=== PATIENT | male | born 1940 | race Caucasian/White ===

== ENCOUNTER 2016-09-30 19:31 | Inpatient (IN) ==
[2016-09-30] MEDS ORDERED: 0.9 % Sodium Chloride 1,000 ML IVC ONE (19:42)
--- NOTE | 2016-09-30 19:45 | Emergency Department Note ---
Disposition Clinical Impression: Chest pain, Atrial fibrillation with RVR, Frail elderly, Hypertension, HLD ( hyperlipidemia), Diabetes, Thoracic aneurysm without mention of rupture, Abdominal aortic aneurysm, Cholelithiasis, Renal insufficiency, Abnormal chest x -ray Disposition: Admitted As Inpatient Referrals: Unassigned,Provider [Non-Partnered Physician] - General Adult HPI - General Stated complaint: CP Time Seen by Provider: 09/30/16 19:33 - History of Present Illness HPI Narrative: 76-year-old male reports to the emergency department, he is complaining of chest pain. The patient came in by private automobile. He went to [facility] and was sent to the ED by Dr. Shin, the patient refused EMS transport. The patient states he was recently admitted to [facility] and evaluated, he states he had a heart attack about a week ago. The patient takes Xeralto for atrial fibrillation. The patient also describes having an aneurysm possibly in the abdomen. There is no history of trauma. The patient was sitting watching TV and developed sudden chest pain which radiated to the back he describes most the pain is between his scapula. He denies abdominal pain, no fever, no cough runny nose or pain or sore throat noted. There is no history of leg swelling or pain syncope or bleeding. No confusion or difficulty moving the arms or legs independently. The patient was at rest when his pain started, it started suddenly. There is no history of slurred speech or seizure-like activity. No other complaints or concerns. - Related Data Home Medications Medication Instructions Recorded Confirmed Diazepam [Valium] 10 mg PO HS 05/03/16 09/10/16 Ezetimibe [Zetia] 10 mg PO DAILY 05/03/16 09/10/16 Fenofibrate [Lofibra] 160 mg PO DAILY 05/03/16 09/10/16 Gabapentin [Neurontin] 300 mg PO TID 05/03/16 09/10/16 LORazepam [Ativan] 0.5 mg PO BID 05/03/16 09/10/16 Levothyroxine [Synthroid] 50 mcg PO DAILY 05/03/16 09/10/16 Metformin [Glucophage] 500 mg PO BIDWM 05/03/16 09/10/16 OxyCODONE/APAP 10/325 [Percocet 1 each PO Q4HR PRN 11/28/16 04/07/17 10/325 MG] Testosterone Cypionate 50 mg IM Q2W 05/03/16 09/10/16 [Depo-Testosterone] Aspirin [Lo-Dose Aspirin EC] 81 mg PO DAILY 09/10/16 09/10/16 Niacin 500 mg PO BID 09/10/16 09/10/16 Tamsulosin HCl [Flomax] 0.4 mg PO DAILY 09/10/16 09/10/16 Previous Rx's Medication Instructions Recorded Metoprolol XL (24 HR) Succ [Toprol 50 mg PO DAILY #30 tab.er.24h 09/11/16 XL] Allergies Allergy/AdvReac Type Severity Reaction Status Date / Time No Known Allergies Allergy Verified 09/10/16 19:06 All systems ED: reviewed and negative except as stated. Past Medical History - Past Medical History Medical history: Reports: diabetes, hyperlipidemia, hypertension, myocardial infarction Psychiatric history: Reports: anxiety, depression - Social History Smoking Status: Former smoker Smokeless Tobacco Status: No Alcohol use: Reports: rarely Drug use: Reports: none Physical Exam - General Limitations: no limitations General appearance: alert, in no apparent distress, anxious - Head Head exam: atraumatic, normocephalic, normal inspection - Eye Eye exam: Present: normal appearance, PERRL, EOMI. Absent: scleral icterus, conjunctival injection, miosis, mydriasis - ENT ENT exam: normal exam, normal oropharynx, mucous membranes moist, TM's normal bilaterally, normal external ear exam - Neck Neck exam: Present: normal inspection, full ROM, trachea midline. Absent: tenderness, meningismus - Chest Chest inspection: Present: normal inspection, symmetric chest wall rise. Absent : tenderness - Respiratory Respiratory exam: Present: normal lung sounds bilaterally. Absent: respiratory distress, accessory muscle use, prolonged expiratory phase - Cardiovascular Cardiovascular exam: Present: tachycardia, irregular rhythm - Abdominal Exam Abdominal exam: Present: soft, Non-Tender, normal bowel sounds. Absent: tenderness, distention, guarding, rebound, rigidity, trauma, pulsatile mass - Extremities Exam Extremities exam: Present: normal inspection, full ROM, normal capillary refill. Absent: tenderness, pedal edema, joint swelling, calf tenderness - Expanded Lower Extremity Exam Lower leg exam: Absent: Homans' sign Neurovascular/Tendon exam: Present: normal capillary refill. Absent: motor deficit, sensory deficit, tendon deficit, extremity cold to touch, pallor - Back Exam Back exam: Present: normal inspection, full ROM. Absent: tenderness, CVA tenderness (R), CVA tenderness (L), vertebral tenderness - Neurological Exam Neurological exam: Present: alert, oriented X3, CN II-XII intact. Absent: motor sensory deficit - Psychiatric Psychiatric exam: Present: normal affect, normal mood - Skin Skin exam: Present: warm, intact, normal color, diaphoresis. Absent: rash, cyanosis, erythema, pallor, mottled Course - Reevaluation(s) Reevaluation #1: On review the records, the patient had a recent stress test which was negative, he had an elevated troponin with the highest value being 0.06. Vital Signs Temperature 98.4 F 09/30/16 19:33 Pulse Rate 121 09/30/16 19:33 Respiratory Rate 20 09/30/16 19:33 Blood Pressure 110/72 09/30/16 19:33 O2 Sat by Pulse Oximetry 92 09/30/16 19:33 Temperature 98.4 F 09/30/16 19:33 Pulse Rate 98 09/30/16 22:07 Respiratory Rate 16 09/30/16 22:07 Blood Pressure 96/68 09/30/16 22:07 O2 Sat by Pulse Oximetry 97 09/30/16 22:07 Oxygen Delivery Oxygen Delivery Room Air Medical Decision Making - [facility] Narrative Medical decision making narrative: The patient is elderly, he is complaining of chest pain, his EKG shows atrial fibrillation with rapid ventricular response, Cardizem was ordered care. IV fluids were given. Initial chest x-ray suggestive of pneumonitis, Levaquin ordered blood culture sent. The patient's chest CT and abdominal CT indicate aneurysm without jimbo rupture. The patient is currently taking Xarelto, aspirin was ordered as a precaution. Based on the patient's multiple comorbidities including age, abnormal EKG, tachycardia, abnormal chest x-ray, thoracicoabdominal aneurysm, diabetes mellitus, hypertension, hyperlipidemia, and acute chest pain, I think the patient require hospital admission. The patient reportedly had a recent negative stress test. His cardiac enzymes are negative on the first set. I discussed the case with the admitting hospitalist who has accepted the patient to their care. Currently stable. - Lab Data Lab results reviewed: Yes I reviewed the patient's lab results. Result diagrams: 09/30/16 19:48 09/30/16 19:48 Lab Results 09/30/16 09/30/16 09/30/16 Range/Units 19:48 19:48 19:48 WBC (4.3-11.1) K/mcL RBC (4.19-5.50) M/mcL Hgb (12.9-16.9) g/dL Hct (37.5-50.1) % MCV (83.0-100.0) fL MCH (28.0-33.3) pg MCHC (31.6-35.5) g/dL RDW (11.5-14.5) % Plt Count (140-400) K/mcL MPV (9.4-12.4) fL Immature Gran % (0-4) % Seg Neutrophils % % Lymphocytes % % Monocytes % % Eosinophils % % Basophils % % Neutrophils # (1.6-8.9) K/mcL Lymphocytes # (0.6-4.6) K/mcL Monocytes # (0.0-1.3) K/mcL Eosinophils # (0.0-0.6) K/mcL Basophils # (0.0-0.2) K/mcL PT 16.7 H (9.4-12.1) Seconds INR 1.5 APTT 39.3 H (26.0-36.0) Seconds Sodium 142 (136-145) mEq/L Potassium 3.7 (3.5-4.5) mEq/L Chloride 106 (98-109) mEq/L Carbon Dioxide 25 (19-29) mEq/L BUN 23 (8-26) mg/dL Creatinine 1.44 H (0.72-1.25) mg/dL Est GFR ( Amer) 58 L (> 60) Est GFR (Non-Af Amer) 48 L (> 60) BUN/Creatinine Ratio 16 (6-26) Glucose 168 H (70-99) mg/dL Calculated Osmolality 302 H (280-300) Lactic Acid (0.5-2.2) mmol/L Calcium 9.1 (8.6-10.8) mg/dL Total Bilirubin 1.0 (0.2-1.2) mg/dL Direct Bilirubin 0.4 (0.0-0.5) mg/dL Indirect Bilirubin 0.6 (0.0-1.2) mg/dL AST 18 (5-34) Units/L ALT 14 (0-55) Units/L Alkaline Phosphatase 35 L (38-126) Units/L Troponin I (0-0.03) ng/mL C-Reactive Protein 6 H (Less than 5) mg/L B-Natriuretic Peptide 290 H (0-100) pg/mL Serum Total Protein 6.9 (6.0-8.3) g/dL Albumin 3.8 (3.5-5.0) g/dL Globulin 3.1 (2.4-3.5) g/dL Albumin/Globulin Ratio 1.2 (1.1-2.2) Lipase 28 (8-78) Units/L 09/30/16 09/30/16 09/30/16 Range/Units 19:48 19:48 19:48 WBC 8.7 (4.3-11.1) K/mcL RBC 4.74 (4.19-5.50) M/mcL Hgb 15.8 (12.9-16.9) g/dL Hct 46.6 (37.5-50.1) % MCV 98.3 (83.0-100.0) fL MCH 33.3 (28.0-33.3) pg MCHC 33.9 (31.6-35.5) g/dL RDW 14.2 (11.5-14.5) % Plt Count 228 (140-400) K/mcL MPV 10.9 (9.4-12.4) fL Immature Gran % 0.2 (0-4) % Seg Neutrophils % 67.9 % Lymphocytes % 20.6 % Monocytes % 9.9 % Eosinophils % 0.9 % Basophils % 0.5 % Neutrophils # 5.9 (1.6-8.9) K/mcL Lymphocytes # 1.8 (0.6-4.6) K/mcL Monocytes # 0.9 (0.0-1.3) K/mcL Eosinophils # 0.1 (0.0-0.6) K/mcL Basophils # 0.0 (0.0-0.2) K/mcL PT (9.4-12.1) Seconds INR APTT (26.0-36.0) Seconds Sodium (136-145) mEq/L Potassium (3.5-4.5) mEq/L Chloride (98-109) mEq/L Carbon Dioxide (19-29) mEq/L BUN (8-26) mg/dL Creatinine (0.72-1.25) mg/dL Est GFR ( Amer) (> 60) Est GFR (Non-Af Amer) (> 60) BUN/Creatinine Ratio (6-26) Glucose (70-99) mg/dL Calculated Osmolality (280-300) Lactic Acid 1.6 (0.5-2.2) mmol/L Calcium (8.6-10.8) mg/dL Total Bilirubin (0.2-1.2) mg/dL Direct Bilirubin (0.0-0.5) mg/dL Indirect Bilirubin (0.0-1.2) mg/dL AST (5-34) Units/L ALT (0-55) Units/L Alkaline Phosphatase (38-126) Units/L Troponin I 0.03 (0-0.03) ng/mL C-Reactive Protein (Less than 5) mg/L B-Natriuretic Peptide (0-100) pg/mL Serum Total Protein (6.0-8.3) g/dL Albumin (3.5-5.0) g/dL Globulin (2.4-3.5) g/dL Albumin/Globulin Ratio (1.1-2.2) Lipase (8-78) Units/L - Radiology Data Radiology results reviewed: Yes I reviewed the patient's radiology results.
[2016-09-30] MEDS ORDERED: *HR* Morphine 2 MG/ML SYRINGE IVP ONE (19:46)
[2016-09-30] MEDS ORDERED: Ondansetron 4 MG/2 ML VIAL IVP ONE (19:46)
[2016-09-30] MEDS ORDERED: *HR* Metoprolol 5 MG/5 ML VIAL IVP ONE (19:49)
[2016-09-30 19:59] LABS: Basophils % 0.5 %; Eosinophils # 0.1 K/mcL (0.0-0.6); Eosinophils % 0.9 %; Hematocrit 46.6 % (37.5-50.1); Hemoglobin 15.8 g/dL (12.9-16.9); Immature Granulocytes % 0.2 % (0-4); Lymphocytes # 1.8 K/mcL (0.6-4.6); Lymphocytes % 20.6 %; Mean Corpuscular HGB Conc 33.9 g/dL (31.6-35.5); Mean Corpuscular Hemoglobin 33.3 pg (28.0-33.3); Mean Corpuscular Volume 98.3 fL (83.0-100.0); Mean Platelet Volume 10.9 fL (9.4-12.4); Monocytes # 0.9 K/mcL (0.0-1.3); Monocytes % 9.9 %; Neutrophils # 5.9 K/mcL (1.6-8.9); Platelet Count 228 K/mcL (140-400); Red Blood Count 4.74 M/mcL (4.19-5.50); Red Cell Distribution Width 14.2 % (11.5-14.5); Segmented Neutrophils % 67.9 %
[2016-09-30 20:13] LABS: INR 1.5; Prothrombin Time 16.7 Seconds (9.4-12.1)
[2016-09-30 20:15] LABS: Activated Partial Thrombo Time 39.3 Seconds (26.0-36.0)
[2016-09-30 20:16] LABS: Albumin 3.8 g/dL (3.5-5.0); Albumin/Globulin Ratio 1.2 (1.1-2.2); Bilirubin,Direct 0.4 mg/dL (0.0-0.5); Bilirubin,Indirect 0.6 mg/dL (0.0-1.2); Calcium 9.1 mg/dL (8.6-10.8); Globulin 3.1 g/dL (2.4-3.5); Potassium 3.7 mEq/L (3.5-4.5); Total Protein 6.9 g/dL (6.0-8.3)
[2016-09-30] MEDS ORDERED: Levofloxacin 750 MG/150 ML 750 MG/150 ML BAG IVPB ONE (20:22)
[2016-09-30] MEDS ORDERED: Aspirin 325 MG TABLET PO ONE (22:17)
[2016-09-30] MEDS ORDERED: Naloxone 0.4 MG/ML INJ IVP PRN (23:13)
[2016-09-30] MEDS ORDERED: *HR* LORazepam 0.5 MG TABLET PO PRN (23:14)
[2016-09-30] MEDS ORDERED: Dextrose Gel 15 GM PO PRN ×2 (23:19)
[2016-09-30] MEDS ORDERED: *HR* Dextrose 50 % in Water (Syg) 50 ML SYRINGE IVP PRN (23:19)
[2016-09-30] MEDS ORDERED: D5% in Water 1,000 ML IVC PRN (23:19)
--- NOTE | 2016-09-30 23:34 | Internal Med History&Physical ---
Date of Encounter: 09/30/16 Time of Encounter: 23:30 Assessment and Plan (1) Chest pain Current visit: Yes Status: Acute patient no prior documented history of CAD coming in with chest pain concerning for ACS twice in a moth, he had a negative nuclear stress test just about 2 weeks ago and comes in with chest pain that is concerning in addition to the fact that he has significant risk factors for CAD, his admission EKG was AFIB with RVR in the 150's but no clear ischemic changes we will admit to cycle troponin, telemonitor, check A1c and lipid panel and have cardiology weigh in regarding consideration of left heart cath Qualifiers: Chest pain type: precordial pain Qualified Code(s): R07.2 - Precordial pain (2) Atrial fibrillation Current visit: Yes Status: Acute hx of paroxysmal AFIB who was admitted in RVR of 153, currently resolved, we will continue systemic anticoagulation with xarelto and rate control with metoprolol, he is also on digoxin Qualifiers: Atrial fibrillation type: paroxysmal Qualified Code(s): I48.0 - Paroxysmal atrial fibrillation (3) Hypertension Current visit: Yes Status: Chronic Hx of HTN on multiple medications, we will continue them with BP monitoring Qualifiers: Hypertension type: essential hypertension Qualified Code(s): I10 - Essential (primary) hypertension (4) Diabetes Current visit: Yes Status: Chronic patient with a history of type 2 DM not on insulin therapy, his most recent A1c was 5.6 in 06/2016 signifying resolution of his DM, we will check with his admission, for now low dose SSI for coverage with FS Q6H whilst NPO Qualifiers: Diabetes mellitus type: type 2 Diabetes mellitus complication status: with kidney complications Diabetes mellitus complication detail: with chronic kidney disease Diabetes mellitus mcc insulin use: without mcc use Chronic kidney disease stage: stage 3 (moderate) Qualified Code(s): E11.22 - Type 2 diabetes mellitus with diabetic chronic kidney disease; N18.3 - Chronic kidney disease, stage 3 (moderate) (5) Abdominal aortic aneurysm Current visit: Yes Status: Chronic we will defer to vascular surgery to weigh in Qualifiers: Presence of rupture: without rupture Qualified Code(s): I71.4 - Abdominal aortic aneurysm, without rupture Internal Medicine - H&P: HPI Chief complaint: Chest pain Admitted From: Emergency Dept Plans for Post Hospital Care: Home History of present illness: Mr. Slater is a 76 year old male with no prior documented history of CAD who was brought to the ER of [facility] for chest pain. He was in his usual state of health until this evening when he began to have chest pain that was retrosternal in location. The pain was initially sharp in character but later became pressure like, it radiated to below his shoulder blades and was constant. It was worse with exertion and was 8/10 in severity. It was slightly relieved with aspirin about 3 hours after he took it. It was associated with diaphoresis, lightheadedness, dyspnea, palpitations but no nausea or vomiting. He went to the urgent care for that reason but he was planned for a transfer to the nearest facility but he preferred to come here so his drove him here to the ER of [facility]. Of note he reports that about 2 weeks ago he was seen at [facility] for chest pain and had a negative nuclear stress test. He had a left heart cath about 4-5 years ago for which no stent was placed. In the ER he was noted to be in AFIB with RVR, his chest pain subsided when his rate was controlled. He was also noted to have a stable thoracic aneurysm and an abdominal aortic aneurysm. He is being admitted for further management. PAST MEDICAL HISTORY: Diabetes mellitus, aortic aneurysm of the arch, chronic low-back pain, Diastolic dysfunction for Ech in 2012, normal LVEF at the time PAST SURGICAL HISTORY: Right parotid gland removal for prior stone. Foot surgery. SOCIAL HISTORY: He smoked minimally in the past but quit >10 years. He states he does drink alcohol but he only drinks on the weekend. He is nonalcoholic. 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 He is . FAMILY HISTORY: Mother of cancer in 1965. Father in World War II. He does not know of any other family history Past Med Surg Social Fam HX - Past Medical History Medical history: diabetes, hyperlipidemia, hypertension, myocardial infarction Psychiatric history: anxiety, depression - Social History Smoking Status: Former smoker Smokeless Tobacco Status: No Alcohol use: rarely Drug use: none - Family History Mother Family Member Ethnicity: Non- Living Status: Age at : 64 Cause of : Breast cancer Hx Family Cancer: Yes (Breast cancer) Internal Medicine - H&P: Meds Diazepam [Valium] 10 mg PO HS 05/03/16 [History] Ezetimibe [Zetia] 10 mg PO DAILY 05/03/16 [History] Fenofibrate [Lofibra] 160 mg PO DAILY 05/03/16 [History] Gabapentin [Neurontin] 300 mg PO TID 05/03/16 [History] LORazepam [Ativan] 0.5 mg PO BID 05/03/16 [History] Levothyroxine [Synthroid] 50 mcg PO DAILY 05/03/16 [History] Metformin [Glucophage] 500 mg PO BIDWM 05/03/16 [History] OxyCODONE/APAP 10/325 [Percocet 10/325 MG] 1 each PO Q4HR PRN 05/03/16 [History] Testosterone Cypionate [Depo-Testosterone] 100 mg IM Q2W 05/03/16 [History] Aspirin [Lo-Dose Aspirin EC] 81 mg PO DAILY 09/10/16 [History] Niacin 500 mg PO BID 09/10/16 [History] Tamsulosin HCl [Flomax] 0.4 mg PO DAILY 09/10/16 [History] Metoprolol XL (24 HR) Succ [Toprol XL] 50 mg PO DAILY #30 tab.er.24h 09/11/16 [ Rx] Amlodipine Besylate 10 mg PO DAILY 09/30/16 [History] Digoxin [Lanoxin] 0.125 mg PO DAILY 09/30/16 [History] Losartan/Hydrochlorothiazide [Hyzaar 100-25 Tablet] 1 each PO DAILY 09/30/16 [ History] Multivitamin [Multi-Day Vitamins] 1 each PO DAILY 09/30/16 [History] Naloxegol Oxalate [Movantik] 25 mg PO DAILY 09/30/16 [History] Rivaroxaban [Xarelto] 20 mg PO DAILY 09/30/16 [History] Allergies No Known Allergies Allergy (Verified 09/10/16 19:06) All Systems PM: A 10-system review of systems was performed and is negative for pertinent findings except as documented above in the HPI. - Constitutional Vitals: Temp Pulse Resp BP Pulse Ox 98.4 F 83 16 104/64 97 09/30/16 19:33 09/30/16 23:11 09/30/16 23:11 09/30/16 23:11 09/30/16 23:11 - General General appearance: Adult male, lying in bed with no sign of pain or distress, obese looking - Head Head exam: atraumatic, normocephalic, normal inspection - Eye Eye exam: Present: normal appearance, JT, EOMI. Absent: scleral icterus, conjunctival injection, - ENT ENT exam: normal exam, normal oropharynx, mucous membranes moist, TM's normal bilaterally, normal external ear exam - Neck Neck exam: Present: normal inspection, full ROM, trachea midline. - Respiratory Respiratory exam: diminished lung sounds bilaterally, no crackles or wheeze - Cardiovascular Cardiovascular exam: tachycardia, irregular rhythm, no murmurs heard, no ankle edema noted - Abdominal Exam Abdominal exam: Present: soft, Non-Tender, normal bowel sounds. Absent: tenderness, distention, guarding, rebound, rigidity, trauma, pulsatile mass - Extremities Exam Extremities exam: Present: normal inspection, full ROM, normal capillary refill. Absent: tenderness, pedal edema, joint swelling, calf tenderness - Neurological Exam Neurological exam: alert, oriented X3, CN II-XII intact, non focal motor or sensory exam - Psychiatric Psychiatric exam: Present: normal affect, normal mood - Skin Skin exam: warm, intact, normal color, tattoos on the bilateral upper extremities Internal Med - H&P Results - Labs CBC & Chem 7: 09/30/16 19:48 09/30/16 19:48 - EKG Data -: EKG Interpreted by Myself - Diagnostic Studies Chest x-ray Status: image reviewed by me CT scan - chest Status: image reviewed by me CT scan - abdomen Status: image reviewed by me
[2016-09-30 23:51] LABS: Phosphorous 1.5 mg/dL (2.3-4.7)
[2016-10-01] MEDS: Insulin LISPRO 300 UNITS/3 ML VIAL SQ SCH ×5 (02:28→20:52)
[2016-10-01] MEDS ORDERED: diazePAM 10 MG TABLET PO ONE (02:33)
[2016-10-01] MEDS: *HR* OxyCODONE/APAP 10/325 TABLET PO PRN ×3 (02:40→20:23)
[2016-10-01 06:52] LABS: Hemoglobin A1C 5.6 %
[2016-10-01 07:05] LABS: BUN/Creatinine Ratio 17 (6-26); Blood Urea Nitrogen 23 mg/dL (8-26); Calcium 8.4 mg/dL (8.6-10.8); Carbon Dioxide 28 mEq/L (19-29); Chloride 109 mEq/L (98-109); Chol/HDL Ratio 4.3 (0-4.9); Cholesterol 112 mg/dL (< 200); Glucose 87 mg/dL (70-99); HDL Cholesterol 26 mg/dL (40-59); LDL Cholesterol,Calculated 69 mg/dL (0-99); Magnesium 2.1 mg/dL (1.6-2.6); Osmolality,Calculated 299 (280-300); Potassium 4.2 mEq/L (3.5-4.5); Sodium 143 mEq/L (136-145); Triglycerides 86 mg/dL (< 150); eGFR For African Americans > 60 (> 60); eGFR For Non-African Americans 51 (> 60)
[2016-10-01] MEDS: Niacin (24 HR) 500 MG TAB.ER.24H PO SCH (08:46)
[2016-10-01] MEDS: Multivit/Ca/Min/Fe/FA 1 TAB TABLET PO SCH (08:46)
[2016-10-01] MEDS: Metoprolol XL (24 HR) Succ 50 MG TAB.ER.24H PO SCH (08:46)
[2016-10-01] MEDS: Aspirin Enteric Coated 81 MG Tablet PO SCH (08:46)
[2016-10-01] MEDS: Gabapentin 300 MG CAPSULE PO SCH ×3 (08:47→20:22)
[2016-10-01] MEDS: Fenofibrate 54 MG TABLET PO SCH (08:47)
[2016-10-01] MEDS: amLODIPine 5 MG TABLET PO SCH (08:47)
[2016-10-01] MEDS: *HR* Digoxin 0.125 MG TABLET PO SCH (08:47)
[2016-10-01] MEDS: Losartan/HCTZ 50-12.5 TABLET PO SCH (08:47)
[2016-10-01] MEDS ORDERED: (Naloxegol Oxalate [Movantik] 25 MG) PO SCH (09:00)
[2016-10-01] MEDS ORDERED: (Ezetimibe [Zetia] 10 MG) PO SCH (09:00)
[2016-10-01] MEDS ORDERED: *HR* Rivaroxaban 10 MG TABLET PO SCH (09:00)
--- NOTE | 2016-10-01 09:29 | Cardiology Consult Note ---
Date of Encounter: 10/01/16 Time of Encounter: 09:27 Assessment and Plan (1) NSTEMI (non-ST elevated myocardial infarction) Current Visit: Yes Status: Acute Initial troponin negative, then 1.10. Midsternal and left sided chest pain yesterday associated with diaphoresis, dyspnea, palpitations, lightheadedness. Pt currently chest pain free. On Xarelto for PAF--has not had in 2 days. Will start heparin gtt. Check echo to evaluate structure and function. Recommend LHC. R/B/A discussed. Pt agrees to proceed. LHC today. 7 beat NSVT noted on tele. Heparin gtt, ASA, Statin, BB. (2) CKD (chronic kidney disease), stage III Current Visit: Yes Status: Acute Creatinine 1.37--near baseline. Will monitor closely with plan for [facility]. (3) Atrial fibrillation Current Visit: Yes Status: Acute Recently diagnosed PAF. Was in A-Fib RVR rate 150s on admission, converted to SR and maintaining SR. Continue BB and Digoxin. Qualifiers: Atrial fibrillation type: paroxysmal Qualified Code(s): I48.0 - Paroxysmal atrial fibrillation (4) Abdominal aortic aneurysm Current Visit: Yes Status: Chronic CT shows infrarenal AAA 4.5 x 3.9cm. Stable broad based focal aneurysm from thoracic aortic arch. Qualifiers: Presence of rupture: without rupture Qualified Code(s): I71.4 - Abdominal aortic aneurysm, without rupture Discussion w patient/family: The assessment and plan as outlined above was discussed with the patient and/or family members who expressed understanding and agreement. All questions were answered. Thank you for involving us in the care of your patient. Please call with any questions. History of Present Illness Consult date: 10/01/16 Requesting physician: Barron Jean Consult reason: NSTEMI, PAF Chief complaint: Chest pain History of present illness: Mr. Slater is a 76 year old male recently diagnosed with PAF, has CKD Stage III, HTN, HLD, DM, AAA, who presented to ED with chest pain. It was midsternal, burning in nature, started at rest and radiated to his left chest. It was associated with diaphoresis, lightheadedness, dyspnea, palpitations but no nausea or vomiting. [facility] 2013 minimal CAD. In the ER he was noted to be in AFIB with RVR, his chest pain subsided when his rate was controlled. He was also noted to have a stable thoracic aneurysm and an abdominal aortic aneurysm. Initial troponin 0.03, then 1.10. He is currently chest pain free. Negative stress test 09/28/16. Past Med Surg Social Fam HX - Past Medical History Medical history: diabetes, hyperlipidemia, hypertension, myocardial infarction Psychiatric history: anxiety, depression - Social History Smoking Status: Former smoker Smokeless Tobacco Status: No Alcohol use: rarely Drug use: none - Family History Mother Family Member Ethnicity: Non- Living Status: Age at : 65 Cause of : Breast cancer Hx Family Cancer: Yes (Breast cancer) Medications and Allergies Diazepam [Valium] 10 mg PO HS 05/03/16 [History] Ezetimibe [Zetia] 10 mg PO DAILY 05/03/16 [History] Fenofibrate [Lofibra] 160 mg PO DAILY 05/03/16 [History] Gabapentin [Neurontin] 300 mg PO TID 05/03/16 [History] LORazepam [Ativan] 0.5 mg PO BID 05/03/16 [History] Levothyroxine [Synthroid] 50 mcg PO DAILY 05/03/16 [History] Metformin [Glucophage] 500 mg PO BIDWM 05/03/16 [History] OxyCODONE/APAP 10/325 [Percocet 10/325 MG] 1 each PO Q4HR PRN 05/03/16 [History] Testosterone Cypionate [Depo-Testosterone] 100 mg IM Q2W 05/03/16 [History] Aspirin [Lo-Dose Aspirin EC] 81 mg PO DAILY 09/10/16 [History] Niacin 500 mg PO BID 09/10/16 [History] Tamsulosin HCl [Flomax] 0.4 mg PO DAILY 09/10/16 [History] Metoprolol XL (24 HR) Succ [Toprol XL] 50 mg PO DAILY #30 tab.er.24h 09/11/16 [ Rx] Amlodipine Besylate 10 mg PO DAILY 09/30/16 [History] Digoxin [Lanoxin] 0.125 mg PO DAILY 09/30/16 [History] Losartan/Hydrochlorothiazide [Hyzaar 100-25 Tablet] 1 each PO DAILY 09/30/16 [ History] Multivitamin [Multi-Day Vitamins] 1 each PO DAILY 09/30/16 [History] Naloxegol Oxalate [Movantik] 25 mg PO DAILY 09/30/16 [History] Rivaroxaban [Xarelto] 20 mg PO DAILY 09/30/16 [History] Allergies No Known Allergies Allergy (Verified 09/10/16 19:06) All Systems Review: A 10-system review of systems was performed and is negative for pertinent findings except as documented above in the HPI. - Constitutional Constitutional: fatigue - Cardiovascular Cardiovascular: as per HPI, chest pain at rest, chest pain with exertion, diaphoresis, dyspnea at rest, dyspnea on exertion, irregular heart rhythm, lightheadedness, palpitations, rapid heart rate - Respiratory Respiratory: dyspnea Physical Examination Vital Signs, Last 4 Hours Temp Pulse Resp BP Pulse Ox 10/01/16 07:52 97.9 F 69 18 104/63 98 Vital Signs Temp Pulse Resp BP Pulse Ox 10/01/16 07:52 97.9 F 69 18 104/63 98 10/01/16 02:03 97.8 F 71 19 117/71 97 10/01/16 02:00 97 10/01/16 00:45 72 16 99/56 98 10/01/16 00:36 78 18 102/63 98 09/30/16 23:38 18 104/64 09/30/16 23:11 83 16 104/64 97 09/30/16 22:47 88 18 118/62 95 09/30/16 22:07 98 16 96/68 97 09/30/16 21:37 118 18 96 09/30/16 20:59 126 18 101/66 95 09/30/16 20:08 142 20 113/60 96 09/30/16 19:47 96 09/30/16 19:33 98.4 F 121 20 110/72 92 Intake and Output 09/30/16 10/01/16 10/01/16 23:59 07:59 15:59 Intake Total 1150 / 1150 0 / 0 Output Total 0 / 0 150 / 150 Balance 1150 / 1150 0 / 0 -150 / -150 Intake: IV Fluids 1150 / 1150 0.9 % Sodium Chloride 1, 1000 / 1000 000 ML @ 3750 mls/hr IVC .Q16M ONE Rx#:[id number] Levaquin 750mg/150 mL 750 150 / 150 mg In 150 ml @ 100 mls/ hr IVPB ONCE ONE Rx#: [id number] Oral 0 / 0 Output: Urine 0 / 0 150 / 150 Other: Weight 83.915 kg 83.8 kg Blood Glucose* 85 Patient Weight 10/01/16 23:59 Weight 83.8 kg General: Conversant, No Apparent Distress HEENT: Atraumatic, Normocephaly, Mucus Membranes Moist Neck: No JVD, Normal carotid pulses Cardiac: Reg Rate and Rhythm, Normal S1 and S2, No Murmur Lungs: Normal Breath Sounds, No Wheeze, Rales, Rhonchi Neuro: Alert and responsive, No focal deficits noted Abdomen: Soft, Non-Tender Skin: No rashes noted on visualized skin Musculoskeletal: No Chest Wall Tenderness Extremities: No Clubbing, No Cyanosis, No Edema, Normal Pulses Results 09/30/16 19:48 10/01/16 06:10 Lab Results 10/01/16 10/01/16 06:10 06:10 Sodium 143 Potassium 4.2 Chloride 109 Carbon Dioxide 28 BUN 23 Creatinine 1.37 H Glucose 87 Calcium 8.4 L Magnesium 2.1 Troponin I 1.10 H* Short CBC 09/30/16 Range/Units 19:48 WBC 8.7 (4.3-11.1) K/mcL Hgb 15.8 (12.9-16.9) g/dL Hct 46.6 (37.5-50.1) % Plt Count 228 (140-400) K/mcL Neutrophils # 5.9 (1.6-8.9) K/mcL BMP 10/01/16 09/30/16 Range/Units 06:10 19:48 Sodium 143 142 (136-145) mEq/L Potassium 4.2 3.7 (3.5-4.5) mEq/L Chloride 109 106 (98-109) mEq/L Carbon Dioxide 28 25 (19-29) mEq/L BUN 23 23 (8-26) mg/dL Creatinine 1.37 H 1.44 H (0.72-1.25) mg/dL Glucose 87 168 H (70-99) mg/dL Calcium 8.4 L 9.1 (8.6-10.8) mg/dL Cardiac Enzymes 10/01/16 09/30/16 Range/Units 06:10 19:48 Troponin I 1.10 H* 0.03 (0-0.03) ng/mL Liver Function 09/30/16 Range/Units 19:48 Total Bilirubin 1.0 (0.2-1.2) mg/dL Direct Bilirubin 0.4 (0.0-0.5) mg/dL AST 18 (5-34) Units/L ALT 14 (0-55) Units/L Alkaline Phosphatase 35 L (38-126) Units/L Albumin 3.8 (3.5-5.0) g/dL Impressions Chest X-Ray 09/30/16 19:34 IMPRESSION: Focal opacity at the right lateral lung base may represent atelectasis or developing infiltrate. D/ / Nathaniel Longoria MD / Nathaniel Longoria MD Interpreting Provider: Nathaniel Longoria MD Abdomen/Pelvis CTA 09/30/16 19:42 IMPRESSION: 1. Stable broad-based focal aneurysm arising from the thoracic aortic arch. 2. Slightly enlarged infrarenal abdominal aortic aneurysm measuring approximately up to 4.5 x 3.9 cm in greatest transverse dimensions. 3. Cholelithiasis. D/ / 09/30/2016 22:12:35 Diomedes Mccarty MD / samira Interpreting Provider: Diomedes Mccarty MD Chest CTA 09/30/16 19:42 IMPRESSION: 1. Stable broad-based focal aneurysm arising from the thoracic aortic arch. 2. Slightly enlarged infrarenal abdominal aortic aneurysm measuring approximately up to 4.5 x 3.9 cm in greatest transverse dimensions. 3. Cholelithiasis. D/ / 09/30/2016 22:12:35 Diomedes Mccarty MD / samira Interpreting Provider: Diomedes Mccarty MD Active Medications Amlodipine Besylate (Norvasc) 10 mg PO DAILY HONORIO Stop: 04/02/17 09:01 Last Admin: 10/01/16 08:47 Dose: 10 mg Aspirin (Aspirin Ec) 81 mg PO DAILY HONORIO Stop: 04/02/17 09:01 Last Admin: 10/01/16 08:46 Dose: 81 mg Dextrose/Water (Dextrose 50% (Syg)) 25 ml IVP AD PRN PRN Reason: Hypoglycemia Stop: 04/01/17 23:20 Diazepam (Valium) 10 mg PO HS [facility]ONORIO Stop: 04/02/17 21:01 Digoxin (Lanoxin) 0.125 mg PO DAILY HONORIO Stop: 04/02/17 09:01 Last Admin: 10/01/16 08:47 Dose: 0.125 mg Fenofibrate (Tricor) 162 mg PO DAILY [facility]IO Stop: 04/02/17 09:01 Last Admin: 10/01/16 08:47 Dose: 162 mg Gabapentin (Neurontin) 300 mg PO TID [facility]ONORIO Stop: 04/02/17 09:01 Last Admin: 10/01/16 08:47 Dose: 300 mg Glucagon (Glucagen) 1 mg IM ONCE PRN PRN Reason: Hypoglycemia Stop: 04/01/17 23:20 Glucose (Gluctose) 15 gm PO ONCE PRN PRN Reason: Hypoglycemia Stop: 04/01/17 23:20 Glucose (Gluctose) 30 gm PO ONCE PRN PRN Reason: Hypoglycemia Stop: 04/01/17 23:20 HCTZ/Losartan Potassium (Hyzaar 50/12.5) 2 each PO DAILY [facility]ON[facility]IO Stop: 04/02/17 09:01 Last Admin: 10/01/16 08:47 Dose: Not Given Dextrose (Dextrose 5%) 1,000 mls @ 100 mls/hr IVC .Q10H PRN PRN Reason: HYPOGLYCEMIA Stop: 04/01/17 23:20 Insulin Human Lispro (Humalog) 0 units SQ Q6HR HONORIO PRN Reason: Protocol Stop: 04/02/17 00:01 Last Admin: 10/01/16 06:30 Dose: Not Given Levothyroxine Sodium (Synthroid) 50 mcg PO DAILY [facility]IO Stop: 04/02/17 09:01 Last Admin: 10/01/16 08:47 Dose: 50 mcg Lorazepam (Ativan) 0.5 mg PO BID PRN PRN Reason: anxiety Stop: 04/01/17 23:15 Metoprolol Succinate (Toprol Xl) 50 mg PO DAILY [facility] Stop: 04/02/17 09:01 Last Admin: 10/01/16 08:46 Dose: 50 mg Multivitamins/Calcium (Thera M Plus) 1 tab PO DAILY [facility]IO Stop: 04/02/17 09:01 Last Admin: 04/28/17 08:46 Dose: 1 tab Naloxone HCl (Narcan) 0.4 mg IVP Q2MIN PRN PRN Reason: Opioid Reversal Stop: 04/01/17 23:14 Niacin (Niaspan) 500 mg PO DAILY [facility]IO Stop: 04/02/17 09:01 Last Admin: 10/01/16 08:46 Dose: 500 mg Oxycodone/Acetaminophen (Percocet 10/325) 1 each PO Q4HR PRN PRN Reason: Pain Stop: 04/01/17 23:15 Last Admin: 10/01/16 09:02 Dose: 1 each Pharmacy Profile Note (Patient Taking Own Medication) 0 each PO DAILY [facility]IO Stop: 04/02/17 09:01 Last Admin: 10/01/16 08:47 Dose: Not Given Pharmacy Profile Note (Patient Taking Own Medication) 25 each PO DAILY [facility] Stop: 04/02/17 09:01 Last Admin: 10/01/16 08:47 Dose: Not Given Tamsulosin HCl (Flomax) 0.4 mg PO DAILY [facility]ORIO PRN Reason: Protocol Stop: 04/02/17 09:01 Last Admin: 10/01/16 08:46 Dose: 0.4 mg - Imaging and Cardiology Chest Xray: report reviewed Stress Test: report reviewed Cardiac cath: report reviewed (08/16/12: Impressions: Minimal atherosclerotic coronary artery disease. The left ventricle is hyperdynamic and hypertrophic, EF 70-75%. Moderate atherosclerotic plaque of the abdominal aorta.) - EKG Interpretation EKG results cardiology: personally reviewed, other (24 hour tele AVG HR 71, now SR, 7 beat run NSVT) Consult Discharge Plan - Plan Referrals: Beatriz Peters MD [Primary Care Provider] -
[2016-10-01] MEDS ORDERED: *HR* Midazolam HCl 2 MG/2 ML VIAL ONE (10:13)
[2016-10-01] MEDS ORDERED: *HR* FentaNYL (PF) 100 MCG/2 ML VIAL ONE (10:13)
[2016-10-01] MEDS ORDERED: 0.9 % Sodium Chloride 1,000 ML ONE ×2 (10:14→10:45)
[2016-10-01] MEDS ORDERED: Heparin 1,000 UNITS/500 mL NS 500 ML ONE (10:14)
[2016-10-01] MEDS ORDERED: *HR* Heparin 10,000 UNIT/10 ML VIAL ONE (10:14)
--- NOTE | 2016-10-01 10:27 | Pre-Sedation Evaluation ---
Pre-sedation evaluation - Pre-sedation checklist Date of procedure: 10/01/16 Procedure: [facility] Recent Vitals: Last Vital Signs Temp 97.9 F 10/01/16 07:52 Pulse 69 10/01/16 07:52 Resp 18 10/01/16 07:52 BP 104/63 10/01/16 07:52 Pulse Ox 98 10/01/16 07:52 H&P (including ROS) documented in medical record: Yes Previous reaction to sedatives/anesthetics: No Dietary Status: NPO after Midnight Airway Assessment: Patient can open mouth completely, TMJ function normal, Micrognathia (under-bite, receding chin) absent, Neck with adequate range of motion Dentition: No loose teeth or bridges Possible difficult airway: No ASA Classification *see protocol: CLASS II-Mild systemic disease Plan of Care: Pt appropriate candidate for procedure/moderate/conscious sedation , Risks/benefits of procedure/sedation discussed w/ patient/family
--- NOTE | 2016-10-01 13:02 | Cardiothoracic Consult Note ---
Date of Encounter: 10/01/16 Time of Encounter: 12:57 Assessment and Plan (1) Thoracic aneurysm without mention of rupture Current Visit: Yes Status: Acute The patient is a 76-year-old type II diabetic, hypertensive man with hypercholesterolemia and known CAD and known abdominal aortic aneurysm. The presented to [facility] with complaints of shortness of breath and palpitations. He was found to have atrial fibrillation with RVR and has been treated medically. He underwent a chest CT yesterday which revealed a broad-based thoracic aortic aneurysm in the distal aortic arch/proximal descending thoracic aorta. This should be evaluated for possible endovascular exclusion. I will speak with Dr. Fracisco Arndt regarding this possibility. If he does not require endovascular exclusion at this time, he should be followed with serial chest CTs to evaluate the progression of the aneurysm. The assessment and plan as outlined above was discussed with the patient and/or family members who expressed understanding and agreement. All questions were answered. Qualifiers: Presence of rupture: without rupture Qualified Code(s): I71.2 - Thoracic aortic aneurysm, without rupture - History of Present Illness Consult date: 10/01/16 Requesting physician: Barron Jean Consult reason: Thoracic aortic aneurysm evaluation. Chief complaint: Shortness of breath. History of present illness: Mr. Slater is a 76 year old type II diabetic, hypertensive man with known CAD and abdominal aortic aneurysm. The patient had sudden onset of substernal chest pain radiating to his left chest yesterday. This was associated with redness of breath, dyspnea on exertion, diaphoresis, and heart palpitations. The patient was initially evaluated at an urgent care facility and recommended for transfer to a tertiary Medical Center for evaluation. The patient elected to have his drive him to [facility] instead. During evaluation the patient was noted to have atrial fibrillation with RVR. The patient underwent a chest CT which revealed broad-based aneurysm involving the aortic arch/proximal descending thoracic aorta and a 4.5 cm x 3.9 cm infrarenal abdominal aortic aneurysm. The patient was admitted for control of his heart rate and further cardiac workup. The patient underwent cardiac catheterization today was found to have minimal coronary artery disease. He had 20-30% lesions in the LAD and LCx and a 60% mid RCA lesion. The patient was recommended for medical management of his atrial fibrillation. Past Med Surg Social Fam HX - Past Medical History Medical history: coronary artery disease, diabetes, hyperlipidemia, hypertension , myocardial infarction, other (Abdominal aortic aneurysm, aortic arch thoracic aortic aneurysm) Psychiatric history: anxiety, depression - Past Surgical History Surgical History: no surgical history - Social History Smoking Status: Former smoker Smokeless Tobacco Status: No Alcohol use: rarely Drug use: none Occupational status: retired Current living situation: Home - Independent Activity Level: Independent ambulation Recent Out of Country Travel Within the Last 8 Weeks: No Exposure or Possible Exposure to Illness During Travel: No - Family History Mother Family Member Ethnicity: Non- Living Status: Age at : 65 Cause of : Breast cancer Hx Family Cancer: Yes (Breast cancer) Medications and Allergies Diazepam [Valium] 10 mg PO HS 05/03/16 [History] Ezetimibe [Zetia] 10 mg PO DAILY 05/03/16 [History] Fenofibrate [Lofibra] 160 mg PO DAILY 05/03/16 [History] Gabapentin [Neurontin] 300 mg PO TID 05/03/16 [History] LORazepam [Ativan] 0.5 mg PO BID 05/03/16 [History] Levothyroxine [Synthroid] 50 mcg PO DAILY 05/03/16 [History] Metformin [Glucophage] 500 mg PO BIDWM 05/03/16 [History] OxyCODONE/APAP 10/325 [Percocet 10/325 MG] 1 each PO Q4HR PRN 05/03/16 [History] Testosterone Cypionate [Depo-Testosterone] 100 mg IM Q2W 05/03/16 [History] Aspirin [Lo-Dose Aspirin EC] 81 mg PO DAILY 09/10/16 [History] Niacin 500 mg PO BID 09/10/16 [History] Tamsulosin HCl [Flomax] 0.4 mg PO DAILY 09/10/16 [History] Metoprolol XL (24 HR) Succ [Toprol XL] 50 mg PO DAILY #30 tab.er.24h 09/11/16 [ Rx] Amlodipine Besylate 10 mg PO DAILY 09/30/16 [History] Digoxin [Lanoxin] 0.125 mg PO DAILY 09/30/16 [History] Losartan/Hydrochlorothiazide [Hyzaar 100-25 Tablet] 1 each PO DAILY 09/30/16 [ History] Multivitamin [Multi-Day Vitamins] 1 each PO DAILY 09/30/16 [History] Naloxegol Oxalate [Movantik] 25 mg PO DAILY 09/30/16 [History] Rivaroxaban [Xarelto] 20 mg PO DAILY 09/30/16 [History] Allergies No Known Allergies Allergy (Verified 09/10/16 19:06) All Systems Review: A 10-system review of systems was performed and is negative for pertinent findings except as documented above in the HPI. Physical Examination Vital Signs, Last 4 Hours Temp Pulse Resp BP Pulse Ox 10/01/16 12:05 97.6 F 64 18 90/61 94 General: Conversant, No Apparent Distress HEENT: Atraumatic, Normocephaly, Trachea midline Neck: No JVD, Normal carotid pulses Cardiac: Reg Rate and Rhythm, Normal S1 and S2, No Murmur Lungs: Normal Breath Sounds, No Wheeze, Rales, Rhonchi Neuro: Alert and responsive, No focal deficits noted Vascular: Normal capillary refill Abdomen: Soft, Non-tender Skin: No rashes noted on visualized skin Musculoskeletal: No Chest Wall Tenderness Extremities: No Clubbing, No Cyanosis, No Edema Results 09/30/16 19:48 10/01/16 06:10 Lab Results, Last 24 hours 10/01/16 10/01/16 06:10 06:10 Sodium 143 Potassium 4.2 Chloride 109 Carbon Dioxide 28 BUN 23 Creatinine 1.37 H Glucose 87 Calcium 8.4 L Magnesium 2.1 Troponin I 1.10 H* - Imaging Chest Xray: image reviewed (Normal cardiac size. Right lateral base focal opacity.) Consult Discharge Plan - Plan Referrals: Beatriz Peters MD [Primary Care Provider] -
--- NOTE | 2016-10-01 13:18 | Event Note ---
Date of Encounter: 10/01/16 Time of Encounter: 13:15 - Cardiology Event Note LHC revealed 50-60% proximal RCA stenosis. No intervention warranted. EF was preserved. Medical management recommended. Recommend DAPT (ASA and Plavix) x 1 month for NSTEMI. Recommend resuming Xarelto as long as no vascular surgery is planned. Adding Imdur 30mg daily. Follow-up as outpt in 1 week. Cardiology signing off. Reconsult PRN.
[2016-10-01] MEDS ORDERED: Sennosides/Docusate Sodium TABLET PO PRN (13:36)
--- NOTE | 2016-10-01 14:46 | Invasive Diagnostic Lab ---
Name: Mat Slater Date of Study: 10/01/2016 Date: 1940 Ht: 172.7 cm /68.0 in Medical Record#: [id number] Age: 76 Wt: 84.1 kg / 185.41 lb Account/Order#: [id number] Gender: Male BSA: 1.98 Order #: [id number] Fluoro Dose: 487 mGy BMI: 28.2 Procedure Physician: Yue Leong MD, FACC Referring MD: Referring MD: Procedures Performed: LEFT HEART CATH Indications: Non-Stemi Impressions: Single vessel coronary artery disease. The left ventricle is normal and has normal contractility EF 60% Recommendations: Optimal medical therapy of patient's disease. Aggressive risk factor modification. History/Risk Factors: AAA thoracic aneurysm GERD Diabetes Hypertension Dyslipidemia Prior [facility] Procedure Access obtained in the right Femoral artery by percutaneous puncture Complications: None Contrast: Isovue 75ml Closure Device: MynxGrip Hemodynamics: Pressures Site Systolic/ A Wave Diastolic/ V Wave End Diastolic/ Mean HR AO 57 38 47 76 LV 85 8 17 74 LV 79 35 38 75 AO 77 55 66 73 LV Ventriculography Ejection Method: LV Gram Ejection Fraction: 60% Wall Motion: PINEDA Anterobasal Normal Anterolateral Normal Apical: Normal Inferoapical Normal Inferobasal Normal Coronary Dominance: right Lesion Findings/Interventions * Left Main Coronary Artery There is a 30% stenosis in the LMCA. * Left Anterior Descending There is a 30% stenosis in the Proximal LAD. * Circumflex There is a 20% stenosis in the Proximal Circumflex. * Right Coronary Artery There is a 50-60% stenosis in the Proximal RCA. Updated by Misty Maddie, RT (R) on 10/01/2016 11:49:35 AM Yue Leong MD, FACC electronically signed on 10/01/2016 2:42:45 PM with status of Final
[2016-10-01] MEDS: Isosorbide MONOnitrate (24 HR) 30 MG TAB.ER.24H PO SCH (15:11)
--- NOTE | 2016-10-01 17:32 | Electrocardiograph Report ---
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
--- NOTE | 2016-10-01 17:47 | Electrocardiograph Report ---
[place] [address] Test Date: 2016-09-30 Pat Name: Mat Slater Department: 105 Room: 2NE34 Gender: M Bilingual Operator: : 1940 Requested By: Kingsley Marshall Order Number: [id number] Reading MD: Yue Leong Measurements Intervals [place] Rate: 153 P: HI: 0 QRS: -28 QRSD: 111 T: 124 QT: 246 QTc: 333 Interpretive Statements ATRIAL FIBRILLATION WITH RAPID VENTRICULAR RESPONSE WITH ABERRANT CONDUCTION OR VENTRICULAR PREMATURE COMPLEXES BORDERLINE LEFT AXIS DEVIATION [QRS AXIS < -20] MODERATE INTRAVENTRICULAR CONDUCTION DELAY [110+ ms QRS DURATION] MODERATE VOLTAGE CRITERIA FOR LVH, CONSIDER NORMAL VARIANT ST DEVIATION AND MODERATE T-WAVE ABNORMALITY, CONSIDER LATERAL ISCHEMIA Electronically Signed On 10-01-2016 17:45:32 EDT by Yue Leong
--- NOTE | 2016-10-01 19:14 | Internal Med Progress Note ---
Date of Encounter: 10/02/16 Time of Encounter: 19:13 - Assessment and plan (1) Chest pain Current Visit: Yes Status: Acute Assessment and plan: Patient was admitted with chest pain. Initial troponin was negative and then climbed up to 1.1. At this point patient does not have any chest pain. Patient is on anticoagulation for atrial ablation. Cardiology on the board. Cardiology recommended left heart catheterization. Qualifiers: Chest pain type: precordial pain Qualified Code(s): R07.2 - Precordial pain (2) Atrial fibrillation Current Visit: Yes Status: Acute Assessment and plan: Rate is well controlled. Anticoagulation with Xarelto Qualifiers: Atrial fibrillation type: paroxysmal Qualified Code(s): I48.0 - Paroxysmal atrial fibrillation (3) Hypertension Current Visit: Yes Status: Chronic Assessment and plan: At this point patient's blood pressure is absolutely well-controlled We will follow closely. Will continue present home medications. Qualifiers: Hypertension type: essential hypertension Qualified Code(s): I10 - Essential (primary) hypertension (4) Diabetes Current Visit: Yes Status: Chronic Assessment and plan: Well-controlled at this point. Will continue the home medications. 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 Chart reviewed. Patient is comfortably sitting in the bed. Patient denies chest pain, shortness of breath. - Constitutional Vitals: Temp Pulse Resp BP Pulse Ox 97.3 F L 79 18 124/71 98 10/01/16 15:29 10/01/16 15:29 10/01/16 15:29 10/01/16 15:29 10/01/16 15:29 - Head Head exam: Present: atraumatic, normocephalic - Eye Eye exam: Present: PERRL, conjuntiva pink, sclera anicteric Pupils: Present: PERRL - Neck Neck exam general surgery: Present: supple, trachea midline. Absent: lymphadenopathy - Respiratory Respiratory exam: Present: CTAB. Absent: accessory muscle use, rales, rhonchi, wheezes - Cardiovascular Cardiovascular exam: Present: RRR, +S1, +S2. Absent: diastolic murmur, gallop, rubs, systolic murmur - GI/Abdominal GI/Abdominal exam: Present: normal bowel sounds, soft, no peritoneal signs. Absent: distended, tenderness - Extremities Exam Extremities exam: Present: warm, radial pulses palpable and symetrical. Absent : calf tenderness, cyanotic, pedal edema - Neurological Exam Neurological exam: Present: CN II-XII intact, oriented X3, no focal deficits. Absent: pronater drift, facial droop, speech deficit - Skin Skin exam: Present: dry, intact Internal Medicine: Result - Labs CBC & Chem 7: 10/02/16 12:02 10/02/16 12:02 Labs: BMP 10/01/16 06:10 Sodium 143 Potassium 4.2 Chloride 109 Carbon Dioxide 28 BUN 23 Creatinine 1.37 H Glucose 87 Calcium 8.4 L Cardiac Enzymes 10/01/16 10/01/16 Range/Units 06:10 12:49 Troponin I 1.10 H* 0.92 H* (0-0.03) ng/mL - ABG Interpretation ABG results: PT/INR, D-dimer PT 16.7 Seconds (9.4-12.1) H 09/30/16 19:48 Consult Discharge Plan - Plan Referrals: Beatriz Peters MD [Primary Care Provider] -
[2016-10-01] MEDS: diazePAM 10 MG TABLET PO SCH (20:22)
--- NOTE | 2016-10-01 21:04 | Vascular/Endovasc Consult Note ---
Date of Encounter: 10/01/16 Time of Encounter: 19:30 Assessment and Plan (1) Thoracic aneurysm without mention of rupture Current Visit: Yes Status: Acute Newly discovered proximal thoracic aortic aneurysm. This is asymptomatic. There is no signs of edema surrounding the aneurysm or signs of hematoma or dissection or rupture. Due to its location it may be amenable to endovascular therapy. I repaired requested Dr. Piña to evaluate the CT scan and to speak with the patient concerning potential future endovascular repair of the thoracic aneurysm. Qualifiers: Presence of rupture: without rupture Qualified Code(s): I71.2 - Thoracic aortic aneurysm, without rupture (2) Abdominal aortic aneurysm Current Visit: Yes Status: Chronic Asymptomatic 4.5 cm infrarenal abdominal aortic aneurysm. The patient has a many year history of the aneurysm. At this point it is a secondary issue and needs to be followed as it has been on a six-month basis. The patient will follow-up with his primary care physician and the vascular surgery service remains available to follow the patient as desired. Qualifiers: Presence of rupture: without rupture Qualified Code(s): I71.4 - Abdominal aortic aneurysm, without rupture - History of Present Illness Consult date: 10/01/16 Consult reason: Abdominal aortic aneurysm Chief complaint: Chest pain History of present illness: Mr. Slater is a 76 year old male Was admitted via the ER last night. The patient had atrial fibrillation with rapid ventricular response. He was admitted for medical treatment. As part of his evaluation a CT scan of the chest and abdomen was performed via the emergency room. This demonstrated an abdominal aortic aneurysm which was known according to the patient for the last 5 years. He has been following with Dr. Kristian chan and has been getting ultrasounds on a six-month basis. Apparently the aneurysm discovered in the thoracic aorta is a new entity and was previously unknown. Patient also has a history of diabetes and chest pain and chronic atrial fibrillation and back pain. The patient does take Xarleto. The CT scan demonstrates the abdominal aneurysm to be infrarenal and to measure 4.5 x 3.5 cm. The patient does not know how those dimensions compared to his most recent ultrasound. The thoracic aneurysm appears to be in the proximal aspect of the descending aorta. It appears to be unrelated to the great vessels. Past Med Surg Social Fam HX - Past Medical History Medical history: coronary artery disease, diabetes, hyperlipidemia, hypertension , myocardial infarction, other (Abdominal aortic aneurysm, aortic arch thoracic aortic aneurysm) Psychiatric history: anxiety, depression - Past Surgical History Surgical History: no surgical history - Social History Smoking Status: Former smoker Smokeless Tobacco Status: No Alcohol use: rarely Drug use: none - Family History Mother Family Member Ethnicity: Non- Living Status: Age at : 65 Cause of : Breast cancer Hx Family Cancer: Yes (Breast cancer) Medications and Allergies Diazepam [Valium] 10 mg PO HS 05/03/16 [History] Ezetimibe [Zetia] 10 mg PO DAILY 05/03/16 [History] Fenofibrate [Lofibra] 160 mg PO DAILY 05/03/16 [History] Gabapentin [Neurontin] 300 mg PO TID 05/03/16 [History] LORazepam [Ativan] 0.5 mg PO BID 05/03/16 [History] Levothyroxine [Synthroid] 50 mcg PO DAILY 05/03/16 [History] Metformin [Glucophage] 500 mg PO BIDWM 05/03/16 [History] OxyCODONE/APAP 10/325 [Percocet 10/325 MG] 1 each PO Q4HR PRN 05/03/16 [History] Testosterone Cypionate [Depo-Testosterone] 100 mg IM Q2W 05/03/16 [History] Aspirin [Lo-Dose Aspirin EC] 81 mg PO DAILY 09/10/16 [History] Niacin 500 mg PO BID 09/10/16 [History] Tamsulosin HCl [Flomax] 0.4 mg PO DAILY 09/10/16 [History] Metoprolol XL (24 HR) Succ [Toprol XL] 50 mg PO DAILY #30 tab.er.24h 09/11/16 [ Rx] Amlodipine Besylate 10 mg PO DAILY 09/30/16 [History] Digoxin [Lanoxin] 0.125 mg PO DAILY 09/30/16 [History] Losartan/Hydrochlorothiazide [Hyzaar 100-25 Tablet] 1 each PO DAILY 09/30/16 [ History] Multivitamin [Multi-Day Vitamins] 1 each PO DAILY 09/30/16 [History] Naloxegol Oxalate [Movantik] 25 mg PO DAILY 09/30/16 [History] Rivaroxaban [Xarelto] 20 mg PO DAILY 09/30/16 [History] Allergies No Known Allergies Allergy (Verified 09/10/16 19:06) All Systems Review: A 10-system review of systems was performed and is negative for pertinent findings except as documented above in the HPI. Exam Vital Signs, Last 4 Hours Temp Pulse Resp BP Pulse Ox 10/01/16 19:47 97.9 F 68 18 102/62 95 General: Present: Conversant, No Apparent Distress, Well developed, Well nourished HEENT: Present: Atraumatic, Normocephaly, Trachea midline, Pupils equal Neck: Absent: JVD, Left Carotid bruit, Right Carotid bruit, Midline deformity, Tracheal deviation Cardiac: Present: Reg Rate and Rhythm, Normal S1 and S2, No Murmur Lungs: Present: Normal Breath Sounds, No Wheeze, Rales, Rhonchi Neuro: Present: Alert and responsive, No focal deficits noted, Cranial nerves grossly intact Abdomen: Present: Soft, Non-tender, Other (No abdominal bruits. No pulsatile masses. No signs of. Umbilical or flank ecchymoses.). Absent: Hepatosplenomegaly, Masses Vascular: Present: Normal capillary refill, Pulse, normal. Absent: Edema Skin: Present: No rashes noted on visualized skin Musculoskeletal: Present: No Chest Wall Tenderness Consult Discharge Plan - Plan Referrals: Beatriz Peters MD [Primary Care Provider] -
[2016-10-02] MEDS: Insulin LISPRO 300 UNITS/3 ML VIAL SQ SCH ×4 (08:55→20:43)
[2016-10-02] MEDS: Losartan/HCTZ 50-12.5 TABLET PO SCH (08:56)
[2016-10-02] MEDS: *HR* OxyCODONE/APAP 10/325 TABLET PO PRN ×4 (08:56→23:53)
[2016-10-02] MEDS: APIXABAN 5 MG TABLET PO SCH ×2 (08:56→20:41)
[2016-10-02] MEDS: Gabapentin 300 MG CAPSULE PO SCH ×3 (08:57→20:41)
[2016-10-02] MEDS: *HR* Digoxin 0.125 MG TABLET PO SCH (08:57)
[2016-10-02] MEDS: Niacin (24 HR) 500 MG TAB.ER.24H PO SCH (08:57)
[2016-10-02] MEDS: Fenofibrate 54 MG TABLET PO SCH (08:57)
[2016-10-02] MEDS: Multivit/Ca/Min/Fe/FA 1 TAB TABLET PO SCH (08:57)
[2016-10-02] MEDS: Aspirin Enteric Coated 81 MG Tablet PO SCH (08:58)
[2016-10-02] MEDS: Metoprolol XL (24 HR) Succ 50 MG TAB.ER.24H PO SCH (08:58)
[2016-10-02] MEDS: Isosorbide MONOnitrate (24 HR) 30 MG TAB.ER.24H PO SCH (08:59)
[2016-10-02] MEDS: amLODIPine 5 MG TABLET PO SCH (08:59)
--- NOTE | 2016-10-02 11:27 | Event Note ---
Date of Encounter: 10/02/16 Time of Encounter: 11:25 - Cardiology Event Note Echo resulted--EF preserved, moderate LVH, moderate diastolic dysfunction, no significant valvular dysfunction. Upon review of PCP notes, pt was actually on Eliquis 5mg BID, not Xarelto. Eliquis resumed. Recommend ASA and Plavix for 1 month s/p NSTEMI, then Plavix can be stopped since no PCI was done. Follow-up as outpt in 1 week.
--- NOTE | 2016-10-02 11:39 | ECHO - Doppler Report ---
Echocardiogram Name: Mat Slater Date of Study: 10/02/2016 Date: 1940 Ht: 68.0 in Medical Record#: [id number] Age: 76 Wt: 184.0 lb Gender: Male BSA: 1.97 Order #: [id number] Location: [facility] Room #: [id number] Reading Physician: Angel Beyer MD, [facility] Rotary Kiln Operator: Luz Maria Silva Ordering Physician: Deion Masters CNP Primary Physician: Beatriz Peters MD Indications: NSTEMI Impressions: Normal LV systolic function, LVEF 65%. Moderate-severe left ventricular hypertrophy. There is moderate hypertrophy of the basal segments with more severe hypertrophy of the mid-apical segments. Moderate left ventricular diastolic dysfunction. Normal right ventricular size and function. Mildly dilated left atrium. No significant valvular dysfunction. No evidence of pulmonary hypertension. Left Ventricular Wall Motion: Rest Echo Findings All wall segments showed normal motion. Findings: Study Quality * Technically adequate exam. ECG Findings * Normal sinus rhythm. Left Ventricle * Normal LV systolic function, LVEF 65%. * Moderate-severe left ventricular hypertrophy. There is moderate hypertrophy of the basal segments with more severe hypertrophy of the mid-apical segments. * Moderate left ventricular diastolic dysfunction. Right Ventricle * Normal right ventricular size and function. Left Atrium * Mildly dilated left atrium. Right Atrium * Normal right atrial size. Aorta * Normally sized aortic root. Pericardium * There is no pericardial effusion present. IVC * The IVC was not visualized. Aortic Valve * Trileaflet aortic valve. * Mildly sclerotic aortic valve leaflets. * No aortic stenosis. * No aortic regurgitation. Mitral Valve * Mild mitral annular calcification * No mitral stenosis. * Trace mitral regurgitation. Tricuspid Valve * Normal tricuspid valve structure. * No tricuspid stenosis. * Trace tricuspid regurgitation. * No evidence of pulmonary hypertension. Pulmonic Valve * Pulmonic valve not well visualized. * No pulmonic stenosis. * Trace pulmonic regurgitation. History Hypertension Diabetes Hypercholesteremia Myocardial Infarction 10/03/2016 a Previous Echo was performed. Measurements: BP: 121/ 73 2D Normal Values RVIDd: 2.40 cm IVSd: 1.40 cm 0.6 - 1.0 cm LVIDd: 5.00 cm 3.7 - 5.6 cm LVPWd: 1.40 cm 0.6 - 1.1 cm LVIDs: 3.30 cm 1.5 - 3.6 cm AO: 3.70 cm < 4.0 cm %FS: 34.00 cm >25 % LA volume: 70 Mitral Valve Peak E:.74 m/sec Peak A:.41 m/sec E/A Ratio:1.8 Peak E' Lat Mingo:6.92 cm/s Peak E' Med Mingo:4 cm/s E/E' Lat Ratio:10.6 E/E' Med Ratio:18.4 Tricuspid Valve TV Regurg Peak Grad: 26.00mmHg TV Regurg Peak Mingo: 2.55m/sec Updated by Angel Beyer MD, FACC on 10/02/2016 11:32:20 AM electronically signed on 10/02/2016 11:33:13 AM with status of Final Wall Motion Galvan: 1=Normal, 2=Hypokinesis, 3=Akinesis, 4=Dyskinesis, 5=Aneurysmal, 6=Hyperkinetic, X=Not Visualized (Blank)=Missing
[2016-10-02 12:15] LABS: Basophils % 0.2 %; Eosinophils # 0.1 K/mcL (0.0-0.6); Eosinophils % 1.1 %; Immature Granulocytes % 0.3 % (0-4); Lymphocytes # 1.8 K/mcL (0.6-4.6); Mean Corpuscular HGB Conc 33.4 g/dL (31.6-35.5); Mean Corpuscular Hemoglobin 34.2 pg (28.0-33.3); Mean Corpuscular Volume 102.2 fL (83.0-100.0); Mean Platelet Volume 10.9 fL (9.4-12.4); Monocytes # 0.8 K/mcL (0.0-1.3); Monocytes % 9.2 %; Neutrophils # 6.1 K/mcL (1.6-8.9); Platelet Count 180 K/mcL (140-400); Red Blood Count 4.01 M/mcL (4.19-5.50); Red Cell Distribution Width 14.6 % (11.5-14.5); Segmented Neutrophils % 69.2 %
[2016-10-02 12:16] LABS: Hemoglobin 13.7 g/dL (12.9-16.9)
[2016-10-02 12:30] LABS: Calcium 8.7 mg/dL (8.6-10.8)
--- NOTE | 2016-10-02 16:17 | Internal Med Progress Note ---
Date of Encounter: 10/02/16 Time of Encounter: 16:14 - Assessment and plan (1) Chest pain Current Visit: Yes Status: Acute Assessment and plan: Patient was admitted with chest pain. Initial troponin was negative and then climbed up to 1.1. At this point patient does not have any chest pain. Patient is on anticoagulation for atrial ablation. Cardiology on the board. Cardiology recommended left heart catheterization. 10/02/2016 Patient underwent left heart catheterization. There found infrarenal abdominal aortic aneurysm. Vascular endothelial surgery on the board. We will follow the recommendation. Qualifiers: Chest pain type: precordial pain Qualified Code(s): R07.2 - Precordial pain (2) Atrial fibrillation Current Visit: Yes Status: Acute Assessment and plan: Rate is well controlled. Anticoagulation with Xarelto Qualifiers: Atrial fibrillation type: paroxysmal Qualified Code(s): I48.0 - Paroxysmal atrial fibrillation (3) Hypertension Current Visit: Yes Status: Chronic Assessment and plan: At this point patient's blood pressure is absolutely well-controlled We will follow closely. Will continue present home medications. Qualifiers: Hypertension type: essential hypertension Qualified Code(s): I10 - Essential (primary) hypertension (4) Diabetes Current Visit: Yes Status: Chronic Assessment and plan: Well-controlled at this point. Will continue the home medications. Qualifiers: Diabetes mellitus type: type 2 Diabetes mellitus complication status: with kidney complications Diabetes mellitus complication detail: with chronic kidney disease Diabetes mellitus group home insulin use: without group home use Chronic kidney disease stage: stage 3 (moderate) Qualified Code(s): E11.22 - Type 2 diabetes mellitus with diabetic chronic kidney disease; N18.3 - Chronic kidney disease, stage 3 (moderate) - Subjective Interval history: Patient seen and examined. Chart reviewed. Patient is comfortably sitting in the bed. Patient denies chest pain, shortness of breath. 10/02/2016 Patient seen and examined. Chart reviewed. Patient underwent cardiac catheterization. Cardiology on the board. Patient denies chest pain, shortness of breath, abdominal pain, nausea, vomiting , and diarrhea. - Constitutional Vitals: Temp Pulse Resp BP Pulse Ox 98.0 F 77 16 110/68 93 10/02/16 15:27 10/02/16 15:27 10/02/16 15:27 10/02/16 15:27 04/29/17 15:27 General appearance: Present: A&O X 3, pleasant, no acute distress, answers questions appropriately - Head Head exam: Present: atraumatic, normocephalic - Eye Eye exam: Present: PERRL, conjuntiva pink, sclera anicteric Pupils: Present: PERRL - Neck Neck exam general surgery: Present: supple, trachea midline. Absent: lymphadenopathy - Respiratory Respiratory exam: Present: CTAB. Absent: accessory muscle use, rales, rhonchi, wheezes - Cardiovascular Cardiovascular exam: Present: RRR, +S1, +S2. Absent: diastolic murmur, gallop, rubs, systolic murmur - GI/Abdominal GI/Abdominal exam: Present: normal bowel sounds, soft, no peritoneal signs. Absent: distended, tenderness - Extremities Exam Extremities exam: Present: warm, radial pulses palpable and symetrical. Absent : calf tenderness, cyanotic, pedal edema - Neurological Exam Neurological exam: Present: CN II-XII intact, oriented X3, no focal deficits. Absent: pronater drift, facial droop, speech deficit - Skin Skin exam: Present: dry, intact Internal Medicine: Result - Labs CBC & Chem 7: 10/02/16 12:02 10/02/16 12:02 Labs: Short CBC 10/02/16 Range/Units 12:02 WBC 8.9 (4.3-11.1) K/mcL Hgb 13.7 D (12.9-16.9) g/dL Hct 41.0 (37.5-50.1) % Plt Count 180 (140-400) K/mcL Neutrophils # 6.1 (1.6-8.9) K/mcL BMP 10/02/16 12:02 Sodium 141 Potassium 4.0 Chloride 104 Carbon Dioxide 30 H BUN 21 Creatinine 1.54 H Glucose 127 H Calcium 8.7 - ABG Interpretation ABG results: PT/INR, D-dimer PT 16.7 Seconds (9.4-12.1) H 09/30/16 19:48 Consult Discharge Plan - Plan Referrals: Beatriz Peters MD [Primary Care Provider] -
--- NOTE | 2016-10-02 18:45 | Vascular/Endovas Progress Note ---
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 He denies any acute chest pain. His aneurysm has no signs or rupture or impending rupture at this time. Elective repair is recommended due to the nature of his aneurysm. His CT scan reveals that he is a candidate for endograft repair of his aneurysm. The risks , benefits and alternatives were discussed and all questions were answered. The patient will follow-up next week in clinic for further evaluation and planning of his surgery. He was instructed to seek immediate medical attention for signs or symptoms of rupture. Qualifiers: Presence of rupture: without rupture Qualified Code(s): I71.2 - Thoracic aortic aneurysm, without rupture (3) Abdominal aortic aneurysm Current Visit: Yes Status: Chronic The patient has a 4.5cm fusiform infrarenal abdominal aortic aneurysm, continued surveillence is recommended. He will follow-up in six months with an aortic duplex. He was instructed to seek immediate medical attention for signs or symptoms of rupture. Qualifiers: Presence of rupture: without rupture Qualified Code(s): I71.4 - Abdominal aortic aneurysm, without rupture (4) NSTEMI (non-ST elevated myocardial infarction) Current Visit: Yes Status: Acute Per cardiology, ASA and Plavix for one month and then may discontinue his plavix. (5) CKD (chronic kidney disease), stage III Current Visit: Yes Status: Chronic Creatinine elevated at 1.5 today. (6) Atrial fibrillation Current Visit: Yes Status: Chronic Patient is currently on Eliquis for atrial fibrillation. Qualifiers: Atrial fibrillation type: paroxysmal Qualified Code(s): I48.0 - Paroxysmal atrial fibrillation - Subjective Interval history: The patient was admitted due to chest pain and was noted to have an elevated troponin. He was noted to have a thoracic aortic aneurysm and an abdominal aortic aneurysm. He reports that he is feeling much better. He was aware of his abdominal aortic aneurysm, but not his thoracic aortic aneurysm. He denies any new chest, abdominal, back or flank pain. He denies shortness of breath. Vital Signs, Last 4 Hours Temp Pulse Resp BP Pulse Ox 10/02/16 15:27 98.0 F 77 16 110/68 93 - Physical Examination General: Present: Conversant, No Apparent Distress, Well nourished HEENT: Present: Pupils equal Neck: Absent: JVD, Left Carotid bruit, Right Carotid bruit Cardiac: Present: Irregular Rhythm Lungs: Present: Normal Breath Sounds, No Wheeze, Rales, Rhonchi Neuro: Present: Alert and responsive, No focal deficits noted, Motor nerves grossly intact, Sensory nerves grossly intact Vascular: Present: Normal capillary refill, Pulse, normal. Absent: Cyanosis, Edema Abdomen: Present: Soft, Non-tender, Masses, Other (obese) Skin: Absent: No rashes noted on visualized skin Results 10/02/16 12:02 10/02/16 12:02 Lab Results, Last 24 hours 10/02/16 10/02/16 12:02 12:02 WBC 8.9 Hgb 13.7 D Hct 41.0 Plt Count 180 Sodium 141 Potassium 4.0 Chloride 104 Carbon Dioxide 30 H BUN 21 Creatinine 1.54 H Glucose 127 H Calcium 8.7 - Imaging / Other Tests CT/CTA: report reviewed, image reviewed Consult Discharge Plan - Plan Referrals: Beatriz Peters MD [Primary Care Provider] -
[2016-10-02] MEDS: diazePAM 10 MG TABLET PO SCH (20:41)
[2016-10-03 06:15] LABS: Basophils % 0.2 %; Eosinophils # 0.2 K/mcL (0.0-0.6); Eosinophils % 1.9 %; Hematocrit 40.2 % (37.5-50.1); Hemoglobin 13.5 g/dL (12.9-16.9); Immature Granulocytes % 0.2 % (0-4); Lymphocytes # 2.4 K/mcL (0.6-4.6); Lymphocytes % 28.6 %; Mean Corpuscular HGB Conc 33.6 g/dL (31.6-35.5); Mean Corpuscular Hemoglobin 33.8 pg (28.0-33.3); Mean Corpuscular Volume 100.8 fL (83.0-100.0); Mean Platelet Volume 10.5 fL (9.4-12.4); Monocytes # 0.9 K/mcL (0.0-1.3); Monocytes % 10.2 %; Neutrophils # 4.9 K/mcL (1.6-8.9); Platelet Count 175 K/mcL (140-400); Red Blood Count 3.99 M/mcL (4.19-5.50); Red Cell Distribution Width 14.3 % (11.5-14.5); Segmented Neutrophils % 58.9 %
[2016-10-03 06:33] LABS: Alanine Aminotransferase 10 Units/L (0-55); Albumin 3.2 g/dL (3.5-5.0); Albumin/Globulin Ratio 1.1 (1.1-2.2); Alkaline Phosphatase 28 Units/L (38-126); Aspartate Amino Transferase 15 Units/L (5-34); BUN/Creatinine Ratio 17 (6-26); Bilirubin,Total 0.7 mg/dL (0.2-1.2); Blood Urea Nitrogen 23 mg/dL (8-26); Calcium 8.6 mg/dL (8.6-10.8); Carbon Dioxide 29 mEq/L (19-29); Chloride 103 mEq/L (98-109); Globulin 2.8 g/dL (2.4-3.5); Glucose 102 mg/dL (70-99); Osmolality,Calculated 294 (280-300); Potassium 3.7 mEq/L (3.5-4.5); Sodium 140 mEq/L (136-145); eGFR For African Americans > 60 (> 60); eGFR For Non-African Americans 50 (> 60)
[2016-10-03 08:12] VITALS: BP 116/74
[2016-10-03] MEDS: Niacin (24 HR) 500 MG TAB.ER.24H PO SCH (08:38)
[2016-10-03] MEDS: Insulin LISPRO 300 UNITS/3 ML VIAL SQ SCH (08:38)
[2016-10-03] MEDS: Aspirin Enteric Coated 81 MG Tablet PO SCH (08:38)
[2016-10-03] MEDS: Isosorbide MONOnitrate (24 HR) 30 MG TAB.ER.24H PO SCH (08:38)
[2016-10-03] MEDS: Metoprolol XL (24 HR) Succ 50 MG TAB.ER.24H PO SCH (08:39)
[2016-10-03] MEDS: *HR* OxyCODONE/APAP 10/325 TABLET PO PRN (08:39)
[2016-10-03] MEDS: Losartan/HCTZ 50-12.5 TABLET PO SCH (08:39)
[2016-10-03] MEDS: Fenofibrate 54 MG TABLET PO SCH (08:39)
[2016-10-03] MEDS: amLODIPine 5 MG TABLET PO SCH (08:40)
[2016-10-03] MEDS: *HR* Digoxin 0.125 MG TABLET PO SCH (08:40)
[2016-10-03] MEDS: Multivit/Ca/Min/Fe/FA 1 TAB TABLET PO SCH (08:40)
[2016-10-03] MEDS: Gabapentin 300 MG CAPSULE PO SCH (08:40)
[2016-10-03] MEDS: APIXABAN 5 MG TABLET PO SCH (08:40)
--- NOTE | 2016-10-03 10:36 | Discharge Summary ---
Date of Encounter: 10/03/16 Time of Encounter: 10:23 - Discharge Diagnosis (1) Chest pain Priority: Primary Status: Acute Qualifiers: Chest pain type: precordial pain Qualified Code(s): R07.2 - Precordial pain (2) Atrial fibrillation Priority: Primary Status: Chronic Qualifiers: Atrial fibrillation type: paroxysmal Qualified Code(s): I48.0 - Paroxysmal atrial fibrillation (3) Thoracic aneurysm without mention of rupture Priority: Secondary Status: Chronic Qualifiers: Presence of rupture: without rupture Qualified Code(s): I71.2 - Thoracic aortic aneurysm, without rupture (4) Abdominal aortic aneurysm Priority: Secondary Status: Chronic Qualifiers: Presence of rupture: without rupture Qualified Code(s): I71.4 - Abdominal aortic aneurysm, without rupture (5) Hypertension Priority: Secondary Status: Chronic Qualifiers: Hypertension type: essential hypertension Qualified Code(s): I10 - Essential (primary) hypertension (6) Diabetes Priority: Secondary Status: Chronic Qualifiers: Diabetes mellitus type: type 2 Diabetes mellitus complication status: with kidney complications Diabetes mellitus complication detail: with chronic kidney disease Diabetes mellitus master ocean insulin use: without correction use Chronic kidney disease stage: stage 3 (moderate) Qualified Code(s): E11.22 - Type 2 diabetes mellitus with diabetic chronic kidney disease; N18.3 - Chronic kidney disease, stage 3 (moderate) - Discharge Medications Prescriptions: Atorvastatin [Lipitor] 40 mg PO HS #30 tablet Clopidogrel [Plavix] 75 mg PO DAILY #30 tablet Isosorbide MONOnitrate (24 HR) [Imdur] 30 mg PO DAILY #30 tab.er.24h Home Medications: Diazepam [Valium] 10 mg PO HS 05/03/16 [History] Ezetimibe [Zetia] 10 mg PO DAILY 05/03/16 [History] Fenofibrate [Lofibra] 160 mg PO DAILY 05/03/16 [History] Gabapentin [Neurontin] 300 mg PO TID 05/03/16 [History] LORazepam [Ativan] 0.5 mg PO BID 05/03/16 [History] Levothyroxine [Synthroid] 50 mcg PO DAILY 05/03/16 [History] Metformin [Glucophage] 500 mg PO BIDWM 05/03/16 [History] OxyCODONE/APAP 10/325 [Percocet 10/325 MG] 1 each PO Q4HR PRN 05/03/16 [History] Testosterone Cypionate [Depo-Testosterone] 100 mg IM Q2W 05/03/16 [History] Aspirin [Lo-Dose Aspirin EC] 81 mg PO DAILY 09/10/16 [History] Niacin 500 mg PO BID 09/10/16 [History] Tamsulosin HCl [Flomax] 0.4 mg PO DAILY 09/10/16 [History] Metoprolol XL (24 HR) Succ [Toprol Xl] 50 mg PO DAILY #30 tab.er.24h 09/11/16 [ Rx] Amlodipine Besylate 10 mg PO DAILY 09/30/16 [History] Digoxin [Lanoxin] 0.125 mg PO DAILY 09/30/16 [History] Losartan/Hydrochlorothiazide [Hyzaar 100-25 Tablet] 1 each PO DAILY 09/30/16 [ History] Multivitamin [Multi-Day Vitamins] 1 each PO DAILY 09/30/16 [History] Naloxegol Oxalate [Movantik] 25 mg PO DAILY 09/30/16 [History] Apixaban [Eliquis] 5 mg PO BID 10/02/16 [History] Atorvastatin [Lipitor] 40 mg PO HS #30 tablet 10/03/16 [Rx] Clopidogrel [Plavix] 75 mg PO DAILY #30 tablet 10/03/16 [Rx] Isosorbide MONOnitrate (24 HR) [Imdur] 30 mg PO DAILY #30 tab.er.24h 10/03/16 [ Rx] Allergies/Adverse Reactions: Allergies No Known Allergies Allergy (Verified 09/10/16 19:06) Date of admission: 10/01/16 19:37 Primary care physician: Beatriz Peters Discharging clinician: Manjeet Nichole - Patient Status Disposition: Home, Self-Care Condition: Good Functional capacity at discharge: uses cane/walker Overall status at discharge: patient is progressing back to baseline - Discharge Instructions Follow Up With: Beatriz Peters MD [Primary Care Provider] - Doroteo Piña MD [Partnered Physician] - Masoud Do DO [Partnered Physician] - Forms: ED Satisfaction Letter - Diet and Activity Activity: increase activity as tolerated Diet: low fat, low cholesterol, low salt diet Interval History: Mr. Slater is a 76 year old male with no prior documented history of CAD who was brought to the ER of [place] for chest pain. He was in his usual state of health until this evening when he began to have chest pain that was retrosternal in location. The pain was initially sharp in character but later became pressure like, it radiated to below his shoulder blades and was constant. It was worse with exertion and was 8/10 in severity. It was slightly relieved with aspirin about 3 hours after he took it. It was associated with diaphoresis, lightheadedness, dyspnea, palpitations but no nausea or vomiting. He went to the urgent care for that reason but he was planned for a transfer to the nearest facility but he preferred to come here so his drove him here to the ER of [place]. Hospital course: Patient was hospitalized. Patient underwent multiple laboratory evaluation. Noted that his troponin was elevated. Cardiology was consulted. In view of the reason troponin cardiology recommended cardiac catheterization. Patient underwent cardiac catheterization. Noted that patient has a thoracic and abdominal aneurysm. Vascular surgery was consulted. Vascular surgery recommended outpatient management. Plan Patient can go home today. Patient will start on his home medication. Patient will start on anticoagulant. Patient will be on aspirin/Plavix/nitroglycerin as per recommendation from the cardiology. I spoke to this morning and discussed case at length. Patient will benefit from outpatient cardiology follow-up. At the time of discharge all questions answered. Patient will follow up with PCP. Patient will have follow-up with cardiology. follow-up with the vascular surgery. - Time Spent with Patient Total time spent providing and/or coordinating discharge services: - Constitutional Vitals: Temp Pulse Resp BP Pulse Ox 97.6 F 80 18 116/74 95 10/03/16 08:09 10/03/16 08:09 10/03/16 08:09 10/03/16 08:09 10/03/16 08:09 General appearance: Present: A&O X 3, pleasant, no acute distress, answers questions appropriately - Head Head exam: Present: atraumatic, normocephalic - Eye Eye exam: Present: PERRL, conjuntiva pink, sclera anicteric Pupils: Present: PERRL - Neck Neck exam general surgery: Present: supple, trachea midline. Absent: lymphadenopathy - Respiratory Respiratory exam: Present: CTAB. Absent: accessory muscle use, rales, rhonchi, wheezes - Cardiovascular Cardiovascular exam: Present: RRR, +S1, +S2. Absent: diastolic murmur, gallop, rubs, systolic murmur - GI/Abdominal GI/Abdominal exam: Present: normal bowel sounds, soft, no peritoneal signs. Absent: distended, tenderness - Extremities Exam Extremities exam: Present: warm, radial pulses palpable and symetrical. Absent : calf tenderness, cyanotic, pedal edema - Neurological Exam Neurological exam: Present: CN II-XII intact, oriented X3, no focal deficits. Absent: pronater drift, facial droop, speech deficit - Skin Skin exam: Present: dry, intact
--- NOTE | 2016-10-03 22:18 | Vascular/Endovas Progress Note ---
Date of Encounter: 10/03/16 Time of Encounter: 11:15 - Assessment and plan (1) Thoracic aneurysm without mention of rupture Status: Chronic The patient has a saccular thoracic aortic aneurysm. He continues to deny any acute chest pain. His aneurysm has no signs or rupture or impending rupture at this time. He will be discharged today. He will follow-up in clinic for further evaluation and to discuss endograft repair. He was reminded to seek immediate medical attention for signs or symptoms of rupture. Qualifiers: Presence of rupture: without rupture Qualified Code(s): I71.2 - Thoracic aortic aneurysm, without rupture (2) Abdominal aortic aneurysm Status: Chronic The patient has a 4.5cm fusiform infrarenal abdominal aortic aneurysm, continued surveillence is recommended. He will follow-up in six months with an aortic duplex. He was instructed to seek immediate medical attention for signs or symptoms of rupture. Qualifiers: Presence of rupture: without rupture Qualified Code(s): I71.4 - Abdominal aortic aneurysm, without rupture (3) NSTEMI (non-ST elevated myocardial infarction) Status: Acute Per cardiology, ASA and Plavix for one month and then may discontinue his plavix. (4) CKD (chronic kidney disease), stage III Status: Chronic Creatinine elevated at 1.5 today. (5) Atrial fibrillation Status: Chronic Patient is currently on Eliquis for atrial fibrillation. 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 He reports that he is comfortable today. He is ready to go home today. He denies chest, abdominal, flank of back pain. He denies shortness of breath. - Physical Examination General: Present: Conversant Cardiac: Present: Reg Rate and Rhythm Lungs: Present: Normal Breath Sounds Neuro: Present: Alert and responsive, No focal deficits noted Vascular: Present: Normal capillary refill. Absent: Cyanosis, Edema Abdomen: Present: Soft, Non-tender, Masses Musculoskeletal: Present: No Chest Wall Tenderness Results 10/03/16 05:50 10/03/16 05:50 Lab Results, Last 24 hours 10/03/16 10/03/16 05:50 05:50 WBC 8.4 Hgb 13.5 Hct 40.2 Plt Count 175 Sodium 140 Potassium 3.7 Chloride 103 Carbon Dioxide 29 BUN 23 Creatinine 1.39 H Glucose 102 H Calcium 8.6 Total Bilirubin 0.7 AST 15 ALT 10 Alkaline Phosphatase 28 L Consult Discharge Plan - Plan Instructions: Isosorbide Mononitrate (By mouth), Atorvastatin (By mouth), Clopidogrel (By mouth) Referrals: Beatriz Peters MD [Primary Care Provider] - Doroteo Piña MD [Partnered Physician] - Masoud Do DO [Partnered Physician] - Prescriptions: Atorvastatin [Lipitor] 40 mg PO HS #30 tablet Clopidogrel [Plavix] 75 mg PO DAILY #30 tablet Isosorbide MONOnitrate (24 HR) [Imdur] 30 mg PO DAILY #30 tab.er.24h
--- NOTE | 2016-10-06 15:23 | Invasive Diagnostic Lab Proc ---
Name: Mat Slater Date of Study: 10/01/2016 Date: 1940 Ht: 68.0in Medical Record#: [id number] Age: 76 Wt: 185.41lb Gender: Male BSA: 1.98 Order #: [id number] BMI: 28.2 Physicians Procedure Physician: Yue Leong MD, [facility] Referring MD: Referring MD: Staff Name Position Time In Sites, Misty RT (R) Monitor 11:15 AM Marylou Bella RT Scrub 11:15 AM Bridger Mendoza RN Warehouse Inventory Clerk 11:15 AM Indications Indication Non-Stemi Procedures Performed Procedure L HRT ARTERY/VENTRICLE ANGIO Pre-Procedure Checklist Informed consent is complete signed and on chart. H\\T\\P is on chart. ID band is on and ID verified with patient. Patient NPO for procedure The procedure was described for the patient and questions were answered. Blood Pressure: 104/63 ECG is on chart. Rhythm: NSR Plan of Care Patient will tolerate the procedure without complications. Adequate level of comfort will be maintained. Hemodynamics will remain stable Patient will recover from procedure without complications. Respiratory function will be maintained. Cardiac rhythm will remain stable. Patient temperature will be maintained. Patient and/or family have verbalized understanding of the procedure. Patient Education Chief Complaint/Reason for Test: Cardiac Cath Developmental Category: Adult (18-64 years) Developmentally Appropriate for Age: Yes Learning Barriers: None Education Needs: Procedure Education Method: Verbal Information Taught: Cardiac Cath Educational Evaluation: Able to repeat information Intravenous Access Time IV Size Location DC'd Fluid/Drip Rate Units RN 18g 1 1/4" Patent On Arrival Rt Antecubital 25 ml/hr Bridger Mendoza RN 18g 1 1/4" Patent On Arrival Rt Wrist Allergies No Known Allergies Vital Signs Time BP (mmHg) HR (bpm) O2 Sat. RR (bpm) LOC 104 / 63 69 98 % 18 11:16 AM / % 5 = Fully awake and oriented or at pre-proc level 11:08 AM 111 / 69 68 97 % 18 11:13 AM 107 / 64 67 96 % 10 11:18 AM 116 / 67 69 96 % 16 11:23 AM 106 / 56 63 94 % 9 11:28 AM 91 / 58 78 92 % 8 11:33 AM 86 / 48 74 92 % 14 11:34 AM 96 / 59 71 94 % 13 Procedural Medications Time Medication Dose Units Method Given By 11:16 AM Versed 1 mg Intravenous Bridger Mendoza RN 11:16 AM Fentanyl 25 mcg Intravenous Bridger Mendoza RN 11:18 AM Lidocaine 2% 13 ml Subcutaneous Yue Leong MD, [facility] 11:18 AM Versed 1 mg Intravenous Bridger Mendoza RN 11:19 AM Fentanyl 25 mcg Intravenous Bridger Mendoza RN ASA Classification: CLASS II- Mild systemic disease (i.e. well-controlled diabetes, hypertension, asthma, cigarette smoking) Jahaira Score Preprocedure Postprocedure Activity 2- Moves 4 extremities sustained head lift Activity 2- Moves 4 extremities sustained head lift Circulation 2- SBP +/= 20 points of pre-anesthetic level Circulation 2- SBP +/= 20 points of pre-anesthetic level Consciousness 2- Awake and alert oriented x 3 Consciousness 2- Awake and alert oriented x 3 O2 Saturation 2- Able to maintain O2 satruation of 92% on room air O2 Saturation 2- Able to maintain O2 satruation of 92% on room air Respiratory 2- Able to deep breathe and cough well Respiratory 2- Able to deep breathe and cough well Total Score 10 Total Score 10 Contrast Agent: Isovue Diagnostic Contrast: 75 ml Total Contrast: 75 ml Fluoro Dose: 487 mGy Procedure Log Time Note Enter By 10:53 AM CathStat 11:07 AM Vitals capture started with the following parameters, Patient=Adult, Interval=5 min, Initial Zluhuzyz=807 mmHg, Deflation Rate=5 mmHg, Cuff placed on Left Arm 11:08 AM HR=68 bpm, BYTU=436/69 mmhg, SpO2=97.0 %, Resp=18 B/min, Comment=nsr 11:13 AM HR=67 bpm, UVFS=286/64 mmhg, SpO2=96 %, Resp=10 B/min 11:15 AM Pt arrived to laborer pipeline 2 at 11:15 kkner 11:15 AM Misty Perkins RT (R) Position: Monitor Time in: :15 11:15 AM Marylou Bella RT Position: Scrub Time in: :15 [email or web address] 11:15 AM Bridger Mendoza RN Position: Warehouse Inventory Clerk Time in: :ner 11:15 AM Patient charges- Angio tray pack, Navilyst 3mm J, Pulse Oximetry and ACIST tubing and transducer [facility] AM Case Delayed No [email or web address] 11:15 AM Physician arrived 11:15 [facility] 11[facility]15 AM Meet and brayan completed kkner 11:15 AM Sign in performed according to hospital policy. [facility] 11:15 AM Procedure start 11:15 kk 11:16 AM Time: 11:15 Oxygen on at 2 L/min per nasal cannula by Bridger Mendoza RN [facility] 11:16 AM Time: 11:16 Versed 1 mg Intravenous Given by [facility] 11:16 AM Time: 11:16 Fentanyl 25 mcg Intravenous Given by Brid[facility] :16 AM Time: 11:16 Patient comfortable and pain free: Yes [facility] :16 AM Time: 11:16LOC: 5 = Fully awake and oriented or at pre-proc level [facility] 11:16 AM Clinical Presentation: Non-STEMI [facility] 11:18 AM Time out performed according to hospital policy ts 11:18 AM Time: :18 13 ml Lidocaine 2% to right groin Subcutaneous Given by Yue Leong MD, [facility] 11:18 AM Time: :18 Versed 1 mg Intravenous Given by Bridger Mendoza RN tsites 11:18 AM HR=69 bpm, MINM=170/67 mmhg, SpO2=96.0 %, Resp=16 B/min 11:19 AM Time: 11:19 Fentanyl 25 mcg Intravenous Given by Brid[facility] 11:20 AM Pressure channel 1 zeroed. 11:21 AM Access obtained by percutaneous puncture. 5Fr 10cm Terumo Amelia sheath placed in right Femoral artery. [id number] tsites 11:21 AM 5Fr FL 4 catheter inserted over the wire [facility] tsites 11:21 AM 0.035 145cm Navilyst 3mmJ wire [id number] tsites 11:22 AM Pressure channel 1 zeroed. 11:22 AM NIBP STAT measurement started. 11:22 AM LCA angiography performed in multiple views. tsites 11:23 AM HR=63 bpm, RWRE=569/56 mmhg, SpO2=94.0 %, Resp=9 B/min, Comment=nsr 11:23 AM wire reinserted catheter removed tsites 11:24 AM 5Fr FR 4 catheter inserted over the wire DNC tsites 11:25 AM Wire removed tsites 11:25 AM RCA angiography performed in multiple views. tsites 11:26 AM Recorded Pressure: Ao, HR=76, Condition=Condition 1 (Aorta) Ao 57/38/47 11:26 AM wire reinserted catheter removed tsites 11:27 AM 5Fr Pigtail catheter inserted over the wire DN tsites 11:28 AM HR=78 bpm, NIBP=91/58 mmhg, SpO2=92.0 %, Resp=8 B/min, Comment=nsr 11:29 AM Recorded Pressure: LV, HR=74, Condition=Condition 1 (Left Ventricle) LV 85/8/17 11:29 AM Catheter selectively placed in left ventricle tsites 11:29 AM Recorded Pressure: LV, Ao, HR=74, Condition=Condition 1 (Left Ventricle) LV 79/35/38, (Aorta) Ao 77/55/66 11:30 AM Bolus angiogram of left Ventricle complete: 8 ml/sec for a total of 24 mls tsites 11:30 AM Physician reviewing films tsites 11:33 AM HR=74 bpm, NIBP=86/48 mmhg, SpO2=92.0 %, Resp=14 B/min 11:33 AM Bolus angiogram of right Femoral complete: 2 ml/sec for a total of 4 mls tsites 11:33 AM NIBP STAT measurement started. 11:34 AM HR=71 bpm, NIBP=96/59 mmhg, SpO2=94.0 %, Resp=13 B/min 11:35 AM Procedure completed at 11:35 tsites 11:35 AM Sign out completed: Radiation Dose 487 mGy Fluoro Time: 2.7 Isovue 370 - 200ml contrast 75 ml given by Yue Leong MD, [facility]. Complications: NoneCardiac Rehab Consult needed: NoConfirmed administered medications: Yes tsites 11:35 AM Isovue 370 - 500ml,1 Bottle(s) used. tsites 11:37 AM Arterial sheath pulled, Mynx closure device used and was Successful S/N. tsites 11:37 AM Post ECG NSR tsites 11:37 AM Post Blood Pressure 96/59 tsites 11:37 AM 11:37 Post Pulses Bilateral DP \\T\\ PT 1+ tsites 11:37 AM Education needs Procedure, Plan of Care, and Responsibilities of Patient in Care tsites 11:37 AM Information taught Cardiac Cath and Mynx tsites 11:38 AM Learning barriers :None tsites 11:38 AM Education Methods Verbal tsites 11:38 AM Education evaluation Able to repeat information tsites 11:38 AM Site status No bleeding/hematoma - Rt Groin as reported by Marylou Bella RT at 11:38 tsites 11:38 AM Opsite applied tsites 11:39 AM Delay to floor No tsites 11:39 AM Patient out of room: 11:39 tsites 11:39 AM Family placed in consult room. tsites 11:40 AM Coronary Dominance: right tsites 11:40 AM Lesion found in LMCA. Pre Stenosis: 30 Pre ROMMEL Flow: tsites 11:40 AM Left Main Coronary Artery with 30% stenosis tsites 11:40 AM Lesion found in Proximal LAD. Pre Stenosis: 30 Pre ROMMEL Flow: tsites 11:40 AM Proximal Left Anterior Descending Coronary Artery with 30% stenosis. If graft is supplying this territory, 0 % stenosis. tsites 11:41 AM Lesion found in Proximal Circumflex. Pre Stenosis: 20 Pre ROMMEL Flow: tsites 11:41 AM Circumflex, Obtuse Marginal, Left Posterior Descending, and Left Posterolateral Coronary Arteries with 20 % stenosis. If graft is supplying this area, 0 % stenosis tsites 11:41 AM Lesion found in Proximal RCA. Pre Stenosis: 60 Pre ROMMEL Flow: tsites 11:41 AM Right Coronary, Right Posterior Descending Arteries with Right Posterolateral and Acute Marginal branches with 60 % stenosis. If graft is supplying this area, 0 % stenosis tsites 11:48 AM Report given to Cruzito BEY Pt taken to E Room #34. 11:48 tsites Complications Complication None Hemodynamics Pressures Site Systolic/A Wave Diastolic/V Wave Mean AO 57 38 47 LV 85 8 17 LV 79 35 38 AO 77 55 66 Post Procedure Information Blood Pressure: 96/59 mmHg Rhythm: NSR Post procedural instructions were given Closure Device Time Device Success/Fail 10/01/2016 11:41:00 AM MynxGrip Successful Site Checks Time Location Status Staff Sheath In? Note 11:38 AM Rt Groin No bleeding/hematoma Marylou Bella RT Pulses Time Site Pre-Procedure Post-Procedure Note 10/01/2016 10:22:00 AM Bilateral DP \\T\\ PT 1+ 10/01/2016 10:22:00 AM Bilateral radial 1+ 11:37:00 AM Bilateral DP \\T\\ PT 1+ Updated by Misty Perkins, RT (R) on 10/01/2016 11:49:18 AM Misty Perkins RT electronically signed on 10/06/2016 3:18:11 PM with status of Final
== END 2016-10-03 11:40 | disposition home or self-care (01) | DRG 281 ==
LOC: EMEROO 19:31 → 2NENU 19:31
PROVIDERS: ADMIT Internal Medicine; ATTEND Internal Medicine

== ENCOUNTER 2016-11-10 09:34 | Inpatient (IN) ==
[2016-11-10] MEDS ORDERED: Lidocaine -MPF 4% 5 ML AMPUL ONE (09:49)
[2016-11-10] MEDS ORDERED: *HR* Phenylephrine 10 MG/ML VIAL ONE (09:49)
[2016-11-10] MEDS ORDERED: *HR* FentaNYL (PF) 100 MCG/2 ML VIAL ONE (09:50)
[2016-11-10] MEDS ORDERED: Lidocaine -MPF 2% 2 ML VIAL ONE ×2 (09:50→12:29)
[2016-11-10] MEDS ORDERED: *HR* Propofol 200 MG/20 ML VIAL IVP ONE (09:50)
[2016-11-10] MEDS ORDERED: Dexamethasone 4 MG/ML VIAL ONE (09:50)
[2016-11-10] MEDS ORDERED: *HR* Succinylcholine 200 MG/10 ML VIAL IVP ONE (09:50)
[2016-11-10] MEDS ORDERED: Ondansetron 4 MG/2 ML VIAL ONE (09:50)
[2016-11-10] MEDS ORDERED: *HR* Remifentanil 2 MG VIAL IVP ONE ×2 (09:54→15:31)
[2016-11-10] MEDS ORDERED: Vancomycin 1,250 MG in D5% in Water 250 ML IVPB ONE ×2 (10:02→23:00)
[2016-11-10] MEDS ORDERED: CeFAZolin Pre 2,000 MG/100 ML 2,000 MG/100 ML BAG IVPB ONE (10:02)
[2016-11-10] MEDS ORDERED: Albuterol 2.5 MG/3 ML NEBULIZER IH ONE (10:12)
[2016-11-10] MEDS ORDERED: 0.9 % Sodium Chloride 1,000 ML IVC SCH (10:15)
--- NOTE | 2016-11-10 10:21 | Anesthesia Evaluation PreOp ---
Date of Encounter: 11/10/16 Time of Encounter: 10:19 - Past History Planned Operation: L carotid/sc bpass graft Cardiac History: HTN, Hyperlipidemia, Arrhythmia (af), Other (taa, aaa, cad. echo 09/20, ef 65, lvh, nl rv, no valve dysfct. 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 History: Other (ddd, glaucoma) Other Medical History: Renal (ckd), Diabetes Type II, Thyroid, GERD Anesthesia History: No Prior Anesthetic Complications, Past Anesthesia (foot, colostomy, r shoulder, parotid) Alcohol Use: rarely Drug use: none Medications and Allergies Ezetimibe [Zetia] 10 mg PO DAILY 05/03/16 [History] Fenofibrate [Lofibra] 160 mg PO DAILY 05/03/16 [History] Gabapentin [Neurontin] 300 mg PO TID 05/03/16 [History] LORazepam [Ativan] 0.5 mg PO BID 05/03/16 [History] Levothyroxine [Synthroid] 50 mcg PO DAILY 05/03/16 [History] OxyCODONE/APAP 10/325 [Percocet 10/325 MG] 1 each PO Q4HR PRN 05/03/16 [History] Testosterone Cypionate [Depo-Testosterone] 100 mg IM Q2W 05/03/16 [History] diazePAM [Valium] 10 mg PO HS 05/03/16 [History] metFORMIN [Glucophage] 500 mg PO BIDWM 05/03/16 [History] Aspirin [Lo-Dose Aspirin EC] 81 mg PO DAILY 09/10/16 [History] Niacin 500 mg PO BID 09/10/16 [History] Tamsulosin HCl [Flomax] 0.4 mg PO DAILY 09/10/16 [History] Metoprolol XL (24 HR) Succ [Toprol Xl] 50 mg PO DAILY #30 tab.er.24h 09/11/16 [ Rx] Amlodipine Besylate 10 mg PO DAILY 09/30/16 [History] Digoxin [Lanoxin] 0.125 mg PO DAILY 09/30/16 [History] Losartan/Hydrochlorothiazide [Hyzaar 100-25 Tablet] 1 each PO DAILY 09/30/16 [ History] Multivitamin [Multi-Day Vitamins] 1 each PO DAILY 09/30/16 [History] Naloxegol Oxalate [Movantik] 25 mg PO DAILY 09/30/16 [History] Apixaban [Eliquis] 5 mg PO BID 10/02/16 [History] Atorvastatin [Lipitor] 40 mg PO HS #30 tablet 10/03/16 [Rx] Clopidogrel [Plavix] 75 mg PO DAILY #30 tablet 10/03/16 [Rx] Isosorbide MONOnitrate (24 HR) [Imdur] 30 mg PO DAILY #30 tab.er.24h 10/03/16 [ Rx] Allergies No Known Allergies Allergy (Verified 09/10/16 19:06) - Meds/Allergy Pre-op Review Medications Reviewed: Yes Allergies Reviewed: Yes Beta Blockers on Current Med List: Yes If Beta Blockers taken, Date/Time (Last Dose taken): metoprolol at 700 Anesthesia Results - Labs Laboratory Tests 11/05/16 11/05/16 11/05/16 07:37 07:42 07:43 Hgb 15.0 Hct 46.1 Plt Count 184 PT 11.9 INR 1.1 APTT 33.1 Sodium Potassium Creatinine Hemoglobin A1c 5.6 11/05/16 07:43 Hgb Hct Plt Count PT INR APTT Sodium 138 Potassium 4.4 Creatinine 1.52 H Hemoglobin A1c - Imaging EKG: report reviewed (sr, lad, lvh) Anesthesia Exam O2 Sat Height 1.73 m Height 1.73 m Height 1.73 m Weight 83.007 kg Weight 83.007 kg Weight 83.007 kg O2 Sat by Pulse Oximetry 93 Vital Signs Temp Pulse Resp BP Pulse Ox 98.2 F 96 18 104/71 93 11/10/16 10:10 11/10/16 10:10 11/10/16 10:10 11/10/16 10:10 11/10/16 10:10 Blood glucose: 110 Height: 1.73 Weight: 83 NPO (# of Hours): >8 - HEENT Pupil (Motor): Pupils equal, EOMI Mallampati: III Teeth: Edentulous Oral Opening: Greater than 3 - CLINICAL QUALITY ASSURANCE SPECIALIST LOC: Oriented CLINICAL QUALITY ASSURANCE SPECIALIST Motor: Normal RUE, Normal LUE, Normal RLE, Normal LLE, Normal Face CLINICAL QUALITY ASSURANCE SPECIALIST Sensory: Normal: RUE, LUE, RLE, LLE, Face - Cardiac Rhythm: Regular Murmur: None - Pulmonary Breath Sounds: bilateral Clear Respiratory Effort: Symmetrical Anesthesia Assess/Plan ASA Score: 4 (p/i/c/r/b/a of ga and we specificaly disc inc risk of periop mi or cva at 2-5%.) Modified [place] Scale for Level of Consciousness: Cooperative, oriented, and tranquil Anesthetic Plan: General Monitoring Plan: Standard Monitors, A-Line Recovery Plan: PACU
[2016-11-10] MEDS ORDERED: Heparin 1,000 UNITS/500 mL NS 500 ML ONE (10:49)
[2016-11-10] MEDS ORDERED: *HR* Midazolam HCl 2 MG/2 ML VIAL ONE (11:02)
[2016-11-10] MEDS ORDERED: Heparin 1,000 UNITS/500 mL NS 1,500 ML ONE (11:22)
--- NOTE | 2016-11-10 11:39 | History & Physical Report ---
Date of Encounter: 11/10/16 Time of Encounter: 11:30 24 Hour HP Update - Instructions Instructions: If the History and Physical is less than 30 days old and was completed prior to A.M. admission and or procedure and has NOT been updated on calendar day of procedure please complete this update prior to performing procedure. - Update Patient reports changes in Medical Condition: No Changes in examination, assessment, or condition: No Changes in Medication: No Preop tests/diagnostics Reviewed: Yes Surgery Remains Indicated: Yes Consent for Planned Operative Procedure(s) Verified: Yes - Pre-Operative Checklist Preoperative Checklist Indicated: Yes Prophylactic Antibiotic Ordered: Yes Home Medications Include Beta Genaro: Yes Beta Genaro Taken Today (Day of Surgery): Yes Beta Genaro Taken Yesterday (Day Prior to Surgery): Yes Is VTE Prophylaxis Indicated?: Yes
[2016-11-10] MEDS ORDERED: Lidocaine 1% 20 ML MDV ONE (12:30)
[2016-11-10] MEDS ORDERED: EPHEDrine 50 MG/ML VIAL ONE (12:39)
[2016-11-10] MEDS ORDERED: Ondansetron 4 MG/2 ML VIAL IVP ONE (13:29)
[2016-11-10] MEDS ORDERED: *HR* Labetalol 100 MG/20 ML MDV IVP PRN (13:29)
[2016-11-10] MEDS ORDERED: Dexamethasone 4 MG/ML VIAL IVP ONE (13:29)
[2016-11-10] MEDS ORDERED: *HR* HYDROmorphone (PF) 1 MG/ML SYRINGE IVP PRN (13:29)
[2016-11-10] MEDS ORDERED: *HR* Heparin 5,000 UNIT/ML VIAL ONE ×2 (14:27→15:56)
[2016-11-10] MEDS ORDERED: Protamine Sulfate 50 MG/5 ML VIAL IVP ONE (17:01)
[2016-11-10] MEDS ORDERED: Esmolol 100 MG/10 ML VIAL IVP ONE (17:31)
--- NOTE | 2016-11-10 17:56 | Operative Note ---
Date of procedure: 11/10/16 Pre-op diagnosis: Thoracic Aortic Aneurysm, peripheral atherosclerosis Post-op diagnosis: same Procedure: Left carotid to left subclavian artery bypass with 6mm ring reinforced PTFE graft. Complications: None Anesthesia: ANGELINAA Surgeon: Doroteo Piña Estimated blood loss (cc): 100 Condition: stable Disposition: PACU Procedure in Detail: The patient was identified in the preoperative area. The risks, benefits, and alternatives of the procedure were discussed and all questions were answered. The patient was then taken to the operating room and placed in supine position on the operating table. After induction of general endotracheal anesthesia, the patient was cleaned and draped in normal sterile fashion. A transverse incision was made superior to the left clavicle. Hemostasis was obtained via electrocautery. Through a process of blunt, sharp, and electrocautery dissection, the platysma was traversed. The lateral head of the sternocleidomastoid muscle was divided. The jugular vein and vagus nerve were identified. They common carotid was dissected circumferentially and vessel loops were passed proximally and distally. The fat pad was mobilized. Multiple lymphatic vessels were identified and then ligated with 3-0 silk suture and divided. The medial anterior scalene muscle was identified and divided. Care was taken to avoid the phrenic nerve. The subclavian artery was identified deep to the anterior scalene muscle. Vessel loops were passed proximally and distally. The patient received 5000 units of heparin intravenously at this time. Additional heparin awas given during the case to maintain adequate anticoagulation. After waiting adequate time for the heparin to circulate, the subclavian artery was occluded and a longitudinal arteriotomy was made. A 6mm ring reinforced PTFE graft was cut to fit the defect and sutured in place with a running 6-0 Prolene. Upon completion of the anastamosis, the vessels were flushed through the graft and then reoccluded after heparinzed saline was infused. The common carotid artery was then occluded and a longitudinal arteriotomy was made. The graft was cut to fit the defect and sutured in place with a running 6 -0 Prolene. Upon completion of the anastamosis, the vessels were individually flushed through the graft prior to tying the suture then reoccluded after heparin was infused. The suture was tied. Flow was restored in the subclavian artery, followed the proximal common carotid artery. Lastly the distal common carotid artery was opened. Polyphasic signals were present by doppler. Thrombin and Gelfoam were used to aid in hemostasis. Meticulous hemostasis was obtained throughout the wound with electrocautery. Platelet rich and platelet poor plasma were infused into the wounds. The lateral head of the sternocleidomastoid was reapproximated with a running 3-0 Vicryl. Platelet rich and platelet poor plasma were infused into the wound. The platysma was reapproximated with running 3-0 Vicryl. A 3-0 Monocryl was used to reapproximate the skin. Sterile dressing was applied. The patient was extubated, taken to the recovery room in stable condition.
[2016-11-10] MEDS ORDERED: *HR* Heparin 5,000 UNIT/ML VIAL SQ SCH (18:00)
--- NOTE | 2016-11-10 18:58 | Anesthesia Evaluation Post Op ---
Date of Encounter: 11/10/16 Time of Encounter: 18:57 - Vital Signs Vital Signs: Vital Signs/O2 Sat, Most Current Temp Pulse Resp BP Pulse Ox 97.2 F L 122 16 120/73 95 11/10/16 18:18 11/10/16 18:38 11/10/16 18:38 11/10/16 18:28 11/10/16 18:38 - Lungs Lungs: Clear Ascult./Percussion - Airway Airway: Non-obstructed - Cardiovascular Regular Rate - Mental Status Mental Status: Alert & Oriented, Answers Appropriately - Pain Pain Scale: 0 Pain Scale used: Numeric (1 - 10) - Nausea Vomiting Nausea Vomiting: Not Present - Hydration Hydration: NPO, Guzmán catheter - Discharge PostOp Status: Transfer Patient to floor
[2016-11-10] MEDS ORDERED: *HR* Labetalol 20 MG/4 ML SYRINGE IVP PRN (19:55)
[2016-11-10] MEDS ORDERED: Acetaminophen 325 MG TABLET PO PRN (19:55)
[2016-11-10] MEDS ORDERED: Dextrose Gel 15 GM PO PRN ×2 (19:55)
[2016-11-10] MEDS ORDERED: *HR* Morphine 2 MG/ML SYRINGE IVP PRN (19:55)
[2016-11-10] MEDS ORDERED: *HR* Dextrose 50 % in Water (Syg) 50 ML SYRINGE IVP PRN (19:55)
[2016-11-10] MEDS ORDERED: Nitroglycerin 0.4 MG TAB.SUBL SL PRN (19:55)
[2016-11-10] MEDS ORDERED: D5% in Water 1,000 ML IVC PRN (19:55)
[2016-11-10] MEDS ORDERED: Naloxone 0.4 MG/ML INJ IVP PRN (19:55)
[2016-11-10] MEDS ORDERED: Ondansetron 4 MG/2 ML VIAL IVP PRN (19:55)
[2016-11-10] MEDS ORDERED: Insulin LISPRO 300 UNITS/3 ML VIAL SQ SCH (21:00)
[2016-11-10] MEDS ORDERED: diazePAM 5 MG TABLET PO SCH (21:00)
[2016-11-10] MEDS: *HR* LORazepam 0.5 MG TABLET PO SCH (21:40)
[2016-11-10] MEDS: Gabapentin 300 MG CAPSULE PO SCH (21:40)
[2016-11-10] MEDS: *HR* OxyCODONE Immed Rel 5 MG TABLET PO PRN (21:44)
[2016-11-10] MEDS: ceFAZolin 2,000 MG in D5% in Water 100 ML IVPB SCH (21:46)
[2016-11-11] MEDS: *HR* OxyCODONE Immed Rel 5 MG TABLET PO PRN (03:07)
[2016-11-11] MEDS ORDERED: *HR* Heparin 5,000 UNIT/ML VIAL SQ SCH (06:00)
[2016-11-11] MEDS: ceFAZolin 2,000 MG in D5% in Water 100 ML IVPB SCH (06:43)
[2016-11-11] MEDS ORDERED: Insulin LISPRO 300 UNITS/3 ML VIAL SQ SCH (07:30)
[2016-11-11 07:42] VITALS: BP 124/74
--- NOTE | 2016-11-11 07:53 | Discharge Summary ---
Date of Encounter: 11/11/16 Time of Encounter: 07:40 - Discharge Diagnosis (1) Thoracic aneurysm without mention of rupture Priority: Primary Status: Chronic Comments: The patient is postoperative day #1 after a left carotid to subclavian artery bypass. His incision is healing. He is alert and comfortable. He has no neurologic deficits. He will be discharged today. He will follow-up in clinic to discuss endograft repair of his aneurysm. Qualifiers: Presence of rupture: without rupture Qualified Code(s): I71.2 - Thoracic aortic aneurysm, without rupture (2) PVD (peripheral vascular disease) Priority: Secondary Status: Chronic (3) Coronary artery disease Priority: Secondary Status: Chronic Qualifiers: Coronary Disease-Associated Artery/Lesion type: [place] artery [place] vs. transplanted heart: [place] heart Associated angina: without angina Qualified Code(s): I25.10 - Atherosclerotic heart disease of [place] coronary artery without angina pectoris (4) HLD (hyperlipidemia) Priority: Secondary Status: Chronic Qualifiers: Hyperlipidemia type: mixed hyperlipidemia Qualified Code(s): E78.2 - Mixed hyperlipidemia (5) Abdominal aortic aneurysm Priority: Secondary Status: Chronic Qualifiers: Presence of rupture: without rupture Qualified Code(s): I71.4 - Abdominal aortic aneurysm, without rupture (6) Atrial fibrillation Priority: Secondary Status: Chronic Qualifiers: Atrial fibrillation type: paroxysmal Qualified Code(s): I48.0 - Paroxysmal atrial fibrillation (7) CKD (chronic kidney disease), stage III Priority: Secondary Status: Chronic (8) Diabetes Priority: Secondary Status: Chronic Qualifiers: Diabetes mellitus type: type 2 Diabetes mellitus complication status: with kidney complications Diabetes mellitus complication detail: with chronic kidney disease Diabetes mellitus residential insulin use: without residential use Chronic kidney disease stage: stage 3 (moderate) Qualified Code(s): E11.22 - Type 2 diabetes mellitus with diabetic chronic kidney disease; N18.3 - Chronic kidney disease, stage 3 (moderate) (9) Hypertension Priority: Secondary Status: Chronic Qualifiers: Hypertension type: essential hypertension Qualified Code(s): I10 - Essential (primary) hypertension - Discharge Medications Home Medications: Ezetimibe [Zetia] 10 mg PO DAILY 05/03/16 [History] Fenofibrate [Lofibra] 160 mg PO DAILY 05/03/16 [History] Gabapentin [Neurontin] 300 mg PO TID 05/03/16 [History] LORazepam [Ativan] 0.5 mg PO BID 05/03/16 [History] Levothyroxine [Synthroid] 50 mcg PO DAILY 05/03/16 [History] OxyCODONE/APAP 10/325 [Percocet 10/325 MG] 1 each PO Q4HR PRN 05/03/16 [History] Testosterone Cypionate [Depo-Testosterone] 100 mg IM Q2W 05/03/16 [History] diazePAM [Valium] 10 mg PO HS 05/03/16 [History] metFORMIN [Glucophage] 500 mg PO BIDWM 05/03/16 [History] Aspirin [Lo-Dose Aspirin EC] 81 mg PO DAILY 09/10/16 [History] Tamsulosin HCl [Flomax] 0.4 mg PO DAILY 09/10/16 [History] Digoxin [Lanoxin] 0.125 mg PO DAILY 09/30/16 [History] Losartan/Hydrochlorothiazide [Hyzaar 100-25 Tablet] 1 each PO DAILY 09/30/16 [ History] Multivitamin [Multi-Day Vitamins] 1 each PO DAILY 09/30/16 [History] Naloxegol Oxalate [Movantik] 25 mg PO DAILY 09/30/16 [History] Isosorbide MONOnitrate (24 HR) [Imdur] 30 mg PO DAILY #30 tab.er.24h 10/03/16 [ Rx] Metoprolol XL (24 HR) Succ [Toprol Xl] 25 mg PO DAILY 11/10/16 [History] Nitroglycerin [Nitrostat] 0.4 mg SL Q5M PRN 11/10/16 [History] Rivaroxaban [Xarelto] 20 mg PO DAILY 11/10/16 [History] Allergies/Adverse Reactions: Allergies No Known Allergies Allergy (Verified 11/10/16 12:06) Date of admission: 11/10/16 19:50 Primary care physician: Beatriz Peters Procedure(s) Performed: Left carotid to subclavian artery bypass. Discharging clinician: Doroteo Piña Anticipated date of discharge: 11/11/16 - Patient Status Disposition: Home, Self-Care Condition: Good Functional capacity at discharge: independent ambulation Overall status at discharge: patient is back to baseline - Discharge Instructions Instructions: Carotid Artery Disease (GEN) Follow Up With: Beatriz Peters MD [Primary Care Provider] - 11/18/16 7:00 pm Doroteo Piña MD [Partnered Physician] - 11/23/16 1:00 pm Additional Instructions: SEE CAROTID DISCHARGE HANDOUT - Diet and Activity Activity: increase activity as tolerated Diet: advance to your usual diet - Hospital Course Hospital course: Mr. Slater is a 76 year old male with a history of hypertension, hyperlipidemia, coronary artery disease and chronic kidney disease who underwent a left carotid to subclavian artery bypass. He was discharged in stable condition on postoperative day #1 without complication. - Time Spent with Patient Total time spent providing and/or coordinating discharge services: Exam General: Present: Conversant, No Apparent Distress HEENT: Present: Atraumatic Neck: Present: Other (incision clean, dry and intact without erythema or drainage, no hematoma). Absent: JVD Cardiac: Present: Normal S1 and S2, No Murmur Lungs: Present: Normal Breath Sounds Neuro: Present: Alert and responsive, No focal deficits noted, Motor nerves grossly intact, Sensory nerves grossly intact Abdomen: Present: Soft Vascular: Present: Normal capillary refill. Absent: Cyanosis, Edema Skin: Present: No rashes noted on visualized skin - VTE Documentation of Mechanical Device: Intermittent pneumatic compression device
[2016-11-11] MEDS: Gabapentin 300 MG CAPSULE PO SCH (07:56)
[2016-11-11] MEDS: *HR* LORazepam 0.5 MG TABLET PO SCH (07:57)
[2016-11-11] MEDS ORDERED: *HR* Metformin 500 MG TABLET PO SCH (08:00)
[2016-11-11] MEDS ORDERED: Isosorbide MONOnitrate (24 HR) 30 MG TAB.ER.24H PO SCH (09:00)
[2016-11-11] MEDS ORDERED: Fenofibrate 54 MG TABLET PO SCH (09:00)
[2016-11-11] MEDS ORDERED: Naloxegol Oxalate [Movantik] 25 MG PO SCH (09:00)
[2016-11-11] MEDS ORDERED: *HR* Metoprolol 5 MG/5 ML VIAL IVP SCH (09:00)
[2016-11-11] MEDS ORDERED: Metoprolol XL (24 HR) Succ 25 MG TAB.ER.24H PO SCH (09:00)
[2016-11-11] MEDS ORDERED: Losartan/HCTZ 50-12.5 TABLET PO SCH (09:00)
[2016-11-11] MEDS ORDERED: *HR* Digoxin 0.125 MG TABLET PO SCH (09:00)
[2016-11-11] MEDS ORDERED: Aspirin Enteric Coated 81 MG Tablet PO SCH (09:00)
[2016-11-11] MEDS ORDERED: Vancomycin 0 MG in D5% in Water 250 ML IVPB ONE (23:00)
== END 2016-11-11 10:10 | disposition home or self-care (01) | DRG 254 ==
LOC: SAMDAY 09:34 → 2NNU 19:50
PROVIDERS: ADMIT Surgery; ATTEND Surgery

== ENCOUNTER 2016-12-16 09:10 | Inpatient (IN) ==
[2016-12-16] MEDS ORDERED: Lidocaine -MPF 1% 2 ML VIAL ID ONE (09:28)
[2016-12-16] MEDS ORDERED: CeFAZolin Pre 2,000 MG/100 ML 2,000 MG/100 ML BAG IVPB ONE (09:28)
[2016-12-16] MEDS ORDERED: Ringers Solution, Lactated 1,000 ML IVC SCH ×2 (09:30→14:30)
--- NOTE | 2016-12-16 09:54 | Anesthesia Evaluation PreOp ---
Date of Encounter: 12/16/16 Time of Encounter: 09:52 - Past History Planned Operation: Endograft repair of Thoracic Aortic Aneurysm Cardiac History: [place] (2017), HTN, Hyperlipidemia, Arrhythmia (Chronic Afib), Other (aaa, cad. echo 09/20, ef 65, lvh, nl rv, no valve dysfct. 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 Shoulder, Colostomy) Alcohol Use: rarely Drug use: none Medications and Allergies Ezetimibe [Zetia] 10 mg PO DAILY 05/03/16 [History] Fenofibrate [Lofibra] 160 mg PO DAILY 05/03/16 [History] Gabapentin [Neurontin] 300 mg PO TID 05/03/16 [History] LORazepam [Ativan] 0.5 mg PO BID PRN 05/03/16 [History] Levothyroxine [Synthroid] 50 mcg PO DAILY 05/03/16 [History] OxyCODONE/APAP 10/325 [Percocet 10/325 MG] 1 each PO Q4HR PRN 05/03/16 [History] Testosterone Cypionate [Depo-Testosterone] 100 mg IM SA 05/03/16 [History] diazePAM [Valium] 10 mg PO HS 05/03/16 [History] metFORMIN [Glucophage] 500 mg PO BIDWM 05/03/16 [History] Aspirin [Lo-Dose Aspirin EC] 81 mg PO DAILY 09/10/16 [History] Tamsulosin HCl [Flomax] 0.4 mg PO DAILY 09/10/16 [History] Losartan/Hydrochlorothiazide [Hyzaar 100-25 Tablet] 1 each PO DAILY 09/30/16 [ History] Multivitamin [Multi-Day Vitamins] 1 each PO DAILY 09/30/16 [History] Naloxegol Oxalate [Movantik] 25 mg PO DAILY 09/30/16 [History] Metoprolol XL (24 HR) Succ [Toprol Xl] 25 mg PO DAILY 11/10/16 [History] Nitroglycerin [Nitrostat] 0.4 mg SL Q5M PRN 11/10/16 [History] Rivaroxaban [Xarelto] 20 mg PO DAILY 11/10/16 [History] amLODIPine [Norvasc] 5 mg PO DAILY 12/16/16 [History] Allergies No Known Allergies Allergy (Verified 12/16/16 10:06) - Meds/Allergy Pre-op Review Medications Reviewed: Yes Allergies Reviewed: Yes Beta Blockers on Current Med List: Yes If Beta Blockers taken, Date/Time (Last Dose taken): 07:00 12/16/2016 Anesthesia Results - Labs Laboratory Tests 12/06/16 12/06/16 07:11 07:11 WBC 5.1 RBC 4.45 Hgb 14.4 Hct 44.8 Plt Count 192 INR 0.9 Laboratory Tests 11/05/16 12/06/16 07:42 07:11 Sodium 139 Potassium 4.4 Chloride 105 Carbon Dioxide 29 BUN 19 Creatinine 1.28 H Hemoglobin A1c 5.6 - Imaging EKG: image reviewed (10/01/16 SR, LVH, Consider lateral Ischemia) Anesthesia Exam O2 Sat Height 1.73 m Height 1.73 m Weight 81.193 kg Weight 81.193 kg O2 Sat by Pulse Oximetry 96 Vital Signs Temp Pulse Resp BP Pulse Ox 97.8 F 106 18 151/93 96 12/16/16 09:38 12/16/16 09:38 12/16/16 09:38 12/16/16 09:38 12/16/16 09:38 Height: 5'8'' Weight: 183# NPO (# of Hours): > 8 hrs Pain Scale: 0 Pain Scale Used: Numeric (1 - 10) - HEENT Pupil (Motor): Pupils equal, EOMI Mallampati: III Teeth: Edentulous Oral Opening: Greater than 3 - BELLMAN DRIVER LOC: Oriented BELLMAN DRIVER Motor: Normal RUE, Normal LUE, Normal RLE, Normal LLE, Normal Face BELLMAN DRIVER Sensory: Normal: RUE, LUE, RLE, LLE, Face - Cardiac Rhythm: Regular Murmur: None JVD: No Carotid Bruit: No - Pulmonary Breath Sounds: bilateral Clear Respiratory Effort: Symmetrical Anesthesia Assess/Plan ASA Score: 3 Modified [place] Scale for Level of Consciousness: Cooperative, oriented, and tranquil Anesthetic Plan: General Autologous Blood: Yes Monitoring Plan: Standard Monitors, A-Line Recovery Plan: PACU
[2016-12-16] MEDS ORDERED: Albuterol 2.5 MG/3 ML NEBULIZER IH ONE (10:04)
[2016-12-16] MEDS ORDERED: Albuterol 2.5 MG/3 ML NEBULIZER ONE (10:07)
[2016-12-16] MEDS ORDERED: *HR* Propofol 200 MG/20 ML VIAL IVP ONE (10:25)
[2016-12-16] MEDS ORDERED: Lidocaine -MPF 4% 5 ML AMPUL ONE (10:26)
[2016-12-16] MEDS ORDERED: Lidocaine -MPF 2% 2 ML VIAL ONE ×2 (10:26→11:42)
[2016-12-16] MEDS ORDERED: *HR* Rocuronium Bromide 50 MG/5 ML VIAL ONE (10:26)
[2016-12-16] MEDS ORDERED: *HR* FentaNYL (PF) 100 MCG/2 ML VIAL ONE (10:26)
[2016-12-16] MEDS ORDERED: Heparin 1,000 UNITS/500 mL NS 2,000 ML ONE (11:31)
[2016-12-16] MEDS ORDERED: Vancomycin 1,000 MG VIAL ONE (11:31)
--- NOTE | 2016-12-16 11:39 | History & Physical Report ---
Date of Encounter: 12/16/16 Time of Encounter: 11:30 24 Hour HP Update - Instructions Instructions: If the History and Physical is less than 30 days old and was completed prior to A.M. admission and or procedure and has NOT been updated on calendar day of procedure please complete this update prior to performing procedure. - Update Patient reports changes in Medical Condition: No Changes in examination, assessment, or condition: No Changes in Medication: No Preop tests/diagnostics Reviewed: Yes Surgery Remains Indicated: Yes Consent for Planned Operative Procedure(s) Verified: Yes - Pre-Operative Checklist Preoperative Checklist Indicated: No Prophylactic Antibiotic Ordered: Yes (Vancomycin due to MRSA risk) Home Medications Include Beta Genaro: Yes Beta Genaro Taken Today (Day of Surgery): Yes Beta Genaro Taken Yesterday (Day Prior to Surgery): Yes Is VTE Prophylaxis Indicated?: Yes
[2016-12-16] MEDS ORDERED: *HR* Vasopressin 20 UNIT/ML VIAL ONE (12:46)
[2016-12-16] MEDS ORDERED: Albumin Human 5% 25.0 GM/500 ML VIAL ONE (12:57)
[2016-12-16] MEDS ORDERED: EPHEDrine 50 MG/ML VIAL ONE (13:24)
[2016-12-16] MEDS ORDERED: Ondansetron 4 MG/2 ML VIAL ONE (13:41)
[2016-12-16] MEDS ORDERED: *HR* Etomidate 40 MG/20 ML VIAL IVP ONE (13:54)
[2016-12-16] MEDS ORDERED: Neostigmine Methylsulfate 3 MG/3 ML SYRINGE ONE (14:14)
--- NOTE | 2016-12-16 14:18 | Operative Note ---
Date of procedure: 12/16/16 Pre-op diagnosis: Descending thoracic aortic aneurysm Post-op diagnosis: same Procedure: 1. Introduction of catheter into the aorta via right common femoral artery. 2. Right femoral vessel exposure for endograft placement. 3. Endograft repair of proximal descending thoracisaortic aneurysm with [place] Zenith Alpha endograft including radiologic supervision and interpretation. Complications: None Anesthesia: GETA Surgeon: Doroteo Piña Estimated blood loss (cc): 50 Specimen: none Condition: stable Disposition: PACU Procedure in Detail: Indications. The patient is a 76 year old male who was found to have a proximal descending thoracic aortic aneurysm. He previously underwent a left carotid to subclavian artery bypass. He is here today for endograft repair of his aneurysm to reduce his risk of rupture. Procedure: The patient was identified, brought to the operating room and placed in the supine position on the operating room table. After induction of general endotracheal anesthesia, the patient was cleaned and draped in normal sterile fashion. An oblique incision was made over the right groin sharply. Hemostasis was obtained with electrocautery. Using blunt and sharp and electrocautery dissection, the right common, deep and superficial femoral arteries were dissected circumferentially and surrounded with vessel loops. At this point, the patient received 5000 units of heparin intravenously and then a right femoral artery puncture was made with a large-bore needle. A Bentson wires wa advanced into the aortic arch under fluoroscopic view. The needle was exchanged for an 8-Syriac sheath and a long Pigtail catheter was advanced over the wire into the aortic arch. An oblique thoracic aortic angiogram was then performed to obtain sizing and landmark information for the endograft placement. A Lunderquist wire was advanced through the catheter and the catheter was removed. The Zenith Alpha graft was inserted over the Lunderquist wire and was positioned at the origin of the left subclavian artery. The graft sheath was then withdrawn and the graft was deployed in the standard fashion. The pigtail catheter was placed in the ascending aorta and the Lunderquist wire was removed. A flush completion angiogram revealed adequate positioning of the endograft without evidence of an endoleak. The left subclavian artery remained patent. The catheter was removed over a Bentson wire. Tension was applied to the vessel loops in the right groin. The sheath was then removed. After confirming hemodynamic stability, the wire was then removed. The arteriotomy was repaired with a running 6-0 Prolene. Antibiotic irrigation was infused into the groin. Platelet rich and platelet poor plasma were infused into the incisions. Polyphasic right femoral signals were noted. The incision was reapproximated with a single layer of 2-0 Vicryl followed by two layers of 3 -0 Vicryl followed by a layer of 3-0 monocryl in the subcuticular region. Sterile dressings were applied. The patient was then extubated and taken to the recovery room in stable condition. Device: [id number]
[2016-12-16] MEDS ORDERED: *HR* Labetalol 20 MG/4 ML SYRINGE IVP PRN ×2 (14:29→15:53)
[2016-12-16] MEDS ORDERED: Ondansetron 4 MG/2 ML VIAL IVP ONE (14:29)
[2016-12-16] MEDS ORDERED: *HR* Promethazine 25 MG/ML VIAL IVP PRN (14:29)
[2016-12-16] MEDS ORDERED: *HR* HYDROmorphone (PF) 1 MG/ML SYRINGE ONE (14:32)
[2016-12-16] MEDS: *HR* HYDROmorphone (PF) 1 MG/ML SYRINGE IVP PRN ×2 (14:32→14:42)
--- NOTE | 2016-12-16 15:10 | Anesthesia Evaluation Post Op ---
Date of Encounter: 12/16/16 Time of Encounter: 15:10 - Vital Signs Vital Signs: Selected Entries 12/16/16 14:50 12/16/16 15:00 Temperature 98.6 F Pulse Rate 85 Respiratory Rate 16 Blood Pressure 112/71 O2 Sat by Pulse Oximetry 96 - Lungs Lungs: Clear Ascult./Percussion - Airway Airway: Non-obstructed - Cardiovascular Regular Rate - Mental Status Mental Status: Alert & Oriented, Answers Appropriately - Nausea Vomiting Nausea Vomiting: Not Present - Hydration Hydration: Ice chips - Discharge PostOp Status: Transfer Patient to floor
[2016-12-16] MEDS ORDERED: Naloxone 0.4 MG/ML INJ IVP PRN (15:53)
[2016-12-16] MEDS ORDERED: Ondansetron 4 MG/2 ML VIAL IVP PRN (15:53)
[2016-12-16] MEDS ORDERED: D5% in Water 1,000 ML IVC PRN (15:53)
[2016-12-16] MEDS ORDERED: *HR* Dextrose 50 % in Water (Syg) 50 ML SYRINGE IVP PRN (15:53)
[2016-12-16] MEDS ORDERED: *HR* LORazepam 0.5 MG TABLET PO PRN (15:53)
[2016-12-16] MEDS ORDERED: *HR* HYDROcodone/Acet 5/325 mg TABLET PO PRN (15:53)
[2016-12-16] MEDS ORDERED: *HR* Morphine 2 MG/ML SYRINGE IVP PRN (15:53)
[2016-12-16] MEDS ORDERED: Dextrose Gel 15 GM PO PRN ×2 (15:53)
[2016-12-16] MEDS ORDERED: Acetaminophen 325 MG TABLET PO PRN (15:53)
[2016-12-16] MEDS ORDERED: Nitroglycerin 0.4 MG TAB.SUBL SL PRN (15:53)
[2016-12-16] MEDS: Insulin LISPRO 300 UNITS/3 ML VIAL SQ SCH (17:34)
[2016-12-16] MEDS: Gabapentin 300 MG CAPSULE PO SCH ×2 (17:39→20:06)
[2016-12-16] MEDS: *HR* Metoprolol 5 MG/5 ML VIAL IVP SCH ×2 (17:39→23:10)
[2016-12-16] MEDS: ceFAZolin 2,000 MG in D5% in Water 100 ML IVPB SCH (17:40)
[2016-12-16] MEDS ORDERED: *HR* Heparin 5,000 UNIT/ML VIAL SQ ONE (18:00)
[2016-12-16] MEDS ORDERED: *HR* Heparin 5,000 UNIT/ML VIAL SQ SCH (18:00)
[2016-12-16] MEDS: *HR* OxyCODONE Immed Rel 5 MG TABLET PO PRN (20:06)
[2016-12-16] MEDS ORDERED: Insulin LISPRO 300 UNITS/3 ML VIAL SQ SCH (21:00)
[2016-12-16] MEDS ORDERED: diazePAM 10 MG TABLET PO SCH (21:00)
[2016-12-17] MEDS: ceFAZolin 2,000 MG in D5% in Water 100 ML IVPB SCH (01:43)
[2016-12-17] MEDS: *HR* OxyCODONE Immed Rel 5 MG TABLET PO PRN (03:04)
[2016-12-17] MEDS: *HR* Metoprolol 5 MG/5 ML VIAL IVP SCH (05:21)
[2016-12-17 06:06] LABS: Basophils % 0.3 %; Eosinophils # 0.1 K/mcL (0.0-0.6); Eosinophils % 1.2 %; Hematocrit 36.8 % (37.5-50.1); Hemoglobin 11.8 g/dL (12.9-16.9); Immature Granulocytes % 0.5 % (0-4); Lymphocytes # 1.5 K/mcL (0.6-4.6); Mean Corpuscular HGB Conc 32.1 g/dL (31.6-35.5); Mean Corpuscular Hemoglobin 32.9 pg (28.0-33.3); Mean Corpuscular Volume 102.5 fL (83.0-100.0); Mean Platelet Volume 10.4 fL (9.4-12.4); Monocytes # 0.7 K/mcL (0.0-1.3); Monocytes % 10.7 %; Neutrophils # 4.4 K/mcL (1.6-8.9); Platelet Count 206 K/mcL (140-400); Red Blood Count 3.59 M/mcL (4.19-5.50); Segmented Neutrophils % 65.3 %
[2016-12-17 06:13] LABS: BUN/Creatinine Ratio 12 (6-26); Blood Urea Nitrogen 17 mg/dL (8-26); Calcium 8.5 mg/dL (8.6-10.8); Carbon Dioxide 31 mEq/L (19-29); Chloride 101 mEq/L (98-109); Glucose 98 mg/dL (70-99); Osmolality,Calculated 288 (280-300); Potassium 3.9 mEq/L (3.5-4.5); Sodium 138 mEq/L (136-145); eGFR For African Americans > 60 (> 60); eGFR For Non-African Americans 51 (> 60)
[2016-12-17 07:43] VITALS: BP 124/72
[2016-12-17] MEDS: Insulin LISPRO 300 UNITS/3 ML VIAL SQ SCH (07:53)
--- NOTE | 2016-12-17 08:29 | Discharge Summary ---
Date of Encounter: 12/17/16 Time of Encounter: 09:35 - Discharge Diagnosis (1) Thoracic aneurysm without mention of rupture Priority: Primary Status: Chronic Comments: The patient is postoperative day #1 after thoracic aortic endograft placment. The patient is healing well. He is alert and comfortable. He denies chest pain or shortness of breath. He will be discharged today. Qualifiers: Presence of rupture: without rupture Qualified Code(s): I71.2 - Thoracic aortic aneurysm, without rupture (2) Atrial fibrillation Priority: Secondary Status: Chronic Qualifiers: Atrial fibrillation type: paroxysmal Qualified Code(s): I48.0 - Paroxysmal atrial fibrillation (3) CKD (chronic kidney disease), stage III Priority: Secondary Status: Chronic (4) Coronary artery disease Priority: Secondary Status: Chronic Qualifiers: Coronary Disease-Associated Artery/Lesion type: [place] artery [place] vs. 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: without buttermilk drier operator use Chronic kidney disease stage: stage 3 (moderate) Qualified Code(s): E11.22 - Type 2 diabetes mellitus with diabetic chronic kidney disease; N18.3 - Chronic kidney disease, stage 3 (moderate) (6) HLD (hyperlipidemia) Priority: Secondary Status: Chronic Qualifiers: Hyperlipidemia type: mixed hyperlipidemia Qualified Code(s): E78.2 - Mixed hyperlipidemia (7) Hypertension Priority: Secondary Status: Chronic Qualifiers: Hypertension type: essential hypertension Qualified Code(s): I10 - Essential (primary) hypertension - Discharge Medications Prescriptions: OxyCODONE/APAP 10/325 [Percocet 10/325 MG] 1 each PO Q6H PRN #25 PRN Reason: POSTOPERATIVE PAIN Home Medications: Ezetimibe [Zetia] 10 mg PO DAILY 05/03/16 [History] Fenofibrate [Lofibra] 160 mg PO DAILY 05/03/16 [History] Gabapentin [Neurontin] 300 mg PO TID 05/03/16 [History] LORazepam [Ativan] 0.5 mg PO BID PRN 05/03/16 [History] Levothyroxine [Synthroid] 50 mcg PO DAILY 05/03/16 [History] Testosterone Cypionate [Depo-Testosterone] 100 mg IM SA 05/03/16 [History] diazePAM [Valium] 10 mg PO HS 05/03/16 [History] metFORMIN [Glucophage] 500 mg PO BIDWM 05/03/16 [History] Aspirin [Lo-Dose Aspirin EC] 81 mg PO DAILY 09/10/16 [History] Tamsulosin HCl [Flomax] 0.4 mg PO DAILY 09/10/16 [History] Losartan/Hydrochlorothiazide [Hyzaar 100-25 Tablet] 1 each PO DAILY 09/30/16 [ History] Multivitamin [Multi-Day Vitamins] 1 each PO DAILY 09/30/16 [History] Naloxegol Oxalate [Movantik] 25 mg PO DAILY 09/30/16 [History] Metoprolol XL (24 HR) Succ [Toprol Xl] 25 mg PO DAILY 11/10/16 [History] Nitroglycerin [Nitrostat] 0.4 mg SL Q5M PRN 11/10/16 [History] Rivaroxaban [Xarelto] 20 mg PO DAILY 11/10/16 [History] amLODIPine [Norvasc] 5 mg PO DAILY 12/16/16 [History] OxyCODONE/APAP 10/325 [Percocet 10/325 MG] 1 each PO Q6H PRN #25 12/17/16 [Rx] Allergies/Adverse Reactions: Allergies No Known Allergies Allergy (Verified 12/16/16 10:06) Date of admission: 12/16/16 14:47 Primary care physician: Beatriz Peters Procedure(s) Performed: Endograft repair of thoracic aortic aneurysm Discharging clinician: Doroteo Piña Anticipated date of discharge: 12/17/16 - Patient Status Disposition: Home, Self-Care Condition: Good Functional capacity at discharge: independent ambulation Overall status at discharge: patient is back to baseline - Discharge Instructions Instructions: Oxycodone/Acetaminophen (By mouth), Myocardial Infarction (DC), Atrial Fibrillation (DC), Abdominal Aortic Aneurysm Repair (DC), Abdominal Aortic Aneurysm (DC), Peripheral Vascular Disorders (DC) Follow Up With: Doroteo Piña MD [Partnered Physician] - 01/26/17 1:50 pm Kia Strickland CHLORINATION OPERATOR [Advanced Practice Nurse] - 12/20/16 8:00 am - Diet and Activity Activity: increase activity as tolerated Diet: advance to your usual diet - Hospital Course Hospital course: Mr. Slater is a 76 year old male who was admitted on 12/16/16. He underwent endograft repair of his thoracic aortic aneurysm. He tolerated the procedure well and was discharged on postoperative day #1 without complication. - Time Spent with Patient Total time spent providing and/or coordinating discharge services: Exam Vital Signs, Last 4 Hours Temp Pulse Resp BP Pulse Ox 12/17/16 07:37 98.3 F 94 18 124/72 91 General: Present: Conversant, No Apparent Distress HEENT: Present: Atraumatic, Pupils equal Neck: Absent: JVD Cardiac: Present: Normal S1 and S2 Lungs: Present: Normal Breath Sounds, No Wheeze, Rales, Rhonchi Neuro: Present: Alert and responsive, No focal deficits noted, Motor nerves grossly intact, Sensory nerves grossly intact Abdomen: Present: Soft Vascular: Present: Normal capillary refill. Absent: Cyanosis, Edema Skin: Present: No rashes noted on visualized skin Musculoskeletal: Present: No Chest Wall Tenderness - VTE Documentation of Mechanical Device: Intermittent pneumatic compression device
[2016-12-17] MEDS ORDERED: amLODIPine 5 MG TABLET PO SCH (09:00)
[2016-12-17] MEDS ORDERED: Losartan/HCTZ 50-12.5 TABLET PO SCH (09:00)
[2016-12-17] MEDS ORDERED: Metoprolol XL (24 HR) Succ 25 MG TAB.ER.24H PO SCH (09:00)
[2016-12-17] MEDS ORDERED: Fenofibrate 54 MG TABLET PO SCH (09:00)
[2016-12-17] MEDS ORDERED: Aspirin Enteric Coated 81 MG Tablet PO SCH (09:00)
[2016-12-17] MEDS ORDERED: *HR* Rivaroxaban 10 MG TABLET PO SCH (09:00)
[2016-12-17] MEDS ORDERED: NALOXEGOL OXALATE 25 MG PO SCH (09:00)
[2016-12-17] MEDS: Gabapentin 300 MG CAPSULE PO SCH (09:12)
[2016-12-18] MEDS ORDERED: Testosterone Cypionate 200 MG/ML 10 ML MDV IM SCH (09:00)
== END 2016-12-17 09:48 | disposition home or self-care (01) | DRG 221 ==
LOC: SAMDAY 09:10 → 2NNU 14:47
PROVIDERS: ADMIT Surgery; ATTEND Surgery

== ENCOUNTER 2017-03-03 11:07 | Inpatient (IN) ==
[2017-03-03] MEDS ORDERED: 0.9 % Sodium Chloride 1,000 ML IVC ONE (11:40)
--- NOTE | 2017-03-03 11:56 | Emergency Department Note ---
Disposition Clinical Impression: Atrial fibrillation with rapid ventricular response, Elevated troponin Abdominal aortic aneurysm Qualifiers: Presence of rupture: without rupture Qualified Code(s): I71.4 - Abdominal aortic aneurysm, without rupture Hypotension Qualifiers: Hypotension type: other hypotension type Qualified Code(s): I95.89 - Other hypotension Disposition: Admitted As Inpatient Condition: Fair General Adult HPI - General Chief complaint: ED Abdominal Pain Stated complaint: abd pain (gallbladder issues) Source: patient, family Limitations: no limitations Nursing Notes Reviewed: Yes Vital Signs Reviewed: Yes - History of Present Illness HPI Narrative: I did review the previous record, the patient does have history of peripheral vascular disease and TX and atrial fibrillation and was recently admitted but did not have his gallbladder taken out and returns today because of continued right upper quadrant pain however when the patient arrived at 1110 he developed sharp constant chest pain with associated dyspnea and diaphoresis and radiation to the epigastric region. He has no back pain. He did take his medications this morning. No pain or swelling of the lower extremity, fever, respiratory symptoms, blood in the urine or stool. Social history: Stopped smoking within the last several weeks. Family history: Unknown He is here with his Pain Scale: 10 - Related Data Home Medications Medication Instructions Recorded Confirmed Ezetimibe [Zetia] 10 mg PO DAILY 05/03/16 03/03/17 Gabapentin [Neurontin] 300 mg PO TID 05/03/16 03/03/17 LORazepam [Ativan] 0.5 mg PO BID PRN 05/03/16 03/03/17 Levothyroxine [Synthroid] 50 mcg PO DAILY 05/03/16 03/03/17 Testosterone Cypionate 100 mg IM SA 05/03/16 03/03/17 [Depo-Testosterone] diazePAM [Valium] 10 mg PO HS 05/03/16 03/03/17 metFORMIN [Glucophage] 500 mg PO BIDWM 05/03/16 03/03/17 Aspirin [Lo-Dose Aspirin EC] 81 mg PO DAILY 09/10/16 03/03/17 Tamsulosin HCl [Flomax] 0.4 mg PO DAILY 09/10/16 03/03/17 Multivitamin [Multi-Day Vitamins] 1 each PO DAILY 09/30/16 03/03/17 Naloxegol Oxalate [Movantik] 25 mg PO DAILY 09/30/16 03/03/17 Metoprolol XL (24 HR) Succ [Toprol 25 mg PO DAILY 11/10/16 03/03/17 Xl] Nitroglycerin [Nitrostat] 0.4 mg SL Q5M PRN 11/10/16 03/03/17 Rivaroxaban [Xarelto] 20 mg PO DAILY 11/10/16 03/03/17 Atorvastatin [Lipitor] 40 mg PO HS 03/01/17 03/03/17 Digoxin [Lanoxin] 0.125 mg PO DAILY 03/01/17 03/03/17 Losartan/Hydrochlorothiazide 1 tab PO DAILY 03/03/17 03/03/17 [Hyzaar 100-12.5 Tablet] Previous Rx's Medication Instructions Recorded OxyCODONE/APAP 10/325 [Percocet 1 each PO Q6H PRN #25 12/17/16 10/325 MG] levoFLOXacin [Levaquin] 750 mg PO DAILY #5 tablet 03/01/17 Allergies Allergy/AdvReac Type Severity Reaction Status Date / Time No Known Allergies Allergy Verified 03/03/17 11:13 Review of Systems: Constitutional: No fever Vision: No blurred vision ENT: No rhinorrhea Respiratory: No cough Allergic: No allergies : No blood in urine GI: No blood in stool Hematologic: No bruising Dermatologic: No skin rash Musculoskeletal: No pain in the extremities Neuro: No numbness of the extremities Past Medical History - Past Medical History Medical history: Reports: coronary artery disease, diabetes, hyperlipidemia, hypertension, myocardial infarction, other Surgical history: Reports: no surgical history, vascular surgery (Ascending thoracic aneurysm repair in December 2016) Psychiatric history: Reports: anxiety, depression - Social History Smoking Status: Current some day smoker Smokeless Tobacco Status: No Alcohol use: Reports: rarely Drug use: Reports: none Physical Exam CONSTITUTIONAL: Uncomfortable appearing, skin is clammy, the patient is conversational and is able to give a good history. He is breathing comfortably HEAD: Normocephalic; atraumatic EYES: PERRL, no scleral icterus NOSE: The nose is normal in appearance without rhinorrhea NECK: No JVD or distended neck veins RESP: Normal chest excursion with respiration; breath sounds clear and equal bilaterally; no wheezes, rhonchi, or rales CARD: Regular rhythm, without murmurs, rub or gallop ABD: Non-distended; mild right upper quadrant abdominal pain but soft without rigidity, rebound, guarding. Normal appearance. Elsewhere the abdomen is non- tender, soft, without rigidity, rebound or guarding,no pulsatile mass CHEST: No pain with palpation SKIN: cool and clammy, no lesions EXTREMITIES: Pulses are 2 plus and equal times 4 extremities, no peripheral edema or calf muscle pain - General Limitations: no limitations General appearance: alert, in no apparent distress Course Vital Signs Temperature 98.2 F 03/03/17 11:09 Pulse Rate 77 03/03/17 11:09 Respiratory Rate 16 03/03/17 11:09 Blood Pressure 114/70 03/03/17 11:09 O2 Sat by Pulse Oximetry 98 03/03/17 11:09 Temperature 97.8 F 03/03/17 14:21 Pulse Rate 74 03/03/17 14:21 Respiratory Rate 16 03/03/17 14:21 Blood Pressure 114/94 03/03/17 14:21 O2 Sat by Pulse Oximetry 96 03/03/17 14:21 Oxygen Delivery Oxygen Delivery Nasal Cannula Medical Decision Making - [facility] Narrative Medical decision making narrative: I did review the patient's EKG showing atrial fibrillation with rapid ventricular response with a rate of 141 bpm and some evidence of ST elevation anteriorly I did compare this to previous EKG which does show normal sinus rhythm and this was done 4 days ago and does not have ST changes and I did page the cook room supervisor to discuss this further. A repeat EKG will be done after the blood is drawn within the next few minutes. Patient does have pacer paddles on and the patient has had several runs of ventricular tachycardia. Will receive Cardizem 10 mg IV and a drip. Labs are pending. X- ray. 1158 I did go back and reassessed the patient and he did just receive his Cardizem and. Current heart rate is 90 eats per minute. Remains in atrial fibrillation. Did correspond with Dr. Conti the cook room supervisor who does not feel that this is a STEMI but likely the ST changes are rate related. The initial EKG was repeated at 1159 showing continued atrial fibrillation with rapid ventricular response of [address] changes however a EKG after the 10 mg Cardizem bolus shows a decreased rate of 112 bpm with continued atrial fibrillation and improvement in the ST segments and there is some T-wave inversion. The patient does have a Cardizem drip which will be started when it arrives. The patient will be admitted to the hospital. Lab results are pending. We did review the rhythm strip which does show several episodes of ventricular tachycardia which are wide-complex regular beats 1218 - Medical Records Medical records reviewed: Yes I reviewed the patient's medical records. - Lab Data Lab results reviewed: Yes I reviewed the patient's lab results. Result diagrams: 03/03/17 11:51 03/03/17 11:51 Lab Results 03/03/17 03/03/17 03/03/17 Range/Units 11:51 11:51 11:51 WBC 6.6 (4.3-11.1) K/mcL RBC 4.52 (4.19-5.50) M/mcL Hgb 14.7 (12.9-16.9) g/dL Hct 44.5 (37.5-50.1) % MCV 98.5 (83.0-100.0) fL MCH 32.5 (28.0-33.3) pg MCHC 33.0 (31.6-35.5) g/dL RDW 14.7 H (11.5-14.5) % Plt Count 203 (140-400) K/mcL MPV 10.6 (9.4-12.4) fL Sodium 141 (136-145) mEq/L Potassium 3.6 (3.5-4.5) mEq/L Chloride 104 (98-109) mEq/L Carbon Dioxide 23 (19-29) mEq/L BUN 19 (8-26) mg/dL Creatinine 1.46 H (0.72-1.25) mg/dL Est GFR ( Amer) 57 L (> 60) Est GFR (Non-Af Amer) 47 L (> 60) BUN/Creatinine Ratio 13 (6-26) Glucose 120 H (70-99) mg/dL Calculated Osmolality 295 (280-300) Lactic Acid 1.6 (0.5-2.2) mmol/L Calcium 9.8 (8.6-10.8) mg/dL Total Bilirubin 1.6 H (0.2-1.2) mg/dL Direct Bilirubin 0.9 H (0.0-0.5) mg/dL Indirect Bilirubin 0.7 (0.0-1.2) mg/dL AST 41 H (5-34) Units/L ALT 44 (0-55) Units/L Alkaline Phosphatase 35 L (38-126) Units/L Troponin I (0-0.03) ng/mL Serum Total Protein 7.0 (6.0-8.3) g/dL Albumin 3.4 L (3.5-5.0) g/dL Globulin 3.6 H (2.4-3.5) g/dL Albumin/Globulin Ratio 0.9 L (1.1-2.2) Lipase < 10 (8-78) Units/L Digoxin 0.8 (0.8-2.0) ng/mL 03/03/17 Range/Units 11:51 WBC (4.3-11.1) K/mcL RBC (4.19-5.50) M/mcL Hgb (12.9-16.9) g/dL Hct (37.5-50.1) % MCV (83.0-100.0) fL MCH (28.0-33.3) pg MCHC (31.6-35.5) g/dL RDW (11.5-14.5) % Plt Count (140-400) K/mcL MPV (9.4-12.4) fL Sodium (136-145) mEq/L Potassium (3.5-4.5) mEq/L Chloride (98-109) mEq/L Carbon Dioxide (19-29) mEq/L BUN (8-26) mg/dL Creatinine (0.72-1.25) mg/dL Est GFR ( Amer) (> 60) Est GFR (Non-Af Amer) (> 60) BUN/Creatinine Ratio (6-26) Glucose (70-99) mg/dL Calculated Osmolality (280-300) Lactic Acid (0.5-2.2) mmol/L Calcium (8.6-10.8) mg/dL Total Bilirubin (0.2-1.2) mg/dL Direct Bilirubin (0.0-0.5) mg/dL Indirect Bilirubin (0.0-1.2) mg/dL AST (5-34) Units/L ALT (0-55) Units/L Alkaline Phosphatase (38-126) Units/L Troponin I 0.04 H* (0-0.03) ng/mL Serum Total Protein (6.0-8.3) g/dL Albumin (3.5-5.0) g/dL Globulin (2.4-3.5) g/dL Albumin/Globulin Ratio (1.1-2.2) Lipase (8-78) Units/L Digoxin (0.8-2.0) ng/mL - Radiology Data Radiology results reviewed: Yes I reviewed the patient's radiology results. Critical Care Time Critical Care Time: Yes Total Critical Care Time: 30 Attestation: 30 minutes with afib w rvr with hypotension and symptomatic and cardizem bolus and drip and eval multiple ecgs
[2017-03-03 11:59] LABS: Hematocrit 44.5 % (37.5-50.1); Hemoglobin 14.7 g/dL (12.9-16.9); Mean Corpuscular Hemoglobin 32.5 pg (28.0-33.3); Mean Corpuscular Volume 98.5 fL (83.0-100.0); Mean Platelet Volume 10.6 fL (9.4-12.4); Platelet Count 203 K/mcL (140-400); Red Blood Count 4.52 M/mcL (4.19-5.50); Red Cell Distribution Width 14.7 % (11.5-14.5)
[2017-03-03 12:14] LABS: Alanine Aminotransferase 44 Units/L (0-55); Albumin 3.4 g/dL (3.5-5.0); Albumin/Globulin Ratio 0.9 (1.1-2.2); Alkaline Phosphatase 35 Units/L (38-126); Aspartate Amino Transferase 41 Units/L (5-34); BUN/Creatinine Ratio 13 (6-26); Bilirubin,Direct 0.9 mg/dL (0.0-0.5); Bilirubin,Indirect 0.7 mg/dL (0.0-1.2); Bilirubin,Total 1.6 mg/dL (0.2-1.2); Blood Urea Nitrogen 19 mg/dL (8-26); Calcium 9.8 mg/dL (8.6-10.8); Carbon Dioxide 23 mEq/L (19-29); Chloride 104 mEq/L (98-109); Globulin 3.6 g/dL (2.4-3.5); Glucose 120 mg/dL (70-99); Osmolality,Calculated 295 (280-300); Potassium 3.6 mEq/L (3.5-4.5); Sodium 141 mEq/L (136-145); eGFR For African Americans 57 (> 60); eGFR For Non-African Americans 47 (> 60)
[2017-03-03 12:15] LABS: Lipase < 10 Units/L (8-78)
[2017-03-03 12:56] LABS: Digoxin 0.8 ng/mL (0.8-2.0)
--- NOTE | 2017-03-03 14:07 | Event Note ---
Date of Encounter: 03/03/17 Time of Encounter: 14:05 1. Atrial fibrillation with RVR possibly triggered by acute cholecystitis Continue Cardizem drip, hold Xarelto if possible surgical procedures is scheduled 2. Acute cholecystitis Start IV ciprofloxacin and Flagyl, reconsult surgery Nothing by mouth IV fluids 3. History of chronic kidney disease stage III 4. Peripheral vascular disease 5. History of AAA Protonix IV for GI prophylaxis and sequential compression devices for DVT prophylaxis. The patient will be admitted for observation. Full code. Time spent on this admission 40 minutes. H&P will be completed by KERRY Pichardo
[2017-03-03] MEDS ORDERED: 0.9 % Sodium Chloride 1,000 ML IVC SCH (14:15)
[2017-03-03] MEDS ORDERED: Naloxone 0.4 MG/ML INJ IVP PRN (14:21)
--- NOTE | 2017-03-03 14:34 | Cardiology Consult Note ---
Date of Encounter: 03/03/17 Time of Encounter: 14:30 Assessment and Plan (1) Abdominal pain Current Visit: No Status: Acute Per Cardiology: Recently admitted for abdominal pain and patient did not proceed with surgical intervention. Further management per primary service. Patient did undergo preoperative risk stratification during last hospital stay and deemed to be an intermediate risk if were to undergo surgery. Qualifiers: Abdominal location: left upper quadrant Qualified Code(s): R10.12 - Left upper quadrant pain (2) Atrial fibrillation with RVR Current Visit: Yes Status: Acute Per Cardiology: Known history of paroxysmal atrial fibrillation and per review of medical records had been on beta alfa and digoxin as outpatient. Presented with A. fib with RVR in the 140s. Currently sinus rhythm in the 70s on Cardizem drip at 5 mg per hour. Awaiting review of medications with . We'll attempt to wean off IV Cardizem drip and start by mouth medications, however currently not aware of what he is actually taking at home. Suspect afib RVR driven by abdominal pain vs possible medication confusion. Regarding long-term anticoagulation, he now appears to be taking Xarelto. Again , will review medications. (3) Elevated troponin Current Visit: Yes Status: Acute Per Cardiology: Troponin 0.04. Recent troponins noted to be peaked at 0.05. Suspect demand ischemia in setting of A. fib with RVR. No cardiac rehabilitation worked. We'll continue to monitor. Chest pain-free. (4) Coronary artery disease Current Visit: No Status: Chronic Per Cardiology: Hx of CAD-- last [facility] 09/2016 showed left main 30%, proximal LAD 20%, proximal circumflex 30%, proximal RCA 50-60% area last echo September 2016 with EF 65%, moderate diastolic dysfunction, no significant valvular dysfunction. Qualifiers: Coronary Disease-Associated Artery/Lesion type: [place] artery [place] vs. transplanted heart: [place] heart Associated angina: without angina Qualified Code(s): I25.10 - Atherosclerotic heart disease of [place] coronary artery without angina pectoris (5) AAA (abdominal aortic aneurysm) without rupture Current Visit: No Status: Chronic Per Cardiology: History of AAA with most recent CT showing 4.6 x 3.9 cm. Follows with vascular. (6) CKD (chronic kidney disease), stage III Current Visit: No Status: Chronic Discussion w patient/family: The assessment and plan as outlined above was discussed with the patient and/or family members who expressed understanding and agreement. All questions were answered. Thank you for involving us in the care of your patient. Please call with any questions. History of Present Illness Consult date: 03/03/17 Consult reason: Afib RVR Chief complaint: Abdominal Pain, Fast HR History of present illness: Mr. Slater is a 76 year old male with a relevant past medical history of hypertension, diabetes mellitus type 2, CAD, hyperlipidemia, CK 50, GERD, paroxysmal atrial fibrillation, abdominal aortic aneurysm. Patient just seen by cardiology during most recent hospital stay a few days ago for possible preoperative evaluation, however patient did not undergo surgery at that time. Cardiology consult now for A. fib with RVR in the 140s. Patient seen with at bedside. Reports since his discharge doing well until this morning when he developed his left lower quadrant abdominal pain with radiation to the right lower quadrant. He reports symptoms continued and developed some mid epigastric discomfort. Additionally noticed rapid heart rate with some nausea and diaphoresis. He denies any chest pain. Reports he was up all night last night-- "just cannot sleep". He denies any dizziness, syncope, falls. Denies any active bleeding or blood loss. Reports continue on his blood thinner of Xarelto-- reports was switched by his PCP from [place]. Patient reports compliance with medications, however unsure what he is actually taking at home. Denies any vomiting, diarrhea. Denies any fever, chills or cough. Symptoms currently resolved. Past Med Surg Social Fam HX - Past Medical History Attestation: Yes The following information was validated with the patient. Source: patient, old records reviewed, obtained from family Medical history: coronary artery disease, diabetes, hyperlipidemia, hypertension , myocardial infarction, other Psychiatric history: anxiety, depression - Past Surgical History Surgical History: no surgical history, vascular surgery (Ascending thoracic aneurysm repair in December 2016) - Social History Smoking Status: Current some day smoker Smokeless Tobacco Status: No Alcohol use: rarely Drug use: none - Family History Mother Family Member Ethnicity: Non- Living Status: Hx Family Cancer: Yes (Breast cancer) Medications and Allergies Ezetimibe [Zetia] 10 mg PO DAILY 05/03/16 [History] Gabapentin [Neurontin] 300 mg PO TID 05/03/16 [History] LORazepam [Ativan] 0.5 mg PO BID PRN 05/03/16 [History] Levothyroxine [Synthroid] 50 mcg PO DAILY 05/03/16 [History] Testosterone Cypionate [Depo-Testosterone] 100 mg IM SA 05/03/16 [History] diazePAM [Valium] 10 mg PO HS 05/03/16 [History] metFORMIN [Glucophage] 500 mg PO BIDWM 05/03/16 [History] Aspirin [Lo-Dose Aspirin EC] 81 mg PO DAILY 09/10/16 [History] Tamsulosin HCl [Flomax] 0.4 mg PO DAILY 09/10/16 [History] Multivitamin [Multi-Day Vitamins] 1 each PO DAILY 09/30/16 [History] Naloxegol Oxalate [Movantik] 25 mg PO DAILY 09/30/16 [History] Metoprolol XL (24 HR) Succ [Toprol Xl] 25 mg PO DAILY 11/10/16 [History] Nitroglycerin [Nitrostat] 0.4 mg SL Q5M PRN 11/10/16 [History] Rivaroxaban [Xarelto] 20 mg PO DAILY 11/10/16 [History] OxyCODONE/APAP 10/325 [Percocet 10/325 MG] 1 each PO Q6H PRN #25 12/17/16 [Rx] Atorvastatin [Lipitor] 40 mg PO HS 03/01/17 [History] Digoxin [Lanoxin] 0.125 mg PO DAILY 03/01/17 [History] levoFLOXacin [Levaquin] 750 mg PO DAILY #5 tablet 03/01/17 [Rx] Losartan/Hydrochlorothiazide [Hyzaar 100-12.5 Tablet] 1 tab PO DAILY 03/03/17 [ History] 3 Allergy/AdvReac Type Severity Reaction Status Date / Time No Known Allergies Allergy Verified 03/03/17 11:13 All Systems Review: A 10-system review of systems was performed and is negative for pertinent findings except as documented above in the HPI. - Cardiovascular Cardiovascular: as per HPI, palpitations, rapid heart rate - Gastrointestinal Gastrointestinal: abdominal pain Physical Examination Vital Signs, Last 4 Hours Temp Pulse Resp BP Pulse Ox 03/03/17 14:21 97.8 F 74 16 114/94 96 03/03/17 14:05 16 120/78 General: Conversant, No Apparent Distress HEENT: Atraumatic, Normocephaly, Mucus Membranes Moist Neck: No JVD, Normal carotid pulses Cardiac: Reg Rate and Rhythm, Normal S1 and S2, No Murmur Lungs: Normal Breath Sounds, No Wheeze, Rales, Rhonchi Neuro: Alert and responsive, No focal deficits noted Abdomen: Soft, Non-Tender Skin: No rashes noted on visualized skin Musculoskeletal: No Chest Wall Tenderness Extremities: No Clubbing, No Cyanosis, No Edema, Normal Pulses Results 03/03/17 11:51 03/03/17 11:51 Laboratory Tests 03/03/17 03/03/17 11:51 11:51 Creatinine 1.46 H Est GFR (Non-Af Amer) 47 L AST 41 H ALT 44 Troponin I 0.04 H* Digoxin 0.8 ITS Impressions Chest X-Ray 03/03/17 11:39 IMPRESSION: Stable chest x-ray, without radiographic evidence for acute cardiopulmonary disease process. D/ / Ranjit Koo / Ranjit Koo Interpreting Provider: Ranjit Koo Active Medications Diltiazem HCl 125 mg/ Dextrose 125 mls @ 10 mls/hr IVC .[id number] HONORIO; 10 MG/HR PRN Reason: Protocol Stop: 09/02/17 12:01 Last Admin: 03/03/17 13:05 Dose: 10 mg/hr, 10 mls/hr Metronidazole (Flagyl Premix 500 Mg/100 Ml) 500 mg in 100 mls @ 100 mls/hr IVPB Q8HR HONORIO Stop: 09/02/17 16:01 Ciprofloxacin Lactate (Cipro Premix 400 Mg/200 Ml) 400 mg in 200 mls @ 200 mls/ hr IVPB Q12HR HONORIO Stop: 09/02/17 14:10 Sodium Chloride (0.9 % Sodium Chloride) 1,000 mls @ 150 mls/hr IVC .[id number] HONORIO Stop: 09/02/17 14:16 Naloxone HCl (Narcan) 0.4 mg IVP Q2MIN PRN PRN Reason: Opioid Reversal Stop: 09/02/17 14:22 - Imaging and Cardiology Echo: report reviewed Cardiac cath: report reviewed - EKG Interpretation EKG results cardiology: personally reviewed (Fabricio murray with RVR in the 140s), other Consult Discharge Plan - Plan Referrals: Beatriz Peters MD [Primary Care Provider] -
[2017-03-03] MEDS ORDERED: Nitroglycerin 0.4 MG TAB.SUBL SL PRN (14:53)
[2017-03-03] MEDS ORDERED: *HR* Dextrose 50 % in Water (Syg) 50 ML SYRINGE IVP PRN (15:02)
[2017-03-03] MEDS ORDERED: D5% in Water 1,000 ML IVC PRN (15:02)
[2017-03-03] MEDS ORDERED: Dextrose Gel 15 GM PO PRN ×2 (15:02)
--- NOTE | 2017-03-03 15:07 | Internal Med History&Physical ---
Date of Encounter: 03/03/17 Time of Encounter: 15:06 Assessment and Plan (1) Atrial fibrillation with RVR Current visit: Yes Status: Acute 1 patient had right upper quadrant pain with sudden onset of epigastric and chest pain. EKG revealed A. fib RVR rate of 144. This may have been triggered by acute cholecystitis He is given 10 mg Cardizem IV push and started on Cardizem drip. He did convert to sinus rhythm with rate of 90. We will continue with Cardizem drip for now. 2 he is also Route L which we will continue-hold for any impending surgery 3 continuous cardiac monitoring 4 consult cardiology 5 continue with digoxin as well as metoprolol (2) Elevated troponin Current visit: Yes Status: Acute 1 troponin is 0.04 which appears to be around his baseline is likely related to demand ischemia, we will continue to trend troponin 2 continue cardiac monitoring (3) Abdominal aortic aneurysm Current visit: No Status: Chronic 1 appears stable at this time CT of September 2016 showed him for renal AAA 4.[address] obtained 02/27 2017 showed aneurysm of 4.6 x 3.9 cm 2 patient will follow-up with vascular surgery as outpatient.-Monitor blood pressure maintain systolic less than 140 Qualifiers: Presence of rupture: without rupture Qualified Code(s): I71.4 - Abdominal aortic aneurysm, without rupture (4) HTN (hypertension) Current visit: No Status: Acute 1 presently controlled we will continue with metoprolol Qualifiers: Hypertension type: essential hypertension Qualified Code(s): I10 - Essential (primary) hypertension (5) CKD (chronic kidney disease), stage III Current visit: No Status: Chronic 1 he appears to be at baseline creatinine 1.46. We will continue to monitor give gentle IV fluids overnight. 2 monitor intake and output daily weights 3 avoid nephrotoxins (6) Diabetes Current visit: No Status: Chronic Accu-Cheks before meals at bedtime for sinus scale insulin Qualifiers: Diabetes mellitus type: type 2 Diabetes mellitus complication status: with kidney complications Diabetes mellitus complication detail: with chronic kidney disease Diabetes mellitus usp insulin use: without usp use Chronic kidney disease stage: stage 3 (moderate) Qualified Code(s): E11.22 - Type 2 diabetes mellitus with diabetic chronic kidney disease; N18.3 - Chronic kidney disease, stage 3 (moderate) (7) Cholecystitis with cholelithiasis Current visit: No Status: Chronic 1 patient had sudden onset of right upper quadrant pain this a.m. history of chronic cholecystitis with cholelithiasis . 2 consult surgery 3 Cipro and Flagyl Qualifiers: Cholelithiasis location: gallbladder Cholecystitis acuity: chronic Biliary obstruction: without biliary obstruction Qualified Code(s): K80.10 - Calculus of gallbladder with chronic cholecystitis without obstruction (8) DVT prophylaxis Current visit: No Status: Acute Xarelto (9) Coronary artery disease Current visit: No Status: Chronic SR 2016 and left main 30% proximal LAD 20% proximal circumflex 30% proximal RCA 5060%. Echo 09/2016 EF 65% moderate diastolic dysfunction. We will continue with statin beta alfa and aspirin 2 nitrates for chest pain Qualifiers: Coronary Disease-Associated Artery/Lesion type: [place] artery [place] vs. transplanted heart: [place] heart Associated angina: without angina Qualified Code(s): I25.10 - Atherosclerotic heart disease of [place] coronary artery without angina pectoris Internal Medicine - H&P: HPI Chief complaint: ABD pain Admitted From: Emergency Dept Plans for Post Hospital Care: Home History of present illness: Mr. Slater is a 76 year old male with past medical history of high blood pressure coronary disease known AAA diabetes hyperlipidemia (1 atrial fibrillation CK D stage III cholelithiasis. Patient was admitted to this facility on 02/27/2017 for right upper quadrant abdominal pain he was worked up for acute cholelithiasis general surgery was consult that he had a gallbladder ultrasound which suggested acute cholecystitis. He had a nuclear medicine hepatobiliary scan which found no evidence of acute cholecystitis. Normal gallbladder ejection fraction. Based on this finding acute cholecystitis was ruled out. His abdominal pain was triggered due to acute exacerbation of chronic cholecystitis with cholelithiasis .He was discharged home 02/27/2017 and was doing well. According to the patient he was having some difficulty sleeping last night and finally went to sleep around 6:30 this morning. At approximately 9:30 he got up to take his medication he began to experience right upper quadrant pain. He arrived at the ER at approximately 11 AM and began to experience sharp midsternal chest pain radiating to his epigastric region with associated symptoms of dyspnea diaphoresis. He denies any fevers chills cough back pain or urinary symptoms. EKG was obtained in the ER which did show A. fib RVR rate in the 140s there was some concern of ST elevation anterior leads. They did speak with Dr. Conti the decating machine operator who did not feel that it was a STEMI but likely ST changes are related to rate patient was initiated on a Cardizem drip after given 10 mg IV push he did convert over to sinus rhythm with a rate of 90. Lab was obtained which did reveal troponin of 0.04 digoxin was 0.8 lactate was 1.6. BUN 19 creatinine is 1.46 chest x-ray with no acute process. He has been admitted for further workup and evaluation. Presently patient denies any pain he states he feels very well this time. Abdomen is soft and nontender lung sounds are clear heart sounds are regular S1 and S2 with no rubs gallops murmurs noted the pedal edema noted. He is sinus rhythm on monitor this time. He is hemodynamically stable at this time. A venous case with Dr. Prado who agrees with plan. Past Med Surg Social Fam HX - Past Medical History Medical history: coronary artery disease, diabetes, hyperlipidemia, hypertension , myocardial infarction, other Psychiatric history: anxiety, depression - Past Surgical History Surgical History: no surgical history, vascular surgery (Ascending thoracic aneurysm repair in December 2016) - Social History Smoking Status: Current some day smoker Smokeless Tobacco Status: No Alcohol use: rarely Drug use: none - Family History Mother Family Member Ethnicity: Non- Living Status: Hx Family Cancer: Yes (Breast cancer) Internal Medicine - H&P: Meds Ezetimibe [Zetia] 10 mg PO DAILY 05/03/16 [History] Gabapentin [Neurontin] 300 mg PO TID 05/03/16 [History] LORazepam [Ativan] 0.5 mg PO BID PRN 05/03/16 [History] Levothyroxine [Synthroid] 50 mcg PO DAILY 05/03/16 [History] Testosterone Cypionate [Depo-Testosterone] 100 mg IM SA 05/03/16 [History] diazePAM [Valium] 10 mg PO HS 05/03/16 [History] metFORMIN [Glucophage] 500 mg PO BIDWM 05/03/16 [History] Aspirin [Lo-Dose Aspirin EC] 81 mg PO DAILY 09/10/16 [History] Tamsulosin HCl [Flomax] 0.4 mg PO DAILY 09/10/16 [History] Multivitamin [Multi-Day Vitamins] 1 each PO DAILY 09/30/16 [History] Naloxegol Oxalate [Movantik] 25 mg PO DAILY 09/30/16 [History] Metoprolol XL (24 HR) Succ [Toprol Xl] 25 mg PO DAILY 11/10/16 [History] Nitroglycerin [Nitrostat] 0.4 mg SL Q5M PRN 11/10/16 [History] Rivaroxaban [Xarelto] 20 mg PO DAILY 11/10/16 [History] OxyCODONE/APAP 10/325 [Percocet 10/325 MG] 1 each PO Q6H PRN #25 12/17/16 [Rx] Atorvastatin [Lipitor] 40 mg PO HS 03/01/17 [History] Digoxin [Lanoxin] 0.125 mg PO DAILY 03/01/17 [History] levoFLOXacin [Levaquin] 750 mg PO DAILY #5 tablet 03/01/17 [Rx] Losartan/Hydrochlorothiazide [Hyzaar 100-12.5 Tablet] 1 tab PO DAILY 03/03/17 [ History] 3 Allergy/AdvReac Type Severity Reaction Status Date / Time No Known Allergies Allergy Verified 03/03/17 11:13 All Systems PM: A 10-system review of systems was performed and is negative for pertinent findings except as documented above in the HPI. - Constitutional Constitutional: no chills, no fever(s), no night sweats - EENT Eyes: no change in vision, no discharge, no pain, no photophobia Nose, mouth and throat: no dysphagia, no nasal discharge, no neck pain, no sore throat - Cardiovascular Cardiovascular ROS IM: chest pain, no diaphoresis, no dyspnea, no lightheadedness, no palpitations, no syncope - Respiratory Respiratory: no cough, no dyspnea, no wheezing, no excessive phlegm production - Gastrointestinal Gastrointestinal: abdominal pain, no diarrhea, no hematemesis, no hematochezia, no melena, no nausea, no vomiting - Musculoskeletal Musculoskeletal ROS IM: no numbness, no tingling - Integumentary Integumentary IM: no rash, no unusual bruising - Neurological Neurological ROS: no confusion, no convulsions, no focal weakness, no numbness, no tingling, no tremor(s) - Hematologic/Lymphatic Hematologic/Lymphatic: no easy bruising - Constitutional Vitals: Temp Pulse Resp BP Pulse Ox 97.8 F 74 16 114/94 96 03/03/17 14:21 03/03/17 14:21 03/03/17 14:21 03/03/17 14:21 03/03/17 14:21 General appearance: Present: A&O X 3, answers questions appropriately - Head Head exam: Present: atraumatic, normocephalic - Eye Eye exam: Present: PERRL, conjuntiva pink, sclera anicteric Pupils: Present: PERRL - Neck Neck exam general surgery: Present: supple, trachea midline. Absent: lymphadenopathy - Respiratory Respiratory exam: Present: CTAB. Absent: accessory muscle use, rales, rhonchi, wheezes - Cardiovascular Cardiovascular exam: Present: RRR, +S1, +S2. Absent: diastolic murmur, gallop, rubs, systolic murmur - GI/Abdominal GI/Abdominal exam: Present: normal bowel sounds, soft, no peritoneal signs. Absent: distended, tenderness - Extremities Exam Extremities exam: Present: warm, radial pulses palpable and symmetrical. Absent : calf tenderness, cyanotic, pedal edema - Neurological Exam Neurological exam: Present: CN II-XII intact, oriented X3, no focal deficits. Absent: pronater drift, facial droop, speech deficit - Skin Skin exam: Present: dry, intact Internal Med - H&P Results - Labs CBC & Chem 7: 03/03/17 11:51 03/03/17 11:51 - EKG Data EKG comments: 03/03/17 15:27 atrial fibrillation - Diagnostic Studies Other Images Additional comments: Chest X-Ray 03/03/17 11:39 IMPRESSION: Stable chest x-ray, without radiographic evidence for acute cardiopulmonary disease process. D/ / Ranjit Koo / Ranjit Koo Interpreting Provider: Ranjit Koo
[2017-03-03] MEDS ORDERED: Metoprolol XL (24 HR) Succ 25 MG TAB.ER.24H PO ONE (15:48)
[2017-03-03] MEDS: MetroNIDAZOLE 500 MG/100 ML 500 MG/100 ML BAG IVPB SCH ×2 (15:59→23:59)
[2017-03-03] MEDS: Gabapentin 300 MG CAPSULE PO SCH ×2 (15:59→20:25)
[2017-03-03] MEDS: 0.9 % Sodium Chloride 1,000 ML IVC SCH (15:59)
[2017-03-03] MEDS: Insulin LISPRO 300 UNITS/3 ML VIAL SQ SCH ×2 (16:48→21:18)
--- NOTE | 2017-03-03 18:04 | General Surgery Consult Note ---
Date of Encounter: 03/03/17 Time of Encounter: 18:02 Assessment and Plan (1) Cholelithiasis Current Visit: Yes Status: Acute Unlikely, as described by the patient, that he was experiencing biliary colic. it sounds as if his symptoms were cardiac in origin. However, would need to rule out pain of biliary origin - abdominal US: to evaluate for differences from prior - repeat Tbili in AM; either passed a stone or related to systemic process - no acute surgical intervention required - cares per primary team: cont to hold xarelto; Qualifiers: Cholelithiasis location: gallbladder Cholecystitis acuity: chronic Biliary obstruction: without biliary obstruction Qualified Code(s): K80.10 - Calculus of gallbladder with chronic cholecystitis without obstruction (2) Epigastric abdominal pain Current Visit: No Status: Acute pain currently resolved; abdomen completely benign; currently tolerating liquid diet - re-examine in AM - follow up with abdominal US and AM labs - cares per primary team History of Present Illness Consult date: 03/03/17 Reason for consult: abdominal pain (epigastric pain with migration to chest) History of present illness: 76M with PMH significant for CAD, [place], PVD, AAA, repair of thoracic aneursym, A fib who originally presented ~ 02/28 with concern for acute cholecystitis. However due to a negative HIDA scan and a benign exam, the decision was made to not operate. Since discharge he now presents with 1 day history of abdominal pain localized to the epigastrium. It does not sound as if this pain is associated with fatty foods as he had dinner (steak, mac & cheese, and milk) ~ 2100 and his pain began at 0600. It is a dull aching pain that migrated to his mid chest. No associated nausea, vomiting but the patient reported significant discomfort. He came to the hospital for evaluation and surgery was consulted for management recommendations. Past Med Surg Social Fam HX - Past Medical History Medical history: coronary artery disease, diabetes, hyperlipidemia, hypertension , myocardial infarction, other Psychiatric history: anxiety, depression - Past Surgical History Surgical History: no surgical history, vascular surgery (Ascending thoracic aneurysm repair in December 2016) - Social History Smoking Status: Current some day smoker Smokeless Tobacco Status: No Alcohol use: rarely Drug use: none - Family History Mother Family Member Ethnicity: Non- Living Status: Hx Family Cancer: Yes (Breast cancer) Medications and Allergies Ezetimibe [Zetia] 10 mg PO DAILY 05/03/16 [History] Gabapentin [Neurontin] 300 mg PO TID 05/03/16 [History] LORazepam [Ativan] 0.5 mg PO BID PRN 05/03/16 [History] Levothyroxine [Synthroid] 50 mcg PO DAILY 05/03/16 [History] Testosterone Cypionate [Depo-Testosterone] 100 mg IM SA 05/03/16 [History] diazePAM [Valium] 10 mg PO HS 05/03/16 [History] metFORMIN [Glucophage] 500 mg PO BIDWM 05/03/16 [History] Aspirin [Lo-Dose Aspirin EC] 81 mg PO DAILY 09/10/16 [History] Tamsulosin HCl [Flomax] 0.4 mg PO DAILY 09/10/16 [History] Multivitamin [Multi-Day Vitamins] 1 each PO DAILY 09/30/16 [History] Naloxegol Oxalate [Movantik] 25 mg PO DAILY 09/30/16 [History] Metoprolol XL (24 HR) Succ [Toprol Xl] 25 mg PO DAILY 11/10/16 [History] Nitroglycerin [Nitrostat] 0.4 mg SL Q5M PRN 11/10/16 [History] Rivaroxaban [Xarelto] 20 mg PO DAILY 11/10/16 [History] OxyCODONE/APAP 10/325 [Percocet 10/325 MG] 1 each PO Q6H PRN #25 12/17/16 [Rx] Atorvastatin [Lipitor] 40 mg PO HS 03/01/17 [History] Digoxin [Lanoxin] 0.125 mg PO DAILY 03/01/17 [History] levoFLOXacin [Levaquin] 750 mg PO DAILY #5 tablet 03/01/17 [Rx] Losartan/Hydrochlorothiazide [Hyzaar 100-12.5 Tablet] 1 tab PO DAILY 03/03/17 [ History] 3 Allergy/AdvReac Type Severity Reaction Status Date / Time No Known Allergies Allergy Verified 03/03/17 11:13 Review of Systems All systems PM: A 10-system review of systems was performed and is negative for pertinent findings except as documented above in the HPI. General Surgery Exam Initial Vital Signs Temp Pulse Resp BP Pulse Ox 98.2 F 77 16 114/70 98 03/03/17 11:09 03/03/17 11:09 03/03/17 11:03/03/17 11:03/03/17 11:09 - General physical appearance well developed, well nourished, no distress, no pain - Eyes other (no scleral icterus), normal ocular movement - Neck no lymphadectomy - Respiratory normal expansion, normal respiratory effort, clear to percussion, clear to auscultation - Cardiovascular Cardiovascular exam: Present: RRR (currently in sinus rhythm) - Abdomen Abdomen general surgery: Present: soft, non tender (non distended; non peritoneal, (-)elam's sign) Hernia: Present: none - Integumentary Integumentary general surgery: Present: warm and dry - Neurologic Present: CN 2-12 grossly intact - Musculoskeletal Present: other (no edema appreciated) - Psychiatric Psychiatric general surgery: Present: A&Ox3, speech is normal, memory intact Exam Initial Vital Signs Temp Pulse Resp BP Pulse Ox 98.2 F 77 16 114/70 98 03/03/17 11:09 03/03/17 11:09 03/03/17 11:09 03/03/17 11:09 03/03/17 11:09 Results - Labs 03/03/17 11:51 03/03/17 11:51 Abnormal lab results RDW 14.7 % (11.5-14.5) H 03/03/17 11:51 Creatinine 1.46 mg/dL (0.72-1.25) H 03/03/17 11:51 Est GFR ( Amer) 57 (> 60) L 03/03/17 11:51 Est GFR (Non-Af Amer) 47 (> 60) L 03/03/17 11:51 Glucose 120 mg/dL (70-99) H 03/03/17 11:51 Total Bilirubin 1.6 mg/dL (0.2-1.2) H 03/03/17 11:51 Direct Bilirubin 0.9 mg/dL (0.0-0.5) H 03/03/17 11:51 AST 41 Units/L (5-34) H 03/03/17 11:51 Alkaline Phosphatase 35 Units/L (38-126) L 03/03/17 11:51 Troponin I 0.04 ng/mL (0-0.03) H* 03/03/17 11:51 Albumin 3.4 g/dL (3.5-5.0) L 03/03/17 11:51 Globulin 3.6 g/dL (2.4-3.5) H 03/03/17 11:51 Albumin/Globulin Ratio 0.9 (1.1-2.2) L 03/03/17 11:51 All other labs normal. - Imaging US - abdomen: report reviewed (from 02/28), image reviewed Consult Discharge Plan - Plan Referrals: Beatriz Peters MD [Primary Care Provider] -
--- NOTE | 2017-03-03 20:17 | Event Note ---
Date of Encounter: 03/03/17 Time of Encounter: 20:13 Notify patient had an elevation in his troponin 3.63 from 0.04. Alex patient is chest pain-free he continues to be sinus rhythm on the monitor. EKG was obtained which does show sinus rhythm with T-wave inversion in lateral leads. I did speak with Dr. Leong cardiology concerning troponin elevation. I did review case as well as recent medication changes. He advised if patient has not received 15 mg of Toprol XL today to give an extra 25. It appears the patient did receive extra 25 at 3:00 this afternoon. We will continue to monitor there is any chest pain we will notify cardiology. I did review and update Dr. Mattson of changes.
[2017-03-03] MEDS: *HR* OxyCODONE/APAP 10/325 TABLET PO PRN (20:25)
[2017-03-03] MEDS: diazePAM 10 MG TABLET PO SCH (20:26)
[2017-03-04 00:16] LABS: Basophils % 0.5 %; Eosinophils # 0.2 K/mcL (0.0-0.6); Eosinophils % 3.6 %; Hematocrit 38.1 % (37.5-50.1); Immature Granulocytes % 0.4 % (0-4); Lymphocytes # 1.8 K/mcL (0.6-4.6); Lymphocytes % 32.3 %; Mean Corpuscular HGB Conc 33.1 g/dL (31.6-35.5); Mean Corpuscular Hemoglobin 32.3 pg (28.0-33.3); Mean Corpuscular Volume 97.7 fL (83.0-100.0); Mean Platelet Volume 10.4 fL (9.4-12.4); Monocytes # 0.6 K/mcL (0.0-1.3); Monocytes % 11.2 %; Neutrophils # 2.9 K/mcL (1.6-8.9); Platelet Count 201 K/mcL (140-400)
[2017-03-04 00:19] LABS: Hemoglobin 12.6 g/dL (12.9-16.9)
[2017-03-04 00:36] LABS: BUN/Creatinine Ratio 14 (6-26); Blood Urea Nitrogen 16 mg/dL (8-26); Calcium 8.6 mg/dL (8.6-10.8); Carbon Dioxide 23 mEq/L (19-29); Chloride 109 mEq/L (98-109); Glucose 93 mg/dL (70-99); Osmolality,Calculated 295 (280-300); Potassium 3.6 mEq/L (3.5-4.5); Sodium 142 mEq/L (136-145); eGFR For African Americans > 60 (> 60); eGFR For Non-African Americans > 60 (> 60)
[2017-03-04] MEDS ORDERED: Aspirin 325 MG TABLET PO ONE (00:47)
[2017-03-04] MEDS: *HR* OxyCODONE/APAP 10/325 TABLET PO PRN ×3 (05:53→20:15)
[2017-03-04] MEDS: Insulin LISPRO 300 UNITS/3 ML VIAL SQ SCH ×4 (07:39→21:03)
[2017-03-04] MEDS: 0.9 % Sodium Chloride 1,000 ML IVC SCH ×5 (07:59→21:04)
[2017-03-04] MEDS: MetroNIDAZOLE 500 MG/100 ML 500 MG/100 ML BAG IVPB SCH ×3 (08:02→23:53)
[2017-03-04] MEDS: Gabapentin 300 MG CAPSULE PO SCH ×3 (08:04→20:12)
[2017-03-04] MEDS ORDERED: Metoprolol XL (24 HR) Succ 25 MG TAB.ER.24H PO SCH (09:00)
[2017-03-04] MEDS ORDERED: *HR* Digoxin 0.125 MG TABLET PO SCH (09:00)
[2017-03-04] MEDS ORDERED: Aspirin Enteric Coated 81 MG Tablet PO SCH (09:00)
[2017-03-04] MEDS ORDERED: Multivit/Ca/Min/Fe/FA 1 TAB TABLET PO SCH (09:00)
[2017-03-04] MEDS ORDERED: (Ezetimibe [Zetia] 10 MG) PO SCH (09:00)
[2017-03-04] MEDS ORDERED: hydroCHLOROthiazide 25 MG TABLET PO SCH (09:00)
[2017-03-04] MEDS ORDERED: (Naloxegol Oxalate [Movantik] 25 MG) PO SCH (09:00)
[2017-03-04] MEDS ORDERED: Metoprolol XL (24 HR) Succ 50 MG TAB.ER.24H PO SCH (09:00)
[2017-03-04 10:57] LABS: Albumin 2.8 g/dL (3.5-5.0); Bilirubin,Direct 0.5 mg/dL (0.0-0.5); Bilirubin,Indirect 0.5 mg/dL (0.0-1.2); Globulin 2.8 g/dL (2.4-3.5); Total Protein 5.6 g/dL (6.0-8.3)
--- NOTE | 2017-03-04 11:44 | Event Note ---
Date of Encounter: 03/04/17 Time of Encounter: 10:00 - Cardiology Event Note Laboratory Tests 03/03/17 03/03/17 03/03/17 11:51 11:51 11:51 Hgb 14.7 Hct 44.5 Total Bilirubin 1.6 H Direct Bilirubin 0.9 H AST 41 H ALT 44 Troponin I 0.04 H* 03/03/17 03/04/17 03/04/17 17:47 00:07 00:07 Hgb 12.6 L D Hct 38.1 Total Bilirubin Direct Bilirubin AST ALT Troponin I 3.63 H* 3.11 H* Patient denies any chest pain, shortness of breath, palpitations. Discussed and reviewed with Dr. Aguirre, Dr. Brittany Leong, Dr. Avendano, recs for [facility]. Xarelto remains on hold. Last [facility] 09/2016. CT from few days ago reviewed. All questions answered. Patient verbalized understanding and agreed with plan. Further recs after [facility]. Regarding atrial fibrillation, remains sinus rhythm and off Cardizem drip. We'll consider resuming anticoagulation after catheterization.
--- NOTE | 2017-03-04 13:52 | Internal Med Progress Note ---
Date of Encounter: 03/04/17 Time of Encounter: 11:30 - Assessment and plan (1) Cholecystitis with cholelithiasis Status: Chronic Assessment and plan: Stable, patient not needing surgical intervention. Qualifiers: Cholelithiasis location: gallbladder Cholecystitis acuity: chronic Biliary obstruction: without biliary obstruction Qualified Code(s): K80.10 - Calculus of gallbladder with chronic cholecystitis without obstruction - Subjective Interval history: No complaints, no acute events. - Constitutional Vitals: Temp Pulse Resp BP Pulse Ox 98.2 F 70 16 130/81 96 03/04/17 11:07 03/04/17 11:26 03/04/17 11:07 03/04/17 11:07 03/04/17 11:07 General appearance: Present: A&O X 3, answers questions appropriately - Head Head exam: Present: atraumatic, normocephalic - Respiratory Respiratory exam: Present: CTAB. Absent: accessory muscle use, rales, rhonchi, wheezes - Cardiovascular Cardiovascular exam: Present: RRR, +S1, +S2. Absent: diastolic murmur, gallop, rubs, systolic murmur - GI/Abdominal GI/Abdominal exam: Present: normal bowel sounds, soft. Absent: diminished bowel sounds, distended, guarding, rigid Additional comments: mildly tender in both right quadrants. Internal Medicine: Result - Labs CBC & Chem 7: 03/04/17 00:07 03/04/17 00:07 Labs: Short CBC 03/04/17 Range/Units 00:07 WBC 5.6 (4.3-11.1) K/mcL Hgb 12.6 L D (12.9-16.9) g/dL Hct 38.1 (37.5-50.1) % Plt Count 201 (140-400) K/mcL Neutrophils # 2.9 (1.6-8.9) K/mcL BMP 03/04/17 00:07 Sodium 142 Potassium 3.6 Chloride 109 Carbon Dioxide 23 BUN 16 Creatinine 1.14 Glucose 93 Calcium 8.6 Cardiac Enzymes 03/03/17 03/04/17 Range/Units 17:47 00:07 Troponin I 3.63 H* 3.11 H* (0-0.03) ng/mL Liver Function 03/04/17 Range/Units 10:13 Total Bilirubin 1.0 (0.2-1.2) mg/dL Direct Bilirubin 0.5 (0.0-0.5) mg/dL AST 48 H (5-34) Units/L ALT 36 (0-55) Units/L Alkaline Phosphatase 29 L (38-126) Units/L Albumin 2.8 L (3.5-5.0) g/dL - Impressions Impressions Abdomen Ultrasound 03/04/17 11:30 IMPRESSION: Large gallstone, gallbladder wall thickening, suggestion of gallbladder wall hyperemia, findings remain suggestive of cholecystitis. D/ / 03/04/2017 12:09:02 Josue Mcgrath MD / samira Interpreting Provider: Josue Mcgrath MD - VTE Documentation of Mechanical Device: Intermittent pneumatic compression device Consult Discharge Plan - Plan Instructions: Myocardial Infarction (DC) Additional Instructions: RISK FACTORS: STOP SMOKING: If you smoke, STOP. Smoking or tobacco use significantly increases your risk of heart disease because nicotine causes the arteries to narrow or constrict. It also causes fats to stick to the artery. Your chances of having a heart attack are greatly increased if you continue to smoke. For more information, call the education line for smoking cessation 7-738-PHPMFUK EAT A LOW FAT/CHOLESTEROL/SODIUM DIET: This diet may help reduce your chances of having a heart attack. LIFTING: Avoid lifting anything more than 10 pounds for 5-7 days Prior to straining, laughing, sneezing and/or coughing, apply manual pressure directly over insertion site. ACTIVITY: You may walk or climb stairs as tolerated You can resume sexual activity as tolerated In general, you are encouraged to engage in a minimum of 30 minutes or more of moderate intensity physical activity, such as brisk walking, daily or at least 3 -4 times weekly BATHING Do not submerge the site into water (bath tub, hot tub, swimming pool) for 1 week. This can be a source for infection into the blood stream. You may shower after 24 hours SITE CARE: After 24 hours, you may remove the dressing and leave the site open to air. Keep the site clean and dry. Clean gently and pat dry. You can expect bruising and tenderness that gradually resolve within a week or two. Return to work as instructed per your physician Resume driving as instructed per physician Keep all scheduled follow up appointments Resume medications as instructed IMPORTANT: If prescribed a Platelet Aggregation Inhibitor such as, Plavix, Brilinta or Effient: Duration of therapy is minimum one year These medications are often used in combination with Aspirin in prevention of future heart attacks Never discontinue unless consult with your Director Of Nurses Registry STROKE (CVA) Risk factors for a stroke are: Age, cigarette smoking, diabetes, excessive alcohol consumption, family history, high blood pressure, overweight, physical inactivity, prior stroke, heart attack, diagnosis of carotid artery stenosis or other artery disease. Warning signs: Sudden numbness or weakness of the face, arm or leg; especially on one side of the body, sudden confusion, trouble speaking or understanding, sudden trouble seeing in one or both eyes, sudden trouble walking, dizziness, loss of balance or coordination, sudden severe headache with no cause. Call 911 or go to the Emergency Room. CONGESTIVE HEART FAILURE: If you have been diagnosed with Congestive Heart Failure (CHF) and your symptoms return, make an appointment with your physician Weigh yourself daily. Notify your physician if you have a weight gain of two or more pounds in one day or five or more pounds in one week. If you experience any difficulty breathing, please call 911 BLEEDING: Although the risk of bleeding is minimal, it can happen. If you have any bleeding from the site, apply firm pressure above the puncture site for 10-15 minutes. If the bleeding does not stop, continue manual pressure and call 911 Contact your physician if: You develop a fever greater than 101 degrees Fahrenheit Your site becomes reddened or has any drainage You have an increase in pain or burning at the site or if a large knot forms at the site. If you experience chest pain, shortness of breath, dizziness, or extreme tiredness, stop the activity and rest. Please notify your physicians office if you experience any of these symptoms and they are not relieved by rest please call 911! Referrals: Johnny Chávez MD [Partnered Physician] - 03/15/17 10:10 am Beatriz Peters MD [Primary Care Provider] - Kia Strickland CNP [Advanced Practice Nurse] - 03/11/17 10:00 am
--- NOTE | 2017-03-04 14:49 | General Surgery Progress Note ---
<GabeYvette Gaston - Last Filed: 03/04/17 14:59> Date of Encounter: 03/04/17 Time of Encounter: 14:48 - Assessment and Plan (1) Abdominal pain Status: Acute US completed; No significant changes Abdomen is benign No plans for surgical intervention this admission given need for cardiac work- up and resolution of symptoms. Recommended to keep previously scheduled follow- up for elective cholecystectomy pending timing recommendations per cardiology. Surgery will sign off at this time. Thank you for allowing us to participate in the Mr. Slater's care. Qualifiers: Abdominal location: left upper quadrant Qualified Code(s): R10.12 - Left upper quadrant pain Subjective Patient reports: no new complaints, feels better, pain is less, voiding w/o difficulty, no bowel movement, afebrile Objective Vital Signs - Last 8 Hours Temp Pulse Resp BP Pulse Ox 03/04/17 11:26 70 03/04/17 11:07 98.2 F 70 16 130/81 96 03/04/17 08:10 68 03/04/17 07:33 98.3 F 77 16 118/73 96 Intake and Output 03/03/17 03/04/17 03/04/17 23:59 07:59 15:59 Intake Total 1780 / 1780 1300 / 1300 100 / 100 Output Total 600 / 600 200 / 200 500 / 500 Balance 1180 / 1180 1100 / 1100 -400 / -400 Intake: IV Fluids 1300 / 1300 1300 / 1300 100 / 100 0.9 % Sodium Chloride 1,000 ML 1000 / 1000 1000 / 1000 @ 150 mls/hr IVC .Q6H40M [facility] Rx #:[id number] Cipro Premix 400 MG/200 ML 400 200 / 200 200 / 200 mg In 200 ml @ 200 mls/hr IVPB Q12H [facility] Rx#:[id number] Flagyl Premix 500 MG/100 ML 500 100 / 100 100 / 100 100 / 100 mg In 100 ml @ 100 mls/hr IVPB Q8HR [facility] Rx#:[id number] Oral 480 / 480 0 / 0 Output: Urine 600 / 600 200 / 200 500 / 500 Other: Meal Dinner Lunch Percent of Meal Consumed 0% Weight 79.3 kg Blood Glucose* 99 110 99 Patient Weight 03/04/17 23:59 Weight 79.3 kg - General physical appearance well nourished, no distress - Eyes normal ocular movement - ENT atraumatic, normocephalic - Neck Neck exam: trachea midline - Respiratory normal expansion, normal respiratory effort, clear to auscultation - Cardiovascular Cardiovascular exam: Present: RRR, murmurs - Abdomen Abdomen: Present: bowel sounds present, soft, non tender - Integumentary no rash - Neurologic CN 2-12 grossly intact - Musculoskeletal normal gait, normal posture - Psychiatric oriented to time, oriented to person, oriented to place, speech is normal, memory intact - Labs 03/04/17 00:07 03/04/17 00:07 Diabetes panel 03/04/17 03/04/17 Range/Units 00:07 10:13 Sodium 142 (136-145) mEq/L Potassium 3.6 (3.5-4.5) mEq/L Chloride 109 (98-109) mEq/L Carbon Dioxide 23 (19-29) mEq/L BUN 16 (8-26) mg/dL Creatinine 1.14 (0.72-1.25) mg/dL Glucose 93 (70-99) mg/dL Calcium 8.6 (8.6-10.8) mg/dL AST 48 H (5-34) Units/L ALT 36 (0-55) Units/L Alkaline Phosphatase 29 L (38-126) Units/L Albumin 2.8 L (3.5-5.0) g/dL Calcium panel 03/04/17 03/04/17 Range/Units 00:07 10:13 Calcium 8.6 (8.6-10.8) mg/dL Albumin 2.8 L (3.5-5.0) g/dL Pituitary panel 03/04/17 Range/Units 00:07 Sodium 142 (136-145) mEq/L Potassium 3.6 (3.5-4.5) mEq/L Chloride 109 (98-109) mEq/L Carbon Dioxide 23 (19-29) mEq/L BUN 16 (8-26) mg/dL Creatinine 1.14 (0.72-1.25) mg/dL Glucose 93 (70-99) mg/dL Calcium 8.6 (8.6-10.8) mg/dL Adrenal panel 03/04/17 03/04/17 Range/Units 00:07 10:13 Sodium 142 (136-145) mEq/L Potassium 3.6 (3.5-4.5) mEq/L Chloride 109 (98-109) mEq/L Carbon Dioxide 23 (19-29) mEq/L BUN 16 (8-26) mg/dL Creatinine 1.14 (0.72-1.25) mg/dL Glucose 93 (70-99) mg/dL Calcium 8.6 (8.6-10.8) mg/dL Total Bilirubin 1.0 (0.2-1.2) mg/dL AST 48 H (5-34) Units/L ALT 36 (0-55) Units/L Alkaline Phosphatase 29 L (38-126) Units/L Albumin 2.8 L (3.5-5.0) g/dL - Imaging Additional Studies: Chest X-Ray 03/03/17 11:39 IMPRESSION: Stable chest x-ray, without radiographic evidence for acute cardiopulmonary disease process. D/ / Ranjit Koo / Ranjit Koo Interpreting Provider: Ranjit Koo Abdomen Ultrasound 03/04/17 11:30 IMPRESSION: Large gallstone, gallbladder wall thickening, suggestion of gallbladder wall hyperemia, findings remain suggestive of cholecystitis. D/ / 03/04/2017 12:09:02 Josue Mcgrath MD / samira Interpreting Provider: Josue Mcgrath MD - VTE Documentation of Mechanical Device: Intermittent pneumatic compression device Consult Discharge Plan - Plan Instructions: Myocardial Infarction (DC) Additional Instructions: RISK FACTORS: STOP SMOKING: If you smoke, STOP. Smoking or tobacco use significantly increases your risk of heart disease because nicotine causes the arteries to narrow or constrict. It also causes fats to stick to the artery. Your chances of having a heart attack are greatly increased if you continue to smoke. For more information, call the education line for smoking cessation 2-432-KEASFPY EAT A LOW FAT/CHOLESTEROL/SODIUM DIET: This diet may help reduce your chances of having a heart attack. LIFTING: Avoid lifting anything more than 10 pounds for 5-7 days Prior to straining, laughing, sneezing and/or coughing, apply manual pressure directly over insertion site. ACTIVITY: You may walk or climb stairs as tolerated You can resume sexual activity as tolerated In general, you are encouraged to engage in a minimum of 30 minutes or more of moderate intensity physical activity, such as brisk walking, daily or at least 3 -4 times weekly BATHING Do not submerge the site into water (bath tub, hot tub, swimming pool) for 1 week. This can be a source for infection into the blood stream. You may shower after 24 hours SITE CARE: After 24 hours, you may remove the dressing and leave the site open to air. Keep the site clean and dry. Clean gently and pat dry. You can expect bruising and tenderness that gradually resolve within a week or two. Return to work as instructed per your physician Resume driving as instructed per physician Keep all scheduled follow up appointments Resume medications as instructed IMPORTANT: If prescribed a Platelet Aggregation Inhibitor such as, Plavix, Brilinta or Effient: Duration of therapy is minimum one year These medications are often used in combination with Aspirin in prevention of future heart attacks Never discontinue unless consult with your Wheel Molder STROKE (CVA) Risk factors for a stroke are: Age, cigarette smoking, diabetes, excessive alcohol consumption, family history, high blood pressure, overweight, physical inactivity, prior stroke, heart attack, diagnosis of carotid artery stenosis or other artery disease. Warning signs: Sudden numbness or weakness of the face, arm or leg; especially on one side of the body, sudden confusion, trouble speaking or understanding, sudden trouble seeing in one or both eyes, sudden trouble walking, dizziness, loss of balance or coordination, sudden severe headache with no cause. Call 911 or go to the Emergency Room. CONGESTIVE HEART FAILURE: If you have been diagnosed with Congestive Heart Failure (CHF) and your symptoms return, make an appointment with your physician Weigh yourself daily. Notify your physician if you have a weight gain of two or more pounds in one day or five or more pounds in one week. If you experience any difficulty breathing, please call 911 BLEEDING: Although the risk of bleeding is minimal, it can happen. If you have any bleeding from the site, apply firm pressure above the puncture site for 10-15 minutes. If the bleeding does not stop, continue manual pressure and call 911 Contact your physician if: You develop a fever greater than 101 degrees Fahrenheit Your site becomes reddened or has any drainage You have an increase in pain or burning at the site or if a large knot forms at the site. If you experience chest pain, shortness of breath, dizziness, or extreme tiredness, stop the activity and rest. Please notify your physicians office if you experience any of these symptoms and they are not relieved by rest please call 911! 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 (2) Epigastric abdominal pain Status: Acute Objective Intake and Output 03/04/17 03/05/17 03/05/17 23:59 07:59 15:59 Intake Total 1300 / 1300 300 / 300 Output Total 600 / 600 375 / 375 Balance 700 / 700 -75 / -75 Intake: IV Fluids 1300 / 1300 300 / 300 0.9 % Sodium Chloride 1,000 ML 1000 / 1000 @ 150 mls/hr IVC .Q6H40M [facility] Rx #:[id number] Cipro Premix 400 MG/200 ML 400 200 / 200 200 / 200 mg In 200 ml @ 200 mls/hr IVPB Q12H [facility] Rx#:[id number] Flagyl Premix 500 MG/100 ML 500 100 / 100 100 / 100 mg In 100 ml @ 100 mls/hr IVPB Q8HR [facility] Rx#:[id number] Output: Urine 600 / 600 375 / 375 Other: Blood Glucose* 103 - Labs 03/04/17 00:07 03/04/17 00:07 - Attending Attestation I have personally seen and examined the patient. This progress note as well as all pertinent labs and imaging were personally reviewed by me. The patient was admitted for abdominal pain that migrated to the chest. Concern as to whether the pain is of biliary or cardiac origin. Repeat US is unchanged from prior US. Patient has absolutely no pain on exam despite US findings. He is tolerating a diet. My concern is that the patient's symptoms originated from his heart as he was admitted with chest pain and A-fib with RVR. He is scheduled for a heart catheterization today which is more appropriate versus a surgery as a stress for his heart at this time. He should be optimized from a cardiac standpoint. I can see him in clinic and plan for an elective cholecystectomy in the future. Patient was in agreement.
[2017-03-04] MEDS ORDERED: Heparin 1,000 UNITS/500 mL NS 500 ML ONE (15:27)
[2017-03-04] MEDS ORDERED: 0.9 % Sodium Chloride 1,000 ML ONE ×2 (15:27→15:37)
[2017-03-04] MEDS ORDERED: *HR* Heparin 10,000 UNIT/10 ML VIAL ONE (15:28)
[2017-03-04] MEDS ORDERED: Nitroglycerin 1,000 MCG/10 ML VIAL IV ONE (15:28)
[2017-03-04] MEDS ORDERED: *HR* Midazolam HCl 2 MG/2 ML VIAL ONE (15:36)
[2017-03-04] MEDS ORDERED: *HR* FentaNYL (PF) 100 MCG/2 ML VIAL ONE (15:37)
--- NOTE | 2017-03-04 17:30 | Pre-Sedation Evaluation ---
Pre-sedation evaluation - Pre-sedation checklist Date of procedure: 03/04/17 Procedure: heart cath Recent Vitals: Last Vital Signs Temp 98.2 F 03/04/17 11:07 Pulse 79 03/04/17 15:00 Resp 16 03/04/17 11:07 BP 130/81 03/04/17 11:07 Pulse Ox 96 03/04/17 11:07 H&P (including ROS) documented in medical record: Yes Previous reaction to sedatives/anesthetics: No Dietary Status: NPO after Midnight Dentition: dentures removed Possible difficult airway: No ASA Classification *see protocol: CLASS II-Mild systemic disease Plan of Care: Pt appropriate candidate for procedure/moderate/conscious sedation , Risks/benefits of procedure/sedation discussed w/ patient/family
--- NOTE | 2017-03-04 17:42 | Invasive Diagnostic Lab Proc ---
Name: Mat Slater Date of Study: 03/04/2017 Date: 1940 Ht: 68.1in Medical Record#: [id number] Age: 76 Wt: 174.17lb Gender: Male BSA: 1.93 Order #: [id number] BMI: 26.4 Physicians Procedure Physician: Pieter Avendano MD Referring MD: Referring MD: Staff Name Position Time In Ginger Santana RN Monitor 04:00 PM Juan Manuel Dwyer RN Calender Worker Helper 04:03 PM Lauren Pennington RT (R) Scrub 04:03 PM Indications Indication Non-Stemi Procedures Performed Procedure CORONARY ARTERY ANGIO S&I Angio w/Cath Iliac Artery S&I Pre-Procedure Checklist Informed consent is complete signed and on chart. H&P is on chart. ID band is on and ID verified with patient. Patient NPO for procedure The procedure was described for the patient and questions were answered. Blood Pressure: 130/81 ECG is on chart. Rhythm: NSR Plan of Care Patient will tolerate the procedure without complications. Adequate level of comfort will be maintained. Hemodynamics will remain stable Patient will recover from procedure without complications. Respiratory function will be maintained. Cardiac rhythm will remain stable. Patient temperature will be maintained. Patient and/or family have verbalized understanding of the procedure. Patient Education Chief Complaint/Reason for Test: Cardiac Cath Developmental Category: Geriatric (65+ years) Developmentally Appropriate for Age: Yes Learning Barriers: None Education Needs: Procedure Education Method: Verbal Information Taught: Cardiac Cath Educational Evaluation: Able to repeat information Intravenous Access Time IV Size Location DC'd Fluid/Drip Rate Units RN 03:19 PM 18g 1 06/09" Patent On Arrival Rt Antecubital 03:19 PM 18g 1 14" Patent On Arrival Lt Antecubital 0.9NaCl 25 ml/hr Juan Manuel Dwyer RN Allergies No Known Allergies Vital Signs Time BP (mmHg) HR (bpm) O2 Sat. RR (bpm) LOC 03:21 PM 131 / 81 70 96 % 5 = Fully awake and oriented or at pre-proc level 04:00 PM / % 5 = Fully awake and oriented or at pre-proc level 04:00 PM / % 4 = Oriented but drowsy 03:51 PM 154 / 86 84 96 % 15 03:55 PM 139 / 66 74 91 % 15 04:01 PM 85 / 63 85 95 % 18 04:03 PM 136 / 71 82 96 % 17 04:05 PM 139 / 67 75 95 % 12 04:10 PM 132 / 44 74 95 % 20 04:15 PM 131 / 67 73 94 % 16 04:20 PM 116 / 65 77 95 % 16 04:25 PM 112 / 59 77 95 % 23 04:30 PM 115 / 55 77 94 % 25 04:35 PM 125 / 58 77 95 % 16 04:40 PM 117 / 64 76 95 % 13 04:45 PM 122 / 64 74 94 % 22 04:50 PM 125 / 62 72 93 % 18 04:16 PM / % 5 = Fully awake and oriented or at pre-proc level Procedural Medications Time Medication Dose Units Method Given By 04:00 PM Oxygen 2 L/min nasal cannula Juan Manuel Dwyer RN 04:02 PM Versed 1 mg Intravenous Ginger Santana RN 04:02 PM Fentanyl 50 mcg Intravenous Ginger Santana RN 04:03 PM Lidocaine 2% 10 ml Subcutaneous Pieter Avendano MD 04:21 PM Heparin 1000 units Intravenous Juan Manuel Dwyer RN ASA Classification: CLASS II- Mild systemic disease (i.e. well-controlled diabetes, hypertension, asthma, cigarette smoking) Jahaira Score Preprocedure Postprocedure Activity 2- Moves 4 extremities sustained head lift Activity 2- Moves 4 extremities sustained head lift Circulation 2- SBP +/= 20 points of pre-anesthetic level Circulation 2- SBP +/= 20 points of pre-anesthetic level Consciousness 2- Awake and alert oriented x 3 Consciousness 2- Awake and alert oriented x 3 O2 Saturation 2- Able to maintain O2 satruation of 92% on room air O2 Saturation 2- Able to maintain O2 satruation of 92% on room air Respiratory 2- Able to deep breathe and cough well Respiratory 2- Able to deep breathe and cough well Total Score 10 Total Score 10 Contrast Agent: Isovue Diagnostic Contrast: 100 ml Total Contrast: 100 ml Fluoro Dose: 935 mGy Procedure Log Time Note Enter By 03:20 PM CathStat 03:45 PM Pt arrived to labor service representative 2 at 15:45 tsites 03:46 PM Physician arrived 15:46 tsites 03:46 PM Meet and greet completed tsites 03:46 PM Sign in performed according to hospital policy. tsites 03:46 PM Procedure start 15:46 tsites 03:50 PM Vitals capture started with the following parameters, Patient=Adult, Interval=5 min, Initial Rtxqohfv=412 mmHg, Deflation Rate=5 mmHg, Cuff placed on Left Arm 03:51 PM HR=84 bpm, MHUN=397/86 mmhg, SpO2=96.0 %, Resp=15 B/min 03:55 PM HR=74 bpm, DSNZ=695/66 mmhg, SpO2=91.0 %, Resp=15 B/min 04:00 PM Ginger Santana RN Position: Monitor Time in: 16:00 tsites 04:00 PM Patient charges- Angio tray pack, Navilyst 3mm J, Pulse Oximetry and ACIST tubing and transducer tsites 04:00 PM Case Delayed No, inpatient tsites 04:00 PM Time: 16:00 Oxygen on at 2 L/min per nasal cannula by Juan Manuel Dwyer RN tsites 04:00 PM Time: 16:00 Patient comfortable and pain free: Yes tsites 04:00 PM Time: 16:00LOC: 5 = Fully awake and oriented or at pre-proc level tsites 04:01 PM HR=85 bpm, NIBP=85/63 mmhg, SpO2=95.0 %, Resp=18 B/min 04:02 PM Pressure channel 2 zeroed. 04:02 PM NIBP STAT measurement started. 04:02 PM Time: 16:02 Versed 1 mg Intravenous Given by Ginger Santana RN tsites 04:03 PM Time: 16:02 Fentanyl 50 mcg Intravenous Given by Ginger Santana RN tsites 04:03 PM HR=82 bpm, IOIY=262/71 mmhg, SpO2=96.0 %, Resp=17 B/min 04:03 PM Hair removed from procedure site in procedure lab using clippers. Bilateral groin prepped with Chloraprep by Ginger Santana RN, safety strap applied then patient was draped. Skin intact. tsites 04:03 PM Clinical Presentation: Non-STEMI tsites 04:03 PM Time out performed according to hospital policy tsites 04:03 PM Time: 16:03 10 ml Lidocaine 2% to left groin Subcutaneous Given by Pieter Avendano MD tsites 04:03 PM Juan Manuel Dwyer RN Position: Calender Worker Helper Time in: 16:03 tsites 04:03 PM Lauren Pennington RT (R) Position: Scrub Time in: 16:03 tsites 04:05 PM Pressure channel 2 zeroed. 04:05 PM HR=75 bpm, PVBK=237/67 mmhg, SpO2=95.0 %, Resp=12 B/min 04:08 PM Unsuccessful access attempt # 1 into the left Femoral artery. Manual pressure applied to achieve hemostasis.. tsites 04:08 PM Unsuccessful access attempt # 2 into the left Femoral artery. Manual pressure applied to achieve hemostasis.. tsites 04:10 PM Access obtained by percutaneous puncture. 6Fr 10cm Terumo Kaaawa sheath placed in left Femoral artery. [id number] tsites 04:10 PM HR=74 bpm, KVLZ=339/44 mmhg, SpO2=95.0 %, Resp=20 B/min 04:11 PM 5Fr FR 4 catheter inserted over the wire DNC tsites 04:11 PM 0.035 260cm Glidewire wire [id number] tsites 04:15 PM HR=73 bpm, XHOR=381/67 mmhg, SpO2=94 %, Resp=16 B/min 04:16 PM Time: 16:00LOC: 4 = Oriented but drowsy tsites 04:17 PM Time: 16:00 Patient comfortable and pain free: Yes tsites 04:17 PM glide wire removed tsites 04:20 PM HR=77 bpm, UMSV=895/65 mmhg, SpO2=95 %, Resp=16 B/min 04:21 PM Time: 16:21 Heparin 1000 units Intravenous Given by Juan Manuel Dwyer RN tsites 04:22 PM 0.035 260cm Navilyst 3mm J wire [id number] tsites 04:25 PM Recorded Pressure: Ao, HR=76, Condition=Condition 1 (Aorta) Ao 81/41/55 04:25 PM RCA angiography performed in multiple views. tsites 04:25 PM HR=77 bpm, ZKGM=296/59 mmhg, SpO2=95 %, Resp=23 B/min 04:27 PM wire reinserted catheter removed tsites 04:30 PM Recorded Pressure: Ao, HR=74, Condition=Condition 1 (Aorta) Ao 85/3/47 04:30 PM HR=77 bpm, YAAU=608/55 mmhg, SpO2=94 %, Resp=25 B/min 04:31 PM LCA angiography performed in multiple views. tsites 04:32 PM Time: 16:17 Patient comfortable and pain free: Yes tsites 04:32 PM Time: 16:16LOC: 5 = Fully awake and oriented or at pre-proc level tsites 04:32 PM wire reinserted catheter removed tsites 04:32 PM 4Fr pigtail catheter inserted over the wire [id number] tsites 04:34 PM Catheter removed tsites 04:35 PM Procedure completed at 16:35 tsites 04:35 PM Arterial sheath pulled using manual compression and V+ Pad for 15 minutes by Lauren Pennington RT (R) tsites 04:35 PM HR=77 bpm, SNKT=163/58 mmhg, SpO2=95.0 %, Resp=16 B/min 04:40 PM HR=76 bpm, MTPV=170/64 mmhg, SpO2=95 %, Resp=13 B/min 04:45 PM HR=74 bpm, NROL=015/64 mmhg, SpO2=94 %, Resp=22 B/min 04:48 PM Sign out completed: Radiation Dose 935 mGy Fluoro Time: 11.7 Isovue 370 - 200ml contrast 100 ml given by Pieter Avendano MD. Complications: NoneCardiac Rehab Consult needed: NoConfirmed administered medications: Yes tsites 04:48 PM Isovue 370 - 200ml,1 Bottle(s) used. tsites 04:49 PM Post ECG NSR tsites 04:49 PM Post Blood Pressure 122/64 tsites 04:49 PM 16:49 Post Pulses Bilateral DP & PT 1+ tsites 04:50 PM Information taught Cardiac Cath tsites 04:50 PM Education needs Procedure, Plan of Care, and Responsibilities of Patient in Care tsites 04:50 PM Learning barriers :None tsites 04:50 PM Education Methods Verbal tsites 04:50 PM Education evaluation Able to repeat information tsites 04:50 PM Family placed in consult room. tsites 04:50 PM HR=72 bpm, TWBE=291/62 mmhg, SpO2=93 %, Resp=18 B/min 04:56 PM Lesion found in Proximal RCA. Pre Stenosis: 75 Pre ROMMEL Flow: tsites 04:57 PM Lesion found in LMCA. Pre Stenosis: 20 Pre ROMMEL Flow: tsites 04:57 PM Left Main Coronary Artery with 20% stenosis tsites 04:57 PM Right Coronary, Right Posterior Descending Arteries with Right Posterolateral and Acute Marginal branches with 75 % stenosis. If graft is supplying this area, 0 % stenosis tsites 04:59 PM Site status No bleeding/hematoma - Lt Groin as reported by Juan Manuel Dwyer RN at 16:59 tsites 04:59 PM Delay to floor Receiving unit staff issue tsites 04:59 PM Site status No bleeding/hematoma - Lt Groin as reported by Juan Manuel Dwyer RN at 16:59 tsites 05:21 PM Report given to Shazia BEY Pt taken to 2N Room #5. 17:20 tsites 05:21 PM Patient out of room: 17:21 tsites Complications Complication None Hemodynamics Pressures Site Systolic/A Wave Diastolic/V Wave Mean AO 81 41 55 AO 85 3 47 Post Procedure Information Blood Pressure: 122/64 mmHg Rhythm: NSR Post procedural instructions were given Closure Device Time Device Success/Fail 03/04/2017 5:04:00 PM Manual Compression Successful Site Checks Time Location Status Staff Sheath In? Note 04:59 PM Lt Groin No bleeding/hematoma Juan Manuel Dwyer RN 04:59 PM Lt Groin No bleeding/hematoma Juan Manuel Dwyer RN Pulses Time Site Pre-Procedure Post-Procedure Note 03/04/2017 3:21:00 PM Bilateral DP & PT 2+ 03/04/2017 3:21:00 PM Bilateral radial 2+ 4:49:00 PM Bilateral DP Doppler Bilateral PT 1+ Updated by Misty Perkins RT (R) on 03/04/2017 5:30:21 PM Misty Perkins RT electronically signed on 03/04/2017 5:35:40 PM with status of Final
--- NOTE | 2017-03-04 18:04 | Electrocardiograph Report ---
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
--- NOTE | 2017-03-04 19:40 | Discharge Summary ---
Date of Encounter: 03/04/17 Time of Encounter: 12:30 - Discharge Diagnosis (1) Abdominal pain Priority: Primary Status: Acute Qualifiers: Abdominal location: generalized Qualified Code(s): R10.84 - Generalized abdominal pain (2) Atrial fibrillation with RVR Priority: Secondary Status: Chronic (3) Elevated troponin Priority: Secondary Status: Chronic (4) Diabetes mellitus Priority: Secondary Status: Chronic Qualifiers: Diabetes mellitus type: type 2 Diabetes mellitus complication status: with unspecified complications Diabetes mellitus mcc insulin use: without mcc use Qualified Code(s): E11.8 - Type 2 diabetes mellitus with unspecified complications (5) Hypertension Priority: Secondary Status: Chronic Qualifiers: Hypertension type: essential hypertension Qualified Code(s): I10 - Essential (primary) hypertension - Discharge Medications Home Medications: Ezetimibe [Zetia] 10 mg PO DAILY 05/03/16 [History] Gabapentin [Neurontin] 300 mg PO TID 05/03/16 [History] LORazepam [Ativan] 0.5 mg PO BID PRN 05/03/16 [History] Levothyroxine [Synthroid] 50 mcg PO DAILY 05/03/16 [History] Testosterone Cypionate [Depo-Testosterone] 100 mg IM Q2W 05/03/16 [History] diazePAM [Valium] 10 mg PO HS 05/03/16 [History] metFORMIN [Glucophage] 500 mg PO BIDWM 05/03/16 [History] Aspirin [Lo-Dose Aspirin EC] 81 mg PO DAILY 09/10/16 [History] Tamsulosin HCl [Flomax] 0.4 mg PO DAILY 09/10/16 [History] Multivitamin [Multi-Day Vitamins] 1 each PO DAILY 09/30/16 [History] Naloxegol Oxalate [Movantik] 25 mg PO DAILY 09/30/16 [History] Metoprolol XL (24 HR) Succ [Toprol Xl] 25 mg PO DAILY 11/10/16 [History] Nitroglycerin [Nitrostat] 0.4 mg SL Q5M PRN 11/10/16 [History] Rivaroxaban [Xarelto] 20 mg PO DAILY 11/10/16 [History] Atorvastatin [Lipitor] 40 mg PO HS 03/01/17 [History] Digoxin [Lanoxin] 0.125 mg PO DAILY 03/01/17 [History] Losartan/Hydrochlorothiazide [Hyzaar 100-12.5 Tablet] 1 tab PO DAILY 03/03/17 [ History] Fenofibrate Nanocrystallized [Triglide] 160 mg PO DAILY 03/08/17 [History] OxyCODONE/APAP 10/325 [Percocet 10/325 MG] 1 each PO Q4H PRN 03/08/17 [History] Allergies/Adverse Reactions: 3 Allergy/AdvReac Type Severity Reaction Status Date / Time No Known Allergies Allergy Verified 03/03/17 11:13 Procedures/tests Complete & Pending: Procedures Performed prior 72 hours Category Date Time Status CL Cardiac Catheterization [CL] Routine Shirt Sorter 03/04/17 11:45 Completed US abdomen limited [US] Routine Exams 03/04/17 11:30 Draft Date of admission: 03/03/17 13:44 Primary care physician: Beatriz Peters Consults: 03/03/17 14:50 Consult to Surgery [CONS] Routine Consulting Provider: [facility] Reason for Consult: abd pain Time Notified: 14:53 Call Completed: Yes 03/04/17 11:46 Consult to Cardiac Rehabilitation-Phase1 [CONS] Routine Comment: Reason for Consult: CAD, NSTEMI Call Completed: No Discharging clinician: Raudel Sanchez - Patient Status Disposition: Home, Self-Care Condition: Fair Functional capacity at discharge: independent ambulation Overall status at discharge: patient is back to baseline - Discharge Instructions Instructions: Myocardial Infarction (DC) Follow Up With: Johnny Chávez MD [Partnered Physician] - 03/15/17 10:10 am Beatriz Peters MD [Primary Care Provider] - Kia Strickland CNP [Advanced Practice Nurse] - 03/11/17 10:00 am Additional Instructions: RISK FACTORS: STOP SMOKING: If you smoke, STOP. Smoking or tobacco use significantly increases your risk of heart disease because nicotine causes the arteries to narrow or constrict. It also causes fats to stick to the artery. Your chances of having a heart attack are greatly increased if you continue to smoke. For more information, call the education line for smoking cessation 6-303-XDLRZPG EAT A LOW FAT/CHOLESTEROL/SODIUM DIET: This diet may help reduce your chances of having a heart attack. LIFTING: Avoid lifting anything more than 10 pounds for 5-7 days Prior to straining, laughing, sneezing and/or coughing, apply manual pressure directly over insertion site. ACTIVITY: You may walk or climb stairs as tolerated You can resume sexual activity as tolerated In general, you are encouraged to engage in a minimum of 30 minutes or more of moderate intensity physical activity, such as brisk walking, daily or at least 3 -4 times weekly BATHING Do not submerge the site into water (bath tub, hot tub, swimming pool) for 1 week. This can be a source for infection into the blood stream. You may shower after 24 hours SITE CARE: After 24 hours, you may remove the dressing and leave the site open to air. Keep the site clean and dry. Clean gently and pat dry. You can expect bruising and tenderness that gradually resolve within a week or two. Return to work as instructed per your physician Resume driving as instructed per physician Keep all scheduled follow up appointments Resume medications as instructed IMPORTANT: If prescribed a Platelet Aggregation Inhibitor such as, Plavix, Brilinta or Effient: Duration of therapy is minimum one year These medications are often used in combination with Aspirin in prevention of future heart attacks Never discontinue unless consult with your Certified Activities Director STROKE (CVA) Risk factors for a stroke are: Age, cigarette smoking, diabetes, excessive alcohol consumption, family history, high blood pressure, overweight, physical inactivity, prior stroke, heart attack, diagnosis of carotid artery stenosis or other artery disease. Warning signs: Sudden numbness or weakness of the face, arm or leg; especially on one side of the body, sudden confusion, trouble speaking or understanding, sudden trouble seeing in one or both eyes, sudden trouble walking, dizziness, loss of balance or coordination, sudden severe headache with no cause. Call 911 or go to the Emergency Room. CONGESTIVE HEART FAILURE: If you have been diagnosed with Congestive Heart Failure (CHF) and your symptoms return, make an appointment with your physician Weigh yourself daily. Notify your physician if you have a weight gain of two or more pounds in one day or five or more pounds in one week. If you experience any difficulty breathing, please call 911 BLEEDING: Although the risk of bleeding is minimal, it can happen. If you have any bleeding from the site, apply firm pressure above the puncture site for 10-15 minutes. If the bleeding does not stop, continue manual pressure and call 911 Contact your physician if: You develop a fever greater than 101 degrees Fahrenheit Your site becomes reddened or has any drainage You have an increase in pain or burning at the site or if a large knot forms at the site. If you experience chest pain, shortness of breath, dizziness, or extreme tiredness, stop the activity and rest. Please notify your physicians office if you experience any of these symptoms and they are not relieved by rest please call 911! - Diet and Activity Activity: resume usual activities as tolerated Diet: advance to your usual diet Interval History: Mr. Slater is a 76 year old male with past medical history of high blood pressure coronary disease known AAA diabetes hyperlipidemia, atrial fibrillation , CKD stage III, cholelithiasis. Patient was admitted to this facility on 2016 for right upper quadrant abdominal pain he was worked up for acute cholelithiasis general surgery was consult that he had a gallbladder ultrasound which suggested acute cholecystitis. He had a nuclear medicine hepatobiliary scan which found no evidence of acute cholecystitis. Normal gallbladder ejection fraction. Based on this finding acute cholecystitis was ruled out. His abdominal pain was triggered due to acute exacerbation of chronic cholecystitis with cholelithiasis .He was discharged home 02/27/2017 and was doing well. According to the patient he was having some difficulty sleeping last night and finally went to sleep around 6:30 this morning. At approximately 9:30 he got up to take his medication he began to experience right upper quadrant pain. He arrived at the ER at approximately 11 AM and began to experience sharp midsternal chest pain radiating to his epigastric region with associated symptoms of dyspnea diaphoresis. He denies any fevers chills cough back pain or urinary symptoms. EKG was obtained in the ER which did show A. fib RVR rate in the 140s there was some concern of ST elevation anterior leads. They did speak with Dr. Conti the manager landscape who did not feel that it was a STEMI but likely ST changes are related to rate patient was initiated on a Cardizem drip after given 10 mg IV push he did convert over to sinus rhythm with a rate of 90. Lab was obtained which did reveal troponin of 0.04 digoxin was 0.8 lactate was 1.6. BUN 19 creatinine is 1.46 chest x-ray with no acute process. He has been admitted for further workup and evaluation. Presently patient denies any pain he states he feels very well this time. Abdomen is soft and nontender lung sounds are clear heart sounds are regular S1 and S2 with no rubs gallops murmurs noted the pedal edema noted. He is sinus rhythm on monitor this time. He is hemodynamically stable at time of admission. Hospital course: Surgery was consulted and evaluated patient. Based on findings, no immediate surgical intervention needed. An ultrasound was done showing thickened gallbladder wall with hyperemia, suggestive of cholecystitis. This was unchanged since an ultrasound done on a previous admission. Cardiology was consulted for atrial fibrillation with RVR. Initial troponin was 0.04 but second troponin was elevated at 3.6 which eventually trended down. He was asymptomatic during that time. On 03/04 a left heart cath was done showing moderate CAD. Patient was medically managed for afib with RVR by cardiology and is scheduled to follow-up in office. Surgery will follow-up with patient after seeing his typer to see if he is okay to undergoe an elective cholecystectomy. He was discharged home in stable condition. - Time Spent with Patient Total time spent providing and/or coordinating discharge services: - Constitutional Vitals: Temp Pulse Resp BP Pulse Ox 98.3 F 72 16 148/77 95 03/04/17 17:30 03/04/17 18:30 03/04/17 18:30 03/04/17 18:30 03/04/17 18:30 - Other Additional findings: - Constitutional Constitutional: no chills, no fever(s), no night sweats - EENT Eyes: no change in vision, no discharge, no pain, no photophobia Nose, mouth and throat: no dysphagia, no nasal discharge, no neck pain, no sore throat - Cardiovascular Cardiovascular ROS IM: chest pain, no diaphoresis, no dyspnea, no lightheadedness, no palpitations, no syncope - Respiratory Respiratory: no cough, no dyspnea, no wheezing, no excessive phlegm production - Gastrointestinal Gastrointestinal: abdominal pain, no diarrhea, no hematemesis, no hematochezia, no melena, no nausea, no vomiting - Musculoskeletal Musculoskeletal ROS IM: no numbness, no tingling - Integumentary Integumentary IM: no rash, no unusual bruising - Neurological Neurological ROS: no confusion, no convulsions, no focal weakness, no numbness, no tingling, no tremor(s) - Hematologic/Lymphatic Hematologic/Lymphatic: no easy bruising - VTE Documentation of Mechanical Device: Intermittent pneumatic compression device
[2017-03-04] MEDS: diazePAM 10 MG TABLET PO SCH (20:12)
[2017-03-05] MEDS: 0.9 % Sodium Chloride 1,000 ML IVC SCH (04:01)
[2017-03-05] MEDS: *HR* OxyCODONE/APAP 10/325 TABLET PO PRN (04:11)
[2017-03-05 04:41] VITALS: BP 137/69
--- NOTE | 2017-03-05 10:30 | Event Note ---
Date of Encounter: 03/05/17 Time of Encounter: 10:30 Patient was seen and examined yesterday he was ready for discharge and formally discharged yesterday but he had transportation issues and so left today.
--- NOTE | 2017-03-06 12:45 | Electrocardiograph Report ---
[address] [address] Test Date: 2017-03-03 Pat Name: Mat Slater Department: 102 Room: 2N05 Gender: Body Artist: Becky : 1940 Requested By: Berna Sanchez Order Number: [id number] Reading MD: Gene Conti MD Measurements Intervals [place] Rate: 141 P: [place]: 0 QRS: -35 QRSD: 94 T: 102 QT: 256 QTc: 338 Interpretive Statements ATRIAL FIBRILLATION WITH RAPID VENTRICULAR RESPONSE MARKED LEFT AXIS DEVIATION Poor R wave progression VOLTAGE CRITERIA FOR LVH Electronically Signed On 03-06-2017 12:43:56 EDT by Gene Conti MD
--- NOTE | 2017-03-06 13:19 | Electrocardiograph Report ---
[address] [address] Test Date: 2017-03-03 Pat Name: Mat Slater Department: 110 Room: 05 Gender: M Manager Club: MRR : 1940 Requested By: Berna Sanchez Order Number: [id number] Reading MD: Gene Conti MD Measurements Intervals [place] Rate: 68 P: 4 DC: 167 QRS: -37 QRSD: 92 T: 149 QT: 389 QTc: 406 Interpretive Statements SINUS RHYTHM MARKED LEFT AXIS DEVIATION BASELINE ARTIFACT VOLTAGE CRITERIA FOR LVH Electronically Signed On 03-06-2017 13:17:09 EDT by Gene Conti MD
--- NOTE | 2017-03-06 13:19 | Electrocardiograph Report ---
[address] [place], [place] [address] Test Date: 2017-03-03 Pat Name: Mat Slater Department: 110 Room: 2N05 Gender: M Cosmetic Sales Assistant: IRINA : 1940 Requested By: Berna Sanchez Order Number: [id number] Reading MD: Gene Conti MD Measurements Intervals [place] Rate: 72 P: 55 MO: 167 QRS: -35 QRSD: 99 T: 142 QT: 400 QTc: 425 Interpretive Statements SINUS RHYTHM MARKED LEFT AXIS DEVIATION VOLTAGE CRITERIA FOR LVH ANTEROLATERAL ISCHEMIA Electronically Signed On 03-06-2017 13:17:49 EDT by Gene Conti MD
--- NOTE | 2017-03-06 17:44 | Electrocardiograph Report ---
[address] [address] Test Date: 2017-03-03 Pat Name: Mat Slater Department: 102 Room: 2N05 Gender: Food Equipment Service Technician: Becky : 1940 Requested By: Berna Sanchez Order Number: [id number] Reading MD: Gene Conti MD Measurements Intervals [place] Rate: 112 P: [place]: 0 QRS: -33 QRSD: 94 T: 103 QT: 288 QTc: 354 Interpretive Statements ATRIAL FIBRILLATION WITH RAPID VENTRICULAR RESPONSE WITH ABERRANT CONDUCTION OR VENTRICULAR PREMATURE COMPLEXES MARKED LEFT AXIS DEVIATION VOLTAGE CRITERIA FOR LVH ANTERIOR ST CHANGES SEEN ON PREVIOUS EKG BASELINE ARTIFACT Electronically Signed On 03-06-2017 17:42:57 EDT by Gene Conti MD
== END 2017-03-05 07:45 | disposition home or self-care (01) | DRG 445 ==
LOC: EMEROO 11:07 → 2NNU 13:44
PROVIDERS: ADMIT Internal Medicine; ATTEND Student in an Organized Health Care Education/Training Program

== ENCOUNTER 2017-03-08 14:44 | Inpatient (IN) ==
[2017-03-08 15:16] LABS: Bilirubin,Urine Negative (Negative); Blood,Urine Negative (Negative); Clarity,Urine Clear (Clear); Color,Urine Yellow (Yellow); Glucose,Urine (UA) Normal (Normal); Ketones,Urine Negative (Negative); Leukocyte Esterase,Urine Negative (Negative); Nitrite,Urine Negative (Negative); Protein,Urine Negative (Neg-Trace); Specific Gravity,Urine 1.021 (1.010-1.025); Urobilinogen,Urine Normal (Normal)
[2017-03-08 15:35] LABS: Basophils % 0.5 %; Eosinophils # 0.1 K/mcL (0.0-0.6); Eosinophils % 2.3 %; Hematocrit 43.2 % (37.5-50.1); Immature Granulocytes % 0.3 % (0-4); Lymphocytes # 1.6 K/mcL (0.6-4.6); Lymphocytes % 26.2 %; Mean Corpuscular HGB Conc 33.6 g/dL (31.6-35.5); Mean Corpuscular Hemoglobin 32.9 pg (28.0-33.3); Mean Platelet Volume 10.5 fL (9.4-12.4); Monocytes # 0.5 K/mcL (0.0-1.3); Monocytes % 7.8 %; Neutrophils # 3.9 K/mcL (1.6-8.9); Platelet Count 250 K/mcL (140-400); Red Blood Count 4.41 M/mcL (4.19-5.50); Red Cell Distribution Width 14.6 % (11.5-14.5); Segmented Neutrophils % 62.9 %
[2017-03-08 15:37] LABS: Hemoglobin 14.5 g/dL (12.9-16.9)
--- NOTE | 2017-03-08 15:38 | Emergency Department Note ---
Disposition Clinical Impression: Elevated troponin, Epigastric pain, Atrial fibrillation with RVR Disposition: Admitted As Inpatient Condition: Good Time of Disposition: 16:37 General Adult HPI - General Chief complaint: ED Abdominal Pain Stated complaint: Gallbladder Pain Time Seen by Provider: 03/08/17 14:53 Source: patient Limitations: no limitations Nursing Notes Reviewed: Yes Vital Signs Reviewed: Yes - History of Present Illness HPI Narrative: 76-year-old male presenting to the emergency department with chief complaint of weakness and abdominal pain. Patient states he was recently discharged from the hospital after having cardiac catheterization with no stent placement. He was told while he was an inpatient that he had gallstones and that would need the gallbladder to be removed as an outpatient. He states he is feeling that he is having one of his "gallbladder attacks". He states today while he was out with his he began feeling acutely weak and overall not well. He states he has been having epigastric pain that radiates under both the right upper quadrant and left upper quadrant. Also discloses 3 episodes of diarrhea this morning. Denies nausea or vomiting. In triage patient is found to be in A. fib with RVR. Patient does have a history of this and is on eliquis. Patient denies any fever at home. Patient able to Eat breakfast this morning but now not feeling well. Pain Scale: 8 - Related Data Home Medications Medication Instructions Recorded Confirmed Ezetimibe [Zetia] 10 mg PO DAILY 05/03/16 03/08/17 Gabapentin [Neurontin] 300 mg PO TID 05/03/16 03/08/17 LORazepam [Ativan] 0.5 mg PO BID PRN 05/03/16 03/08/17 Levothyroxine [Synthroid] 50 mcg PO DAILY 05/03/16 03/08/17 Testosterone Cypionate 100 mg IM Q2W 05/03/16 03/08/17 [Depo-Testosterone] diazePAM [Valium] 10 mg PO HS 05/03/16 03/08/17 metFORMIN [Glucophage] 500 mg PO BIDWM 05/03/16 03/08/17 Aspirin [Lo-Dose Aspirin EC] 81 mg PO DAILY 09/10/16 03/08/17 Tamsulosin HCl [Flomax] 0.4 mg PO DAILY 09/10/16 03/08/17 Multivitamin [Multi-Day Vitamins] 1 each PO DAILY 09/30/16 03/08/17 Naloxegol Oxalate [Movantik] 25 mg PO DAILY 09/30/16 03/08/17 Metoprolol XL (24 HR) Succ [Toprol 25 mg PO DAILY 11/10/16 03/08/17 Xl] Nitroglycerin [Nitrostat] 0.4 mg SL Q5M PRN 11/10/16 03/08/17 Rivaroxaban [Xarelto] 20 mg PO DAILY 11/10/16 03/08/17 Atorvastatin [Lipitor] 40 mg PO HS 03/01/17 03/08/17 Digoxin [Lanoxin] 0.125 mg PO DAILY 03/01/17 03/08/17 Losartan/Hydrochlorothiazide 1 tab PO DAILY 03/03/17 03/08/17 [Hyzaar 100-12.5 Tablet] Fenofibrate Nanocrystallized 160 mg PO DAILY 03/08/17 03/08/17 [Triglide] OxyCODONE/APAP 10/325 [Percocet 1 each PO Q4H PRN 03/08/17 03/08/17 10/325 MG] Allergies Allergy/AdvReac Type Severity Reaction Status Date / Time No Known Allergies Allergy Verified 03/03/17 11:13 All systems ED: reviewed and negative except as stated. Constitutional: Reports: weakness. Denies: fever, chills ENT ED: Reports: as per HPI Cardiovascular: Denies: chest pain, palpitations, dyspnea on exertion Respiratory: Denies: cough, dyspnea, wheezes Gastrointestinal: Reports: abdominal pain, diarrhea. Denies: nausea, vomiting Genitourinary: Reports: as per HPI Musculoskeletal: Reports: as per HPI Integumentary: Reports: as per HPI Neurological: Reports: weakness. Denies: headache, numbness, paresthesias, confusion Psychiatric: Reports: as per HPI Endocrine: Reports: as per HPI Hematological/Lymphatic: Reports: as per HPI Allergic/Immunologic: Reports: as per HPI Past Medical History - Past Medical History Attestation: Yes The following information was validated with the patient. Medical history: Reports: coronary artery disease, diabetes, hyperlipidemia, hypertension, myocardial infarction, other Surgical history: Reports: no surgical history, vascular surgery (Ascending thoracic aneurysm repair in December 2016) Psychiatric history: Reports: anxiety, depression - Social History Smoking Status: Current some day smoker Smokeless Tobacco Status: No Alcohol use: Reports: rarely Drug use: Reports: none Physical Exam - General Limitations: no limitations General appearance: alert, in no apparent distress - Head Head exam: atraumatic, normocephalic, normal inspection - Eye Eye exam: Present: normal appearance. Absent: scleral icterus, conjunctival injection - Chest Chest inspection: Present: normal inspection, symmetric chest wall rise. Absent : tenderness, rash - Respiratory Respiratory exam: Present: normal lung sounds bilaterally. Absent: respiratory distress, wheezes - Cardiovascular Cardiovascular exam: Present: tachycardia, irregular rhythm, normal heart sounds - Abdominal Exam Abdominal exam: Present: soft, tenderness (Diffuse abdominal tenderness most the in the epigastrium and in the right upper and left upper quadrants.), normal bowel sounds. Absent: distention, guarding, rebound, trauma, incision, heel tap sign, Braun's sign, scar - Extremities Exam Extremities exam: Present: normal inspection, full ROM - Neurological Exam Neurological exam: Present: alert, oriented X3 - Psychiatric Psychiatric exam: Present: normal affect, normal mood - Skin Skin exam: Present: warm, intact Course Course Narrative: 76-year-old male presenting to the emergency department with chief complaint of weakness and abdominal pain. Patient was recently discharged after cardiac catheterization and no stent placement. On EKG he is found to be in A. fib with RVR and is not rate controlled. At this time patient is stable in the room with stable vital signs and is alert and oriented 3. We will obtain basic belly labs including lipase, CMP, CBC. We will also obtain a digoxin level. We will obtain a chest pain rule out with troponin as well. Cardizem drip was started with Cardizem bolus. We will maintain heart rate less than 100 at this time. Disposition admission - Reevaluation(s) Reevaluation #1: Patient now rate controlled with Cardizem drip. Heart rate between 70 and 80 at this time. Troponin elevation noted of 0.1. No AST or ALT elevation at this time. No concern of gallstone or ascending cholangitis. We will plan to admit the patient once all lab work has been resulted. Time: 16:12 Reevaluation #2: Troponin elevated at 0.1. Patient now converted into sinus rhythm after Cardizem bolus and drip. Patient has been accepted by Dr. Junior for hospitalists. Time: 16:36 Vital Signs Temperature 97.6 F 03/08/17 14:48 Pulse Rate 130 03/08/17 14:48 Respiratory Rate 16 03/08/17 14:48 Blood Pressure 113/72 03/08/17 14:48 O2 Sat by Pulse Oximetry 96 03/08/17 14:48 Temperature 97.4 F L 03/08/17 17:22 Pulse Rate 72 03/08/17 17:22 Respiratory Rate 20 03/08/17 17:22 Blood Pressure 104/60 03/08/17 17:22 O2 Sat by Pulse Oximetry 94 03/08/17 15:30 Oxygen Delivery Oxygen Delivery Room Air Medical Decision Making - Lab Data Result diagrams: 03/08/17 15:22 03/08/17 15:22 Lab Results 03/08/17 03/08/17 03/08/17 Range/Units 15:00 15:22 15:22 WBC (4.3-11.1) K/mcL RBC (4.19-5.50) M/mcL Hgb (12.9-16.9) g/dL Hct (37.5-50.1) % MCV (83.0-100.0) fL MCH (28.0-33.3) pg MCHC (31.6-35.5) g/dL RDW (11.5-14.5) % Plt Count (140-400) K/mcL MPV (9.4-12.4) fL Immature Gran % (0-4) % Seg Neutrophils % % Lymphocytes % % Monocytes % % Eosinophils % % Basophils % % Neutrophils # (1.6-8.9) K/mcL Lymphocytes # (0.6-4.6) K/mcL Monocytes # (0.0-1.3) K/mcL Eosinophils # (0.0-0.6) K/mcL Basophils # (0.0-0.2) K/mcL PT 18.7 H (9.4-12.1) Seconds INR 1.7 APTT 43.6 H (26.0-36.0) Seconds Sodium 141 (136-145) mEq/L Potassium 3.6 (3.5-4.5) mEq/L Chloride 106 (98-109) mEq/L Carbon Dioxide 28 (19-29) mEq/L BUN 22 (8-26) mg/dL Creatinine 1.30 H (0.72-1.25) mg/dL Est GFR ( Amer) > 60 (> 60) Est GFR (Non-Af Amer) 54 L (> 60) BUN/Creatinine Ratio 17 (6-26) Glucose 193 H (70-99) mg/dL Calculated Osmolality 301 H (280-300) Calcium 10.0 (8.6-10.8) mg/dL Total Bilirubin 0.8 (0.2-1.2) mg/dL AST 40 H (5-34) Units/L ALT 37 (0-55) Units/L Alkaline Phosphatase 38 (38-126) Units/L Troponin I (0-0.03) ng/mL Serum Total Protein 7.0 (6.0-8.3) g/dL Albumin 3.5 (3.5-5.0) g/dL Globulin 3.5 (2.4-3.5) g/dL Albumin/Globulin Ratio 1.0 L (1.1-2.2) Lipase < 10 (8-78) Units/L Urine Color Yellow (Yellow) Urine Clarity Clear (Clear) Urine pH 7.0 (5.0-8.0) pH Units Ur Specific Nancy 1.021 (1.010-1.025) Urine Protein Negative (Neg-Trace) mg/dL Urine Glucose (UA) Normal (Normal) mg/dL Urine Ketones Negative (Negative) mg/dL Urine Blood Negative (Negative) Urine Nitrite Negative (Negative) Urine Bilirubin Negative (Negative) Urine Urobilinogen Normal (Normal) mg/dL Ur Leukocyte Esterase Negative (Negative) Ur Culture Indicated? NO (NO) Digoxin 0.6 L (0.8-2.0) ng/mL 03/08/17 03/08/17 Range/Units 15:22 15:22 WBC 6.2 (4.3-11.1) K/mcL RBC 4.41 (4.19-5.50) M/mcL Hgb 14.5 D (12.9-16.9) g/dL Hct 43.2 (37.5-50.1) % MCV 98.0 (83.0-100.0) fL MCH 32.9 (28.0-33.3) pg MCHC 33.6 (31.6-35.5) g/dL RDW 14.6 H (11.5-14.5) % Plt Count 250 (140-400) K/mcL MPV 10.5 (9.4-12.4) fL Immature Gran % 0.3 (0-4) % Seg Neutrophils % 62.9 % Lymphocytes % 26.2 % Monocytes % 7.8 % Eosinophils % 2.3 % Basophils % 0.5 % Neutrophils # 3.9 (1.6-8.9) K/mcL Lymphocytes # 1.6 (0.6-4.6) K/mcL Monocytes # 0.5 (0.0-1.3) K/mcL Eosinophils # 0.1 (0.0-0.6) K/mcL Basophils # 0.0 (0.0-0.2) K/mcL PT (9.4-12.1) Seconds INR APTT (26.0-36.0) Seconds Sodium (136-145) mEq/L Potassium (3.5-4.5) mEq/L Chloride (98-109) mEq/L Carbon Dioxide (19-29) mEq/L BUN (8-26) mg/dL Creatinine (0.72-1.25) mg/dL Est GFR ( Amer) (> 60) Est GFR (Non-Af Amer) (> 60) BUN/Creatinine Ratio (6-26) Glucose (70-99) mg/dL Calculated Osmolality (280-300) Calcium (8.6-10.8) mg/dL Total Bilirubin (0.2-1.2) mg/dL AST (5-34) Units/L ALT (0-55) Units/L Alkaline Phosphatase (38-126) Units/L Troponin I 0.10 H* (0-0.03) ng/mL Serum Total Protein (6.0-8.3) g/dL Albumin (3.5-5.0) g/dL Globulin (2.4-3.5) g/dL Albumin/Globulin Ratio (1.1-2.2) Lipase (8-78) Units/L Urine Color (Yellow) Urine Clarity (Clear) Urine pH (5.0-8.0) pH Units Ur Specific Nancy (1.010-1.025) Urine Protein (Neg-Trace) mg/dL Urine Glucose (UA) (Normal) mg/dL Urine Ketones (Negative) mg/dL Urine Blood (Negative) Urine Nitrite (Negative) Urine Bilirubin (Negative) Urine Urobilinogen (Normal) mg/dL Ur Leukocyte Esterase (Negative) Ur Culture Indicated? (NO) Digoxin (0.8-2.0) ng/mL Attestation Statement - Attestation Attestation: I, Yaw [place], examined this patient and my medical decision-making was reviewed with the RAIL EQUIPMENT OPERATOR/PA/Advanced Practice Nurse/Resident Physician. I agree with the documented findings, disposition and treatment plan as described except to the extent set forth below. 76-year-old male presents emergency Department with concerns of acute onset weakness, epigastric pain and shortness of breath. Patient states he felt well last night and this morning prior to the onset of his symptoms. Denies recent trauma. Patient was recently evaluated for epigastric pain and has what seemed to be chronic cholecystitis. He was evaluated by the general surgeon, Dr. Mccloud , who recommended cardiac stabilization prior to surgery. Initial evaluation patient had A. fib with RVR with a rate of 160s. Initial EKG showed atrial fibrillation with RVR with a rate of 137 without evidence of STEMI. Patient was started on Cardizem bolus and drip which inadvertently cardioverted the patient to a sinus rhythm. Repeat EKG showed normal sinus rhythm with a rate of 81 without evidence of STEMI. Patient had an elevated troponin at 0.1 which is likely secondary to ischemic demand. Patient comfortable with the plan for admission to the hospital for further care and evaluation. Patient has a history of H fibrillation and takes Coumadin for anticoagulation.
[2017-03-08 15:40] LABS: INR 1.7; Prothrombin Time 18.7 Seconds (9.4-12.1)
[2017-03-08 15:43] LABS: Activated Partial Thrombo Time 43.6 Seconds (26.0-36.0)
[2017-03-08 15:50] LABS: Alanine Aminotransferase 37 Units/L (0-55); Albumin 3.5 g/dL (3.5-5.0); Alkaline Phosphatase 38 Units/L (38-126); Aspartate Amino Transferase 40 Units/L (5-34); BUN/Creatinine Ratio 17 (6-26); Bilirubin,Total 0.8 mg/dL (0.2-1.2); Blood Urea Nitrogen 22 mg/dL (8-26); Carbon Dioxide 28 mEq/L (19-29); Chloride 106 mEq/L (98-109); Globulin 3.5 g/dL (2.4-3.5); Glucose 193 mg/dL (70-99); Osmolality,Calculated 301 (280-300); Potassium 3.6 mEq/L (3.5-4.5); Sodium 141 mEq/L (136-145); eGFR For African Americans > 60 (> 60); eGFR For Non-African Americans 54 (> 60)
[2017-03-08 15:53] LABS: Lipase < 10 Units/L (8-78)
[2017-03-08 15:56] LABS: Digoxin 0.6 ng/mL (0.8-2.0)
[2017-03-08] MEDS ORDERED: Aspirin 81 MG TAB.CHEW PO ONE (16:08)
[2017-03-08] MEDS ORDERED: *HR* LORazepam 0.5 MG TABLET PO PRN (18:42)
[2017-03-08] MEDS ORDERED: *HR* Dextrose 50 % in Water (Syg) 50 ML SYRINGE IVP PRN (18:48)
[2017-03-08] MEDS ORDERED: D5% in Water 1,000 ML IVC PRN (18:48)
[2017-03-08] MEDS ORDERED: Naloxone 0.4 MG/ML INJ IVP PRN (18:48)
[2017-03-08] MEDS ORDERED: Dextrose Gel 15 GM PO PRN ×2 (18:48)
[2017-03-08] MEDS ORDERED: *HR* Morphine 2 MG/ML SYRINGE IVP PRN (18:55)
--- NOTE | 2017-03-08 19:03 | Internal Med History&Physical ---
Date of Encounter: 03/08/17 Time of Encounter: 19:00 Assessment and Plan (1) Cholelithiasis Current visit: Yes Status: Acute Found last week on CT abdomen. Continues to have 10/10 abdominal pain. Was awaiting cardiac clearance for surgery later this month. Since he returned to hospital without improvement of pain I have consulted surgical services for assistance with management. Surgery consult~ plan is to see today and schedule surgery for Tuesday RUQ US for further evaluation Morphine and Oxycodone for pain controll CMP, CBC in am Qualifiers: Cholelithiasis location: gallbladder Cholecystitis acuity: chronic Biliary obstruction: without biliary obstruction Qualified Code(s): K80.10 - Calculus of gallbladder with chronic cholecystitis without obstruction (2) Abdominal pain Current visit: Yes Status: Acute recent diagnosis of cholelithiasis, needs lap jean marie. See plan above. Qualifiers: Qualified Code(s): R10.9 - Unspecified abdominal pain (3) Atrial fibrillation with RVR Current visit: Yes Status: Acute Was given 10mg Cardizem IVP and is now NSR. Resting in bed without distress. On Xarelto for anticoagulation. Continue home dose of xarelto. On Digoxin for A-fib, digoxin level low at 0.6, get digoxin level in am and continue home digoxin and BB dose. Continuous cardiac monitoring. (4) Elevated troponin Current visit: Yes Status: Acute chronically elevated troponin. Likely has a trop leak. Was in A-fib RVR this afternoon, now NSR without distress. Will hold serial troponins for now, consider adding if CP develops. Continue to monitor cardiac status (5) Hypertension Current visit: Yes Status: Chronic controlled, hemodynamically stable. Continue all home BP meds Qualifiers: Hypertension type: essential hypertension Qualified Code(s): I10 - Essential (primary) hypertension (6) Diabetes Current visit: Yes Status: Chronic Controlled on metformin. Stop metformin while in hospital. Start LSSIC, and Ac /Hs accuchecks. Qualifiers: Diabetes mellitus type: type 2 Diabetes mellitus complication status: with kidney complications Diabetes mellitus complication detail: with chronic kidney disease Diabetes mellitus longterm insulin use: without manager intermediate use Chronic kidney disease stage: stage 3 (moderate) Qualified Code(s): E11.22 - Type 2 diabetes mellitus with diabetic chronic kidney disease; N18.3 - Chronic kidney disease, stage 3 (moderate) (7) DVT prophylaxis Current visit: No Status: Acute On xarelto. Continue Internal Medicine - H&P: HPI Chief complaint: abdominal pain, a-fib RVR Admitted From: Home Plans for Post Hospital Care: Home History of present illness: Mr. Slater is a 76 year old male PMH of CAD, DMII, HLD, HTN, OR, ascending thoracic aortic aneurysm and A-fib RVR. Presents to [facility] today with epigastric and RUQ abdominal pain which began this morning after breakfast and is ongoing. Was recently admitted d/t cholangitis and treated with antibiotics and discharged home with a plan for lap jean marie at a later date. Reports pain 03/15, taking oxycodone 10mg at home without relief. Additionally was found to be in A -fib RVR on arrival, was given Cardizem IVP and converted to NSR. Workup unremarkable, being admitted for further monitoring and surgical consult. Past Med Surg Social Fam HX - Past Medical History Medical history: coronary artery disease, diabetes, glaucoma, hyperlipidemia, hypertension, myocardial infarction, other Psychiatric history: anxiety, depression - Past Surgical History Surgical History: vascular surgery - Social History Smoking Status: Former smoker Smokeless Tobacco Status: No Alcohol use: rarely Drug use: none - Family History Mother Family Member Ethnicity: Non- Living Status: Age at : 64 Cause of : breast cancer Hx Family Cancer: Yes (Breast cancer) Internal Medicine - H&P: Meds Ezetimibe [Zetia] 10 mg PO DAILY 05/03/16 [History] Gabapentin [Neurontin] 300 mg PO TID 05/03/16 [History] LORazepam [Ativan] 0.5 mg PO BID PRN 05/03/16 [History] Levothyroxine [Synthroid] 50 mcg PO DAILY 05/03/16 [History] Testosterone Cypionate [Depo-Testosterone] 100 mg IM Q2W 05/03/16 [History] diazePAM [Valium] 10 mg PO HS 05/03/16 [History] metFORMIN [Glucophage] 500 mg PO BIDWM 05/03/16 [History] Aspirin [Lo-Dose Aspirin EC] 81 mg PO DAILY 09/10/16 [History] Tamsulosin HCl [Flomax] 0.4 mg PO DAILY 09/10/16 [History] Multivitamin [Multi-Day Vitamins] 1 each PO DAILY 09/30/16 [History] Naloxegol Oxalate [Movantik] 25 mg PO DAILY 09/30/16 [History] Metoprolol XL (24 HR) Succ [Toprol Xl] 25 mg PO DAILY 11/10/16 [History] Nitroglycerin [Nitrostat] 0.4 mg SL Q5M PRN 11/10/16 [History] Rivaroxaban [Xarelto] 20 mg PO DAILY 11/10/16 [History] Atorvastatin [Lipitor] 40 mg PO HS 03/01/17 [History] Digoxin [Lanoxin] 0.125 mg PO DAILY 03/01/17 [History] Losartan/Hydrochlorothiazide [Hyzaar 100-12.5 Tablet] 1 tab PO DAILY 03/03/17 [ History] Fenofibrate Nanocrystallized [Triglide] 160 mg PO DAILY 03/08/17 [History] OxyCODONE/APAP 10/325 [Percocet 10/325 MG] 1 each PO Q4H PRN 03/08/17 [History] 3 Allergy/AdvReac Type Severity Reaction Status Date / Time No Known Allergies Allergy Verified 03/03/17 11:13 All Systems PM: A 10-system review of systems was performed and is negative for pertinent findings except as documented above in the HPI. - Constitutional Constitutional: no chills, no fever(s), no night sweats - EENT Nose, mouth and throat: no dysphagia, no nasal discharge, no neck pain, no sore throat - Cardiovascular Cardiovascular ROS IM: no chest pain, no diaphoresis, no dyspnea, no lightheadedness, no palpitations, no syncope - Respiratory Respiratory: no cough, no dyspnea, no wheezing, no excessive phlegm production - Gastrointestinal Gastrointestinal: as per HPI, abdominal pain, diarrhea, heartburn, no belching, no bloating, no change in bowel habits, no constipation, no nausea, no vomiting - Musculoskeletal Musculoskeletal ROS IM: no numbness, no tingling - Integumentary Integumentary IM: no rash, no unusual bruising - Neurological Neurological ROS: no confusion, no convulsions, no focal weakness, no numbness, no tingling, no tremor(s) - Constitutional Vitals: Temp Pulse Resp BP Pulse Ox 97.6 F 74 18 104/60 98 03/08/17 17:35 03/08/17 17:35 03/08/17 17:35 03/08/17 17:35 03/08/17 17:35 General appearance: Present: cooperative, mild distress, A&O X 3, answers questions appropriately - Head Head exam: Present: atraumatic, normocephalic - Eye Eye exam: Present: PERRL, conjuntiva pink, sclera anicteric Pupils: Present: PERRL - Neck Neck exam general surgery: Present: supple, trachea midline. Absent: lymphadenopathy - Respiratory Respiratory exam: Present: CTAB. Absent: accessory muscle use, rales, rhonchi, wheezes - Cardiovascular Cardiovascular exam: Present: RRR, +S1, +S2. Absent: diastolic murmur, gallop, rubs, systolic murmur - GI/Abdominal GI/Abdominal exam: Present: normal bowel sounds, soft, tenderness ( midepigastric and RUQ). Absent: distended, guarding, mass, rebound - Extremities Exam Extremities exam: Present: warm, radial pulses palpable and symmetrical. Absent : calf tenderness, cyanotic, pedal edema - Neurological Exam Neurological exam: Present: CN II-XII intact, oriented X3, no focal deficits. Absent: pronater drift, facial droop, speech deficit - Skin Skin exam: Present: dry, intact Internal Med - H&P Results - Labs CBC & Chem 7: 03/08/17 15:22 03/08/17 15:22 - EKG Data -: EKG Interpreted by Myself - EKG Data Prior EKG available for review: yes EKG comments: EKG's obtained both before and after cardizem push. Prior to cardizem was found to be in A-fib RVR, after cardizem IVP converted to NSR 03/08/17 19:20 - Diagnostic Studies Chest x-ray Status: image reviewed by me Additional comments: no acute pulmonary process
--- NOTE | 2017-03-08 19:12 | Event Note ---
Date of Encounter: 03/08/17 Time of Encounter: 19:09 patient seen and examined with medical staffing coordinator. Present with abdominal pain, likely due to bliary colic. No fever, chills or vomiting. He was also found to be in AFib with RVR and spontaneously reverted to NSR. He has a gallstone and may need cholecystectomy. Recent cath shows no occlusive CAD. Will consult surgery and hold xarelto
[2017-03-08] MEDS: Insulin LISPRO 300 UNITS/3 ML VIAL SQ SCH (20:38)
[2017-03-08] MEDS: *HR* OxyCODONE/APAP 10/325 TABLET PO PRN (21:27)
[2017-03-08] MEDS: Gabapentin 300 MG CAPSULE PO SCH (21:27)
[2017-03-08] MEDS: diazePAM 10 MG TABLET PO SCH (21:27)
--- NOTE | 2017-03-08 22:43 | General Surgery Consult Note ---
Date of Encounter: 03/08/17 Time of Encounter: 22:42 Assessment and Plan (1) Cholecystitis, acute with cholelithiasis Current Visit: Yes Status: Acute 76M with concern for acute cholecystitis; currently non-septic; He now gives a history more consistent with cholecystitis; His exam and radiological imaging have been incongruent, but, in light of his recent cardiac cath results, I have less doubt concerning the origin of this patient's pain - hold xarelto - cardiac evaluation: repeat EKG, risk stratify again for lap jean marie POSS OPEN in light of latest cath results; optimization recommendations would be appreciated - non fat diet, preferrably liquids; - start antibiotics (zosyn) - will plan for cholecystectomy on 03/11; - cares per primary team Qualifiers: Cholelithiasis location: gallbladder Biliary obstruction: without biliary obstruction Qualified Code(s): K80.00 - Calculus of gallbladder with acute cholecystitis without obstruction (2) Epigastric abdominal pain Current Visit: Yes Status: Acute see above History of Present Illness Reason for consult: abdominal pain (post prandial abdominal pain, epigastric region) Requesting physician: Yazan Villalba History of present illness: 76M with PMH significant for CAD, VA, PVD, AAA, repair of thoracic aneursym, A fib who originally presented ~ 02/28 with concern for acute cholecystitis. However due to a negative HIDA scan and a benign exam, the decision was made to not operate. He was readmitted ~ 3 days later with complaints of abdominal pain that radiated into his chest. There was concern of atypical symptoms of chest pain of cardiac origin. He was catheterized with revealed no disease in his LAD, but 70% stenosis of his RCA. He was discharged approximately two days ago before readmisison for epigastric abdominal pain. The was aching and non radiating. The pain began ~ 30minutes after consuming fatty mean, specifically a donut and coffee with cream. He states that he also experienced a feeling of 'heartburn' going into his chest. No associated nausea, vomiting, shortness of breath. He did state that he had a moment where he felt light headed, but that did pass. He presented to the ED in Afib with RVR, but did spontaneously convert out of it. I was consulted for surgical evaluation and management. Past Med Surg Social Fam HX - Past Medical History Medical history: coronary artery disease, diabetes, glaucoma, hyperlipidemia, hypertension, myocardial infarction, other Psychiatric history: anxiety, depression - Past Surgical History Surgical History: vascular surgery - Social History Smoking Status: Former smoker Smokeless Tobacco Status: No Alcohol use: rarely Drug use: none - Family History Mother Family Member Ethnicity: Non- Living Status: Age at : 64 Cause of : breast cancer Hx Family Cancer: Yes (Breast cancer) Medications and Allergies Ezetimibe [Zetia] 10 mg PO DAILY 05/03/16 [History] Gabapentin [Neurontin] 300 mg PO TID 05/03/16 [History] LORazepam [Ativan] 0.5 mg PO BID PRN 05/03/16 [History] Levothyroxine [Synthroid] 50 mcg PO DAILY 05/03/16 [History] Testosterone Cypionate [Depo-Testosterone] 100 mg IM Q2W 05/03/16 [History] diazePAM [Valium] 10 mg PO HS 05/03/16 [History] metFORMIN [Glucophage] 500 mg PO BIDWM 05/03/16 [History] Aspirin [Lo-Dose Aspirin EC] 81 mg PO DAILY 09/10/16 [History] Tamsulosin HCl [Flomax] 0.4 mg PO DAILY 09/10/16 [History] Multivitamin [Multi-Day Vitamins] 1 each PO DAILY 09/30/16 [History] Naloxegol Oxalate [Movantik] 25 mg PO DAILY 09/30/16 [History] Metoprolol XL (24 HR) Succ [Toprol Xl] 25 mg PO DAILY 11/10/16 [History] Nitroglycerin [Nitrostat] 0.4 mg SL Q5M PRN 11/10/16 [History] Rivaroxaban [Xarelto] 20 mg PO DAILY 11/10/16 [History] Atorvastatin [Lipitor] 40 mg PO HS 03/01/17 [History] Digoxin [Lanoxin] 0.125 mg PO DAILY 03/01/17 [History] Losartan/Hydrochlorothiazide [Hyzaar 100-12.5 Tablet] 1 tab PO DAILY 03/03/17 [ History] Fenofibrate Nanocrystallized [Triglide] 160 mg PO DAILY 03/08/17 [History] OxyCODONE/APAP 10/325 [Percocet 10/325 MG] 1 each PO Q4H PRN 03/08/17 [History] 3 Allergy/AdvReac Type Severity Reaction Status Date / Time No Known Allergies Allergy Verified 03/03/17 11:13 Review of Systems All systems PM: A 10-system review of systems was performed and is negative for pertinent findings except as documented above in the HPI. General Surgery Exam Initial Vital Signs Temp Pulse Resp BP Pulse Ox 97.6 F 130 16 113/72 96 03/08/17 14:48 03/08/17 14:48 03/08/17 14:48 03/08/17 14:48 03/08/17 14:48 - General physical appearance well developed, well nourished, no distress - Eyes other (no scleral icterus appreciated on exam), normal ocular movement - ENT atraumatic, normocephalic - Respiratory normal expansion, normal respiratory effort, clear to percussion, clear to auscultation - Cardiovascular Cardiovascular exam: Present: RRR (NSR on exam and on monitor) - Abdomen Abdomen general surgery: Present: soft, non tender (non distended; (-)murpy's sign; (-)peritoneal signs) Hernia: Present: none - Integumentary Integumentary general surgery: Present: warm and dry, other (no edema) - Neurologic Present: CN 2-12 grossly intact - Psychiatric Psychiatric general surgery: Present: A&Ox3, speech is normal, memory intact Exam Initial Vital Signs Temp Pulse Resp BP Pulse Ox 97.6 F 130 16 113/72 96 03/08/17 14:48 03/08/17 14:48 03/08/17 14:48 03/08/17 14:48 03/08/17 14:48 Results - Labs 03/08/17 15:22 03/08/17 15:22 Abnormal lab results RDW 14.6 % (11.5-14.5) H 03/08/17 15:22 PT 18.7 Seconds (9.4-12.1) H 03/08/17 15:22 APTT 43.6 Seconds (26.0-36.0) H 03/08/17 15:22 Creatinine 1.30 mg/dL (0.72-1.25) H 03/08/17 15:22 Est GFR (Non-Af Amer) 54 (> 60) L 03/08/17 15:22 Glucose 193 mg/dL (70-99) H 03/08/17 15:22 Calculated Osmolality 301 (280-300) H 03/08/17 15:22 AST 40 Units/L (5-34) H 03/08/17 15:22 Troponin I 0.10 ng/mL (0-0.03) H* 03/08/17 15:22 Albumin/Globulin Ratio 1.0 (1.1-2.2) L 03/08/17 15:22 Digoxin 0.6 ng/mL (0.8-2.0) L 03/08/17 15:22 All other labs normal. - Imaging US - abdomen: report reviewed, image reviewed (thickend gallbladder wall, gallstone; concern for cholecystitis) Consult Discharge Plan - Plan Referrals: Beatriz Peters MD [Primary Care Provider] -
[2017-03-09] MEDS: *HR* OxyCODONE/APAP 10/325 TABLET PO PRN ×3 (03:52→20:46)
[2017-03-09 04:16] LABS: Basophils % 0.5 %; Eosinophils # 0.2 K/mcL (0.0-0.6); Eosinophils % 3.4 %; Hematocrit 37.1 % (37.5-50.1); Immature Granulocytes % 0.2 % (0-4); Lymphocytes # 2.4 K/mcL (0.6-4.6); Lymphocytes % 43.1 %; Mean Corpuscular HGB Conc 33.4 g/dL (31.6-35.5); Mean Corpuscular Hemoglobin 32.5 pg (28.0-33.3); Mean Corpuscular Volume 97.4 fL (83.0-100.0); Mean Platelet Volume 10.8 fL (9.4-12.4); Monocytes # 0.5 K/mcL (0.0-1.3); Monocytes % 9.1 %; Neutrophils # 2.5 K/mcL (1.6-8.9); Platelet Count 230 K/mcL (140-400); Red Blood Count 3.81 M/mcL (4.19-5.50); Red Cell Distribution Width 14.6 % (11.5-14.5); Segmented Neutrophils % 43.7 %
[2017-03-09 04:18] LABS: Hemoglobin 12.4 g/dL (12.9-16.9)
[2017-03-09 04:29] LABS: Alanine Aminotransferase 27 Units/L (0-55); Albumin 2.8 g/dL (3.5-5.0); Albumin/Globulin Ratio 1.1 (1.1-2.2); Alkaline Phosphatase 30 Units/L (38-126); Aspartate Amino Transferase 29 Units/L (5-34); BUN/Creatinine Ratio 18 (6-26); Bilirubin,Total 0.8 mg/dL (0.2-1.2); Blood Urea Nitrogen 20 mg/dL (8-26); Calcium 8.7 mg/dL (8.6-10.8); Carbon Dioxide 26 mEq/L (19-29); Chloride 109 mEq/L (98-109); Globulin 2.6 g/dL (2.4-3.5); Glucose 88 mg/dL (70-99); Osmolality,Calculated 296 (280-300); Potassium 3.6 mEq/L (3.5-4.5); Sodium 142 mEq/L (136-145); eGFR For African Americans > 60 (> 60); eGFR For Non-African Americans > 60 (> 60)
[2017-03-09 04:30] LABS: Total Protein 5.4 g/dL (6.0-8.3)
[2017-03-09 04:37] LABS: Digoxin 0.6 ng/mL (0.8-2.0)
[2017-03-09] MEDS ORDERED: NON-FORMULARY MEDICATION 1 EACH EACH (Rivaroxaban [Xarelto] 20 MG) PO SCH (09:00)
[2017-03-09] MEDS ORDERED: Fenofibrate 54 MG TABLET PO SCH (09:00)
--- NOTE | 2017-03-09 09:28 | Internal Med Progress Note ---
Date of Encounter: 03/09/17 Time of Encounter: 09:25 - Assessment and plan (1) Cholecystitis, acute with cholelithiasis Current Visit: Yes Status: Acute Assessment and plan: Surgery consultation appreciated Abd US reported large gallstone with gallbladder wall thickening Tentatively scheduled for surgery on Tuesday (03/11/17) will need cardiac clearance for surgery-Cardiology consultation requested Continue IV abx (Zosyn) pain control pt tolerating PO intake without any difficulties at this time Continue to hold Xarelto until after surgery Heparin SQ for DVT ppx, will hold day before surgery pt reported of being on Fenofibrate, will hold at this time, given acute episode Qualifiers: Cholelithiasis location: gallbladder Biliary obstruction: without biliary obstruction Qualified Code(s): K80.00 - Calculus of gallbladder with acute cholecystitis without obstruction (2) Atrial fibrillation with RVR Current Visit: Yes Status: Chronic Assessment and plan: Rate currently controlled with Digoxin and BB, will continue anticoagulated with Xarelto, will hold given tentative surgery on Tuesday (3) Diabetes mellitus Current Visit: Yes Status: Chronic Assessment and plan: Hold oral antihyperglycemic agents continue sliding scale insulin algorithm monitor FS and BG ADA diet Qualifiers: Diabetes mellitus type: type 2 Diabetes mellitus complication status: with unspecified complications Diabetes mellitus predatory animal exterminator insulin use: without predatory animal exterminator use Qualified Code(s): E11.8 - Type 2 diabetes mellitus with unspecified complications (4) Anxiety Current Visit: Yes Status: Chronic Assessment and plan: pt reports of having severe anxiety associated with his health, states he becomes extremely anxious every time he has an attack of his abd pain. Will continue home dose of Diazepam continue to closely monitor (5) Elevated troponin Current Visit: Yes Status: Chronic Assessment and plan: Pt has history of elevated TNI and CAD Clinically asymptomatic and no ST segment changes reported no chest pain at this time will continue home dose of ASA, BB, Lipitor Cardiology evaluation requested for preoperative clearance. (6) Hypertension Current Visit: Yes Status: Chronic Assessment and plan: BP within acceptable range continue home medications Qualifiers: Hypertension type: essential hypertension Qualified Code(s): I10 - Essential (primary) hypertension (7) DVT prophylaxis Current Visit: No Status: Acute Assessment and plan: Heparin SQ hold night prior to surgery - Subjective Interval history: Patient is a 76y/o male admitted for colic pain secondary to cholecystitis. Pt seen and examined at bedside. Resting comfortably in chair and reports of feeling well at this time. Denies any pain or distress. Reports of having severe anxiety contributing to his tachycardia. Was noted to be tachycardic upon arrival to the ER. Has history of Afib for which he takes Digoxin and BB for rate control and Xarelto for anticoagulation. Rate currently controlled and patient denies any palpitations, chest pain. History of CAD, and tentative cholecystectomy (lap jean marie vs. open procedure)- needs cardiac clearance. - Constitutional Vitals: Temp Pulse Resp BP Pulse Ox 98 F 70 16 123/76 96 03/09/17 07:07 03/09/17 07:07 03/09/17 07:07 03/09/17 07:07 03/09/17 07:07 General appearance: Present: cooperative, A&O X 3, pleasant, no acute distress, answers questions appropriately - Head Head exam: Present: atraumatic, normocephalic - Eye Eye exam: Present: conjuntiva pink, sclera anicteric - Respiratory Respiratory exam: Present: CTAB. Absent: accessory muscle use, rales, rhonchi, wheezes - Cardiovascular Cardiovascular exam: Present: irregular rhythm, +S1, +S2. Absent: diastolic murmur, gallop, rubs, systolic murmur - GI/Abdominal GI/Abdominal exam: Present: normal bowel sounds, soft, no peritoneal signs. Absent: distended, tenderness - Extremities Exam Extremities exam: Present: full ROM, warm, radial pulses palpable and symmetrical. Absent: calf tenderness, pedal edema - Neurological Exam Neurological exam: Present: alert, oriented X3 - Psychiatric Psychiatric exam: Present: normal affect, normal mood Internal Medicine: Result - Labs CBC & Chem 7: 03/09/17 03:18 03/09/17 03:18 Labs: Short CBC 03/09/17 Range/Units 03:18 WBC 5.6 (4.3-11.1) K/mcL Hgb 12.4 L D (12.9-16.9) g/dL Hct 37.1 L (37.5-50.1) % Plt Count 230 (140-400) K/mcL Neutrophils # 2.5 (1.6-8.9) K/mcL BMP 03/09/17 03:18 Sodium 142 Potassium 3.6 Chloride 109 Carbon Dioxide 26 BUN 20 Creatinine 1.11 Glucose 88 Calcium 8.7 Cardiac Enzymes 03/09/17 Range/Units 08:46 Troponin I 0.10 H* (0-0.03) ng/mL Liver Function 03/09/17 Range/Units 03:18 Total Bilirubin 0.8 (0.2-1.2) mg/dL AST 29 (5-34) Units/L ALT 27 (0-55) Units/L Alkaline Phosphatase 30 L (38-126) Units/L Albumin 2.8 L (3.5-5.0) g/dL - ABG Interpretation ABG results: PT/INR, D-dimer PT 18.7 Seconds (9.4-12.1) H 03/08/17 15:22 - Impressions Impressions Abdomen Ultrasound 03/08/17 19:42 IMPRESSION: 1. Re- demonstration of large gallstone with gallbladder wall thickening similar to previous exams. Findings again remain suggestive of cholecystitis. D/ / Grayson Salguero MD / Grayson Salguero MD Interpreting Provider: Grayson Salguero MD Consult Discharge Plan - Plan Referrals: Beatriz Peters MD [Primary Care Provider] -
[2017-03-09] MEDS: Losartan/HCTZ 50-12.5 TABLET PO SCH (09:53)
[2017-03-09] MEDS: Gabapentin 300 MG CAPSULE PO SCH ×3 (09:53→20:47)
[2017-03-09] MEDS: Aspirin Enteric Coated 81 MG Tablet PO SCH (09:53)
[2017-03-09] MEDS: Multivit/Ca/Min/Fe/FA 1 TAB TABLET PO SCH (09:53)
[2017-03-09] MEDS: Piperacillin/Tazobactam 3.375 GM in D5% in Water (Mini-Bag+) 100 ML IVPB SCH ×2 (09:54→17:22)
[2017-03-09] MEDS: *HR* Digoxin 0.125 MG TABLET PO SCH (09:54)
[2017-03-09] MEDS: Metoprolol XL (24 HR) Succ 25 MG TAB.ER.24H PO SCH (09:54)
[2017-03-09] MEDS: Insulin LISPRO 300 UNITS/3 ML VIAL SQ SCH ×4 (09:59→20:45)
[2017-03-09] MEDS: (Ezetimibe [Zetia] 10 MG) PO SCH (10:01)
[2017-03-09] MEDS: (Naloxegol Oxalate [Movantik] 25 MG) PO SCH (10:01)
--- NOTE | 2017-03-09 10:59 | Cardiology Consult Note ---
Date of Encounter: 03/09/17 Time of Encounter: 10:56 Assessment and Plan (1) Preop cardiovascular exam Current Visit: No Status: Acute Planning for lap/open cholecystectomy for acute cholecystitis. Seen to have large gall stone. Discussed with [facility] [employer]. Surgery is urgent due to gall stone and recurrent inflammatory attacks. Patient with known CAD s/p [place] one week ago. LHC showed 75% stenosis in pRCA. Minimal disease otherwise. Not intervened on at that time due to severe iliac disease. EKG this admission shows atrial fibrillation with RVR. HR 130. No acute ST changes. He is now NSR. Mild troponin 0.10, 0.10 likely trending down from recent [place]. He is currently chest pain free and denies SOB. Discussed with Dr. Conti. Due to surgery being urgent for acute cholecystitis we will medically manage coronary artery disease for now. Continue aspirin, statin, and beta-alfa.Okay to hold xarelto 48 hours prior to surgery. He is acceptable high risk for surgery. (2) Atrial fibrillation with RVR Current Visit: Yes Status: Chronic ATrial fibrillation with RVR on admission. Likely exacerbated by severe abdominal pain. Now NSR. Continue toprol xl and digoxin. Restart xarelto when able from a surgery standpoint. (3) Elevated troponin Current Visit: Yes Status: Chronic Mild adynamic troponin elevation. Likely trending down from recent [place]. (4) Coronary artery disease Current Visit: No Status: Chronic S/p [place] 09/2016 and 03/04/17 with no intervention. Most recent LHC 03/04/17 showed 75% stenosis in the proximal RCA. Minimal disease otherwise. No intervention at that time due to severe iliac disease. Will consider PCI in the future once recovered from cholecystectomy. TTE 09/2016- EF 60-65%. Moderate to severe LVH. Moderate diastolic dysfunction. No significant valvular disease. Denies cardiac symptoms. Recommend continuing asa, statin, and bb. Qualifiers: Coronary Disease-Associated Artery/Lesion type: [place] artery [place] vs. transplanted heart: [place] heart Associated angina: without angina Qualified Code(s): I25.10 - Atherosclerotic heart disease of [place] coronary artery without angina pectoris (5) AAA (abdominal aortic aneurysm) without rupture Current Visit: No Status: Chronic H/o 4.5 cm AAA. Serial CTA recommended. Last CT was 09/2016. Discussion w patient/family: The assessment and plan as outlined above was discussed with the patient and/or family members who expressed understanding and agreement. All questions were answered. Thank you for involving us in the care of your patient. Please call with any questions. History of Present Illness Consult date: 03/09/17 Requesting physician: Leanna Martinez Consult reason: pre-operative cardiovascular risk assessment Chief complaint: Severe right lower quadrant pain. History of present illness: Mr. Slater is a 76 year old male with a history of CAD s/p recent NSTEMI on , atrial fibrillation on xarelto, AAA, DM type II and known cholecystitis. He presented with right lower quadrant pain. He says that he ate a donut and had coffee about one hour before. He was found to have acute cholecystitis and is planning for open cholecystectomy on tuesday. Cardiology consulted for pre- operative risk stratification. He reports doing walking and running errands with his for up to an hour and he was feeling well before his abdominal pain started. He denies pain in his chest. Denies SOB. Denies orthopnea, PND, or edema. He was hospitalized last week on 03/03 with abdominal pain radiating to his chest. He was found to have afib with RVR and elevated troponin up to 3.63, He underwent LHC and was found to have 75% stenosis in his pRCA. Due to severe iliac disease he did not receive stent placement. It was recommended that he have vascular surgery consult and repeat attempt at PCI. He was rate controlled on digoxin and toprol XL and restarted on xarelto. He was discharged home on 03/04/17 with out-pt f/u. Past Med Surg Social Fam HX - Past Medical History Medical history: coronary artery disease, diabetes, glaucoma, hyperlipidemia, hypertension, myocardial infarction, other Psychiatric history: anxiety, depression - Past Surgical History Surgical History: vascular surgery - Social History Smoking Status: Former smoker Smokeless Tobacco Status: No Alcohol use: rarely Drug use: none - Family History Mother Family Member Ethnicity: Non- Living Status: Age at : 64 Cause of : breast cancer Hx Family Cancer: Yes (Breast cancer) Medications and Allergies Ezetimibe [Zetia] 10 mg PO DAILY 05/03/16 [History] Gabapentin [Neurontin] 300 mg PO TID 05/03/16 [History] LORazepam [Ativan] 0.5 mg PO BID PRN 05/03/16 [History] Levothyroxine [Synthroid] 50 mcg PO DAILY 05/03/16 [History] Testosterone Cypionate [Depo-Testosterone] 100 mg IM Q2W 05/03/16 [History] diazePAM [Valium] 10 mg PO HS 05/03/16 [History] metFORMIN [Glucophage] 500 mg PO BIDWM 05/03/16 [History] Aspirin [Lo-Dose Aspirin EC] 81 mg PO DAILY 09/10/16 [History] Tamsulosin HCl [Flomax] 0.4 mg PO DAILY 09/10/16 [History] Multivitamin [Multi-Day Vitamins] 1 each PO DAILY 09/30/16 [History] Naloxegol Oxalate [Movantik] 25 mg PO DAILY 09/30/16 [History] Metoprolol XL (24 HR) Succ [Toprol Xl] 25 mg PO DAILY 11/10/16 [History] Nitroglycerin [Nitrostat] 0.4 mg SL Q5M PRN 11/10/16 [History] Rivaroxaban [Xarelto] 20 mg PO DAILY 11/10/16 [History] Atorvastatin [Lipitor] 40 mg PO HS 03/01/17 [History] Digoxin [Lanoxin] 0.125 mg PO DAILY 03/01/17 [History] Losartan/Hydrochlorothiazide [Hyzaar 100-12.5 Tablet] 1 tab PO DAILY 03/03/17 [ History] Fenofibrate Nanocrystallized [Triglide] 160 mg PO DAILY 03/08/17 [History] OxyCODONE/APAP 10/325 [Percocet 10/325 MG] 1 each PO Q4H PRN 03/08/17 [History] 3 Allergy/AdvReac Type Severity Reaction Status Date / Time No Known Allergies Allergy Verified 03/03/17 11:13 All Systems Review: A 10-system review of systems was performed and is negative for pertinent findings except as documented above in the HPI. Physical Examination Vital Signs, Last 4 Hours Temp Pulse Resp BP Pulse Ox 03/09/17 07:07 98 F 70 16 123/76 96 General: Conversant, No Apparent Distress HEENT: Atraumatic, Normocephaly, Mucus Membranes Moist Neck: No JVD, Normal carotid pulses Cardiac: Reg Rate and Rhythm, Normal S1 and S2, No Murmur Lungs: Normal Breath Sounds, No Wheeze, Rales, Rhonchi Neuro: Alert and responsive, No focal deficits noted Abdomen: Soft, Non-Tender Skin: No rashes noted on visualized skin Musculoskeletal: No Chest Wall Tenderness Extremities: No Clubbing, No Cyanosis, No Edema, Normal Pulses Results 03/09/17 03:18 03/09/17 03:18 Lab Results 03/09/17 03/09/17 03/09/17 03:18 03:18 08:46 WBC 5.6 Hgb 12.4 L D Hct 37.1 L Plt Count 230 Sodium 142 Potassium 3.6 Chloride 109 Carbon Dioxide 26 BUN 20 Creatinine 1.11 Glucose 88 Calcium 8.7 Total Bilirubin 0.8 AST 29 ALT 27 Alkaline Phosphatase 30 L Troponin I 0.10 H* - EKG Interpretation EKG results cardiology: personally reviewed Consult Discharge Plan - Plan Referrals: Beatriz Peters MD [Primary Care Provider] -
--- NOTE | 2017-03-09 11:08 | General Surgery Progress Note ---
<Yue Hook A - Last Filed: 03/09/17 11:09> Date of Encounter: 03/09/17 Time of Encounter: 10:45 - Assessment and Plan (1) Cholecystitis, acute with cholelithiasis Current Visit: Yes Status: Acute Diabetic diet NPO after midnight night IV antibiotics- Zosyn Plan for laparoscopic cholecystectomy, possible open, possible cholangiogram with Dr. Mccloud Consent complete Supportive care/pain control PPI therapy daily Qualifiers: Cholelithiasis location: gallbladder Biliary obstruction: without biliary obstruction Qualified Code(s): K80.00 - Calculus of gallbladder with acute cholecystitis without obstruction (2) Diabetes mellitus Current Visit: Yes Status: Chronic Management per medicine service Blood glucose controlled Qualifiers: Diabetes mellitus type: type 2 Diabetes mellitus complication status: with unspecified complications Diabetes mellitus fpc insulin use: without terminal computer operator use Qualified Code(s): E11.8 - Type 2 diabetes mellitus with unspecified complications (3) HTN (hypertension) Current Visit: No Status: Chronic Normotensive Management per medicine service Qualifiers: Hypertension type: essential hypertension Qualified Code(s): I10 - Essential (primary) hypertension (4) NSTEMI (non-ST elevated myocardial infarction) Current Visit: No Status: Acute s/p Heart cath without stent 03/04/17 Cardiology consulted for cardiac optimization (5) A-fib Current Visit: No Status: Chronic Rate controlled Hold Xarelto for surgery 03/11/[address] Mccloud Qualifiers: Atrial fibrillation type: unspecified Qualified Code(s): I48.91 - Unspecified atrial fibrillation (6) HLD (hyperlipidemia) Current Visit: No Status: Chronic Qualifiers: Hyperlipidemia type: mixed hyperlipidemia Qualified Code(s): E78.2 - Mixed hyperlipidemia (7) CKD (chronic kidney disease), stage III Current Visit: No Status: Chronic Stable Cr- 1.11 Avoid nephrotoxic medications Management per medicine service Subjective Patient reports: no new complaints, feels better, still having pain, pain is less, tolerating a regular diet, voiding w/o difficulty, flatus, afebrile Objective Vital Signs - Last 8 Hours Temp Pulse Resp BP Pulse Ox 03/09/17 07:07 98 F 70 16 123/76 96 03/09/17 05:00 97.6 F 64 20 120/67 97 Intake and Output 03/08/17 03/09/17 03/09/17 23:59 07:59 15:59 Intake Total 120 / 122.4 0 / 0 Output Total 0 / 0 0 / 0 Balance 120 / 122.4 0 / 0 Intake: Oral 120 / 120 0 / 0 Output: Urine 0 / 0 0 / 0 Other: # Voids 1 Weight 74.7 kg 74.7 kg Blood Glucose* 87 96 Patient Weight 03/09/17 23:59 Weight 74.7 kg - General physical appearance well developed, well nourished, no distress, moderate pain (improved) - Eyes normal ocular movement - ENT normal mucosa, atraumatic, normocephalic - Neck Neck exam: trachea midline - Respiratory normal respiratory effort, clear to auscultation - Cardiovascular Cardiovascular exam: Present: irregular rhythm - Abdomen Abdomen: Present: bowel sounds present, soft, tender Abdominal Tenderness: epigastic, RUQ - Neurologic CN 2-12 grossly intact - Musculoskeletal normal gait, normal posture - Psychiatric oriented to time, oriented to person, oriented to place, speech is normal, memory intact - Labs 03/09/17 03:18 03/09/17 03:18 Diabetes panel 03/09/17 Range/Units 03:18 Sodium 142 (136-145) mEq/L Potassium 3.6 (3.5-4.5) mEq/L Chloride 109 (98-109) mEq/L Carbon Dioxide 26 (19-29) mEq/L BUN 20 (8-26) mg/dL Creatinine 1.11 (0.72-1.25) mg/dL Glucose 88 (70-99) mg/dL Calcium 8.7 (8.6-10.8) mg/dL AST 29 (5-34) Units/L ALT 27 (0-55) Units/L Alkaline Phosphatase 30 L (38-126) Units/L Albumin 2.8 L (3.5-5.0) g/dL Calcium panel 03/09/17 Range/Units 03:18 Calcium 8.7 (8.6-10.8) mg/dL Albumin 2.8 L (3.5-5.0) g/dL Pituitary panel 03/09/17 Range/Units 03:18 Sodium 142 (136-145) mEq/L Potassium 3.6 (3.5-4.5) mEq/L Chloride 109 (98-109) mEq/L Carbon Dioxide 26 (19-29) mEq/L BUN 20 (8-26) mg/dL Creatinine 1.11 (0.72-1.25) mg/dL Glucose 88 (70-99) mg/dL Calcium 8.7 (8.6-10.8) mg/dL Adrenal panel 03/09/17 Range/Units 03:18 Sodium 142 (136-145) mEq/L Potassium 3.6 (3.5-4.5) mEq/L Chloride 109 (98-109) mEq/L Carbon Dioxide 26 (19-29) mEq/L BUN 20 (8-26) mg/dL Creatinine 1.11 (0.72-1.25) mg/dL Glucose 88 (70-99) mg/dL Calcium 8.7 (8.6-10.8) mg/dL Total Bilirubin 0.8 (0.2-1.2) mg/dL AST 29 (5-34) Units/L ALT 27 (0-55) Units/L Alkaline Phosphatase 30 L (38-126) Units/L Albumin 2.8 L (3.5-5.0) g/dL Consult Discharge Plan - Plan Referrals: Beatriz Peters MD [Primary Care Provider] - - Attending Attestation For this encounter, I have reviewed the PHYSICS AND ASTRONOMY PROFESSOR or PA documentation, treatment plan, and medical decision making; and I have had face to face time with this patient. <Kun Mccloud - Last Filed: 03/10/17 12:56> Date of Encounter: 03/10/17 - Assessment and Plan (1) Cholecystitis, acute with cholelithiasis Current Visit: Yes Status: Acute Qualifiers: Cholelithiasis location: gallbladder Biliary obstruction: without biliary obstruction Qualified Code(s): K80.00 - Calculus of gallbladder with acute cholecystitis without obstruction (2) Epigastric abdominal pain Current Visit: Yes Status: Acute Objective Vital Signs - Last 8 Hours Temp Pulse Resp BP Pulse Ox 03/10/17 11:00 97.8 F 81 18 125/60 97 03/10/17 07:00 97.8 F 80 18 131/84 97 03/10/17 05:00 97.4 F L 54 20 119/68 97 Intake and Output 03/09/17 03/10/17 03/10/17 23:59 07:59 15:59 Intake Total 220 / 220 220 / 220 1240 / 1240 Output Total 250 / 250 Balance 220 / 220 220 / 220 990 / 990 Intake: IV Fluids 100 / 100 100 / 100 Zosyn 3.375 GM In Dextrose 5% ( 100 / 100 100 / 100 Minibag+) 100 ML 100 ML @ 25 mls/hr IVPB Q8HR [facility] Rx#: [id number] Oral 120 / 120 120 / 120 1240 / 1240 Output: Urine 250 / 250 Other: Meal Breakfast Percent of Meal Consumed 100% # Voids 0 1 Weight 77 kg Blood Glucose* 109 86 143 Patient Weight 03/10/17 23:59 Weight 77 kg - Labs 03/10/17 03:51 03/10/17 03:51 Diabetes panel 03/10/17 Range/Units 03:51 Sodium 140 (136-145) mEq/L Potassium 3.7 (3.5-4.5) mEq/L Chloride 104 (98-109) mEq/L Carbon Dioxide 30 H (19-29) mEq/L BUN 22 (8-26) mg/dL Creatinine 1.44 H (0.72-1.25) mg/dL Glucose 102 H (70-99) mg/dL Calcium 8.6 (8.6-10.8) mg/dL Calcium panel 03/10/17 Range/Units 03:51 Calcium 8.6 (8.6-10.8) mg/dL Phosphorus 4.0 (2.3-4.7) mg/dL Pituitary panel 03/10/17 Range/Units 03:51 Sodium 140 (136-145) mEq/L Potassium 3.7 (3.5-4.5) mEq/L Chloride 104 (98-109) mEq/L Carbon Dioxide 30 H (19-29) mEq/L BUN 22 (8-26) mg/dL Creatinine 1.44 H (0.72-1.25) mg/dL Glucose 102 H (70-99) mg/dL Calcium 8.6 (8.6-10.8) mg/dL Adrenal panel 03/10/17 Range/Units 03:51 Sodium 140 (136-145) mEq/L Potassium 3.7 (3.5-4.5) mEq/L Chloride 104 (98-109) mEq/L Carbon Dioxide 30 H (19-29) mEq/L BUN 22 (8-26) mg/dL Creatinine 1.44 H (0.72-1.25) mg/dL Glucose 102 H (70-99) mg/dL Calcium 8.6 (8.6-10.8) mg/dL - Attending Attestation I have seen and examined the patient. Reviewed all pertinent imaging and labs and reviewed today's documentation. 76M who presents with post prandial abdominal pain. 3 episode in past two weeks with US confirming cholecystitis; Currently abdomen is benign and he is able to tolerate a diet. Appreciate cardiology recommendations. Will plan for lap jean marie, poss open on 03/11.
--- NOTE | 2017-03-09 12:11 | Electrocardiograph Report ---
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
[2017-03-09] MEDS ORDERED: Perflutren Lipid Microsphere 1.3 ML in 0.9 % Sodium Chloride 8.7 ML IVP ONE (15:59)
[2017-03-09] MEDS ORDERED: *HR* Rivaroxaban 10 MG TABLET PO SCH (17:00)
[2017-03-09] MEDS: *HR* Heparin 5,000 UNIT/ML VIAL SQ SCH (17:17)
--- NOTE | 2017-03-09 19:07 | Electrocardiograph Report ---
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
[2017-03-09] MEDS: diazePAM 10 MG TABLET PO SCH (20:47)
[2017-03-10] MEDS: Piperacillin/Tazobactam 3.375 GM in D5% in Water (Mini-Bag+) 100 ML IVPB SCH ×3 (00:28→16:31)
[2017-03-10 04:12] LABS: Basophils # 0.1 K/mcL (0.0-0.2); Basophils % 0.8 %; Eosinophils # 0.3 K/mcL (0.0-0.6); Eosinophils % 3.9 %; Hematocrit 36.2 % (37.5-50.1); Hemoglobin 12.1 g/dL (12.9-16.9); Immature Granulocytes % 0.5 % (0-4); Lymphocytes # 2.2 K/mcL (0.6-4.6); Lymphocytes % 33.6 %; Mean Corpuscular HGB Conc 33.4 g/dL (31.6-35.5); Mean Corpuscular Volume 98.6 fL (83.0-100.0); Mean Platelet Volume 10.4 fL (9.4-12.4); Monocytes # 0.6 K/mcL (0.0-1.3); Monocytes % 9.1 %; Neutrophils # 3.3 K/mcL (1.6-8.9); Platelet Count 227 K/mcL (140-400); Red Blood Count 3.67 M/mcL (4.19-5.50); Red Cell Distribution Width 14.5 % (11.5-14.5); Segmented Neutrophils % 52.1 %
[2017-03-10 04:23] LABS: Calcium 8.6 mg/dL (8.6-10.8); Magnesium 1.7 mg/dL (1.6-2.6); Potassium 3.7 mEq/L (3.5-4.5)
[2017-03-10] MEDS: *HR* Heparin 5,000 UNIT/ML VIAL SQ SCH ×2 (05:21→16:41)
[2017-03-10] MEDS: *HR* OxyCODONE/APAP 10/325 TABLET PO PRN ×3 (05:21→20:51)
[2017-03-10] MEDS: Gabapentin 300 MG CAPSULE PO SCH ×3 (08:12→20:52)
[2017-03-10] MEDS: Losartan/HCTZ 50-12.5 TABLET PO SCH (08:12)
[2017-03-10] MEDS: Aspirin Enteric Coated 81 MG Tablet PO SCH (08:12)
[2017-03-10] MEDS: Multivit/Ca/Min/Fe/FA 1 TAB TABLET PO SCH (08:13)
[2017-03-10] MEDS: *HR* Digoxin 0.125 MG TABLET PO SCH (08:13)
[2017-03-10] MEDS: Metoprolol XL (24 HR) Succ 25 MG TAB.ER.24H PO SCH (08:13)
[2017-03-10] MEDS: (Naloxegol Oxalate [Movantik] 25 MG) PO SCH ×2 (08:14→12:46)
[2017-03-10] MEDS: (Ezetimibe [Zetia] 10 MG) PO SCH (08:14)
[2017-03-10] MEDS: Insulin LISPRO 300 UNITS/3 ML VIAL SQ SCH ×4 (08:14→20:52)
--- NOTE | 2017-03-10 10:11 | Internal Med Progress Note ---
Date of Encounter: 03/10/17 Time of Encounter: 10:07 - Assessment and plan (1) Cholecystitis, acute with cholelithiasis Current Visit: Yes Status: Acute Assessment and plan: Surgery consultation appreciated Abd US reported large gallstone with gallbladder wall thickening Tentatively scheduled for surgery on Tuesday (03/11/17) Cardiology evaluation appreciated, patient deemed high risk for GI surgery without revascularization, however patient adamant about having the surgery now. Continue IV abx (Zosyn) pain control pt tolerating PO intake without any difficulties at this time Continue to hold Xarelto until after surgery NPO after midnight pt reported of being on Fenofibrate, will hold at this time, given acute episode Qualifiers: Cholelithiasis location: gallbladder Biliary obstruction: without biliary obstruction Qualified Code(s): K80.00 - Calculus of gallbladder with acute cholecystitis without obstruction (2) Atrial fibrillation with RVR Current Visit: Yes Status: Chronic Assessment and plan: Rate currently controlled with Digoxin and BB, will continue anticoagulated with Xarelto, will hold given tentative surgery on Tuesday (3) Diabetes mellitus Current Visit: Yes Status: Chronic Assessment and plan: Hold oral antihyperglycemic agents continue sliding scale insulin algorithm monitor FS and BG ADA diet Qualifiers: Diabetes mellitus type: type 2 Diabetes mellitus complication status: with unspecified complications Diabetes mellitus mcfp insulin use: without mcfp use Qualified Code(s): E11.8 - Type 2 diabetes mellitus with unspecified complications (4) Anxiety Current Visit: Yes Status: Chronic Assessment and plan: pt reports of having severe anxiety associated with his health, states he becomes extremely anxious every time he has an attack of his abd pain. Will continue home dose of Diazepam continue to closely monitor (5) Elevated troponin Current Visit: Yes Status: Chronic Assessment and plan: Pt has history of elevated TNI and CAD Clinically asymptomatic and no ST segment changes reported no chest pain at this time will continue home dose of ASA, BB, Lipitor (6) Hypertension Current Visit: Yes Status: Chronic Assessment and plan: BP within acceptable range continue home medications Qualifiers: Hypertension type: essential hypertension Qualified Code(s): I10 - Essential (primary) hypertension (7) CKD (chronic kidney disease), stage III Current Visit: No Status: Chronic Assessment and plan: Renal function appears to be at baseline Will continue to closely monitor if deteriorates, will hold Losartan/HCTZ (8) DVT prophylaxis Current Visit: No Status: Acute Assessment and plan: Heparin SQ hold night prior to surgery - Subjective Interval history: Patient is a 76y/o male admitted for colic pain secondary to cholecystitis. Pt seen and examined at bedside. Resting comfortably in chair and reports of feeling well at this time. Denies any pain or distress. Scheduled for lap cholecystectomy in am (03/11/17). NPO after midnight - Constitutional Vitals: Temp Pulse Resp BP Pulse Ox 97.8 F 80 18 131/84 97 03/10/17 07:00 03/10/17 07:00 03/10/17 07:00 03/10/17 07:00 03/10/17 07:00 General appearance: Present: cooperative, A&O X 3, pleasant, no acute distress, answers questions appropriately - Head Head exam: Present: atraumatic, normocephalic - Eye Eye exam: Present: normal appearance, conjuntiva pink, sclera anicteric - Respiratory Respiratory exam: Present: CTAB. Absent: accessory muscle use, rales, rhonchi, wheezes - Cardiovascular Cardiovascular exam: Present: irregular rhythm, +S1, +S2. Absent: diastolic murmur, systolic murmur - GI/Abdominal GI/Abdominal exam: Present: normal bowel sounds, soft. Absent: distended, tenderness - Extremities Exam Extremities exam: Present: warm, radial pulses palpable and symmetrical. Absent : calf tenderness, cyanotic, pedal edema - Psychiatric Psychiatric exam: Present: normal affect, normal mood Internal Medicine: Result - Labs CBC & Chem 7: 03/10/17 03:51 03/10/17 03:51 Labs: Short CBC 03/10/17 Range/Units 03:51 WBC 6.4 (4.3-11.1) K/mcL Hgb 12.1 L (12.9-16.9) g/dL Hct 36.2 L (37.5-50.1) % Plt Count 227 (140-400) K/mcL Neutrophils # 3.3 (1.6-8.9) K/mcL BMP 03/10/17 03:51 Sodium 140 Potassium 3.7 Chloride 104 Carbon Dioxide 30 H BUN 22 Creatinine 1.44 H Glucose 102 H Calcium 8.6 Cardiac Enzymes 03/09/17 Range/Units 14:04 Troponin I 0.07 H* (0-0.03) ng/mL - ABG Interpretation ABG results: PT/INR, D-dimer PT 18.7 Seconds (9.4-12.1) H 03/08/17 15:22 - Impressions Impressions Echocardiogram Limited Views 03/09/17 14:15 Impressions: Normal LV systolic function, LVEF 65%. Moderate concentric left ventricular hypertrophy. Normal right ventricular size and function. Valvular function was not assessed on this limited study. Left Ventricular Wall Motion: Rest Echo Findings All wall segments showed normal motion. Findings: Study Quality * Suboptimal echo windows. ECG Findings * Normal sinus rhythm. Left Ventricle * Normal LV systolic function, LVEF 65%. * Normal LV chamber size. * Moderate concentric left ventricular hypertrophy. Right Ventricle * Normal right ventricular size and function. Left Atrium * Mildly dilated left atrium. Right Atrium * Normal right atrial size. Aorta * Normally sized aortic root. Pericardium * There is no pericardial effusion present. Consult Discharge Plan - Plan Referrals: Beatriz Peters MD [Primary Care Provider] -
--- NOTE | 2017-03-10 13:41 | General Surgery Progress Note ---
<Yvette Bernal - Last Filed: 03/10/17 13:39> Date of Encounter: 03/10/17 Time of Encounter: 13:00 - Assessment and Plan (1) Cholecystitis with cholelithiasis Current Visit: No Status: Chronic NPO after midnight night IV antibiotics- Zosyn Plan for laparoscopic cholecystectomy, possible open, possible cholangiogram with Dr. Mccloud Consent complete Supportive care/pain control PPI therapy daily Qualifiers: Cholelithiasis location: gallbladder Cholecystitis acuity: chronic Biliary obstruction: without biliary obstruction Qualified Code(s): K80.10 - Calculus of gallbladder with chronic cholecystitis without obstruction (2) Atrial fibrillation Current Visit: No Status: Chronic Rate controlled Hold Xarelto for surgery 03/11/[address] Mccloud Qualifiers: Atrial fibrillation type: paroxysmal Qualified Code(s): I48.0 - Paroxysmal atrial fibrillation (3) NSTEMI (non-ST elevated myocardial infarction) Current Visit: No Status: Acute s/p Heart cath without stent 03/04/17 Cardiology consulted for cardiac optimization Subjective Patient reports: no new complaints, feels better, still having pain, pain is less, tolerating a regular diet, voiding w/o difficulty, flatus, no bowel movement, afebrile Objective Vital Signs - Last 8 Hours Temp Pulse Resp BP Pulse Ox 03/10/17 11:00 97.8 F 81 18 125/60 97 03/10/17 07:00 97.8 F 80 18 131/84 97 Intake and Output 03/09/17 03/10/17 03/10/17 23:59 07:59 15:59 Intake Total 220 / 220 220 / 220 1240 / 1240 Output Total 250 / 250 Balance 220 / 220 220 / 220 990 / 990 Intake: IV Fluids 100 / 100 100 / 100 Zosyn 3.375 GM In Dextrose 5% ( 100 / 100 100 / 100 Minibag+) 100 ML 100 ML @ 25 mls/hr IVPB Q8HR [facility] Rx#: [id number] Oral 120 / 120 120 / 120 1240 / 1240 Output: Urine 250 / 250 Other: Meal Breakfast Percent of Meal Consumed 100% # Voids 0 1 Weight 77 kg Blood Glucose* 109 86 143 Patient Weight 03/10/17 23:59 Weight 77 kg - General physical appearance well nourished, no distress, moderate pain - Eyes normal ocular movement - ENT atraumatic, normocephalic - Neck Neck exam: trachea midline, no venous distension - Respiratory normal expansion, normal respiratory effort, clear to auscultation - Cardiovascular Cardiovascular exam: Present: distant heart sounds - Abdomen Abdomen: Present: bowel sounds present, soft, tender Abdominal Tenderness: RUQ Hernia: none - Integumentary no rash - Neurologic CN 2-12 grossly intact, normal coordination, normal sensation - Musculoskeletal normal gait, normal posture - Psychiatric oriented to time, oriented to person, oriented to place, speech is normal, memory intact - Labs 03/10/17 03:51 03/10/17 03:51 Diabetes panel 03/10/17 Range/Units 03:51 Sodium 140 (136-145) mEq/L Potassium 3.7 (3.5-4.5) mEq/L Chloride 104 (98-109) mEq/L Carbon Dioxide 30 H (19-29) mEq/L BUN 22 (8-26) mg/dL Creatinine 1.44 H (0.72-1.25) mg/dL Glucose 102 H (70-99) mg/dL Calcium 8.6 (8.6-10.8) mg/dL Calcium panel 03/10/17 Range/Units 03:51 Calcium 8.6 (8.6-10.8) mg/dL Phosphorus 4.0 (2.3-4.7) mg/dL Pituitary panel 03/10/17 Range/Units 03:51 Sodium 140 (136-145) mEq/L Potassium 3.7 (3.5-4.5) mEq/L Chloride 104 (98-109) mEq/L Carbon Dioxide 30 H (19-29) mEq/L BUN 22 (8-26) mg/dL Creatinine 1.44 H (0.72-1.25) mg/dL Glucose 102 H (70-99) mg/dL Calcium 8.6 (8.6-10.8) mg/dL Adrenal panel 03/10/17 Range/Units 03:51 Sodium 140 (136-145) mEq/L Potassium 3.7 (3.5-4.5) mEq/L Chloride 104 (98-109) mEq/L Carbon Dioxide 30 H (19-29) mEq/L BUN 22 (8-26) mg/dL Creatinine 1.44 H (0.72-1.25) mg/dL Glucose 102 H (70-99) mg/dL Calcium 8.6 (8.6-10.8) mg/dL Consult Discharge Plan - Plan Referrals: Beatriz Peters MD [Primary Care Provider] - <Kun Mccloud - Last Filed: 03/11/17 12:04> Date of Encounter: 03/11/17 - Assessment and Plan (1) Cholecystitis, acute with cholelithiasis Current Visit: Yes Status: Acute Qualifiers: Cholelithiasis location: gallbladder Biliary obstruction: without biliary obstruction Qualified Code(s): K80.00 - Calculus of gallbladder with acute cholecystitis without obstruction (2) Epigastric abdominal pain Current Visit: Yes Status: Acute Objective Vital Signs - Last 8 Hours Temp Pulse Resp BP Pulse Ox 03/11/17 11:28 97.8 F 76 16 140/89 95 03/11/17 07:29 98 F 69 16 114/91 96 Intake and Output 03/10/17 03/11/17 03/11/17 23:59 07:59 15:59 Intake Total 340 / 340 100 / 100 0 / 0 Balance 340 / 340 100 / 100 0 / 0 Intake: IV Fluids 100 / 100 100 / 100 Zosyn 3.375 GM In Dextrose 5% ( 100 / 100 100 / 100 Minibag+) 100 ML 100 ML @ 25 mls/hr IVPB Q8HR [facility] Rx#: [id number] Oral 240 / 240 0 / 0 Other: Meal Dinner Breakfast Percent of Meal Consumed 100% 0% Blood Glucose* 183 89 96 - Labs 03/11/17 03:18 03/11/17 03:18 Diabetes panel 03/11/17 Range/Units 03:18 Sodium 142 (136-145) mEq/L Potassium 3.7 (3.5-4.5) mEq/L Chloride 106 (98-109) mEq/L Carbon Dioxide 28 (19-29) mEq/L BUN 20 (8-26) mg/dL Creatinine 1.29 H (0.72-1.25) mg/dL Glucose 86 (70-99) mg/dL Calcium 8.9 (8.6-10.8) mg/dL Calcium panel 03/11/17 Range/Units 03:18 Calcium 8.9 (8.6-10.8) mg/dL Phosphorus 3.0 (2.3-4.7) mg/dL Pituitary panel 03/11/17 Range/Units 03:18 Sodium 142 (136-145) mEq/L Potassium 3.7 (3.5-4.5) mEq/L Chloride 106 (98-109) mEq/L Carbon Dioxide 28 (19-29) mEq/L BUN 20 (8-26) mg/dL Creatinine 1.29 H (0.72-1.25) mg/dL Glucose 86 (70-99) mg/dL Calcium 8.9 (8.6-10.8) mg/dL Adrenal panel 03/11/17 Range/Units 03:18 Sodium 142 (136-145) mEq/L Potassium 3.7 (3.5-4.5) mEq/L Chloride 106 (98-109) mEq/L Carbon Dioxide 28 (19-29) mEq/L BUN 20 (8-26) mg/dL Creatinine 1.29 H (0.72-1.25) mg/dL Glucose 86 (70-99) mg/dL Calcium 8.9 (8.6-10.8) mg/dL - Attending Attestation The patient was seen and examined by me. I have reviewed pertinent labs, imaging, consulting notes, and this progress note. I agree with the above plan. The patient was afebrile, tolerating a diet, in no acute pain. Plan for operative intervention on 03/11; Consent obtained.
--- NOTE | 2017-03-10 20:02 | Anesthesia Evaluation PreOp ---
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: Denies Any Significant HX Other Medical History: Renal (CRI), Diabetes Type II, Thyroid, GERD, Other ( anxiety/depression) Anesthesia History: No Prior Anesthetic Complications, Past Anesthesia ( endograft repair thoracic aortic aneurysm) Alcohol Use: rarely Drug use: none Medications and Allergies Ezetimibe [Zetia] 10 mg PO DAILY 05/03/16 [History] Gabapentin [Neurontin] 300 mg PO TID 05/03/16 [History] LORazepam [Ativan] 0.5 mg PO BID PRN 05/03/16 [History] Levothyroxine [Synthroid] 50 mcg PO DAILY 05/03/16 [History] Testosterone Cypionate [Depo-Testosterone] 100 mg IM Q2W 05/03/16 [History] diazePAM [Valium] 10 mg PO HS 05/03/16 [History] metFORMIN [Glucophage] 500 mg PO BIDWM 05/03/16 [History] Aspirin [Lo-Dose Aspirin EC] 81 mg PO DAILY 09/10/16 [History] Tamsulosin HCl [Flomax] 0.4 mg PO DAILY 09/10/16 [History] Multivitamin [Multi-Day Vitamins] 1 each PO DAILY 09/30/16 [History] Naloxegol Oxalate [Movantik] 25 mg PO DAILY 09/30/16 [History] Metoprolol XL (24 HR) Succ [Toprol Xl] 25 mg PO DAILY 11/10/16 [History] Nitroglycerin [Nitrostat] 0.4 mg SL Q5M PRN 11/10/16 [History] Rivaroxaban [Xarelto] 20 mg PO DAILY 11/10/16 [History] Atorvastatin [Lipitor] 40 mg PO HS 03/01/17 [History] Digoxin [Lanoxin] 0.125 mg PO DAILY 03/01/17 [History] Losartan/Hydrochlorothiazide [Hyzaar 100-12.5 Tablet] 1 tab PO DAILY 03/03/17 [ History] Fenofibrate Nanocrystallized [Triglide] 160 mg PO DAILY 03/08/17 [History] OxyCODONE/APAP 10/325 [Percocet 10/325 MG] 1 each PO Q4H PRN 03/08/17 [History] 3 Allergy/AdvReac Type Severity Reaction Status Date / Time No Known Allergies Allergy Verified 03/03/17 11:13 - Meds/Allergy Pre-op Review Medications Reviewed: Yes Allergies Reviewed: Yes Beta Blockers on Current Med List: Yes If Beta Blockers taken, Date/Time (Last Dose taken): 03/10/2017 at 0813 Anesthesia Results - Labs 03/10/17 03:51 03/10/17 03:51 - Imaging EKG: report reviewed (03/08/2017 SINUS RHYTHM MARKED LEFT AXIS DEVIATION [QRS AXIS < -30] LEFT VENTRICULAR HYPERTROPHY AND ST-T CHANGE [VOLTAGE CRITERIA PLUS ST/T ABNORMALITY]) Additional studies: 03/09/2017 Limited Echo Impressions: Normal LV systolic function, LVEF 65%. Moderate concentric left ventricular hypertrophy. Normal right ventricular size and function. Valvular function was not assessed on this limited study. 03/04/2017 Coronary Angiography Impressions: Moderate coronary artery disease. Lesion Findings/Interventions * Left Main Coronary Artery There is a 20% stenosis in the distal LMCA. * Left Anterior Descending The LAD is angiographically free of disease. The 1st Diagonal is angiographically free of disease. * Circumflex The Circumflex is angiographically free of disease. The 1st Marginal is angiographically free of disease. * Right Coronary Artery There is a 75% stenosis in the Proximal RCA. Additional Findings: Left Ilio-Femoral * Severe left common iliac disease. Recommendations: Optimal medical therapy of patient's disease. Aggressive risk factor modification. 10/02/2016 Echo Impressions: Normal LV systolic function, LVEF 65%. Moderate-severe left ventricular hypertrophy. There is moderate hypertrophy of the basal segments with more severe hypertrophy of the mid-apical segments. Moderate left ventricular diastolic dysfunction. Normal right ventricular size and function. Mildly dilated left atrium. No significant valvular dysfunction. No evidence of pulmonary hypertension. 09/28/2016 Stress Impression: Perfusion imaging was negative for ischemia or infarct. Gated EF = 54%. Anesthesia Exam Vital Signs/O2 Sat/Glucose, Most Recent Temp Pulse Resp BP Pulse Ox 98.2 F 75 18 126/79 97 03/10/17 16:07 03/10/17 16:07 03/10/17 16:07 03/10/17 16:07 03/10/17 16:07 Blood Glucose* 94 Height: 5'8''/1.73 m Weight: 169 lbs/77 kg - HEENT Pupil (Motor): EOMI Mallampati: II Teeth: Edentulous Oral Opening: Greater than 3 - TOE PUNCHER LOC: Oriented TOE PUNCHER Motor: Normal RUE, Normal LUE, Normal RLE, Normal LLE, Normal Face TOE PUNCHER Sensory: Normal: RUE, LUE, RLE, LLE, Face - Cardiac Rhythm: Regular Murmur: None - Pulmonary Breath Sounds: bilateral Clear Respiratory Effort: Symmetrical Anesthesia Assess/Plan ASA Score: 4 (Patient understands that he is at increased risk for perioperative complications including myocardial infarct, arrhythmias, CVA, post op vent support/ICU stay, and . Patient wishes to proceed.) Modified Yuridia Scale for Level of Consciousness: Cooperative, oriented, and tranquil Anesthetic Plan: General Monitoring Plan: Standard Monitors Recovery Plan: PACU
[2017-03-10] MEDS: diazePAM 10 MG TABLET PO SCH (20:51)
[2017-03-11] MEDS: Piperacillin/Tazobactam 3.375 GM in D5% in Water (Mini-Bag+) 100 ML IVPB SCH ×2 (01:09→11:08)
[2017-03-11 04:01] LABS: Basophils % 0.7 %; Eosinophils # 0.2 K/mcL (0.0-0.6); Eosinophils % 3.8 %; Hematocrit 37.3 % (37.5-50.1); Hemoglobin 12.5 g/dL (12.9-16.9); Immature Granulocytes % 0.2 % (0-4); Lymphocytes # 2.2 K/mcL (0.6-4.6); Lymphocytes % 40.1 %; Mean Corpuscular HGB Conc 33.5 g/dL (31.6-35.5); Mean Corpuscular Volume 98.4 fL (83.0-100.0); Mean Platelet Volume 10.5 fL (9.4-12.4); Monocytes # 0.5 K/mcL (0.0-1.3); Monocytes % 8.9 %; Neutrophils # 2.6 K/mcL (1.6-8.9); Platelet Count 242 K/mcL (140-400); Red Blood Count 3.79 M/mcL (4.19-5.50); Red Cell Distribution Width 14.2 % (11.5-14.5); Segmented Neutrophils % 46.3 %
[2017-03-11 04:18] LABS: BUN/Creatinine Ratio 16 (6-26); Blood Urea Nitrogen 20 mg/dL (8-26); Calcium 8.9 mg/dL (8.6-10.8); Carbon Dioxide 28 mEq/L (19-29); Chloride 106 mEq/L (98-109); Glucose 86 mg/dL (70-99); Magnesium 1.7 mg/dL (1.6-2.6); Osmolality,Calculated 296 (280-300); Potassium 3.7 mEq/L (3.5-4.5); Sodium 142 mEq/L (136-145); eGFR For African Americans > 60 (> 60); eGFR For Non-African Americans 54 (> 60)
[2017-03-11] MEDS: *HR* OxyCODONE/APAP 10/325 TABLET PO PRN ×3 (05:41→23:08)
--- NOTE | 2017-03-11 10:11 | Internal Med Progress Note ---
Date of Encounter: 03/11/17 Time of Encounter: 09:40 - Assessment and plan (1) Cholecystitis, acute with cholelithiasis Current Visit: Yes Status: Acute Assessment and plan: Surgery consultation appreciated Abd US reported large gallstone with gallbladder wall thickening scheduled for surgery today (03/11/17) Cardiology evaluation appreciated, patient deemed high risk for GI surgery without revascularization, however patient adamant about having the surgery now. Continue IV abx (Zosyn) pain control pt tolerating PO intake without any difficulties at this time Continue to hold Xarelto until after surgery pt reported of being on Fenofibrate, will hold at this time, given acute episode Qualifiers: Cholelithiasis location: gallbladder Biliary obstruction: without biliary obstruction Qualified Code(s): K80.00 - Calculus of gallbladder with acute cholecystitis without obstruction (2) Atrial fibrillation with RVR Current Visit: Yes Status: Chronic Assessment and plan: Rate currently controlled with Digoxin and BB, will continue anticoagulated with Xarelto, will hold until cleared by surgery to resume after cholecystectomy (3) Diabetes mellitus Current Visit: Yes Status: Chronic Assessment and plan: Hold oral antihyperglycemic agents continue sliding scale insulin algorithm monitor FS and BG ADA diet (4) Anxiety Current Visit: Yes Status: Chronic Assessment and plan: pt reports of having severe anxiety associated with his health, states he becomes extremely anxious every time he has an attack of his abd pain. Will continue home dose of Diazepam continue to closely monitor (5) Elevated troponin Current Visit: Yes Status: Chronic Assessment and plan: Pt has history of elevated TNI and CAD Clinically asymptomatic and no ST segment changes reported no chest pain at this time will continue home dose of ASA, BB, Lipitor (6) Hypertension Current Visit: Yes Status: Chronic Assessment and plan: BP within acceptable range continue home medications Qualifiers: Hypertension type: essential hypertension Qualified Code(s): I10 - Essential (primary) hypertension (7) CKD (chronic kidney disease), stage III Current Visit: No Status: Chronic Assessment and plan: Renal function appears to be at baseline Will continue to closely monitor if deteriorates, will hold Losartan/HCTZ (8) DVT prophylaxis Current Visit: No Status: Acute Assessment and plan: resume after surgery - Subjective Interval history: Patient is a 76y/o male admitted for colic pain secondary to cholecystitis. Pt seen and examined at bedside. Resting comfortably in chair and reports of feeling well at this time. Denies any pain or distress. Scheduled for lap cholecystectomy today (03/11/17). - Constitutional Vitals: Temp Pulse Resp BP Pulse Ox 98 F 69 16 114/91 96 03/11/17 07:29 03/11/17 07:29 03/11/17 07:29 03/11/17 07:29 03/11/17 07:29 General appearance: Present: cooperative, A&O X 3, pleasant, no acute distress, answers questions appropriately - Head Head exam: Present: atraumatic, normocephalic - Eye Eye exam: Present: normal appearance, conjuntiva pink, sclera anicteric - Respiratory Respiratory exam: Present: CTAB. Absent: accessory muscle use, rales, rhonchi, wheezes - Cardiovascular Cardiovascular exam: Present: RRR, +S1, +S2. Absent: diastolic murmur, gallop, rubs, systolic murmur - GI/Abdominal GI/Abdominal exam: Present: normal bowel sounds, soft, no peritoneal signs. Absent: distended, tenderness - Extremities Exam Extremities exam: Present: warm, radial pulses palpable and symmetrical. Absent : calf tenderness, cyanotic, pedal edema - Neurological Exam Neurological exam: Present: alert, oriented X3 - Psychiatric Psychiatric exam: Present: normal affect, normal mood Internal Medicine: Result - Labs CBC & Chem 7: 03/11/17 03:18 03/11/17 03:18 Labs: Short CBC 03/11/17 Range/Units 03:18 WBC 5.6 (4.3-11.1) K/mcL Hgb 12.5 L (12.9-16.9) g/dL Hct 37.3 L (37.5-50.1) % Plt Count 242 (140-400) K/mcL Neutrophils # 2.6 (1.6-8.9) K/mcL BMP 03/11/17 03:18 Sodium 142 Potassium 3.7 Chloride 106 Carbon Dioxide 28 BUN 20 Creatinine 1.29 H Glucose 86 Calcium 8.9 - ABG Interpretation ABG results: PT/INR, D-dimer PT 18.7 Seconds (9.4-12.1) H 03/08/17 15:22 Consult Discharge Plan - Plan Referrals: Beatriz Peters MD [Primary Care Provider] -
[2017-03-11] MEDS: Insulin LISPRO 300 UNITS/3 ML VIAL SQ SCH ×3 (10:48→20:36)
[2017-03-11] MEDS: *HR* Digoxin 0.125 MG TABLET PO SCH (11:08)
[2017-03-11] MEDS: Metoprolol XL (24 HR) Succ 25 MG TAB.ER.24H PO SCH (11:08)
[2017-03-11] MEDS ORDERED: Lidocaine -MPF 4% 5 ML AMPUL ONE (13:47)
[2017-03-11] MEDS ORDERED: *HR* Succinylcholine 200 MG/10 ML VIAL IVP ONE (13:47)
[2017-03-11] MEDS ORDERED: Lidocaine -MPF 2% 2 ML VIAL ONE (13:47)
[2017-03-11] MEDS ORDERED: *HR* Rocuronium Bromide 50 MG/5 ML VIAL ONE (13:47)
[2017-03-11] MEDS ORDERED: *HR* FentaNYL (PF) 100 MCG/2 ML VIAL ONE ×4 (13:47→16:16)
[2017-03-11] MEDS ORDERED: *HR* Propofol 200 MG/20 ML VIAL IVP ONE (13:47)
[2017-03-11] MEDS ORDERED: Dexamethasone 4 MG/ML VIAL ONE (13:54)
[2017-03-11] MEDS ORDERED: Ondansetron 4 MG/2 ML VIAL ONE (13:54)
--- NOTE | 2017-03-11 14:12 | General Surgery Progress Note ---
Date of Encounter: 03/11/17 Time of Encounter: 08:30 - Assessment and Plan (1) Cholecystitis, acute with cholelithiasis Current Visit: Yes Status: Acute 76M with concern for acute cholecystitis; currently non-septic; He now gives a history more consistent with cholecystitis; His exam and radiological imaging have been incongruent, but, in light of his recent cardiac cath results, I have less doubt concerning the origin of this patient's pain lap jean marie today Qualifiers: Cholelithiasis location: gallbladder Biliary obstruction: without biliary obstruction Qualified Code(s): K80.00 - Calculus of gallbladder with acute cholecystitis without obstruction (2) Epigastric abdominal pain Current Visit: Yes Status: Acute see above Subjective Patient reports: no new complaints, afebrile Narrative: no acute events overnight; pain controlled; ambulating; Objective Vital Signs - Last 8 Hours Temp Pulse Resp BP Pulse Ox 03/11/17 11:28 97.8 F 76 16 140/89 95 03/11/17 07:29 98 F 69 16 114/91 96 Intake and Output 03/10/17 03/11/17 03/11/17 23:59 07:59 15:59 Intake Total 340 / 340 100 / 100 0 / 0 Balance 340 / 340 100 / 100 0 / 0 Intake: IV Fluids 100 / 100 100 / 100 Zosyn 3.375 GM In Dextrose 5% ( 100 / 100 100 / 100 Minibag+) 100 ML 100 ML @ 25 mls/hr IVPB Q8HR HONORIO Rx#: [id number] Oral 240 / 240 0 / 0 Other: Meal Dinner Breakfast Percent of Meal Consumed 100% 0% # Voids 3 Blood Glucose* 183 89 96 - General physical appearance well developed, well nourished - Respiratory normal expansion, normal respiratory effort, clear to auscultation - Cardiovascular Cardiovascular exam: Present: RRR - Abdomen Abdomen: Present: soft, non tender Hernia: none - Integumentary no rash - Neurologic CN 2-12 grossly intact - Labs 03/11/17 03:18 03/11/17 03:18 Diabetes panel 03/11/17 Range/Units 03:18 Sodium 142 (136-145) mEq/L Potassium 3.7 (3.5-4.5) mEq/L Chloride 106 (98-109) mEq/L Carbon Dioxide 28 (19-29) mEq/L BUN 20 (8-26) mg/dL Creatinine 1.29 H (0.72-1.25) mg/dL Glucose 86 (70-99) mg/dL Calcium 8.9 (8.6-10.8) mg/dL Calcium panel 03/11/17 Range/Units 03:18 Calcium 8.9 (8.6-10.8) mg/dL Phosphorus 3.0 (2.3-4.7) mg/dL Pituitary panel 03/11/17 Range/Units 03:18 Sodium 142 (136-145) mEq/L Potassium 3.7 (3.5-4.5) mEq/L Chloride 106 (98-109) mEq/L Carbon Dioxide 28 (19-29) mEq/L BUN 20 (8-26) mg/dL Creatinine 1.29 H (0.72-1.25) mg/dL Glucose 86 (70-99) mg/dL Calcium 8.9 (8.6-10.8) mg/dL Adrenal panel 03/11/17 Range/Units 03:18 Sodium 142 (136-145) mEq/L Potassium 3.7 (3.5-4.5) mEq/L Chloride 106 (98-109) mEq/L Carbon Dioxide 28 (19-29) mEq/L BUN 20 (8-26) mg/dL Creatinine 1.29 H (0.72-1.25) mg/dL Glucose 86 (70-99) mg/dL Calcium 8.9 (8.6-10.8) mg/dL Consult Discharge Plan - Plan Referrals: Beatriz Peters MD [Primary Care Provider] -
[2017-03-11] MEDS ORDERED: *HR* Etomidate 40 MG/20 ML VIAL IVP ONE (14:26)
[2017-03-11] MEDS ORDERED: EPHEDrine 50 MG/ML VIAL ONE (15:11)
[2017-03-11] MEDS ORDERED: Albuterol 2.5 MG/3 ML NEBULIZER IH ONE ×2 (15:18→19:52)
[2017-03-11] MEDS ORDERED: *HR* Meperidine 25 MG/ML SYRINGE IVP PRN (15:18)
[2017-03-11] MEDS ORDERED: *HR* Labetalol 20 MG/4 ML SYRINGE IVP PRN ×2 (15:18→19:52)
[2017-03-11] MEDS ORDERED: *HR* HYDROmorphone (PF) 1 MG/ML SYRINGE IVP PRN (15:18)
[2017-03-11] MEDS ORDERED: Naloxone 0.4 MG/ML INJ IVP PRN ×3 (15:18→19:52)
[2017-03-11] MEDS ORDERED: Ondansetron 4 MG/2 ML VIAL IVP ONE ×2 (15:18→19:52)
[2017-03-11] MEDS ORDERED: Ringers Solution, Lactated 1,000 ML IVC SCH ×2 (15:30→19:52)
[2017-03-11] MEDS ORDERED: Neostigmine Methylsulfate 3 MG/3 ML SYRINGE ONE (16:11)
[2017-03-11] MEDS ORDERED: *HR* Metoprolol 5 MG/5 ML VIAL IVP ONE (16:46)
--- NOTE | 2017-03-11 18:12 | Operative Note ---
Date of procedure: 03/11/17 Pre-op diagnosis: acute cholecystitis Post-op diagnosis: other (acute on chronic cholecystitis) Procedure: laparoscopic cholecystectomy Implants: none Complications: none Anesthesia: GETA Local Anesthetics: 0.5% Sensorcaine HCL SubQ (cc) (30cc) Surgeon: Kun Mccloud [employer]ge Mate: Mis Madrigal Estimated blood loss (cc): 250 Specimen: gallbladder and contents Condition: stable Disposition: PACU Procedure in Detail: The patient was brought into the operating room suite and was placed in the supine position. Mechanical DVT prophylaxis was applied. A time-in was conducted. The patient underwent smooth induction of anesthesia. Preoperative antibiotics were given. The patient was prepped and draped in the usual fashion. A time-out was held identifying the correct patient, pathology, and procedure. Everyone was in agreement and we began the procedure. Incision to Dissection I started by creating a 10mm supraumbilical incision. Via open Raghu technique I did enter into the abdomen. I inserted the 10mm, 30 degree camera , ensured that I did not cause intraabdominal injury upon entry, and quickly identified the gallbladder. It had a pale/pink hue. I created a 5mm incision in the epigastric region followed by two more 5mm incision, one at the midclavicular line, the last at the anterior axillary line. Using laparoscopic graspers I managed to elevate the gallbladder above the liver. I grasp the edge of the gallbladder to retract laterally. It should be stated that the gallbladder felt thickened and edematous. Using the [place] instrument as well as the hook-electrocautery, I attempted to dissect out the cystic duct and the cystic artery. I was able to identify the artery first. I clipped the vessel, 2 on the stay side, one on the specimen side then excised with the laparoscopic scissors. The cystic duct was obscured by inflammatory tissue. In the process of dissection, a sudden cleaning of bile poured from the gallbladder. It became clear that I excised through the cystic duct inadvertently. I was able to identify the cystic duct stump. I confirmed it by dissecting inferiorly and was able to identify the beginning of the common bile duct. I did have Dr. Chávez come in and assist to confirm the cystic duct stump. I placed two clips on the stump Excison of the gallbladder Then using tension and counter-tension, I used the electrocautery to excise the gallbladder off of the liver bed. It should be stated that the gallbladder easily peeled off the liver bed. This did cause bleeding which I controlled with electrocautery and surgicell. The liver bed was still oozing, but improved after attempts at control. I evaluated the liver bed to ensure there 1.) there was no significant bleeding beyond the generalized ooze, 2. No excessive bile leakage, and 3.) to evaluate my clips. There was no significant bleeding, bile leakage, and the clips were all the way across both duct stump and artery. Removal of gallbladder to Closure I switched out the 10mm camera fo the 5mm camera and inserted the endocatch bag into the umbilical port. I placed the specimen into the bag and retrieved it through the umbilical port. It should be stated that I did have to extend the fascia and skin incision. I replaced the 5mm camera with the 10mm camera, irrgiated the liver bed with about 3L of fluid and above the liver before suctioning both irrigation fluid and air. I removed the 5mm ports, turned off the insufllation, then removed the 10mm umbilical port. I then close the umbilical fascia using the vicryl suture on UR-6 in a figure of 8 fashion. There were still defects which were closed with vicryl suture in an interrupted fashion. All incisions were closed with interrupted 4-0 monocryl, except the supraumbilical incision. That incision was closed in a running fashion. All incisions were sealed with dermabond. The patient tolerated the procedure well and went back to PACU in stable condition.
--- NOTE | 2017-03-11 18:27 | Anesthesia Evaluation Post Op ---
Date of Encounter: 03/11/17 Time of Encounter: 18:26 - Vital Signs Vital Signs: Vital Signs/O2 Sat, Most Current Temp Pulse Resp BP Pulse Ox 97.2 F L 85 15 146/62 93 03/11/17 18:14 03/11/17 18:14 03/11/17 18:14 03/11/17 18:14 03/11/17 18:14 - Lungs Lungs: Clear Ascult./Percussion - Airway Airway: Non-obstructed - Cardiovascular Regular Rate - Mental Status Mental Status: Alert & Oriented, Answers Appropriately - Pain Pain Scale: 0 Pain Scale used: Numeric (1 - 10) - Nausea Vomiting Nausea Vomiting: Not Present - Hydration Hydration: Ice chips, Has not voided - Discharge PostOp Status: Transfer Patient to floor
[2017-03-11] MEDS ORDERED: D5% in Water 1,000 ML IVC PRN (19:52)
[2017-03-11] MEDS ORDERED: *HR* LORazepam 0.5 MG TABLET PO PRN (19:52)
[2017-03-11] MEDS ORDERED: Dextrose Gel 15 GM PO PRN ×2 (19:52)
[2017-03-11] MEDS ORDERED: *HR* Dextrose 50 % in Water (Syg) 50 ML SYRINGE IVP PRN (19:52)
[2017-03-11] MEDS: Gabapentin 300 MG CAPSULE PO SCH (20:36)
[2017-03-11] MEDS: diazePAM 10 MG TABLET PO SCH (20:37)
[2017-03-11] MEDS: *HR* Morphine 2 MG/ML SYRINGE IVP PRN (20:37)
[2017-03-11 21:20] LABS: Hematocrit 39.6 % (37.5-50.1); Hemoglobin 13.2 g/dL (12.9-16.9)
[2017-03-12] MEDS ORDERED: Piperacillin/Tazobactam 3.375 GM in D5% in Water (Mini-Bag+) 100 ML IVPB SCH
[2017-03-12 02:00] LABS: Hematocrit 36.9 % (37.5-50.1); Hemoglobin 12.1 g/dL (12.9-16.9)
[2017-03-12 02:18] LABS: Albumin 2.9 g/dL (3.5-5.0); Albumin/Globulin Ratio 0.9 (1.1-2.2); Bilirubin,Total 0.6 mg/dL (0.2-1.2); Calcium 8.6 mg/dL (8.6-10.8); Globulin 3.4 g/dL (2.4-3.5); Total Protein 6.3 g/dL (6.0-8.3)
[2017-03-12 02:19] LABS: Potassium 4.5 mEq/L (3.5-4.5)
--- NOTE | 2017-03-12 05:43 | General Surgery Progress Note ---
Date of Encounter: 03/12/17 Time of Encounter: 05:41 - Assessment and Plan (1) Cholecystitis, acute with cholelithiasis Current Visit: Yes Status: Acute 76M POD #1 s/p lap jean marie 2/2 acute on chronic cholecystitis; doing as aspected post operatively; mild CARLOS A likely due to dehydration - diet as tolerated - follow up morning H/H; continue to trend until after anticoag restarted; - bolus 2L/3hrs; repeat labs in AM - restart anticoag on 03/13 if h/h stable - activity encourage: ambulate at least TID; continue mechanical dvt prophylaxis - cares per primary team Qualifiers: Cholelithiasis location: gallbladder Biliary obstruction: without biliary obstruction Qualified Code(s): K80.00 - Calculus of gallbladder with acute cholecystitis without obstruction (2) Epigastric abdominal pain Current Visit: Yes Status: Acute see above Subjective Patient reports: no new complaints (no acute events overnight; pain controlled; ambulating; tolerating liquid diet, voiding on his own) Objective Vital Signs - Last 8 Hours Temp Pulse Resp BP Pulse Ox 03/12/17 02:45 97.5 F L 101 17 103/72 97 03/12/17 00:35 96/56 03/12/17 00:27 98.3 F 98 18 98/55 96 03/11/17 23:00 109/57 03/11/17 22:30 114/63 03/11/17 22:00 127/71 Intake and Output 03/11/17 03/11/17 03/12/17 15:59 23:59 07:59 Intake Total 0 / 0 0 / 0 Output Total 250 / 250 100 / 100 Balance 0 / 0 -250 / -250 -100 / -100 Intake: Oral 0 / 0 0 / 0 Output: Urine 100 / 100 Estimated Blood Loss 250 / 250 Other: Meal Breakfast Percent of Meal Consumed 0% # Voids 3 0 Weight 77.5 kg Blood Glucose* 96 132 Patient Weight 03/12/17 23:59 Weight 77.5 kg - General physical appearance well developed, well nourished, no distress - Eyes other (no scleral icterus) - ENT dry mucosa - Respiratory normal expansion, normal respiratory effort, clear to auscultation - Cardiovascular Cardiovascular exam: Present: RRR - Abdomen Abdomen: Present: soft, tender (appropriately tender post operatively, primarily at incision sites; non peritoneal) Abdominal Tenderness: RUQ Hernia: none - Incision Incision: Present: clean and dry (no evidence of erythema), intact - Neurologic CN 2-12 grossly intact - Psychiatric oriented to time, oriented to person, oriented to place - Labs 03/12/17 01:36 03/12/17 01:36 Diabetes panel 03/12/17 Range/Units 01:36 Sodium 140 (136-145) mEq/L Potassium 4.5 (3.5-4.5) mEq/L Chloride 104 (98-109) mEq/L Carbon Dioxide 24 (19-29) mEq/L BUN 24 (8-26) mg/dL Creatinine 1.46 H (0.72-1.25) mg/dL Glucose 196 H (70-99) mg/dL Calcium 8.6 (8.6-10.8) mg/dL AST 162 H (5-34) Units/L ALT 73 H (0-55) Units/L Alkaline Phosphatase 29 L (38-126) Units/L Albumin 2.9 L (3.5-5.0) g/dL Calcium panel 03/12/17 Range/Units 01:36 Calcium 8.6 (8.6-10.8) mg/dL Albumin 2.9 L (3.5-5.0) g/dL Pituitary panel 03/12/17 Range/Units 01:36 Sodium 140 (136-145) mEq/L Potassium 4.5 (3.5-4.5) mEq/L Chloride 104 (98-109) mEq/L Carbon Dioxide 24 (19-29) mEq/L BUN 24 (8-26) mg/dL Creatinine 1.46 H (0.72-1.25) mg/dL Glucose 196 H (70-99) mg/dL Calcium 8.6 (8.6-10.8) mg/dL Adrenal panel 03/12/17 Range/Units 01:36 Sodium 140 (136-145) mEq/L Potassium 4.5 (3.5-4.5) mEq/L Chloride 104 (98-109) mEq/L Carbon Dioxide 24 (19-29) mEq/L BUN 24 (8-26) mg/dL Creatinine 1.46 H (0.72-1.25) mg/dL Glucose 196 H (70-99) mg/dL Calcium 8.6 (8.6-10.8) mg/dL Total Bilirubin 0.6 (0.2-1.2) mg/dL AST 162 H (5-34) Units/L ALT 73 H (0-55) Units/L Alkaline Phosphatase 29 L (38-126) Units/L Albumin 2.9 L (3.5-5.0) g/dL Consult Discharge Plan - Plan Referrals: Beatriz Peters MD [Primary Care Provider] -
[2017-03-12] MEDS: *HR* OxyCODONE/APAP 10/325 TABLET PO PRN ×4 (06:29→20:28)
[2017-03-12] MEDS ORDERED: 0.9 % Sodium Chloride 1,000 ML IVC SCH ×2 (08:15→15:00)
[2017-03-12 08:29] LABS: Hemoglobin 13.1 g/dL (12.9-16.9)
[2017-03-12] MEDS: Metoprolol XL (24 HR) Succ 25 MG TAB.ER.24H PO SCH (08:38)
[2017-03-12] MEDS: Multivit/Ca/Min/Fe/FA 1 TAB TABLET PO SCH (08:38)
[2017-03-12] MEDS: 0.9 % Sodium Chloride 1,000 ML IVC SCH ×2 (08:39→12:42)
[2017-03-12] MEDS: Insulin LISPRO 300 UNITS/3 ML VIAL SQ SCH ×4 (08:39→20:30)
[2017-03-12] MEDS: Losartan/HCTZ 50-12.5 TABLET PO SCH (08:39)
[2017-03-12] MEDS: *HR* Digoxin 0.125 MG TABLET PO SCH (08:39)
[2017-03-12] MEDS: Gabapentin 300 MG CAPSULE PO SCH ×3 (08:39→20:29)
[2017-03-12] MEDS: Aspirin Enteric Coated 81 MG Tablet PO SCH (08:41)
[2017-03-12] MEDS: Patient Taking Own Medication 1 EACH PO SCH (12:41)
[2017-03-12] MEDS: (Ezetimibe [Zetia] 10 MG) PO SCH (12:42)
--- NOTE | 2017-03-12 15:01 | Internal Med Progress Note ---
Date of Encounter: 03/12/17 Time of Encounter: 14:59 - Assessment and plan (1) Cholecystitis, acute with cholelithiasis Current Visit: Yes Status: Acute Assessment and plan: Surgery consultation appreciated Abd US reported large gallstone with gallbladder wall thickening POD #1 lab jean marie (03/11/17) pain control pt tolerating PO intake without any difficulties at this time Continue to hold Xarelto until 03/13/17 as per surgery pt reported of being on Fenofibrate, will hold at this time, given acute episode Qualifiers: Cholelithiasis location: gallbladder Biliary obstruction: without biliary obstruction Qualified Code(s): K80.00 - Calculus of gallbladder with acute cholecystitis without obstruction (2) Atrial fibrillation with RVR Current Visit: Yes Status: Chronic Assessment and plan: Rate currently controlled with Digoxin and BB, will continue anticoagulated with Xarelto, will hold until cleared by surgery to resume after cholecystectomy (3) Diabetes mellitus Current Visit: Yes Status: Chronic Assessment and plan: Hold oral antihyperglycemic agents continue sliding scale insulin algorithm monitor FS and BG ADA diet (4) Anxiety Current Visit: Yes Status: Chronic Assessment and plan: pt reports of having severe anxiety associated with his health, states he becomes extremely anxious every time he has an attack of his abd pain. Will continue home dose of Diazepam continue to closely monitor (5) Elevated troponin Current Visit: Yes Status: Chronic Assessment and plan: Pt has history of elevated TNI and CAD Clinically asymptomatic and no ST segment changes reported no chest pain at this time will continue home dose of ASA, BB, Lipitor (6) Hypertension Current Visit: Yes Status: Chronic Assessment and plan: BP within acceptable range continue home medications Qualifiers: Hypertension type: essential hypertension Qualified Code(s): I10 - Essential (primary) hypertension (7) CKD (chronic kidney disease), stage III Current Visit: No Status: Chronic Assessment and plan: Mild jump in creatinine noted, however patient's baseline renal function is between 1.2-15 will continue IV fluids closely monitor renal function (8) DVT prophylaxis Current Visit: No Status: Acute Assessment and plan: SCD - Subjective Interval history: Patient is a 76y/o male admitted for colic pain secondary to cholecystitis. Pt seen and examined at bedside. Resting comfortably in chair and reports of feeling well at this time. POD #1 lap cholecystectomy (03/11/17). - Constitutional Vitals: Temp Pulse Resp BP Pulse Ox 97.8 F 73 20 117/70 92 03/12/17 12:00 03/12/17 12:00 03/12/17 12:00 03/12/17 12:00 03/12/17 12:00 General appearance: Present: cooperative, A&O X 3, pleasant, no acute distress, answers questions appropriately - Head Head exam: Present: atraumatic, normocephalic - Eye Eye exam: Present: conjuntiva pink, sclera anicteric - Respiratory Respiratory exam: Present: CTAB. Absent: respiratory distress, wheezes - Cardiovascular Cardiovascular exam: Present: RRR, +S1, +S2. Absent: diastolic murmur, gallop, rubs, systolic murmur - GI/Abdominal GI/Abdominal exam: Present: normal bowel sounds, soft, no peritoneal signs. Absent: distended, tenderness - Extremities Exam Extremities exam: Present: warm, radial pulses palpable and symmetrical. Absent : calf tenderness - Neurological Exam Neurological exam: Present: alert, oriented X3 - Psychiatric Psychiatric exam: Present: normal affect, normal mood Internal Medicine: Result - Labs CBC & Chem 7: 03/12/17 08:17 03/12/17 01:36 Labs: Short CBC 03/11/17 03/12/17 03/12/17 Range/Units 21:12 01:36 08:17 Hgb 13.2 12.1 L 13.1 (12.9-16.9) g/dL Hct 39.6 36.9 L 39.0 (37.5-50.1) % BMP 03/12/17 01:36 Sodium 140 Potassium 4.5 Chloride 104 Carbon Dioxide 24 BUN 24 Creatinine 1.46 H Glucose 196 H Calcium 8.6 Liver Function 03/12/17 Range/Units 01:36 Total Bilirubin 0.6 (0.2-1.2) mg/dL AST 162 H (5-34) Units/L ALT 73 H (0-55) Units/L Alkaline Phosphatase 29 L (38-126) Units/L Albumin 2.9 L (3.5-5.0) g/dL - ABG Interpretation ABG results: PT/INR, D-dimer PT 18.7 Seconds (9.4-12.1) H 03/08/17 15:22 Consult Discharge Plan - Plan Referrals: Beatriz Peters MD [Primary Care Provider] -
[2017-03-12] MEDS: diazePAM 10 MG TABLET PO SCH (20:29)
[2017-03-13 07:37] LABS: Basophils % 0.4 %; Eosinophils # 0.1 K/mcL (0.0-0.6); Eosinophils % 1.2 %; Hematocrit 32.4 % (37.5-50.1); Hemoglobin 10.6 g/dL (12.9-16.9); Immature Granulocytes % 0.4 % (0-4); Lymphocytes # 2.1 K/mcL (0.6-4.6); Mean Corpuscular HGB Conc 32.7 g/dL (31.6-35.5); Mean Corpuscular Hemoglobin 32.1 pg (28.0-33.3); Mean Corpuscular Volume 98.2 fL (83.0-100.0); Mean Platelet Volume 10.4 fL (9.4-12.4); Monocytes # 0.7 K/mcL (0.0-1.3); Monocytes % 8.3 %; Neutrophils # 5.4 K/mcL (1.6-8.9); Nucleated Red Blood Cells 0.2 /100 WBC (0); Platelet Count 236 K/mcL (140-400); Red Cell Distribution Width 14.6 % (11.5-14.5); Segmented Neutrophils % 64.7 %
[2017-03-13 08:03] LABS: BUN/Creatinine Ratio 19 (6-26); Blood Urea Nitrogen 20 mg/dL (8-26); Calcium 8.2 mg/dL (8.6-10.8); Carbon Dioxide 27 mEq/L (19-29); Chloride 108 mEq/L (98-109); Glucose 101 mg/dL (70-99); Magnesium 1.7 mg/dL (1.6-2.6); Osmolality,Calculated 295 (280-300); Phosphorous 1.1 mg/dL (2.3-4.7); Potassium 3.7 mEq/L (3.5-4.5); Sodium 141 mEq/L (136-145); eGFR For African Americans > 60 (> 60); eGFR For Non-African Americans > 60 (> 60)
[2017-03-13] MEDS: Gabapentin 300 MG CAPSULE PO SCH ×3 (09:06→20:12)
[2017-03-13] MEDS: Metoprolol XL (24 HR) Succ 25 MG TAB.ER.24H PO SCH (09:06)
[2017-03-13] MEDS: Multivit/Ca/Min/Fe/FA 1 TAB TABLET PO SCH (09:06)
[2017-03-13] MEDS: Aspirin Enteric Coated 81 MG Tablet PO SCH (09:06)
[2017-03-13] MEDS: Losartan/HCTZ 50-12.5 TABLET PO SCH (09:06)
[2017-03-13] MEDS: *HR* OxyCODONE/APAP 10/325 TABLET PO PRN ×3 (09:07→21:41)
[2017-03-13] MEDS: Patient Taking Own Medication 1 EACH PO SCH (09:07)
[2017-03-13] MEDS: Insulin LISPRO 300 UNITS/3 ML VIAL SQ SCH ×4 (09:07→20:11)
[2017-03-13] MEDS: *HR* Digoxin 0.125 MG TABLET PO SCH (09:07)
[2017-03-13] MEDS: (Ezetimibe [Zetia] 10 MG) PO SCH (09:08)
[2017-03-13] MEDS: Sennosides/Docusate Sodium TABLET PO SCH ×2 (10:43→20:12)
[2017-03-13] MEDS: cephALEXin 500 MG CAPSULE PO SCH ×3 (10:43→20:12)
--- NOTE | 2017-03-13 10:43 | General Surgery Progress Note ---
Date of Encounter: 03/13/17 Time of Encounter: 10:41 - Assessment and Plan (1) Cholecystitis, acute with cholelithiasis Current Visit: Yes Status: Acute 76M POD #2 s/p lap jean marie 2/2 acute on chronic cholecystitis; doing as aspected post operatively; mild CARLOS A likely due to dehydration - cont with current diet plan; allow him to eat as he feels he can - morning h/h demonstrated drop, likley from acute blood loss anemia and dilution: check h/h at noon; and then check again in AM SLIV; - hold on restarting anticoag until after morning h/h - activity encourage: ambulate at least TID; continue mechanical dvt prophylaxis - PO keflex for erythema at umbilical incision - pain is appropriate for post op surgery had to extend his umbilical incision to allow extraction of specimen also had blood on both sides of the falciform along the diaphragm, so likely explains should pain Qualifiers: Cholelithiasis location: gallbladder Biliary obstruction: without biliary obstruction Qualified Code(s): K80.00 - Calculus of gallbladder with acute cholecystitis without obstruction (2) Epigastric abdominal pain Current Visit: Yes Status: Resolved see above currently with no epigastric abdominal pain (3) Acute blood loss anemia Current Visit: Yes Status: Acute cont to trend h/h hold anticoag (4) Erythema Current Visit: Yes Status: Acute PO keflex reassess in AM Subjective Patient reports: feels better, still having pain (reports pain along both shoulders and also at umbilical incison), tolerating a regular diet (tolerated diet last night; says he does not have an appetite this morning), voiding w/o difficulty, no bowel movement Objective Vital Signs - Last 8 Hours Temp Pulse Resp BP Pulse Ox 03/13/17 07:00 76 17 120/67 97 03/13/17 04:00 97.4 F L 82 16 102/94 95 Intake and Output 03/12/17 03/13/17 03/13/17 23:59 07:59 15:59 Intake Total 360 / 360 0 / 0 Output Total 125 / 125 Balance 235 / 235 0 / 0 Intake: Oral 360 / 360 0 / 0 Output: Urine 125 / 125 Other: Meal Dinner Percent of Meal Consumed 100% # Voids 2 1 Weight 75.9 kg Blood Glucose* 124 98 Patient Weight 03/13/17 23:59 Weight 75.9 kg - General physical appearance well developed, well nourished, no distress - Eyes other (no scleral icterus) - ENT normocephalic - Respiratory normal expansion, normal respiratory effort, clear to auscultation - Cardiovascular Cardiovascular exam: Present: RRR - Abdomen Abdomen: Present: soft, tender Abdominal Tenderness: suprapubic Hernia: none - Incision Incision: Present: clean and dry, intact, erythema - Neurologic CN 2-12 grossly intact - Labs 03/13/17 07:06 03/13/17 07:06 Diabetes panel 03/13/17 Range/Units 07:06 Sodium 141 (136-145) mEq/L Potassium 3.7 (3.5-4.5) mEq/L Chloride 108 (98-109) mEq/L Carbon Dioxide 27 (19-29) mEq/L BUN 20 (8-26) mg/dL Creatinine 1.05 (0.72-1.25) mg/dL Glucose 101 H (70-99) mg/dL Calcium 8.2 L (8.6-10.8) mg/dL Calcium panel 03/13/17 Range/Units 07:06 Calcium 8.2 L (8.6-10.8) mg/dL Phosphorus 1.1 L D (2.3-4.7) mg/dL Pituitary panel 03/13/17 Range/Units 07:06 Sodium 141 (136-145) mEq/L Potassium 3.7 (3.5-4.5) mEq/L Chloride 108 (98-109) mEq/L Carbon Dioxide 27 (19-29) mEq/L BUN 20 (8-26) mg/dL Creatinine 1.05 (0.72-1.25) mg/dL Glucose 101 H (70-99) mg/dL Calcium 8.2 L (8.6-10.8) mg/dL Adrenal panel 03/13/17 Range/Units 07:06 Sodium 141 (136-145) mEq/L Potassium 3.7 (3.5-4.5) mEq/L Chloride 108 (98-109) mEq/L Carbon Dioxide 27 (19-29) mEq/L BUN 20 (8-26) mg/dL Creatinine 1.05 (0.72-1.25) mg/dL Glucose 101 H (70-99) mg/dL Calcium 8.2 L (8.6-10.8) mg/dL Consult Discharge Plan - Plan Referrals: Beatriz Peters MD [Primary Care Provider] -
[2017-03-13] MEDS: *HR* Morphine 2 MG/ML SYRINGE IVP PRN (10:45)
--- NOTE | 2017-03-13 11:43 | Internal Med Progress Note ---
Date of Encounter: 03/13/17 Time of Encounter: 11:40 - Assessment and plan (1) Anemia Current Visit: Yes Status: Acute Assessment and plan: noted to have drop in H&H POD #2 lap jean marie will repeat H&H at noon hold Xarelto at this time continue to monitor Qualifiers: Anemia type: unspecified type Qualified Code(s): D64.9 - Anemia, unspecified (2) Cholecystitis, acute with cholelithiasis Current Visit: Yes Status: Acute Assessment and plan: Surgery consultation appreciated Abd US reported large gallstone with gallbladder wall thickening POD #2 lab jean marie (03/11/17) pain control, requiring IV pain medications today started on Keflex pt tolerating PO intake without any difficulties at this time Continue to hold Xarelto as per surgery pt reported of being on Fenofibrate, will hold at this time, given acute episode Qualifiers: Cholelithiasis location: gallbladder Biliary obstruction: without biliary obstruction Qualified Code(s): K80.00 - Calculus of gallbladder with acute cholecystitis without obstruction (3) Atrial fibrillation with RVR Current Visit: Yes Status: Chronic Assessment and plan: Rate currently controlled with Digoxin and BB, will continue anticoagulated with Xarelto, will hold until cleared by surgery to resume after cholecystectomy (4) Diabetes mellitus Current Visit: Yes Status: Chronic Assessment and plan: Hold oral antihyperglycemic agents continue sliding scale insulin algorithm monitor FS and BG ADA diet (5) Anxiety Current Visit: Yes Status: Chronic Assessment and plan: pt reports of having severe anxiety associated with his health, states he becomes extremely anxious every time he has an attack of his abd pain. Will continue home dose of Diazepam continue to closely monitor (6) Elevated troponin Current Visit: Yes Status: Chronic Assessment and plan: Pt has history of elevated TNI and CAD Clinically asymptomatic and no ST segment changes reported no chest pain at this time will continue home dose of ASA, BB, Lipitor (7) Hypertension Current Visit: Yes Status: Chronic Assessment and plan: BP within acceptable range continue home medications Qualifiers: Hypertension type: essential hypertension Qualified Code(s): I10 - Essential (primary) hypertension (8) CKD (chronic kidney disease), stage III Current Visit: No Status: Chronic Assessment and plan: renal function improvement from previous day will continue to closely monitor (9) DVT prophylaxis Current Visit: No Status: Acute Assessment and plan: SCD (10) Hypophosphatemia Current Visit: Yes Status: Acute Assessment and plan: Phos supplemented continue to monitor electrolytes and replace as needed - Subjective Interval history: Patient is a 76y/o male admitted for colic pain secondary to cholecystitis. Pt seen and examined at bedside. Reports of severe abdominal pain and is noted to have drop in H&H. Pt requiring IV pain medications for pain relief. will hold off anticoagulation at this time as per surgery recommendations. Repeat H& H at noon. Started Keflex by surgery POD #2 lap cholecystectomy (03/11/17). - Constitutional Vitals: Temp Pulse Resp BP Pulse Ox 97.4 F L 76 17 120/67 97 03/13/17 04:00 03/13/17 07:00 03/13/17 07:00 03/13/17 07:00 03/13/17 07:00 General appearance: Present: cooperative, A&O X 3, pleasant, no acute distress, answers questions appropriately - Head Head exam: Present: atraumatic, normocephalic - Eye Eye exam: Present: conjuntiva pink, sclera anicteric - Respiratory Respiratory exam: Present: CTAB. Absent: accessory muscle use, rales, rhonchi, wheezes - Cardiovascular Cardiovascular exam: Present: RRR, +S1, +S2. Absent: diastolic murmur, gallop, rubs, systolic murmur - GI/Abdominal GI/Abdominal exam: Present: distended (obese), normal bowel sounds, soft, tenderness (tenderness at the incision site) - Extremities Exam Extremities exam: Present: warm, radial pulses palpable and symmetrical. Absent : calf tenderness - Neurological Exam Neurological exam: Present: alert, oriented X3 - Psychiatric Psychiatric exam: Present: normal affect, normal mood Internal Medicine: Result - Labs CBC & Chem 7: 03/13/17 07:06 03/13/17 07:06 Labs: Short CBC 03/13/17 Range/Units 07:06 WBC 8.3 (4.3-11.1) K/mcL Hgb 10.6 L D (12.9-16.9) g/dL Hct 32.4 L (37.5-50.1) % Plt Count 236 (140-400) K/mcL Neutrophils # 5.4 (1.6-8.9) K/mcL BMP 03/13/17 07:06 Sodium 141 Potassium 3.7 Chloride 108 Carbon Dioxide 27 BUN 20 Creatinine 1.05 Glucose 101 H Calcium 8.2 L - ABG Interpretation ABG results: PT/INR, D-dimer PT 18.7 Seconds (9.4-12.1) H 03/08/17 15:22 Consult Discharge Plan - Plan Referrals: Beatriz Peters MD [Primary Care Provider] -
[2017-03-13 12:41] LABS: Hematocrit 33.1 % (37.5-50.1); Hemoglobin 10.8 g/dL (12.9-16.9)
[2017-03-13] MEDS: diazePAM 10 MG TABLET PO SCH (20:12)
[2017-03-14 03:41] LABS: Basophils % 0.4 %; Eosinophils # 0.3 K/mcL (0.0-0.6); Eosinophils % 3.7 %; Hematocrit 32.3 % (37.5-50.1); Hemoglobin 10.5 g/dL (12.9-16.9); Immature Granulocytes % 0.3 % (0-4); Lymphocytes # 2.3 K/mcL (0.6-4.6); Mean Corpuscular HGB Conc 32.5 g/dL (31.6-35.5); Mean Corpuscular Hemoglobin 32.7 pg (28.0-33.3); Mean Corpuscular Volume 100.6 fL (83.0-100.0); Mean Platelet Volume 10.6 fL (9.4-12.4); Monocytes # 0.8 K/mcL (0.0-1.3); Monocytes % 10.3 %; Neutrophils # 3.9 K/mcL (1.6-8.9); Platelet Count 222 K/mcL (140-400); Red Blood Count 3.21 M/mcL (4.19-5.50); Red Cell Distribution Width 14.5 % (11.5-14.5); Segmented Neutrophils % 54.3 %
[2017-03-14 03:54] LABS: BUN/Creatinine Ratio 18 (6-26); Blood Urea Nitrogen 21 mg/dL (8-26); Calcium 8.5 mg/dL (8.6-10.8); Carbon Dioxide 30 mEq/L (19-29); Chloride 108 mEq/L (98-109); Glucose 101 mg/dL (70-99); Magnesium 1.7 mg/dL (1.6-2.6); Osmolality,Calculated 297 (280-300); Potassium 3.8 mEq/L (3.5-4.5); Sodium 142 mEq/L (136-145); eGFR For African Americans > 60 (> 60); eGFR For Non-African Americans 60 (> 60)
[2017-03-14 03:55] LABS: Phosphorous 2.4 mg/dL (2.3-4.7)
[2017-03-14] MEDS: cephALEXin 500 MG CAPSULE PO SCH ×3 (08:35→22:49)
[2017-03-14] MEDS: *HR* Digoxin 0.125 MG TABLET PO SCH (08:35)
[2017-03-14] MEDS: *HR* OxyCODONE/APAP 10/325 TABLET PO PRN ×3 (08:35→22:59)
[2017-03-14] MEDS: Aspirin Enteric Coated 81 MG Tablet PO SCH (08:35)
[2017-03-14] MEDS: Insulin LISPRO 300 UNITS/3 ML VIAL SQ SCH ×4 (08:35→23:02)
[2017-03-14] MEDS: Gabapentin 300 MG CAPSULE PO SCH ×3 (08:36→22:50)
[2017-03-14] MEDS: Sennosides/Docusate Sodium TABLET PO SCH (08:36)
[2017-03-14] MEDS: Losartan/HCTZ 50-12.5 TABLET PO SCH (08:36)
[2017-03-14] MEDS: Multivit/Ca/Min/Fe/FA 1 TAB TABLET PO SCH (08:36)
[2017-03-14] MEDS: Metoprolol XL (24 HR) Succ 25 MG TAB.ER.24H PO SCH (08:37)
[2017-03-14] MEDS: (Ezetimibe [Zetia] 10 MG) PO SCH (08:37)
[2017-03-14] MEDS: Patient Taking Own Medication 1 EACH PO SCH (08:38)
--- NOTE | 2017-03-14 10:27 | General Surgery Progress Note ---
<GabeYvette Gaston - Last Filed: 03/14/17 11:09> Date of Encounter: 03/14/17 Time of Encounter: 10:15 - Assessment and Plan (1) Cholecystitis with cholelithiasis Current Visit: Yes Status: Acute POD #3 (03/11/2017) Laproscopic cholecystectomy (complicated by inflammation). Surgical sites area clean, dry, and intact. There is a small amount of. Umbilical erythema more consistent with irritation at the surgical site rather than infection. His white blood cell count is normal. He is on PO Keflex. He is afebrile and his VSS are stable. He does report that his discomfort is not well controlled, has not ambulated much and he feels constipated. Supportive care/pain control -Add Toradol 15 mg Q6H scheduled (starting now) -Add scheduled Tylenol, okay to take with Percocet as long as acetaminophen dosage does not exceed 1000 mg Q4 hours -Ambulate in halls at least 3 times daily; continue incentive spirometer 10 times every hour while awake. -Out of bed to chair for all meals -Continue Keflex -Miralax now and then daily. Stool softener is b.i.d. -Continue PPI therapy daily -Serial abdominal exams. Will monitor abdominal site. Will start Atarax at this time. OK, from a surgical perspective, to resume anticoagulation per medicine management. We will continue to follow along. Qualifiers: Cholelithiasis location: gallbladder Cholecystitis acuity: acute Biliary obstruction: without biliary obstruction Qualified Code(s): K80.00 - Calculus of gallbladder with acute cholecystitis without obstruction (2) Reaction at surgical site Current Visit: Yes Status: Acute See above. Add Atarax 12.5 mg po TID Qualifiers: Encounter type: initial encounter Qualified Code(s): T81.9XXA - Unspecified complication of procedure, initial encounter (3) Atrial fibrillation Current Visit: No Status: Chronic Rate controlled Qualifiers: Atrial fibrillation type: paroxysmal Qualified Code(s): I48.0 - Paroxysmal atrial fibrillation (4) NSTEMI (non-ST elevated myocardial infarction) Current Visit: No Status: Acute s/p Heart cath without stent 03/04/17 Cardiology consulted for cardiac optimization Subjective Patient reports: still having pain, tolerating liquids well, tolerating a regular diet, flatus, no bowel movement, afebrile Narrative: Reports the area around his belly button remains sore. States pain regimen does not make discomfort tolerable. He reports his cervantes catheter was just removed. he has not urinated since. Denies fever, chills, nausea, or vomiting. He states he has ambulated once. Objective Vital Signs - Last 8 Hours Temp Pulse Resp BP Pulse Ox 03/14/17 07:41 98.2 F 73 19 136/76 95 03/14/17 05:10 98.3 F 68 18 108/60 97 Intake and Output 03/13/17 03/14/17 03/14/17 23:59 07:59 15:59 Intake Total 480 / 480 120 / 120 240 / 240 Output Total 500 / 500 550 / 550 400 / 400 Balance -20 / -20 -430 / -430 -160 / -160 Intake: Oral 480 / 480 120 / 120 240 / 240 Output: Catheter 500 / 500 550 / 550 400 / 400 Other: Meal Dinner Breakfast Percent of Meal Consumed 100% 100% Weight 77 kg Blood Glucose* 144 116 Patient Weight 03/14/17 23:59 Weight 77 kg - General physical appearance well nourished, no distress, moderate pain - Eyes normal ocular movement - ENT normal mucosa, atraumatic, normocephalic - Neck Neck exam: trachea midline - Respiratory normal respiratory effort, clear to auscultation, other (Decreased respiratory effort) - Cardiovascular Cardiovascular exam: Present: RRR, murmurs, no murmurs/rubs/gallops - Abdomen Abdomen: Present: bowel sounds present, soft, distended (mildly distended), tender Hernia: none - Incision Incision: Present: clean and dry, intact, erythema (Periumbilical area pink. No signs of infection noted. ) - Integumentary no rash, no growths - Neurologic CN 2-12 grossly intact, normal coordination - Musculoskeletal normal gait, normal posture - Psychiatric oriented to time, oriented to person, oriented to place, speech is normal, memory intact - Labs 03/14/17 03:16 03/14/17 03:16 Diabetes panel 03/14/17 Range/Units 03:16 Sodium 142 (136-145) mEq/L Potassium 3.8 (3.5-4.5) mEq/L Chloride 108 (98-109) mEq/L Carbon Dioxide 30 H (19-29) mEq/L BUN 21 (8-26) mg/dL Creatinine 1.19 (0.72-1.25) mg/dL Glucose 101 H (70-99) mg/dL Calcium 8.5 L (8.6-10.8) mg/dL Calcium panel 03/14/17 Range/Units 03:16 Calcium 8.5 L (8.6-10.8) mg/dL Phosphorus 2.4 D (2.3-4.7) mg/dL Pituitary panel 03/14/17 Range/Units 03:16 Sodium 142 (136-145) mEq/L Potassium 3.8 (3.5-4.5) mEq/L Chloride 108 (98-109) mEq/L Carbon Dioxide 30 H (19-29) mEq/L BUN 21 (8-26) mg/dL Creatinine 1.19 (0.72-1.25) mg/dL Glucose 101 H (70-99) mg/dL Calcium 8.5 L (8.6-10.8) mg/dL Adrenal panel 03/14/17 Range/Units 03:16 Sodium 142 (136-145) mEq/L Potassium 3.8 (3.5-4.5) mEq/L Chloride 108 (98-109) mEq/L Carbon Dioxide 30 H (19-29) mEq/L BUN 21 (8-26) mg/dL Creatinine 1.19 (0.72-1.25) mg/dL Glucose 101 H (70-99) mg/dL Calcium 8.5 L (8.6-10.8) mg/dL - VTE Documentation of Mechanical Device: Intermittent pneumatic compression device Consult Discharge Plan - Plan Referrals: Beatriz Peters MD [Primary Care Provider] - <Kun Mccloud - Last Filed: 03/15/17 08:09> Date of Encounter: 03/15/17 - Assessment and Plan (1) Cholecystitis, acute with cholelithiasis Current Visit: Yes Status: Acute Qualifiers: Cholelithiasis location: gallbladder Biliary obstruction: without biliary obstruction Qualified Code(s): K80.00 - Calculus of gallbladder with acute cholecystitis without obstruction (2) Epigastric abdominal pain Current Visit: Yes Status: Resolved (3) Acute blood loss anemia Current Visit: Yes Status: Acute (4) Erythema Current Visit: Yes Status: Acute Objective Vital Signs - Last 8 Hours Temp Pulse Resp BP Pulse Ox 03/15/17 08:01 97.6 F 72 15 135/75 99 03/15/17 05:50 97.6 F 64 18 116/70 95 Intake and Output 03/14/17 03/15/17 03/15/17 23:59 07:59 15:59 Intake Total 50 / 50 150 / 150 Balance 50 / 50 150 / 150 Intake: Oral 50 / 50 150 / 150 Other: Stool Size Large Stool Consistency loose # Voids 0 # Bowel Movements 1 Weight 76.3 kg Blood Glucose* 93 89 Patient Weight 03/15/17 23:59 Weight 76.3 kg - Labs 03/15/17 04:04 03/15/17 04:04 Diabetes panel 03/15/17 Range/Units 04:04 Sodium 141 (136-145) mEq/L Potassium 3.7 (3.5-4.5) mEq/L Chloride 106 (98-109) mEq/L Carbon Dioxide 28 (19-29) mEq/L BUN 23 (8-26) mg/dL Creatinine 1.22 (0.72-1.25) mg/dL Glucose 89 (70-99) mg/dL Calcium 8.8 (8.6-10.8) mg/dL Calcium panel 03/15/17 03/15/17 Range/Units 04:04 04:04 Calcium 8.8 (8.6-10.8) mg/dL Phosphorus 2.8 (2.3-4.7) mg/dL Pituitary panel 03/15/17 Range/Units 04:04 Sodium 141 (136-145) mEq/L Potassium 3.7 (3.5-4.5) mEq/L Chloride 106 (98-109) mEq/L Carbon Dioxide 28 (19-29) mEq/L BUN 23 (8-26) mg/dL Creatinine 1.22 (0.72-1.25) mg/dL Glucose 89 (70-99) mg/dL Calcium 8.8 (8.6-10.8) mg/dL Adrenal panel 03/15/17 Range/Units 04:04 Sodium 141 (136-145) mEq/L Potassium 3.7 (3.5-4.5) mEq/L Chloride 106 (98-109) mEq/L Carbon Dioxide 28 (19-29) mEq/L BUN 23 (8-26) mg/dL Creatinine 1.22 (0.72-1.25) mg/dL Glucose 89 (70-99) mg/dL Calcium 8.8 (8.6-10.8) mg/dL - Attending Attestation I have personally seen and examined the patient. I have reviewed pertinent labs , imaging, progress notes, including this one. I agree with the above assessment and plan and wish to include the following... 76M POD #3 s/p lap jean marie. Patient has adequate pain control, ambulating and is now voiding on his own; reports that he would like to have a bowel movement. Abdomen is benign only with tenderness at supraumbilical incison; incision has less erythema; Will plan to increase bowel regimen, okay to start anticoagulation as his H/H is stable and he shows no sign of hemodynamic compromise;
[2017-03-14] MEDS: Acetaminophen 325 MG TABLET PO SCH ×2 (12:46→18:14)
[2017-03-14] MEDS: Ketorolac 15 MG/ML VIAL IVP SCH ×3 (12:46→18:15)
[2017-03-14] MEDS: HydrOXYzine SYP 10 MG/5 ML UDC PO SCH ×3 (12:48→22:53)
--- NOTE | 2017-03-14 12:53 | Internal Med Progress Note ---
Date of Encounter: 03/14/17 Time of Encounter: 12:50 - Assessment and plan (1) Anemia Current Visit: Yes Status: Acute Assessment and plan: H&H low but acceptable continue to monitor Qualifiers: Anemia type: unspecified type Qualified Code(s): D64.9 - Anemia, unspecified (2) Cholecystitis, acute with cholelithiasis Current Visit: Yes Status: Acute Assessment and plan: Surgery consultation appreciated Abd US reported large gallstone with gallbladder wall thickening POD #3 lab jean marie (03/11/17) pain control continue Keflex pt tolerating PO intake without any difficulties at this time Qualifiers: Cholelithiasis location: gallbladder Biliary obstruction: without biliary obstruction Qualified Code(s): K80.00 - Calculus of gallbladder with acute cholecystitis without obstruction (3) Atrial fibrillation with RVR Current Visit: Yes Status: Chronic Assessment and plan: Rate currently controlled with Digoxin and BB, will continue anticoagulated with Xarelto, will restart today (4) Diabetes mellitus Current Visit: Yes Status: Chronic Assessment and plan: Hold oral antihyperglycemic agents continue sliding scale insulin algorithm monitor FS and BG ADA diet (5) Anxiety Current Visit: Yes Status: Chronic Assessment and plan: pt reports of having severe anxiety associated with his health, states he becomes extremely anxious every time he has an attack of his abd pain. Will continue home dose of Diazepam continue to closely monitor (6) Elevated troponin Current Visit: Yes Status: Chronic Assessment and plan: Pt has history of elevated TNI and CAD Clinically asymptomatic and no ST segment changes reported no chest pain at this time will continue home dose of ASA, BB, Lipitor (7) Hypertension Current Visit: Yes Status: Chronic Assessment and plan: BP within acceptable range continue home medications Qualifiers: Hypertension type: essential hypertension Qualified Code(s): I10 - Essential (primary) hypertension (8) CKD (chronic kidney disease), stage III Current Visit: No Status: Chronic (9) DVT prophylaxis Current Visit: No Status: Acute Assessment and plan: on Xarelto (10) Hypophosphatemia Current Visit: Yes Status: Resolved (11) Constipation Current Visit: Yes Status: Acute Assessment and plan: likely secondary to narcotic use Started Senna plus 2tab PO BID Miralax HONORIO Lactulose 20mg BID (d/c once pt has a bowel movement) Qualifiers: Constipation type: drug induced constipation Qualified Code(s): K59.03 - Drug induced constipation - Subjective Interval history: Patient is a 76y/o male admitted for colic pain secondary to cholecystitis. Pt seen and examined at bedside. States the abd pain is still there but improved from previous day. Reports of unable to move his bowels despite laxative support. Started Senna plus 2tab PO BID Miralax HONORIO Lactulose 20mg BID (d/c once pt has a bowel movement) POD #3 lap cholecystectomy (03/11/17) - Constitutional Vitals: Temp Pulse Resp BP Pulse Ox 99.2 F 75 18 131/83 93 03/14/17 12:04 03/14/17 12:04 03/14/17 12:04 03/14/17 12:04 03/14/17 12:04 General appearance: Present: cooperative, A&O X 3, pleasant, no acute distress, answers questions appropriately - Head Head exam: Present: atraumatic, normocephalic - Respiratory Respiratory exam: Absent: respiratory distress, wheezes, tachypnea - Cardiovascular Cardiovascular exam: Present: RRR, +S1, +S2. Absent: diastolic murmur, gallop, rubs, systolic murmur - GI/Abdominal GI/Abdominal exam: Present: distended (obese, erythema noted at the surgical site around the umbilicus), normal bowel sounds, soft, no peritoneal signs. Absent: tenderness - Extremities Exam Extremities exam: Present: warm, radial pulses palpable and symmetrical. Absent : calf tenderness - Neurological Exam Neurological exam: Present: alert, oriented X3 Internal Medicine: Result - Labs CBC & Chem 7: 03/14/17 03:16 03/14/17 03:16 Labs: Short CBC 03/14/17 Range/Units 03:16 WBC 7.3 (4.3-11.1) K/mcL Hgb 10.5 L (12.9-16.9) g/dL Hct 32.3 L (37.5-50.1) % Plt Count 222 (140-400) K/mcL Neutrophils # 3.9 (1.6-8.9) K/mcL BMP 03/14/17 03:16 Sodium 142 Potassium 3.8 Chloride 108 Carbon Dioxide 30 H BUN 21 Creatinine 1.19 Glucose 101 H Calcium 8.5 L - ABG Interpretation ABG results: PT/INR, D-dimer PT 18.7 Seconds (9.4-12.1) H 03/08/17 15:22 - VTE Documentation of Mechanical Device: Intermittent pneumatic compression device Consult Discharge Plan - Plan Referrals: Beatriz Peters MD [Primary Care Provider] -
[2017-03-14] MEDS ORDERED: Lactulose Oral Soln 20 GM/30 ML UDC PO SCH (13:00)
[2017-03-14] MEDS ORDERED: *HR* Rivaroxaban 10 MG TABLET PO SCH (17:00)
--- NOTE | 2017-03-14 18:28 | Electrocardiograph Report ---
[place] [id number] Test Date: 2017-03-11 Pat Name: Mat Slater Department: [id number] Room: 2N4 Gender: M Clinical Secretary: JOE : 1940 Requested By: Yaw Muniz Order Number: [id number] Reading MD: Gene Conti MD Measurements Intervals [place] Rate: 87 P: 14 RI: 170 QRS: -34 QRSD: 102 T: 114 QT: 345 QTc: 389 Interpretive Statements SINUS RHYTHM MARKED LEFT AXIS DEVIATION BASELINE ARTIFACT VOLTAGE CRITERIA FOR LVH Electronically Signed On 03-14-2017 18:26:25 EDT by Gene Conti MD
[2017-03-14] MEDS ORDERED: Sennosides/Docusate Sodium TABLET PO SCH (21:00)
[2017-03-14] MEDS: diazePAM 10 MG TABLET PO SCH (22:50)
[2017-03-15] MEDS: Acetaminophen 325 MG TABLET PO SCH ×2 (00:36→06:44)
[2017-03-15] MEDS: Ketorolac 15 MG/ML VIAL IVP SCH ×2 (01:42→06:45)
[2017-03-15 05:37] LABS: Basophils % 0.5 %; Eosinophils # 0.4 K/mcL (0.0-0.6); Eosinophils % 5.7 %; Hematocrit 32.6 % (37.5-50.1); Hemoglobin 10.7 g/dL (12.9-16.9); Immature Granulocytes % 0.3 % (0-4); Lymphocytes # 1.7 K/mcL (0.6-4.6); Mean Corpuscular HGB Conc 32.8 g/dL (31.6-35.5); Mean Corpuscular Hemoglobin 32.7 pg (28.0-33.3); Mean Corpuscular Volume 99.7 fL (83.0-100.0); Monocytes # 0.7 K/mcL (0.0-1.3); Neutrophils # 3.7 K/mcL (1.6-8.9); Platelet Count 254 K/mcL (140-400); Red Blood Count 3.27 M/mcL (4.19-5.50); Red Cell Distribution Width 14.1 % (11.5-14.5); Segmented Neutrophils % 57.5 %
[2017-03-15 05:54] LABS: BUN/Creatinine Ratio 19 (6-26); Blood Urea Nitrogen 23 mg/dL (8-26); Calcium 8.8 mg/dL (8.6-10.8); Carbon Dioxide 28 mEq/L (19-29); Chloride 106 mEq/L (98-109); Glucose 89 mg/dL (70-99); Osmolality,Calculated 295 (280-300); Potassium 3.7 mEq/L (3.5-4.5); Sodium 141 mEq/L (136-145); eGFR For African Americans > 60 (> 60); eGFR For Non-African Americans 58 (> 60)
[2017-03-15 05:55] LABS: Magnesium 1.7 mg/dL (1.6-2.6); Phosphorous 2.8 mg/dL (2.3-4.7)
[2017-03-15 08:02] VITALS: BP 135/75
--- NOTE | 2017-03-15 09:03 | General Surgery Progress Note ---
<Yvette Bernal Gaston - Last Filed: 03/15/17 09:00> Date of Encounter: 03/15/17 Time of Encounter: 09:00 - Assessment and Plan (1) Cholecystitis with cholelithiasis Current Visit: Yes Status: Resolved POD #4 (03/11/2017) Laproscopic cholecystectomy (complicated by inflammation). Surgical sites area clean, dry, and intact. Previous area of Rina-umbilical erythema has resolved. He is on PO Keflex. He is afebrile and his VSS are stable. He reports that his discomfort is well-controlled. Supportive care/pain control -Continue Toradol 15 mg Q6H scheduled while admitted -Continue scheduled Tylenol, okay to take with Percocet as long as acetaminophen dosage does not exceed 1000 mg Q4 hours -Ambulate in halls at least 3 times daily; continue incentive spirometer 10 times every hour while awake. -Out of bed to chair for all meals -Continue Keflex -Miralax now and then daily. Stool softener is b.i.d. -Continue PPI therapy daily -continue PRN Atarax for redness or itching Okay to DC from a surgical perspective. He will have follow-up in the office with Dr. Watkins and be discharged on Atarax, Percocet, and MiraLAX. See discharge plan for further instructions. Qualifiers: Cholelithiasis location: gallbladder Cholecystitis acuity: acute Biliary obstruction: without biliary obstruction Qualified Code(s): K80.00 - Calculus of gallbladder with acute cholecystitis without obstruction (2) Reaction at surgical site Current Visit: Yes Status: Resolved See above. Add Atarax 12.5 mg po TID Qualifiers: Encounter type: initial encounter Qualified Code(s): T81.9XXA - Unspecified complication of procedure, initial encounter (3) Atrial fibrillation Current Visit: No Status: Chronic Rate controlled Qualifiers: Atrial fibrillation type: paroxysmal Qualified Code(s): I48.0 - Paroxysmal atrial fibrillation (4) NSTEMI (non-ST elevated myocardial infarction) Current Visit: No Status: Acute s/p Heart cath without stent 03/04/17 Cardiology consulted for cardiac optimization Subjective Patient reports: no new complaints, feels better, still having pain, pain is less, tolerating liquids well, tolerating a regular diet, voiding w/o difficulty , flatus, bowel movement, afebrile Objective Vital Signs - Last 8 Hours Temp Pulse Resp BP Pulse Ox 03/15/17 08:01 97.6 F 72 15 135/75 99 03/15/17 05:50 97.6 F 64 18 116/70 95 Intake and Output 03/14/17 03/15/17 03/15/17 23:59 07:59 15:59 Intake Total 50 / 50 150 / 150 0 / 0 Output Total 0 / 0 Balance 50 / 50 150 / 150 0 / 0 Intake: Oral 50 / 50 150 / 150 0 / 0 Output: Urine 0 / 0 Other: Stool Size Large Stool Consistency loose # Voids 0 # Bowel Movements 1 Weight 76.3 kg Blood Glucose* 93 89 Patient Weight 03/15/17 23:59 Weight 76.3 kg - General physical appearance well developed, well nourished, no distress - ENT atraumatic, normocephalic - Neck Neck exam: trachea midline - Respiratory normal expansion, normal respiratory effort, clear to auscultation - Cardiovascular Cardiovascular exam: Present: RRR, murmurs - Abdomen Abdomen: Present: bowel sounds present, soft, tender (Expected postoperative) - Incision Incision: Present: clean and dry, intact - Integumentary no rash - Musculoskeletal normal gait - Psychiatric oriented to time, oriented to person, oriented to place, speech is normal, memory intact - Labs 03/15/17 04:04 03/15/17 04:04 Diabetes panel 03/15/17 Range/Units 04:04 Sodium 141 (136-145) mEq/L Potassium 3.7 (3.5-4.5) mEq/L Chloride 106 (98-109) mEq/L Carbon Dioxide 28 (19-29) mEq/L BUN 23 (8-26) mg/dL Creatinine 1.22 (0.72-1.25) mg/dL Glucose 89 (70-99) mg/dL Calcium 8.8 (8.6-10.8) mg/dL Calcium panel 03/15/17 03/15/17 Range/Units 04:04 04:04 Calcium 8.8 (8.6-10.8) mg/dL Phosphorus 2.8 (2.3-4.7) mg/dL Pituitary panel 03/15/17 Range/Units 04:04 Sodium 141 (136-145) mEq/L Potassium 3.7 (3.5-4.5) mEq/L Chloride 106 (98-109) mEq/L Carbon Dioxide 28 (19-29) mEq/L BUN 23 (8-26) mg/dL Creatinine 1.22 (0.72-1.25) mg/dL Glucose 89 (70-99) mg/dL Calcium 8.8 (8.6-10.8) mg/dL Adrenal panel 03/15/17 Range/Units 04:04 Sodium 141 (136-145) mEq/L Potassium 3.7 (3.5-4.5) mEq/L Chloride 106 (98-109) mEq/L Carbon Dioxide 28 (19-29) mEq/L BUN 23 (8-26) mg/dL Creatinine 1.22 (0.72-1.25) mg/dL Glucose 89 (70-99) mg/dL Calcium 8.8 (8.6-10.8) mg/dL - VTE Documentation of Mechanical Device: Intermittent pneumatic compression device Consult Discharge Plan - Plan Instructions: Laparoscopic Cholecystectomy (DC) Additional Instructions: 1. No lifting polling pushing greater than 15 pounds for 2 weeks. 2. Take narcotics as directed. 3. You may resume driving when you are off narcotics and are safe to react in a car. 4. Take your antibiotics as directed. 5. Take Miralax as needed for constipation. 6. Resume your other medications as directed by the hospital doctor. 7. Report any fevers greater than 100.5, drainage, or increase in abdominal pain. Keep your follow-up appointment with Dr. Mccloud. Referrals: Beatriz Peters MD [Primary Care Provider] - Kun Mccloud MD [Non-Partnered Physician] - 03/28/17 3:45 pm Prescriptions: cephALEXin [Keflex] 500 mg PO TID 21 Days #21 capsule HydrOXYzine 10 mg PO TID PRN #42 tablet PRN Reason: Itching or redness to surgical OxyCODONE/APAP 10/325 [Percocet 10/325 MG] 1 each PO Q4H PRN 7 Days #42 tablet PRN Reason: Pain Polyethylene Glycol 3350 [MiraLAX Powder Bulk 17.9 Oz] 1 scoop PO DAILY PRN # 510 gm PRN Reason: Constipation <Kun Mccloud - Last Filed: 03/15/17 09:47> Date of Encounter: 03/15/17 - Assessment and Plan (1) Cholecystitis, acute with cholelithiasis Current Visit: Yes Status: Acute Qualifiers: Cholelithiasis location: gallbladder Biliary obstruction: without biliary obstruction Qualified Code(s): K80.00 - Calculus of gallbladder with acute cholecystitis without obstruction (2) Epigastric abdominal pain Current Visit: Yes Status: Resolved (3) Acute blood loss anemia Current Visit: Yes Status: Acute (4) Erythema Current Visit: Yes Status: Acute Objective Vital Signs - Last 8 Hours Temp Pulse Resp BP Pulse Ox 03/15/17 08:01 97.6 F 72 15 135/75 99 03/15/17 05:50 97.6 F 64 18 116/70 95 Intake and Output 03/14/17 03/15/17 03/15/17 23:59 07:59 15:59 Intake Total 50 / 50 150 / 150 0 / 0 Output Total 0 / 0 Balance 50 / 50 150 / 150 0 / 0 Intake: Oral 50 / 50 150 / 150 0 / 0 Output: Urine 0 / 0 Other: Stool Size Large Stool Consistency loose # Voids 0 # Bowel Movements 1 Weight 76.3 kg Blood Glucose* 93 89 Patient Weight 03/15/17 23:59 Weight 76.3 kg - Labs 03/15/17 04:04 03/15/17 04:04 Diabetes panel 03/15/17 Range/Units 04:04 Sodium 141 (136-145) mEq/L Potassium 3.7 (3.5-4.5) mEq/L Chloride 106 (98-109) mEq/L Carbon Dioxide 28 (19-29) mEq/L BUN 23 (8-26) mg/dL Creatinine 1.22 (0.72-1.25) mg/dL Glucose 89 (70-99) mg/dL Calcium 8.8 (8.6-10.8) mg/dL Calcium panel 03/15/17 03/15/17 Range/Units 04:04 04:04 Calcium 8.8 (8.6-10.8) mg/dL Phosphorus 2.8 (2.3-4.7) mg/dL Pituitary panel 03/15/17 Range/Units 04:04 Sodium 141 (136-145) mEq/L Potassium 3.7 (3.5-4.5) mEq/L Chloride 106 (98-109) mEq/L Carbon Dioxide 28 (19-29) mEq/L BUN 23 (8-26) mg/dL Creatinine 1.22 (0.72-1.25) mg/dL Glucose 89 (70-99) mg/dL Calcium 8.8 (8.6-10.8) mg/dL Adrenal panel 03/15/17 Range/Units 04:04 Sodium 141 (136-145) mEq/L Potassium 3.7 (3.5-4.5) mEq/L Chloride 106 (98-109) mEq/L Carbon Dioxide 28 (19-29) mEq/L BUN 23 (8-26) mg/dL Creatinine 1.22 (0.72-1.25) mg/dL Glucose 89 (70-99) mg/dL Calcium 8.8 (8.6-10.8) mg/dL - Attending Attestation I have personally seen and examined patient, reviewed all pertinent labs and this progress note. I have spoken to primary team as well as communicated with the surgical team. I agree with the above plan AF; tolerating diet; (+)BM; pain controlled; incisional erythema significantly improved; okay to d/c from surgical standpoint; plan for followup in 2 weeks
[2017-03-15] MEDS: Gabapentin 300 MG CAPSULE PO SCH (09:26)
[2017-03-15] MEDS: Losartan/HCTZ 50-12.5 TABLET PO SCH (09:26)
[2017-03-15] MEDS: Aspirin Enteric Coated 81 MG Tablet PO SCH (09:26)
[2017-03-15] MEDS: cephALEXin 500 MG CAPSULE PO SCH (09:26)
[2017-03-15] MEDS: *HR* Digoxin 0.125 MG TABLET PO SCH (09:26)
[2017-03-15] MEDS: HydrOXYzine SYP 10 MG/5 ML UDC PO SCH (09:26)
[2017-03-15] MEDS: Multivit/Ca/Min/Fe/FA 1 TAB TABLET PO SCH (09:26)
[2017-03-15] MEDS: Metoprolol XL (24 HR) Succ 25 MG TAB.ER.24H PO SCH (09:26)
[2017-03-15] MEDS: Insulin LISPRO 300 UNITS/3 ML VIAL SQ SCH (09:32)
[2017-03-15] MEDS: Patient Taking Own Medication 1 EACH PO SCH (09:34)
[2017-03-15] MEDS: (Ezetimibe [Zetia] 10 MG) PO SCH (09:34)
[2017-03-15] MEDS: *HR* OxyCODONE/APAP 10/325 TABLET PO PRN (09:35)
--- NOTE | 2017-03-15 10:29 | Discharge Summary ---
Date of Encounter: 03/15/17 Time of Encounter: 10:10 - Discharge Diagnosis (1) Anemia Priority: Secondary Status: Acute Qualifiers: Anemia type: unspecified type Qualified Code(s): D64.9 - Anemia, unspecified (2) Cholecystitis, acute with cholelithiasis Priority: Primary Status: Acute Qualifiers: Cholelithiasis location: gallbladder Biliary obstruction: without biliary obstruction Qualified Code(s): K80.00 - Calculus of gallbladder with acute cholecystitis without obstruction (3) Atrial fibrillation with RVR Priority: Secondary Status: Chronic (4) Diabetes mellitus Priority: Secondary Status: Chronic (5) Anxiety Priority: Secondary Status: Chronic (6) Elevated troponin Priority: Secondary Status: Chronic (7) Hypertension Priority: Secondary Status: Chronic Qualifiers: Hypertension type: essential hypertension Qualified Code(s): I10 - Essential (primary) hypertension (8) CKD (chronic kidney disease), stage III Priority: Secondary Status: Chronic (9) DVT prophylaxis Priority: Secondary Status: Acute (10) Hypophosphatemia Priority: Secondary Status: Resolved (11) Constipation Priority: Secondary Status: Resolved Qualifiers: Constipation type: drug induced constipation Qualified Code(s): K59.03 - Drug induced constipation - Discharge Medications Prescriptions: cephALEXin [Keflex] 500 mg PO TID 21 Days #21 capsule HydrOXYzine 10 mg PO TID PRN #42 tablet PRN Reason: Itching or redness to surgical OxyCODONE/APAP 10/325 [Percocet 10/325 MG] 1 each PO Q4H PRN 7 Days #42 tablet PRN Reason: Pain Polyethylene Glycol 3350 [MiraLAX Powder Bulk 17.9 Oz] 1 scoop PO DAILY PRN # 510 gm PRN Reason: Constipation Home Medications: Ezetimibe [Zetia] 10 mg PO DAILY 05/03/16 [History] Gabapentin [Neurontin] 300 mg PO TID 05/03/16 [History] LORazepam [Ativan] 0.5 mg PO BID PRN 05/03/16 [History] Levothyroxine [Synthroid] 50 mcg PO DAILY 05/03/16 [History] Testosterone Cypionate [Depo-Testosterone] 100 mg IM Q2W 05/03/16 [History] diazePAM [Valium] 10 mg PO HS 05/03/16 [History] metFORMIN [Glucophage] 500 mg PO BIDWM 05/03/16 [History] Aspirin [Lo-Dose Aspirin EC] 81 mg PO DAILY 09/10/16 [History] Tamsulosin HCl [Flomax] 0.4 mg PO DAILY 09/10/16 [History] Multivitamin [Multi-Day Vitamins] 1 each PO DAILY 09/30/16 [History] Naloxegol Oxalate [Movantik] 25 mg PO DAILY 09/30/16 [History] Metoprolol XL (24 HR) Succ [Toprol Xl] 25 mg PO DAILY 11/10/16 [History] Nitroglycerin [Nitrostat] 0.4 mg SL Q5M PRN 11/10/16 [History] Rivaroxaban [Xarelto] 20 mg PO DAILY 11/10/16 [History] Atorvastatin [Lipitor] 40 mg PO HS 03/01/17 [History] Digoxin [Lanoxin] 0.125 mg PO DAILY 03/01/17 [History] Losartan/Hydrochlorothiazide [Hyzaar 100-12.5 Tablet] 1 tab PO DAILY 03/03/17 [ History] Fenofibrate Nanocrystallized [Triglide] 160 mg PO DAILY 03/08/17 [History] HydrOXYzine 10 mg PO TID PRN #42 tablet 03/15/17 [Rx] OxyCODONE/APAP 10/325 [Percocet 10/325 MG] 1 each PO Q4H PRN 7 Days #42 tablet 03/15/17 [Rx] Polyethylene Glycol 3350 [MiraLAX Powder Bulk 17.9 Oz] 1 scoop PO DAILY PRN # 510 gm 03/15/17 [Rx] cephALEXin [Keflex] 500 mg PO TID 21 Days #21 capsule 03/15/17 [Rx] Allergies/Adverse Reactions: 3 Allergy/AdvReac Type Severity Reaction Status Date / Time No Known Allergies Allergy Verified 03/03/17 11:13 Date of admission: 03/10/17 17:28 Primary care physician: Beatriz Peters Consults: 03/14/17 11:09 Consult to Physical Therapy [CONS] Routine Comment: Evaluate, develop and implement POC Reason for Consult: s/p jean marie. Not getting out of bed very much. OT [Consult to Occupational Therapy] [CONS] Routine Comment: Evaluate, develop and implement POC Reason for Consult: s/p jean marie. Not getting out of bed very much. Discharging clinician: Leanna Martinez Anticipated date of discharge: 03/15/17 - Patient Status Disposition: Home, Self-Care Condition: Good Functional capacity at discharge: independent ambulation Overall status at discharge: patient is back to baseline - Discharge Instructions Instructions: Laparoscopic Cholecystectomy (DC) Follow Up With: Kun Mccloud MD [Non-Partnered Physician] - 03/28/17 3:45 pm Beatriz Petesr MD [Primary Care Provider] - 03/18/17 1:45 pm Additional Instructions: Follow up with your primary care physician within one week after your discharge from the hospital. Follow up with surgery within two weeks after your discharge from the hospital Resume all medications as prescribed by your primary care physician. Surgery Instructions: 1. No lifting polling pushing greater than 15 pounds for 2 weeks. 2. Take narcotics as directed. 3. You may resume driving when you are off narcotics and are safe to react in a car. 4. Take your antibiotics as directed. 5. Take Miralax as needed for constipation. 6. Resume your other medications as directed by the hospital doctor. 7. Report any fevers greater than 100.5, drainage, or increase in abdominal pain. Keep your follow-up appointment with Dr. Mccloud. - Diet and Activity Activity: increase activity as tolerated Diet: diabetic diet, low salt diet Hospital course: Mr. Slater is a 76 year old male with PMH Of HTN, Afib on Xarelto, DM, CKD who was admitted for RUQ abd pain. He was seen by surgery and underwent laproscopic cholecystectomy. Pt's post-op was complicated by severe abd pain and constipation. He responded well to laxative support ad pain medications. At this time, he is hemodynamically stable and denies any abd discomfort. Reports of chronic pain for which he has pain medications at home. Pt will be discharged to home with follow up with PCP and surgery. pt demonstrates understanding of his diagnosis and agree with the discharge care and plan. - Time Spent with Patient Total time spent providing and/or coordinating discharge services: Less than 30 minutes - Constitutional Vitals: Temp Pulse Resp BP Pulse Ox 97.6 F 72 15 135/75 99 03/15/17 08:01 03/15/17 08:01 03/15/17 08:01 03/15/17 08:01 03/15/17 08:01 General appearance: Present: cooperative, A&O X 3, pleasant, no acute distress, answers questions appropriately - Head Head exam: Present: atraumatic, normocephalic - Eye Eye exam: Present: conjuntiva pink, sclera anicteric - VTE Documentation of Mechanical Device: Intermittent pneumatic compression device
== END 2017-03-15 13:32 | disposition home or self-care (01) | DRG 418 ==
LOC: EMEROO 14:44 → 2NENU 14:44 → SUATTDRO 16:37 → 2NENU 17:15
PROVIDERS: ADMIT Hospitalist; ATTEND Internal Medicine

== ENCOUNTER 2018-05-03 06:16 | Inpatient (IN) ==
[2018-05-03] MEDS ORDERED: Albuterol 2.5 MG/3 ML NEBULIZER IH ONE (06:28)
[2018-05-03] MEDS ORDERED: Ringers Solution, Lactated 1,000 ML IVC SCH ×2 (06:30→10:47)
--- NOTE | 2018-05-03 07:01 | Anesthesia Evaluation PreOp ---
Date of Encounter: 05/03/18 Time of Encounter: 06:59 - Past History Planned Operation: Left TSR Cardiac History: Denies any Significant Hx (Medical history: arthritis, coronary artery disease, diabetes, glaucoma, hyperlipidemia, hypertension, myocardial infarction, other Additional medical history: NSTEMI, diverticulosis Psychiatric history: anxiety, depression - Past Surgical History Surgical History: cholecystectomy, orthopedic, other, vascular surgery Additional surgical history: subcalvin bypass graft, shoulder sx, salivary gland sx, cataract - Social History Smoking Status: Current some day smoker Smokeless Tobacco Status: No), CO (2 years ago), HTN, Hyperlipidemia, Arrhythmia (AFib), Other (PVD) Pulmonary History: Smoker [employer] REPA[employer] History: Other (anxiety/depression) Other Medical History: Renal (Stage 3 CRd), Diabetes Type II, Other (Glaucoma) Anesthesia History: No Prior Anesthetic Complications, Past Anesthesia (subcalvin bypass graft, shoulder sx, salivary gland sx, cataract) Alcohol Use: rarely Drug use: none Medications and Allergies RX: Ezetimibe [Zetia] 10 mg PO DAILY 05/03/16 [History] RX: Gabapentin [Neurontin] 300 mg PO TID 05/03/16 [History] RX: LORazepam [Ativan] 0.5 mg PO BID PRN 05/03/16 [History] RX: Levothyroxine [Synthroid] 50 mcg PO DAILY 05/03/16 [History] RX: Testosterone Cypionate [Depo-Testosterone] 100 mg IM Q2W 05/03/16 [History] RX: diazePAM [Valium] 10 mg PO HS 05/03/16 [History] RX: Aspirin [Lo-Dose Aspirin EC] 81 mg PO DAILY 09/10/16 [History] RX: Tamsulosin HCl [Flomax] 0.4 mg PO DAILY 09/10/16 [History] RX: Multivitamin [Multi-Day Vitamins] 1 each PO DAILY 09/30/16 [History] RX: Naloxegol Oxalate [Movantik] 25 mg PO DAILY 09/30/16 [History] RX: Nitroglycerin [Nitrostat] 0.4 mg SL Q5M PRN 11/10/16 [History] RX: Rivaroxaban [Xarelto] 20 mg PO DAILY 11/10/16 [History] RX: Digoxin [Lanoxin] 0.125 mg PO DAILY 03/01/17 [History] RX: Fenofibrate Nanocrystallized [Triglide] 160 mg PO DAILY 03/08/17 [History] RX: OxyCODONE/APAP 10/325 [Percocet 10/325 MG] 1 each PO Q4H PRN 7 Days #42 tablet 03/15/17 [Rx] Metoprolol [Lopressor] 25 mg PO DAILY 02/25/18 [History] RX: metFORMIN [Glucophage] 500 mg PO DAILY tablet 02/25/18 [Rx] Allergy/AdvReac Type Severity Reaction Status Date / Time No Known Allergies Allergy Verified 05/24/17 10:21 - Meds/Allergy Pre-op Review Medications Reviewed: Yes Allergies Reviewed: Yes Beta Blockers on Current Med List: Yes If Beta Blockers taken, Date/Time (Last Dose taken): 05:00 05/03/2018 Anesthesia Results - Labs Laboratory Tests 02/25/18 03/29/18 04/19/18 01:17 09:00 11:28 WBC 6.9 Hgb 15.3 Hct 45.4 Plt Count 215 INR 1.0 Sodium 140 Potassium 4.9 Chloride 102 Carbon Dioxide 32 H BUN 27 H Creatinine 1.32 H - Imaging EKG: image reviewed (SR, Consider lateral ischemia) Additional studies: Regadenoson Nuclear Stress Name: Mat Slater Date of Study: 04/25/2018 Indications: Pre-operative Impression: Pharmacologic stress ECG is negative for ischemia at level of heart rate achieved. Gated EF = 58%. Perfusion imaging was negative for ischemia or infarct. There is visual and quantitative transient ischemic dilatation. 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
[2018-05-03] MEDS ORDERED: *HR* Succinylcholine 200 MG/10 ML VIAL IVP ONE (07:09)
[2018-05-03] MEDS ORDERED: Dexamethasone 4 MG/ML VIAL ONE (07:09)
[2018-05-03] MEDS ORDERED: Lidocaine -MPF 2% 2 ML VIAL ONE ×2 (07:09→07:21)
[2018-05-03] MEDS ORDERED: *HR* FentaNYL (PF) 100 MCG/2 ML VIAL ONE (07:09)
[2018-05-03] MEDS ORDERED: *HR* Propofol 200 MG/20 ML VIAL IVP ONE (07:09)
[2018-05-03] MEDS ORDERED: *HR* Midazolam HCl 2 MG/2 ML VIAL ONE (07:09)
[2018-05-03] MEDS ORDERED: *HR* Rocuronium Bromide 50 MG/5 ML VIAL ONE (07:09)
[2018-05-03] MEDS ORDERED: Ondansetron 4 MG/2 ML VIAL ONE (07:09)
[2018-05-03] MEDS ORDERED: Lidocaine -MPF 4% 5 ML AMPUL ONE (07:12)
[2018-05-03] MEDS ORDERED: LIDOCAINE 1% PF 2 ML AMPUL ONE (07:15)
[2018-05-03] MEDS ORDERED: Ethanol\\Acetic Acid\\Na Ace\\Ben 1,000 ML IRRIG.SOLN IR ONE (07:20)
[2018-05-03] MEDS ORDERED: Bupivacaine/Clonidine Syringe 1 EACH SYRINGE ONE (08:01)
[2018-05-03] MEDS ORDERED: ROPIVACAINE HCL/PF 0.5% 30 ML VIAL ONE (08:01)
--- NOTE | 2018-05-03 08:04 | History & Physical Report ---
Date of Encounter: 05/03/18 Time of Encounter: 08:04 24 Hour HP Update - Instructions Instructions: If the History and Physical is less than 30 days old and was completed prior to A.M. admission and or procedure and has NOT been updated on calendar day of procedure please complete this update prior to performing procedure. - Update Patient reports changes in Medical Condition: No Changes in examination, assessment, or condition: No Changes in Medication: No Preop tests/diagnostics Reviewed: Yes Surgery Remains Indicated: Yes Consent for Planned Operative Procedure(s) Verified: Yes - Pre-Operative Checklist Preoperative Checklist Indicated: No Prophylactic Antibiotic Ordered: Yes Is VTE Prophylaxis Indicated?: Yes
[2018-05-03] MEDS ORDERED: EPHEDrine 50 MG/ML VIAL ONE (08:43)
[2018-05-03] MEDS ORDERED: Ondansetron 4 MG/2 ML VIAL IVP ONE (09:00)
[2018-05-03] MEDS ORDERED: *HR* Morphine 2 MG/ML SYRINGE IVP PRN (09:00)
[2018-05-03] MEDS ORDERED: *HR* OxyCODONE Immed Rel 5 MG TABLET PO PRN (09:00)
--- NOTE | 2018-05-03 09:05 | Anesthesia Procedures ---
Date of Encounter: 05/03/18 Time of Encounter: 08:15 Procedures: Anesthesia - Nerve Block Procedure Date: 05/03/18 Time: 08:15 Allergies/Adv Reactions: nkda Surgical Procedure: left total shoulder replacement Checklist: Correct Patient Identifier, Correct procedure, History checked Correct side: Left Blood Thinner: No Monitor Applied: BP, Pulse Oximetry Supplemental Oxygen via Nasal Cannula (L/min): 2 Sedation: Versed (mg): 1 Sedation: Fentanyl (mcg): 50 Indication: Post Op Analgesia Pre-op Neuro Deficits: No Block Type: Supraclavicular, Other (icb, scb) Catheter placed: No Sterile Technique: Yes Ultrasound used: Yes Anatomy identified: Yes Visual spread of Local: Yes Neuro Stimulation: No Blood on Needle Aspiration: No Smooth Injection of Local: Yes Pain with Injection of Local: No Prep: Chlorhexadine Needle: 22 x 50 mm Stimuplex Local: 0.25% Bupivicaine w/Clonidine 20 mcg/cc (5ml scb, 5ml ICB), Ropivacaine (30 ml with 8mg decadron) Volume (cc): 40 Number of Attempts: 1 Complications: None/effective block Vitals: Vital Signs/O2 Sat, Most Current Temp Pulse Resp BP Pulse Ox 97.8 F 72 16 135/81 98 05/03/18 06:33 05/03/18 08:30 05/03/18 08:30 05/03/18 08:30 05/03/18 08:30
--- NOTE | 2018-05-03 09:28 | Orthopedic Operative Note ---
Date of procedure: 05/03/18 Pre-op diagnosis: Left shoulder cuff tear arthropathy Post-op diagnosis: same Procedure: Procedure: Total Shoulder Replacment Reverse, left Estimated blood loss: 50 cc Hardware: Metal and polyethylene replacement: Arthrex 24, +2 , 30 mm screw glenoid baseplate, 4 locking 5.5 screw, 42+4 glenosphere, 9 apex humeral stem, poly insert 3 Exam Under anesthesia: Full motion no instability Procedural Notes: Irreparable tear rotator cuff Operative procedure: The patient was brought to the operating room and placed on the operating room table. After general anesthesia was administered the operative shoulder was examined. Findings were noted. The patient was placed in the modified beachchair position. All pressure points were padded appropriately. And the head was stabilized in the neutral position. The operative extremity was prepped and draped in the sterile surgical fashion. The patient received IV antibiotics prior to skin incision. A standard deltopectoral approach was made to the operative shoulder. Incision was made to the skin and subcutaneous tissue,hemo stasis was obtained with Bovie cautery. Using careful blunt dissection the cephalic vein was identified and mobilized medially. The deltopectoral interval was developed and the clavipectoral fascia was incised. The subscap was released off the lesser tuberosity and tagged with #2 FiberWire suture subscap was irreparable. The humerus was dislocated patient noted to have irreparable tear supraspinatus tendon, and the humeral cut was made along the anatomic neck. Anterior and posterior Bankart retractors were placed to expose the glenoid. The glenoid guide was seated and the centering hole was made. It was reamed with the appropriate reamer. The 24+2, 30 mm screw, baseplate was seated and secured with 4 locking 5.5 screw. The baseplate was irrigated and dried and the 42+4 Glenosphere was seated and secured with the John taper. The John taper was tested and found to be secure the humerus was redislocated and prepared with the diaphyseal reamers, followed by a broaching process up to the appropriate size 9 apex in the patient's anatomic version. The metaphyseal reamer was then utilized. Trial reduction found the shoulder to be relocatable. Trial components were removed real implant was seated and secured. Trial reduction found the shoulder to be relocatable and stable with the appropriate 3 Shobha Trial component was removed and the real implant was seated and secured the shoulder was reduced. The shoulder had excellent motion and excellent stability and no evidence of dislocation. The deep tissue was irrigated with pulse irrigation. The PA close the shoulder. The deltopectoral interval was closed with a running #1 PDS suture, subcutaneous tissue was irrigated and closed with 0 PDS suture, the skin was closed with Dermabond. The patient was placed in a sterile dressing, abduction brace and extubated. The patient was then transferred to the recovery room in stable condition. Anesthesia: GETA Surgeon: Jaskaran Mckeon Was there an yard assistant present: No Estimated blood loss (cc): 50 Condition: stable Disposition: PACU
--- NOTE | 2018-05-03 10:22 | Anesthesia Evaluation Post Op ---
Date of Encounter: 05/03/18 Time of Encounter: 10:21 - Vital Signs Vital Signs: Vital Signs/O2 Sat, Most Current Temp Pulse Resp BP Pulse Ox 97.8 F 84 18 141/77 99 05/03/18 10:11 05/03/18 10:11 05/03/18 10:11 05/03/18 10:11 05/03/18 10:11 - Lungs Lungs: Clear Ascult./Percussion - Airway Airway: Non-obstructed - Cardiovascular Regular Rate - Mental Status Mental Status: Alert & Oriented, Answers Appropriately - Pain Pain Scale: 0 - Nausea Vomiting Nausea Vomiting: Not Present - Hydration Hydration: Ice chips, Has not voided - Discharge PostOp Status: Transfer Patient to floor
[2018-05-03] MEDS ORDERED: D5% in Water 1,000 ML IVC PRN (10:47)
[2018-05-03] MEDS ORDERED: Naloxone 0.4 MG/ML INJ IVP PRN (10:47)
[2018-05-03] MEDS ORDERED: hydroCHLOROthiazide 25 MG TABLET PO SCH (10:47)
[2018-05-03] MEDS ORDERED: *HR* Rivaroxaban 10 MG TABLET PO SCH (10:47)
[2018-05-03] MEDS ORDERED: Naloxegol Oxalate [Movantik] 25 MG PO SCH (10:47)
[2018-05-03] MEDS ORDERED: Metoprolol XL (24 HR) Succ 50 MG TAB.ER.24H PO SCH (10:47)
[2018-05-03] MEDS ORDERED: Dextrose Gel 15 GM/37.5 ML TUBE PO PRN ×2 (10:47)
[2018-05-03] MEDS ORDERED: *HR* Digoxin 0.125 MG TABLET PO SCH (10:47)
[2018-05-03] MEDS ORDERED: Finasteride 5 MG TABLET PO SCH (10:47)
[2018-05-03] MEDS ORDERED: MOM Conc 10 ML UD.LIQ PO PRN (10:47)
[2018-05-03] MEDS ORDERED: TESTOSTERONE CYPIONATE 100 MG IM SCH (10:47)
[2018-05-03] MEDS ORDERED: Ondansetron 4 MG/2 ML VIAL IVP PRN (10:47)
[2018-05-03] MEDS ORDERED: *HR* Dextrose 50 % in Water (Syg) 50 ML SYRINGE IVP PRN (10:47)
[2018-05-03] MEDS ORDERED: *HR* OxyCODONE/APAP 5/325 TABLET PO PRN (10:47)
[2018-05-03] MEDS ORDERED: Aspirin Enteric Coated 81 MG Tablet PO SCH (10:47)
[2018-05-03] MEDS ORDERED: Fenofibrate 54 MG TABLET PO SCH (10:47)
[2018-05-03] MEDS ORDERED: traMADol 50 MG TABLET PO PRN (10:47)
[2018-05-03] MEDS ORDERED: Temazepam 15 MG CAPSULE PO PRN (10:47)
[2018-05-03] MEDS ORDERED: Multivit/Ca/Min/Fe/FA 1 TAB TABLET PO SCH (10:47)
[2018-05-03] MEDS ORDERED: Sennosides 8.6 MG TABLET PO PRN (10:47)
[2018-05-03] MEDS ORDERED: *HR* Metformin 500 MG TABLET PO SCH ×2 (10:47→17:00)
[2018-05-03] MEDS ORDERED: Nitroglycerin 0.4 MG TAB.SUBL SL PRN (10:47)
--- NOTE | 2018-05-03 11:03 | Discharge Summary ---
Orders not resulted at time of discharge: Pending orders 05/03/18 07:55 H/H [Hemoglobin and Hematocrit] [HEME] Routine 05/03/18 07:59 US anesthesia pain block [US] Routine 05/03/18 08:14 US anesthesia pain block [US] Stat 05/03/18 09:24 Surgical Pathology [PTH] Routine 05/04/18 04:00 Basic Metabolic Panel AM 0400 Hemoglobin and Hematocrit [HEME] AM 0400 05/05/18 04:00 Basic Metabolic Panel AM 0400 Hemoglobin and Hematocrit [HEME] AM 0400 Date of Encounter: 05/03/18 Time of Encounter: 15:08 - Discharge Diagnosis (1) Status post reverse total arthroplasty of left shoulder Priority: Primary Status: Acute Comments: Opsite dressing, leave intact until first post-operative visit. Zipline in place, plan to remove at post-operative day #14-16. If dressing becomes >50% saturated, contact office, remove dressing and place appropriate dressing in its place. Do not allow for dressing to get wet. Shoulder Precautions x 6 weeks. Apply cold therapy wrap 3-6x/day for 20 minutes at a time. Encourage ambulation throughout the day. Use Incentive spirometer 10x/hour. Elevate affected extremity above heart as tolerated. NWB to affected upper extremity x 6 weeks. Will remove brace at first post-operative appointment. OK to remove during PT/OT and Home exercises. 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 Diabetes mellitus complication status: without complication Qualified Code(s): E11.9 - Type 2 diabetes mellitus without complications (7) HLD (hyperlipidemia) Priority: Secondary Status: Chronic Qualifiers: Hyperlipidemia type: mixed hyperlipidemia Qualified Code(s): E78.2 - Mixed hyperlipidemia (8) Hypertension Priority: Secondary Status: Chronic Qualifiers: Hypertension type: essential hypertension Qualified Code(s): I10 - Essential (primary) hypertension (9) PVD (peripheral vascular disease) Priority: Secondary Status: Chronic (10) Atrial fibrillation with RVR Priority: Secondary Status: Chronic (11) Chronic pain Priority: Secondary Status: Chronic Comments: Continue Percocet 10/325mg q 4 hours for pain. OARRS reviewed. Qualifiers: Chronic pain type: other chronic pain Qualified Code(s): G89.29 - Other chronic pain - Hospital Course Hospital course: Mr. Slater is a 78 year old male status post . Patient had uneventful p ostoperative course. Stable for discharge. Afebrile, vital signs stable. Intake and Output 05/03/18 05/04/18 05/04/18 23:59 07:59 15:59 Intake Total 240 / 240 Balance 240 / 240 Intake: Oral 240 / 240 Other: Meal Dinner Percent of Meal Consumed 100% Labs reviewed. H/H - stable, asymptomatic Laboratory Results - last 72 hr 05/03/18 05/03/18 06:30 10:56 Hgb 14.2 Hct 42.1 POC Glucose 99 Pain control: adequate Participating in PT. All questions and concerns addressed. Educated on use of incentive spirometer. Encouraged ambulation and proper hydration. Patient educated on post-operative restrictions and post-operative care. Assessment and plan: Continue with postoperative care Discharge plan: Home , discharge today. - Time Spent with Patient Total time spent providing and/or coordinating discharge services: - Discharge Medications Prescriptions: Docusate [Colace] 100 mg PO BID 10 Days #20 capsule Home Medications: RX: Ezetimibe [Zetia] 10 mg PO DAILY 05/03/16 [History] RX: Gabapentin [Neurontin] 300 mg PO TID 05/03/16 [History] RX: Levothyroxine [Synthroid] 50 mcg PO DAILY 05/03/16 [History] RX: Testosterone Cypionate [Depo-Testosterone] 100 mg IM Q2W 05/03/16 [History] RX: Aspirin [Lo-Dose Aspirin EC] 81 mg PO DAILY 09/10/16 [History] RX: Tamsulosin HCl [Flomax] 0.4 mg PO DAILY 09/10/16 [History] RX: Naloxegol Oxalate [Movantik] 25 mg PO DAILY 09/30/16 [History] RX: Nitroglycerin [Nitrostat] 0.4 mg SL Q5M PRN MDD [id number] CALL 911 11/10/16 [History] RX: Rivaroxaban [Xarelto] 20 mg PO DAILY 11/10/16 [History] RX: Digoxin [Lanoxin] 0.125 mg PO DAILY 03/01/17 [History] RX: Fenofibrate Nanocrystallized [Triglide] 160 mg PO DAILY 03/08/17 [History] RX: OxyCODONE/APAP 10/325 [Percocet 10/325 MG] 1 each PO Q4H PRN 7 Days #42 tablet 03/15/17 [Rx] Docusate [Colace] 100 mg PO BID 10 Days #20 capsule 05/03/18 [Rx] RX: Albuterol Sulfate [Ventolin Hfa] 2 puff IH Q6H PRN 05/03/18 [History] RX: Dutasteride 0.5 mg PO DAILY 05/03/18 [History] RX: Losartan/Hydrochlorothiazide [Losartan-Hctz 100-12.5 mg Tab] 1 tab PO DAILY 05/03/18 [History] RX: Metoprolol Succinate [Toprol Xl] 50 mg PO DAILY 05/03/18 [History] RX: Multivitamin [One-Daily Multi-Vitamin] 1 tab PO DAILY 05/03/18 [History] RX: metFORMIN [Glucophage] 500 mg PO BID 05/03/18 [History] Allergies/Adverse Reactions: Allergy/AdvReac Type Severity Reaction Status Date / Time No Known Allergies Allergy Verified 05/24/17 10:21 Date of admission: 05/03/18 10:46 Primary care physician: Beatriz Peters Consults: 05/03/18 10:47 Consult to Occupational Therapy [CONS] Routine Comment: post shoulder surgery Reason for Consult: post shoulder surgery Does patient have active BEDREST order?: No Is patient medically & hemodynamically stable?: Yes Consult to Physical Therapy [CONS] Routine Comment: post shoulder surgery Reason for Consult: post shoulder surgery Does patient have active BEDREST order?: No Is patient medically & hemodynamically stable?: Yes RT Post Op Consult [CONS] Routine Anticipated date of discharge: 05/03/18 - Impressions ITS Impressions Shoulder X-Ray 05/03/18 07:54 IMPRESSION: Status post left shoulder arthroplasty without evidence of acute postoperative complication. D/ : / 05/03/2018 10:52:26 John Armendariz MD / keyon Interpreting Provider: John Armendariz MD - Patient Status Disposition: Home, Self-Care Condition: Good Functional capacity at discharge: independent ambulation Overall status at discharge: patient is progressing back to baseline - Discharge Instructions Follow Up With: Beatriz Peters MD [Primary Care Provider] - Additional Instructions: Discharge Instructions: Total Shoulder Please call [facility] ([phone]), your Primary Care Physician, or report to the Emergency Room if you have any of the following symptoms: Nausea, vomiting, fever greater that 101.5, swelling, chest pain, shortness of breath, increased pain/redness/drainage/odor for your incision site, numbness/tingling, or any other concerning symptoms. ACTIVITY: Always keep your arm in the sling. Do not raise your arm away from your body. Do not use your arm to help with getting in or out of bed. No weight bearing permitted. Only perform those exercises given to you by your therapist. Incentive Spirometer 10 times an hour. MEDICATIONS: Upon discharge resume your home medications. Take all the medications as prescribed. Take a stool softener if taking narcotic pain med ications. Stool softeners are only effective if you drink enough fluids. Drink 6-8 glass of water or fluids a day, unless this is not allowed for another health problem. Despite using stool softeners, if you haven't had a bowel movement in 3 days, please switch to a gentle laxative. Gentle laxatives are sold over the counter. You should have a bowel movement within 24 hours, if not call the office. You will be discharged from the hospital with a prescription for pain medication. You are encouraged to decrease the use of narcotic pain medication as tolerated. Should you require a refill, please call the office. [facility] prescribes narcotic pain medication for only 4-6 weeks after surgery. If you require pain medication beyond this time period, you may be referred to your Primary Care Physician or to the Pain Clinic for further evaluation. Plan ahead for refills on pain medication as many narcotics either need to be picked up at the office or mailed. It is best to call 48-72 hours in advance of needing a prescription refill so you don't run out of medication. To help control the post-operative pain, you may take NSAIDs (Aleve,Advil, Motrin, Ibuprofen, Naprosyn) or Tylenol as prescribed on the bottle in addition to the pain medication. WOUND CARE: Leave the dressing on for 7-10 days. You may change the dressing if it becomes saturated greater than 50%. Do not get the dressing wet at anytime. Wash your hands with antibacterial soap, rinse and dry prior to any wound care. If you have tracie the visiting nurse or rehab facility can remove the stapes 10-14 days after surgery and place steri-strips across the wound. Leave the steri-strips in place until they fall off on their own. You may let water from the shower run on top of the steri-strips. If you do not have a visiting nurse or rehab facility, you will need to return to the office at 10-14 days for the tracie to be removed. If you have itching or redness around the dressing call the office. FOLLOW-UP: Please follow up with your surgeon in the orthopedic clinic, as scheduled - Diet and Activity Activity: ambulate only with your walker, as per physical therapy
[2018-05-03 11:39] LABS: Hematocrit 42.1 % (37.5-50.1); Hemoglobin 14.2 g/dL (12.9-16.9)
[2018-05-03] MEDS: Insulin LISPRO 300 UNITS/3 ML VIAL SQ SCH ×2 (12:00→17:25)
[2018-05-03] MEDS: *HR* OxyCODONE Immed Rel 5 MG TABLET PO PRN ×2 (12:17→17:08)
[2018-05-03] MEDS: Gabapentin 300 MG CAPSULE PO SCH ×2 (14:26→14:39)
[2018-05-03 15:08] VITALS: BP 145/73
[2018-05-03] MEDS ORDERED: Insulin LISPRO 300 UNITS/3 ML VIAL SQ SCH (21:00)
--- NOTE | 2018-05-04 07:31 | Electrocardiograph Report ---
[place] [employer] Test Date: 2018-05-03 Pat Name: Mat Slater Department: 106 Room: [facility] Gender: M [employer] Internship: KELSEY : 1940 Requested By: Yaw Muniz Order Number: [id number] Reading MD: Jean Fuentes Measurements Intervals [place] Rate: 79 P: 68 AL: 164 QRS: -41 QRSD: 93 T: 126 QT: 373 QTc: 407 Interpretive Statements SINUS RHYTHM MARKED LEFT AXIS DEVIATION Electronically Signed On 05-04-2018 7:29:37 EST by Jean Fuentes
== END 2018-05-03 18:50 | disposition home or self-care (01) | DRG 483 ==
LOC: SAMDAY 06:16 → 3NENU 10:46
PROVIDERS: ADMIT Orthopaedic Surgery; ATTEND Orthopaedic Surgery

== ENCOUNTER 2021-07-01 09:40 | Inpatient (IN) ==
[2021-07-01] MEDS ORDERED: Heparin 1,000 UNITS/500 mL 500 ML ONE ×3 (09:49→12:12)
[2021-07-01] MEDS ORDERED: *HR* Heparin 10,000 UNIT/10 ML VIAL ONE (09:49)
[2021-07-01] MEDS ORDERED: Nitroglycerin 1,000 MCG/5 ML VIAL IV ONE (09:49)
[2021-07-01] MEDS ORDERED: ISOVUE-370 200 ML INFUS..BTL ONE ×2 (09:49→11:15)
[2021-07-01] MEDS ORDERED: 0.9 % Sodium Chloride 2,000 ML ONE (09:49)
[2021-07-01] MEDS ORDERED: *HR* FentaNYL (PF) 100 MCG/2 ML VIAL ONE (09:55)
[2021-07-01] MEDS ORDERED: *HR* Midazolam HCl 2 MG/2 ML VIAL ONE (09:55)
[2021-07-01] MEDS ORDERED: *HR* Atropine Sulfate 1 MG/10 ML SYRINGE ONE (10:00)
[2021-07-01 10:11] LABS: Basophils % 0.4 %; Eosinophils # 0.1 K/mcL (0.0-0.6); Eosinophils % 0.8 %; Hematocrit 34.9 % (37.5-50.1); Hemoglobin 10.7 g/dL (12.9-16.9); Immature Granulocytes % 0.9 % (0-4); Lymphocytes # 2.1 K/mcL (0.6-4.6); Lymphocytes % 27.5 %; Mean Corpuscular HGB Conc 30.7 g/dL (31.6-35.5); Mean Corpuscular Hemoglobin 28.5 pg (28.0-33.3); Mean Corpuscular Volume 92.8 fL (83.0-100.0); Mean Platelet Volume 11.2 fL (9.4-12.4); Monocytes # 0.7 K/mcL (0.0-1.3); Monocytes % 8.5 %; Neutrophils # 4.7 K/mcL (1.6-8.9); Platelet Count 278 K/mcL (140-400); Red Blood Count 3.76 M/mcL (4.19-5.50); Red Cell Distribution Width 18.6 % (11.5-14.5); Segmented Neutrophils % 61.9 %; White Blood Count 7.6 K/mcL (4.3-11.1)
[2021-07-01] MEDS ORDERED: *HR* Atropine Sulfate 1 MG/10 ML SYRINGE IV ONE ×2 (10:30→13:43)
[2021-07-01] MEDS ORDERED: *HR* EPINEPHrine 1 MG/10 ML SYRINGE IVP ONE ×2 (10:30→13:43)
[2021-07-01 10:35] LABS: Albumin 3.7 g/dL (3.5-5.7); Albumin/Globulin Ratio 1.6 (1.1-2.2); Bilirubin,Direct 0.4 mg/dL (0.0-0.2); Bilirubin,Indirect 0.3 mg/dL (0.0-1.0); Bilirubin,Total 0.7 mg/dL (0.3-1.0); Calcium 8.2 mg/dL (8.6-10.3); Globulin 2.3 g/dL (2.4-3.5); Potassium 4.1 mEq/L (3.5-5.1); Troponin I 0.06 ng/mL (< 0.04)
[2021-07-01] MEDS ORDERED: Tirofiban 12.5 MG/250ML 12.5 MG/250 ML BAG ONE (10:37)
[2021-07-01] MEDS ORDERED: *HR* Ticagrelor 90 MG TABLET ONE (11:24)
[2021-07-01] MEDS ORDERED: 0.9 % Sodium Chloride 1,000 ML ONE ×3 (11:34→14:53)
[2021-07-01] MEDS ORDERED: Ondansetron 4 MG/2 ML VIAL ONE (11:35)
[2021-07-01] MEDS ORDERED: *HR* Amiodarone 150 MG/3 ML VIAL IVPB ONE (11:36)
[2021-07-01] MEDS ORDERED: Amiodarone Premix 360 MG/200 ML BAG IVC ONE (11:38)
[2021-07-01] MEDS ORDERED: Isovue-370 500 ML BOTTLE IVP ONE ×2 (12:15→12:20)
[2021-07-01 12:37] LABS: ABG Base Excess -19 mEq/L (-2 to 3); ABG HCO3 12 mEq/L (21-27); ABG Oxygen Saturation 91 % (95-98); ABG PCO2 48 mmHg (35-45); ABG PO2 93 mmHg (85-104); ABG TCO2 13 mEq/L (20-26); Blood Gas Modality ASSIST CONTROL; Blood Gas VT 500 cc
[2021-07-01] MEDS ORDERED: Perflutren Lipid Microsphere 1.3 ML in 0.9 % Sodium Chloride 8.7 ML IVP PRN (13:09)
[2021-07-01] MEDS ORDERED: Tirofiban 12.5 MG/250ML 12.5 MG/250 ML BAG IVC SCH (13:15)
[2021-07-01] MEDS ORDERED: EPINEPHrine 1 MG in D5% in Water 250 ML IVC SCH (13:15)
[2021-07-01] MEDS ORDERED: *HR* Succinylcholine 200 MG/10 ML VIAL IVP ONE (13:37)
[2021-07-01] MEDS ORDERED: *HR* Etomidate 20 MG/10 ML AMPUL IVP ONE (13:37)
[2021-07-01] MEDS ORDERED: Lidocaine 2% Syringe 100 MG/5 ML IVP ONE (13:43)
[2021-07-01 14:00] LABS: ABG Base Excess -9 mEq/L (-2 to 3); ABG HCO3 17 mEq/L (21-27); ABG Oxygen Saturation 100 % (95-98); ABG PCO2 38 mmHg (35-45); ABG PH 7.26 pH Units (7.32-7.45); ABG PO2 301 mmHg (85-104); ABG TCO2 18 mEq/L (20-26); Blood Gas Modality ASSIST CONTROL; Blood Gas VT 500 cc
[2021-07-01] MEDS ORDERED: Artificial Tears SOLN 15 ML BOTTLE BOTH EYES PRN (14:40)
[2021-07-01] MEDS ORDERED: *HR* Ticagrelor 90 MG TABLET GTUBE ONE (14:40)
[2021-07-01 15:17] LABS: Basophils % 0.1 %; Hematocrit 25.4 % (37.5-50.1); Lymphocytes # 0.8 K/mcL (0.6-4.6); Lymphocytes % 5.6 %; Mean Corpuscular HGB Conc 30.3 g/dL (31.6-35.5); Mean Corpuscular Hemoglobin 28.2 pg (28.0-33.3); Mean Platelet Volume 11.5 fL (9.4-12.4); Monocytes # 1.1 K/mcL (0.0-1.3); Monocytes % 7.9 %; Platelet Count 237 K/mcL (140-400); Red Blood Count 2.73 M/mcL (4.19-5.50); Red Cell Distribution Width 18.7 % (11.5-14.5); Segmented Neutrophils % 84.4 %
[2021-07-01 15:18] LABS: Hemoglobin 7.7 g/dL (12.9-16.9); White Blood Count 14.2 K/mcL (4.3-11.1)
[2021-07-01 15:24] LABS: INR 1.7; Prothrombin Time 18.5 Seconds (9.4-12.1)
[2021-07-01 15:27] LABS: Activated Partial Thrombo Time 78.1 Seconds (26.0-36.0)
[2021-07-01 15:31] LABS: ABG Base Excess -11 mEq/L (-2 to 3); ABG HCO3 14 mEq/L (21-27); ABG Oxygen Saturation 98 % (95-98); ABG PCO2 28 mmHg (35-45); ABG PO2 119 mmHg (85-104); ABG TCO2 15 mEq/L (20-26)
[2021-07-01 15:33] LABS: Albumin 2.5 g/dL (3.5-5.7); Albumin/Globulin Ratio 1.6 (1.1-2.2); Bilirubin,Direct 0.8 mg/dL (0.0-0.2); Bilirubin,Indirect 0.3 mg/dL (0.0-1.0); Bilirubin,Total 1.1 mg/dL (0.3-1.0); Calcium 6.5 mg/dL (8.6-10.3); Globulin 1.6 g/dL (2.4-3.5); Magnesium 1.9 mg/dL (1.6-2.6); Phosphorous 4.3 mg/dL (2.7-4.5); Potassium 3.3 mEq/L (3.5-5.1); Total Protein 4.1 g/dL (6.4-8.9)
[2021-07-01] MEDS ORDERED: Potassium Chloride Elixir 20 MEQ/15 ML UDC GTUBE ONE (15:37)
[2021-07-01] MEDS: Artificial Tears SOLN 15 ML BOTTLE BOTH EYES SCH ×2 (15:43→20:38)
[2021-07-01] MEDS: Dexmedetomidine HCl 400 MCG/100 ML MLS IVC SCH ×3 (15:43→22:29)
[2021-07-01] MEDS ORDERED: Norepinephrine 4 MG/254 ML IV.SOLN IVC SCH (15:45)
[2021-07-01] MEDS: FentaNYL (PF) 1,000 MCG/100 ML IV.SOLN IVC SCH ×2 (16:00→20:20)
[2021-07-01] MEDS: Calcium Gluconate 1gm/50mL 1 GM/50 ML BAG IVPB SCH ×2 (16:03→16:28)
[2021-07-01] MEDS: Amiodarone Premix 360 MG/200 ML BAG IVC ONE ×2 (16:05→16:25)
[2021-07-01] MEDS: EPINEPHrine 5 MG in D5% in Water 250 ML IVC SCH (16:49)
[2021-07-01] MEDS: Pantoprazole 40 MG VIAL IVP SCH (18:19)
[2021-07-01 18:22] LABS: Influenza A PCR Negative (Negative); Influenza B PCR Negative (Negative); Resp. Syncytial Virus PCR Negative (Negative)
[2021-07-01 18:25] LABS: SARS-CoV-2 by PCR (In House) Negative (Negative)
[2021-07-01 18:53] LABS: Hematocrit 25.2 % (37.5-50.1); Hemoglobin 8.1 g/dL (12.9-16.9)
[2021-07-01] MEDS: Budesonide/Formoterol 160/4.5 1 PUFF INH IH SCH (20:09)
[2021-07-01 20:23] LABS: ABG Base Excess -9 mEq/L (-2 to 3); ABG HCO3 16 mEq/L (21-27); ABG Oxygen Saturation 99 % (95-98); ABG PCO2 29 mmHg (35-45); ABG PH 7.36 pH Units (7.32-7.45); ABG PO2 124 mmHg (85-104); ABG TCO2 17 mEq/L (20-26); Blood Gas VT 500 cc
[2021-07-01 20:43] LABS: VBG Ionized Calcium 1.04 mmol/L (1.15-1.35)
[2021-07-01 20:50] LABS: INR 1.5; Prothrombin Time 16.4 Seconds (9.4-12.1)
[2021-07-01 20:56] LABS: Magnesium 2.3 mg/dL (1.6-2.6); Phosphorous 3.5 mg/dL (2.7-4.5)
[2021-07-01] MEDS ORDERED: *HR* Midazolam HCl 5 MG/5 ML VIAL IVP ONE ×2 (21:01→21:06)
[2021-07-01] MEDS: Chlorhexidine Rinse 15 ML MOUTHWASH MM SCH (21:15)
[2021-07-01] MEDS ORDERED: NOREPINEPHRINE IVC SCH (21:30)
[2021-07-01] MEDS ORDERED: SODIUM CHLORIDE IVC SCH (21:30)
[2021-07-01 21:47] LABS: Basophils % 0.1 %; Hematocrit 25.8 % (37.5-50.1); Hemoglobin 8.5 g/dL (12.9-16.9); Immature Granulocytes % 0.8 % (0-4); Lymphocytes # 0.4 K/mcL (0.6-4.6); Lymphocytes % 4.3 %; Mean Corpuscular HGB Conc 32.9 g/dL (31.6-35.5); Mean Corpuscular Hemoglobin 28.9 pg (28.0-33.3); Mean Corpuscular Volume 87.8 fL (83.0-100.0); Mean Platelet Volume 11.6 fL (9.4-12.4); Monocytes # 0.7 K/mcL (0.0-1.3); Neutrophils # 8.9 K/mcL (1.6-8.9); Platelet Count 270 K/mcL (140-400); Red Blood Count 2.94 M/mcL (4.19-5.50); Red Cell Distribution Width 18.5 % (11.5-14.5); Segmented Neutrophils % 87.8 %; White Blood Count 10.2 K/mcL (4.3-11.1)
[2021-07-01] MEDS: *HR* Ticagrelor 90 MG TABLET PO SCH (22:04)
[2021-07-01 22:10] LABS: Albumin 2.9 g/dL (3.5-5.7); Albumin/Globulin Ratio 1.7 (1.1-2.2); Bilirubin,Total 0.4 mg/dL (0.3-1.0); Calcium 7.3 mg/dL (8.6-10.3); Globulin 1.7 g/dL (2.4-3.5); Potassium 4.2 mEq/L (3.5-5.1); Total Protein 4.6 g/dL (6.4-8.9)
[2021-07-01] MEDS: Amiodarone Premix 360 MG/200 ML BAG IVC SCH (22:29)
[2021-07-01] MEDS: NOREPINEPHRINE IVC SCH (22:31)
[2021-07-01] MEDS: SODIUM CHLORIDE IVC SCH (22:31)
[2021-07-01] MEDS ORDERED: Sodium Bicarbonate 150 MEQ in D5% in Water 1,000 ML IVC SCH (23:45)
[2021-07-02] MEDS: Artificial Tears SOLN 15 ML BOTTLE BOTH EYES SCH ×6 (01:09→19:38)
[2021-07-02 02:23] LABS: Basophils % 0.1 %; Hematocrit 25.5 % (37.5-50.1); Hemoglobin 8.5 g/dL (12.9-16.9); Immature Granulocytes % 0.5 % (0-4); Lymphocytes % 7.7 %; Mean Corpuscular HGB Conc 33.3 g/dL (31.6-35.5); Mean Corpuscular Hemoglobin 29.1 pg (28.0-33.3); Mean Corpuscular Volume 87.3 fL (83.0-100.0); Monocytes # 1.4 K/mcL (0.0-1.3); Monocytes % 10.6 %; Neutrophils # 10.5 K/mcL (1.6-8.9); Platelet Count 254 K/mcL (140-400); Red Blood Count 2.92 M/mcL (4.19-5.50); Red Cell Distribution Width 18.6 % (11.5-14.5); Segmented Neutrophils % 81.1 %; White Blood Count 12.9 K/mcL (4.3-11.1)
[2021-07-02 02:25] LABS: VBG Ionized Calcium 1.03 mmol/L (1.15-1.35)
[2021-07-02 02:54] LABS: Albumin/Globulin Ratio 1.7 (1.1-2.2); Bilirubin,Direct 0.2 mg/dL (0.0-0.2); Bilirubin,Indirect 0.2 mg/dL (0.0-1.0); Bilirubin,Total 0.4 mg/dL (0.3-1.0); Calcium 7.3 mg/dL (8.6-10.3); Globulin 1.8 g/dL (2.4-3.5); Magnesium 2.2 mg/dL (1.6-2.6); Phosphorous 2.9 mg/dL (2.7-4.5); Total Protein 4.8 g/dL (6.4-8.9)
[2021-07-02] MEDS ORDERED: *HR* Dextrose 50 % in Water (Syg) 50 ML SYRINGE IVP PRN (03:20)
[2021-07-02] MEDS ORDERED: Dextrose Gel 15 GM/37.5 ML TUBE PO PRN ×2 (03:20)
[2021-07-02] MEDS ORDERED: D5% in Water 1,000 ML IVC PRN (03:20)
[2021-07-02] MEDS: Insulin LISPRO 300 UNITS/3 ML VIAL SUBQ SCH ×4 (03:29→17:39)
[2021-07-02 04:07] LABS: ABG Base Excess -3 mEq/L (-2 to 3); ABG HCO3 21 mEq/L (21-27); ABG Oxygen Saturation 99 % (95-98); ABG PCO2 31 mmHg (35-45); ABG PH 7.43 pH Units (7.32-7.45); ABG PO2 113 mmHg (85-104); ABG TCO2 22 mEq/L (20-26); Blood Gas VT 500 cc
[2021-07-02] MEDS: Dexmedetomidine HCl 400 MCG/100 ML MLS IVC SCH ×4 (05:10→23:02)
[2021-07-02] MEDS: Pantoprazole 40 MG VIAL IVP SCH ×2 (05:53→17:26)
[2021-07-02 06:15] LABS: Hematocrit 24.5 % (37.5-50.1); Hemoglobin 8.2 g/dL (12.9-16.9)
[2021-07-02] MEDS: FentaNYL (PF) 1,000 MCG/100 ML IV.SOLN IVC SCH ×3 (07:29→21:35)
[2021-07-02] MEDS: Budesonide/Formoterol 160/4.5 1 PUFF INH IH SCH ×2 (07:53→20:15)
[2021-07-02] MEDS: SODIUM CHLORIDE IVC SCH ×2 (07:55→17:25)
[2021-07-02] MEDS: NOREPINEPHRINE IVC SCH ×2 (07:55→17:25)
[2021-07-02] MEDS: *HR* Ticagrelor 90 MG TABLET PO SCH ×2 (08:36→19:37)
[2021-07-02] MEDS: Chlorhexidine Rinse 15 ML MOUTHWASH MM SCH ×2 (08:36→19:37)
[2021-07-02] MEDS: Aspirin 81 MG TAB.CHEW PO SCH (08:36)
[2021-07-02] MEDS: Amiodarone Premix 360 MG/200 ML BAG IVC SCH ×2 (10:02→21:30)
[2021-07-02] MEDS: Piperacillin/Tazobactam 3.375 GM in 0.9 % Sodium Chloride Mini Bag 100 ML IVPB SCH ×2 (10:18→17:26)
[2021-07-02] MEDS: Ringers Solution, Lactated 1,000 ML IVC SCH ×2 (10:18→20:34)
[2021-07-02 12:08] LABS: VBG Ionized Calcium 1.02 mmol/L (1.15-1.35)
[2021-07-02 12:16] LABS: Bilirubin,Urine Negative (Negative); Blood,Urine Large (Negative); Clarity,Urine Turbid (Clear); Color,Urine Yellow (Yellow); Glucose,Urine (UA) 300 mg/dL (Normal); Ketones,Urine Negative (Negative); Leukocyte Esterase,Urine Negative (Negative); Mucus,Urine Few per lpf (None-Few); Nitrite,Urine Negative (Negative); Protein,Urine 50 mg/dL (Neg-Trace); RBC,Urine TNTC per hpf (0-3); Specific Gravity,Urine > 1.030 (1.010-1.025); Urobilinogen,Urine Normal (Normal)
[2021-07-02 12:25] LABS: Magnesium 1.9 mg/dL (1.6-2.6); Phosphorous 2.4 mg/dL (2.7-4.5)
[2021-07-02 12:26] LABS: Calcium 7.4 mg/dL (8.6-10.3); Potassium 3.7 mEq/L (3.5-5.1)
[2021-07-02] MEDS: Calcium Gluconate 1gm/50mL 1 GM/50 ML BAG IVPB PRN ×2 (13:20→23:02)
[2021-07-02] MEDS ORDERED: Potassium Chloride Elixir 20 MEQ/15 ML UDC GTUBE PRN (13:30)
[2021-07-02] MEDS ORDERED: Albumin Human 5% 25.0 GM/500 ML IV.SOLN ONE (14:10)
[2021-07-02] MEDS: Albumin Human 5% 12.5 GM/250 ML IV.SOLN IVC SCH ×2 (14:18→14:35)
[2021-07-02 18:26] LABS: Hematocrit 22.5 % (37.5-50.1); Hemoglobin 7.3 g/dL (12.9-16.9)
[2021-07-02] MEDS: *HR* Heparin 5,000 UNIT/ML VIAL SQ SCH (18:44)
[2021-07-02] MEDS ORDERED: *HR* Midazolam HCl 5 MG/5 ML VIAL IVP ONE ×2 (21:59→22:10)
[2021-07-02 22:25] LABS: VBG Ionized Calcium 1.06 mmol/L (1.15-1.35)
[2021-07-02 22:37] LABS: Magnesium 2.1 mg/dL (1.6-2.6); Phosphorous 2.8 mg/dL (2.7-4.5)
[2021-07-02] MEDS: EPINEPHrine 5 MG in D5% in Water 250 ML IVC SCH (22:54)
[2021-07-03 00:03] LABS: Hematocrit 21.9 % (37.5-50.1); Hemoglobin 7.6 g/dL (12.9-16.9)
[2021-07-03] MEDS: Artificial Tears SOLN 15 ML BOTTLE BOTH EYES SCH ×6 (00:30→19:35)
[2021-07-03] MEDS: Insulin LISPRO 300 UNITS/3 ML VIAL SUBQ SCH ×4 (00:30→17:25)
[2021-07-03] MEDS: Piperacillin/Tazobactam 3.375 GM in 0.9 % Sodium Chloride Mini Bag 100 ML IVPB SCH ×3 (00:32→18:42)
[2021-07-03] MEDS: FentaNYL (PF) 1,000 MCG/100 ML IV.SOLN IVC SCH ×3 (02:27→22:57)
[2021-07-03] MEDS ORDERED: *HR* Midazolam HCl 5 MG/5 ML VIAL IVP ONE ×2 (02:44→02:50)
[2021-07-03 03:58] LABS: Basophils % 0.1 %; Hematocrit 21.9 % (37.5-50.1); Hemoglobin 7.4 g/dL (12.9-16.9); Immature Granulocytes % 0.7 % (0-4); Lymphocytes # 0.9 K/mcL (0.6-4.6); Lymphocytes % 7.8 %; Mean Corpuscular HGB Conc 33.8 g/dL (31.6-35.5); Mean Corpuscular Volume 85.9 fL (83.0-100.0); Mean Platelet Volume 12.5 fL (9.4-12.4); Monocytes # 0.9 K/mcL (0.0-1.3); Monocytes % 7.8 %; Neutrophils # 9.7 K/mcL (1.6-8.9); Platelet Count 173 K/mcL (140-400); Red Blood Count 2.55 M/mcL (4.19-5.50); Red Cell Distribution Width 18.7 % (11.5-14.5); Segmented Neutrophils % 83.6 %; White Blood Count 11.7 K/mcL (4.3-11.1)
[2021-07-03 04:22] LABS: ABG Base Excess -3 mEq/L (-2 to 3); ABG HCO3 19 mEq/L (21-27); ABG Oxygen Saturation 93 % (95-98); ABG PCO2 24 mmHg (35-45); ABG PH 7.51 pH Units (7.32-7.45); ABG PO2 57 mmHg (85-104); ABG TCO2 20 mEq/L (20-26); Blood Gas VT 500 cc
[2021-07-03 04:26] LABS: VBG Ionized Calcium 1.06 mmol/L (1.15-1.35)
[2021-07-03 04:31] LABS: Alanine Aminotransferase 2569 Units/L (7-52); Albumin 2.9 g/dL (3.5-5.7); Albumin/Globulin Ratio 1.5 (1.1-2.2); Alkaline Phosphatase 31 Units/L (34-104); Aspartate Amino Transferase > 3000 Units/L (13-39); BUN/Creatinine Ratio 21 (6-26); Blood Urea Nitrogen 29 mg/dL (8-23); Calcium 7.6 mg/dL (8.6-10.3); Carbon Dioxide 21 mEq/L (23-29); Chloride 105 mEq/L (98-107); Globulin 1.9 g/dL (2.4-3.5); Glucose 127 mg/dL (70-105); Magnesium 1.9 mg/dL (1.6-2.6); Osmolality,Calculated 289 (280-300); Phosphorous 2.8 mg/dL (2.7-4.5); Potassium 4.1 mEq/L (3.5-5.1); Sodium 136 mEq/L (136-145); Total Protein 4.8 g/dL (6.4-8.9); eGFR For African Americans > 60 (> 60); eGFR For Non-African Americans 51 (> 60)
[2021-07-03] MEDS: Dexmedetomidine HCl 400 MCG/100 ML MLS IVC SCH (04:53)
[2021-07-03] MEDS: Calcium Gluconate 1gm/50mL 1 GM/50 ML BAG IVPB PRN ×4 (04:54→23:47)
[2021-07-03] MEDS: NOREPINEPHRINE IVC SCH ×3 (05:24→22:49)
[2021-07-03] MEDS: SODIUM CHLORIDE IVC SCH ×3 (05:24→22:49)
[2021-07-03] MEDS: *HR* Heparin 5,000 UNIT/ML VIAL SQ SCH ×2 (05:31→17:25)
[2021-07-03] MEDS: Pantoprazole 40 MG VIAL IVP SCH ×2 (05:34→17:28)
[2021-07-03] MEDS: Ringers Solution, Lactated 1,000 ML IVC SCH (06:21)
[2021-07-03 06:26] LABS: Hematocrit 23.1 % (37.5-50.1); Hemoglobin 7.5 g/dL (12.9-16.9)
[2021-07-03 07:04] LABS: ABG Base Excess -5 mEq/L (-2 to 3); ABG HCO3 19 mEq/L (21-27); ABG Oxygen Saturation 94 % (95-98); ABG PCO2 31 mmHg (35-45); ABG PO2 71 mmHg (85-104); ABG TCO2 20 mEq/L (20-26); Blood Gas Modality ASSIST CONTROL; Blood Gas VT 500 cc
[2021-07-03] MEDS ORDERED: Ringers Solution, Lactated 1,000 ML IVC ONE (07:32)
[2021-07-03] MEDS ORDERED: Acetylcysteine 3,900 MG in D5% in Water 500 ML IVC ONE (07:52)
[2021-07-03] MEDS ORDERED: D5 IVC ONE ×2 (07:52)
[2021-07-03] MEDS ORDERED: WATER IVC ONE ×2 (07:52)
[2021-07-03] MEDS ORDERED: ACETYLCYSTEINE IVC ONE ×2 (07:52)
[2021-07-03 07:56] LABS: ABG Ionized Calcium 1.06 mmol/L (1.15-1.35)
[2021-07-03 07:59] LABS: Basophils % 0.1 %; Hematocrit 22.4 % (37.5-50.1); Hemoglobin 7.1 g/dL (12.9-16.9); Immature Granulocytes % 0.7 % (0-4); Lymphocytes % 8.6 %; Mean Corpuscular HGB Conc 31.7 g/dL (31.6-35.5); Mean Corpuscular Hemoglobin 27.7 pg (28.0-33.3); Mean Corpuscular Volume 87.5 fL (83.0-100.0); Monocytes % 8.7 %; Neutrophils # 9.7 K/mcL (1.6-8.9); Platelet Count 157 K/mcL (140-400); Red Blood Count 2.56 M/mcL (4.19-5.50); Segmented Neutrophils % 81.9 %; White Blood Count 11.8 K/mcL (4.3-11.1)
[2021-07-03 08:14] LABS: BUN/Creatinine Ratio 20 (6-26); Blood Urea Nitrogen 30 mg/dL (8-23); Calcium 7.4 mg/dL (8.6-10.3); Carbon Dioxide 21 mEq/L (23-29); Chloride 104 mEq/L (98-107); Glucose 134 mg/dL (70-105); Magnesium 2.2 mg/dL (1.6-2.6); Osmolality,Calculated 292 (280-300); Potassium 4.1 mEq/L (3.5-5.1); Sodium 137 mEq/L (136-145); eGFR For African Americans 55 (> 60); eGFR For Non-African Americans 45 (> 60)
[2021-07-03 08:22] LABS: Troponin I > 73.00 ng/mL (< 0.04)
[2021-07-03] MEDS: Budesonide/Formoterol 160/4.5 1 PUFF INH IH SCH ×2 (08:25→20:39)
[2021-07-03] MEDS ORDERED: Midazolam HCl 50 MG/100 ML IV.SOLN IVC SCH (08:45)
[2021-07-03] MEDS: *HR* Ticagrelor 90 MG TABLET PO SCH ×2 (09:01→20:48)
[2021-07-03] MEDS: Aspirin 81 MG TAB.CHEW PO SCH (09:01)
[2021-07-03] MEDS: Chlorhexidine Rinse 15 ML MOUTHWASH MM SCH ×2 (09:01→20:48)
[2021-07-03] MEDS: Amiodarone Premix 360 MG/200 ML BAG IVC SCH ×2 (09:02→20:55)
[2021-07-03] MEDS ORDERED: Perflutren Lipid Microsphere 1.3 ML in 0.9 % Sodium Chloride 8.7 ML IVP PRN (09:17)
[2021-07-03 11:58] LABS: INR 3.7; Prothrombin Time 40.8 Seconds (9.4-12.1)
[2021-07-03 12:01] LABS: Activated Partial Thrombo Time 35.9 Seconds (26.0-36.0)
[2021-07-03 12:24] LABS: ABG Base Excess -5 mEq/L (-2 to 3); ABG HCO3 19 mEq/L (21-27); ABG Oxygen Saturation 100 % (95-98); ABG PCO2 28 mmHg (35-45); ABG PH 7.43 pH Units (7.32-7.45); ABG PO2 218 mmHg (85-104); ABG TCO2 20 mEq/L (20-26)
[2021-07-03] MEDS ORDERED: Vasopressin 40 UNIT in D5% in Water 100 ML IVC SCH (12:45)
[2021-07-03] MEDS ORDERED: 0.9 % Sodium Chloride 250 ML ONE ×3 (14:48→23:43)
[2021-07-03 15:33] LABS: VBG Ionized Calcium 0.85 mmol/L (1.15-1.35)
[2021-07-03 15:48] LABS: Calcium 6.5 mg/dL (8.6-10.3); Magnesium 1.9 mg/dL (1.6-2.6); Phosphorous 2.6 mg/dL (2.7-4.5); Potassium 4.1 mEq/L (3.5-5.1)
[2021-07-03] MEDS: EPINEPHrine 5 MG in D5% in Water 250 ML IVC SCH (17:55)
[2021-07-03 20:43] VITALS: O2SAT 89
[2021-07-03 20:52] LABS: VBG Ionized Calcium 0.96 mmol/L (1.15-1.35)
[2021-07-03 21:06] VITALS: PULSE 70
[2021-07-03 21:09] LABS: ABG Base Excess -8 mEq/L (-2 to 3); ABG HCO3 16 mEq/L (21-27); ABG Oxygen Saturation 100 % (95-98); ABG PCO2 26 mmHg (35-45); ABG PO2 170 mmHg (85-104); ABG TCO2 16 mEq/L (20-26); Blood Gas Modality ASSIST CONTROL; Blood Gas VT 500 cc
[2021-07-03 21:31] LABS: Alanine Aminotransferase > 5000 Units/L (7-52); Albumin 2.5 g/dL (3.5-5.7); Albumin/Globulin Ratio 1.6 (1.1-2.2); Alkaline Phosphatase 61 Units/L (34-104); Aspartate Amino Transferase > 3000 Units/L (13-39); BUN/Creatinine Ratio 14 (6-26); Bilirubin,Total 1.9 mg/dL (0.3-1.0); Blood Urea Nitrogen 34 mg/dL (8-23); Carbon Dioxide 18 mEq/L (23-29); Chloride 97 mEq/L (98-107); Globulin 1.6 g/dL (2.4-3.5); Glucose 168 mg/dL (70-105); Osmolality,Calculated 281 (280-300); Potassium 4.2 mEq/L (3.5-5.1); Sodium 130 mEq/L (136-145); Total Protein 4.1 g/dL (6.4-8.9); eGFR For African Americans 32 (> 60); eGFR For Non-African Americans 26 (> 60)
[2021-07-03 21:48] LABS: Basophils % 0.1 %
[2021-07-03 21:50] LABS: Immature Platelets 10.4 % (1.1-6.1)
[2021-07-03] MEDS ORDERED: 0.9 % Sodium Chloride 500 ML IVC ONE (21:53)
[2021-07-03 22:03] LABS: Red Cell Distribution Width 17.6 % (11.5-14.5)
[2021-07-03 22:06] LABS: Hematocrit 24.3 % (37.5-50.1); Hemoglobin 7.9 g/dL (12.9-16.9); Lymphocytes # 0.9 K/mcL (0.6-4.6); Lymphocytes % 6.9 %; Mean Corpuscular HGB Conc 32.5 g/dL (31.6-35.5); Mean Corpuscular Hemoglobin 28.6 pg (28.0-33.3); Mean Platelet Volume 12.4 fL (9.4-12.4); Monocytes # 1.1 K/mcL (0.0-1.3); Monocytes % 8.6 %; Neutrophils # 10.8 K/mcL (1.6-8.9); Nucleated Red Blood Cells 0.4 /100 WBC (0); Red Blood Count 2.76 M/mcL (4.19-5.50); Segmented Neutrophils % 83.4 %
[2021-07-03 22:57] LABS: Platelet Count 99 K/mcL (140-400); Reactive Lymphocytes Present (Not Present)
[2021-07-03 22:58] LABS: Large Platelets Present (Not Present)
[2021-07-03 22:59] LABS: Platelet Estimate Decreased (Normal)
[2021-07-03] MEDS ORDERED: 0.9 % Sodium Chloride 250 ML IVC SCH (23:30)
[2021-07-04] MEDS: Insulin LISPRO 300 UNITS/3 ML VIAL SUBQ SCH ×2 (00:12→05:06)
[2021-07-04] MEDS: Artificial Tears SOLN 15 ML BOTTLE BOTH EYES SCH ×3 (00:12→08:26)
[2021-07-04] MEDS: Piperacillin/Tazobactam 3.375 GM in 0.9 % Sodium Chloride Mini Bag 100 ML IVPB SCH ×2 (01:24→08:26)
[2021-07-04 03:16] LABS: Basophils % 0.2 %; Hemoglobin 8.8 g/dL (12.9-16.9)
[2021-07-04 03:18] LABS: Hematocrit 27.6 % (37.5-50.1); Immature Granulocytes % 2.1 % (0-4); Immature Platelets 13.9 % (1.1-6.1); Lymphocytes # 0.8 K/mcL (0.6-4.6); Lymphocytes % 6.4 %; Mean Corpuscular HGB Conc 31.9 g/dL (31.6-35.5); Mean Corpuscular Hemoglobin 29.3 pg (28.0-33.3); Monocytes % 7.8 %; Nucleated Red Blood Cells 1.1 /100 WBC (0); Red Cell Distribution Width 17.7 % (11.5-14.5); Segmented Neutrophils % 83.5 %; White Blood Count 12.8 K/mcL (4.3-11.1)
[2021-07-04 03:22] LABS: Neutrophils # 10.7 K/mcL (1.6-8.9); Platelet Count 82 K/mcL (140-400)
[2021-07-04] MEDS: SODIUM CHLORIDE IVC SCH ×2 (03:36→08:03)
[2021-07-04] MEDS: NOREPINEPHRINE IVC SCH ×2 (03:36→08:03)
[2021-07-04 04:00] LABS: Alanine Aminotransferase > 5000 Units/L (7-52); Albumin 2.4 g/dL (3.5-5.7); Albumin/Globulin Ratio 1.4 (1.1-2.2); Alkaline Phosphatase 61 Units/L (34-104); Aspartate Amino Transferase > 3000 Units/L (13-39); BUN/Creatinine Ratio 12 (6-26); Bilirubin,Total 2.4 mg/dL (0.3-1.0); Blood Urea Nitrogen 34 mg/dL (8-23); Calcium 7.2 mg/dL (8.6-10.3); Carbon Dioxide 15 mEq/L (23-29); Chloride 95 mEq/L (98-107); Globulin 1.7 g/dL (2.4-3.5); Glucose 143 mg/dL (70-105); Magnesium 2.1 mg/dL (1.6-2.6); Osmolality,Calculated 284 (280-300); Phosphorous 7.2 mg/dL (2.7-4.5); Potassium 4.4 mEq/L (3.5-5.1); Sodium 132 mEq/L (136-145); Total Protein 4.1 g/dL (6.4-8.9); eGFR For African Americans 25 (> 60); eGFR For Non-African Americans 21 (> 60)
[2021-07-04] MEDS: *HR* Heparin 5,000 UNIT/ML VIAL SQ SCH (04:11)
[2021-07-04 04:24] LABS: ABG Base Excess -17 mEq/L (-2 to 3); ABG HCO3 12 mEq/L (21-27); ABG Oxygen Saturation 80 % (95-98); ABG PCO2 43 mmHg (35-45); ABG PH 7.06 pH Units (7.32-7.45); ABG PO2 63 mmHg (85-104); ABG TCO2 13 mEq/L (20-26); Blood Gas Modality ASSIST CONTROL; Blood Gas VT 500 cc
[2021-07-04] MEDS ORDERED: Sodium Bicarbonate 150 MEQ in D5% in Water 1,000 ML IVC SCH (04:30)
[2021-07-04] MEDS: EPINEPHrine 5 MG in D5% in Water 250 ML IVC SCH (04:32)
[2021-07-04] MEDS: Pantoprazole 40 MG VIAL IVP SCH (05:04)
[2021-07-04 06:59] VITALS: TEMP 97.6
[2021-07-04] MEDS: Budesonide/Formoterol 160/4.5 1 PUFF INH IH SCH (08:10)
[2021-07-04] MEDS: Aspirin 81 MG TAB.CHEW PO SCH (08:25)
[2021-07-04] MEDS: Chlorhexidine Rinse 15 ML MOUTHWASH MM SCH (08:26)
[2021-07-04] MEDS: *HR* Ticagrelor 90 MG TABLET PO SCH (08:26)
[2021-07-04 09:19] VITALS: BP 47/37
[2021-07-04] MEDS: Amiodarone Premix 360 MG/200 ML BAG IVC SCH (09:45)
== END 2021-07-04 10:18 | disposition expired | DRG 246 ==
LOC: EMEROOARM 09:40 → ICNU 12:13
PROVIDERS: ADMIT Internal Medicine Cardiovascular Disease; ATTEND Internal Medicine Cardiovascular Disease